=== PATIENT | male | born 1955 | race Caucasian/White ===

== ENCOUNTER 2017-10-27 15:41 | Emergency (ER) | payer OTHER ==
[~2017-10-27] VITALS: Ht 172.7 cm; Wt 97.3 kg
[~2017-10-27 15:41] MED LIST: ACET-1256 PO; ACT15 PO; EFF50 PO; GLC500 PO; HYDC25 PO; LISI-461 PO; MRLP17 PO; RANI300T2 PO; SILD100T PO; SIMV20TA2 PO
[2017-10-27 15:43] VITALS: BP 167/82; PULSE 88; TEMP 36.5; O2SAT 97; Ht 172.7 cm; Wt 97.3 kg
[2017-10-27] MEDS ORDERED: PSEUDOEPHEDRINE HCL 30 MG TAB PO STA (16:01)
[2017-10-27] MEDS ORDERED: SODIUM CHLORIDE 0.65% NA SOLN 45 ML (OCEAN) STA (16:01)
[2017-10-27] MEDS ORDERED: SITA1TAB27 PO (16:17)
[2017-10-27] MEDS ORDERED: GLIP5TAB4 PO (16:17)
[2017-10-27] MEDS ORDERED: OMEP20CA9 PO (16:17)
[2017-10-27] MEDS ORDERED: HYDR25TA5 PO (16:17)
[2017-10-27] MEDS ORDERED: PIOG1TAB23 PO (16:17)
--- NOTE | 2017-10-27 17:06 | EMERGENCY ROOM VISIT NOTE ---
History First contact with patient: 15:48 Chief Complaint: CONGESTION Stated Complaint: NOSE CLOG, DRAINING Nursing Triage Summary: Pt presents with c/o "nose clogged up and drainage into my throat. Maybe it's just a sinus infection. I have an appt tomorrow, but I didn't want to wait. My bones ache and I get a cold chill once in a while." Sx for a couple days. History of Present Illness The patient is a 62 year old male who presents to the Emergency Room with complaints of "nose clogged, draining". The patient states that he has been experiencing nasal congestion for the past few days. He states that it feels as though his nose is clogged. He also notes drainage into his throat. He denies any cough, or congestion in the chest. He denies any fevers, chills, chest pain or shortness of breath. He denies any sore throat. He notes that he is diabetic but has not checked his sugars lately. Review of Systems A complete 6-point Review of Systems was discussed with the patient, with pertinent positives and negatives listed in the History of Present Illness. All remaining Review of Systems questions can be considered negative unless otherwise specified. Past Medical/Surgical History Medical Problems: (1) Diabetes (2) Hypertension Nos Family History No significant family history Social History Smoking Status: Former Smoker Marital Status: Housing Status: lives with significant other Occupation Status: disabled Current/Historical Medications Scheduled Glipizide-Metformin Hcl (Glipizide/Metformin Hcl), 1 TAB PO BID Hydrochlorothiazide (Hydrochlorothiazide), 25 MG PO DAILY Omeprazole (Prilosec), 20 MG PO DAILY Pioglitazone Hcl (Pioglitazone Hcl), 30 MG PO DAILY Polyethylene Glycol (Miralax *), 17 GM PO PRN Ranitidine (Zantac), 300 MG PO HS Sildenafil Citrate (Viagra), 100 MG PO PRN Simvastatin (Zocor), 20 MG PO QPM Sitagliptin (Januvia), 100 MG PO DAILY Miscellaneous Medications Lisinopril (Zestril), 10 MG PO Physical Exam Vital Signs Date Time Temp Pulse Resp B/P (MAP) Pulse Ox O2 Delivery O2 Flow Rate FiO2 10/27/17 15:46 97 Room Air 10/27/17 15:43 36.5 88 18 167/82 97 Room Air Physical Exam VITAL SIGNS - Vital signs and nursing notes were reviewed. Stable. GENERAL -62-year-old male appearing his stated age who is in no acute distress. Communicates well with provider and answers questions appropriately. SKIN - Without rashes. No petechial rashes. HEAD - NC/AT. EYES - PERRL with EOMI bilaterally. Sclera anicteric. EARS - No deformities of external structures noted on gross examination bilaterally. Slight fluid level behind the TMs bilaterally consistent with that of serous otitis/eustachian tube dysfunction. NOSE - Midline and without cyanosis. No epistaxis or purulent drainage noted. It does appear to be congested. MOUTH/OROPHARYNX - Without perioral cyanosis. Buccal mucosa pink and moist and without leukoplakia. Tongue midline with equal elevation of palate bilaterally. No tonsillar hypertrophy, erythema, or exudates noted. Fair dentition noted. NECK - Neck with FROM. Supple to palpation. No lymphadenopathy noted. No nuchal rigidity. LUNGS - Chest wall symmetric without accessory muscle use, intercostals retractions, or central cyanosis. Normal vesicular breath sounds CTA B/L. No wheezes, rales, or rhonchi appreciated. CARDIAC - RRR with S1/S2. No murmur, rubs, or gallops appreciated. Medical Decision & Procedures Medications Administered Medications (Trade) Dose Ordered Sig/Linda Route Start Time Stop Time Status Last Admin Dose Admin Pseudoephedrine HCl (Sudafed Tab) 60 mg NOW STAT PO 10/27/17 16:01 10/27/17 16:03 DC 10/27/17 16:13 60 MG Sodium Chloride ([place] Nasal [place]) 1 sprays NOW STAT NA 10/27/17 16:01 10/27/17 16:03 DC 10/27/17 16:13 1 SPRAYS Medical Decision Patient was seen and evaluated as above. He presents to us today with sinus congestion. He is nontoxic on exam. He was given Sudafed and nasal spray. He is to follow-up with his family doctor. The glucose was checked and was found under 200. He is to follow-up with the family doctor. He is to return with worsening. He was educated upon management, educated upon worrisome symptoms which to return, had questions answered prior to discharge, and was discharged home in good condition. Medications list reviewed. Blood pressure elevated I believe secondary to situation. In the evaluation and treatment of this patient the following differential diagnoses were entertained: Sinusitis, rhinosinusitis, pneumonia, among others. Impression Primary Impression: Nasal sinus congestion Departure Information Dispostion Home / Self-Care Condition GOOD Referrals No Doctor, Assigned (PCP) Patient Instructions My [facility] Additional Instructions You were seen in the emergency department for your sinus congestion. I recommended decongestant like Sudafed. You had your first dose here (around 4pm), and you may use more Sudafed according to the package instructions when you pick it up at the pharmacy of your choice as it is [id number]. Please take your regular medications. Please use a nasal spray twice a day. Please return with any new/concerning symptoms. Please keep your follow-up with your family doctor. The glucose was elevated here today.
--- NOTE | 2017-10-27 17:17 | EMERGENCY ROOM VISIT NOTE ---
ED Visit Note First contact with patient: 15:48 I have personally evaluated and examined this patient. I agree with assessment and plan of King Elizondo PA-C.
== END 2017-10-27 17:15 | disposition home or self-care (01) ==
LOC: C.EDB 15:42 → C.EDD 17:15
DX: R09.81 Nasal congestion (principal); E11.9 Type 2 diabetes mellitus without complications; I10 Essential (primary) hypertension; Z87.891 Personal history of nicotine dependence

== ENCOUNTER 2022-02-25 13:14 | Inpatient (IN) ==
--- NOTE | 2022-02-25 13:24 | Emergency Department Note ---
Impression & Plan Chest pain, Right bundle branch block, Acute hyperglycemia ED Provider Note TimeNAME: ANGELA AYALA AGE: 66 SEX: M : 1955 ARRIVES VIA: Ambulance INFORMANT: Patient, EMS ED PROVIDER(S): Glen Garcia DO CHIEF COMPLAINT: Chest discomfort HPI: The patient is a 66-year-old male who presented to the emergency department for an evaluation of chest discomfort. The patient describes anterior chest burning that he thought was more consistent with reflux. He does have a history of reflux. He was started on an increase of his proton pump inhibitor. He states he has been compliant with his usual outpatient medications. He denies having any fever. He denies having any cough. He has noticed some shortness of breath and sometimes his symptoms worsen with exertion and relieved with rest. He was seen by his primary care physician. He is scheduled for a stress test upcoming. He has had no recent trauma. The patient states that he has been noted that his blood sugars been a low but elevated. He called 911 today be cause the pain returned after eating while he was at rest. He received aspirin and nitroglycerin prior to arrival. He states that this time his discomfort is resolved after the aspirin and nitroglycerin. ROS: See above HPI for pertinent positives & negatives. A total of 10 systems reviewed and were otherwise negative. PAST MEDICAL HISTORY: See Below PAST SURGICAL HISTORY: See Below FAMILY HISTORY: See Below SOCIAL HISTORY: See Below HOME MEDICATIONS: See Below ALLERGIES: See Below VITALS: See Below PHYSICAL EXAMINATION: GENERAL: Patient is awake alert in no acute distress patient is resting comfortably and showing no signs of anxiety EYES: The conjunctivae are clear. The pupils are round and reactive. EARS, NOSE, MOUTH AND THROAT: The nose is without any evidence of any deformity. Mucous membranes are moist. Tongue is midline. NECK: The neck is nontender and supple. RESPIRATORY: Normal respiratory effort is noted there is no evidence of wheezing rhonchi or rales CARDIOVASCULAR: Regular rate and rhythm noted there no murmurs rubs or gallops normal S1 normal S2. GASTROINTESTINAL: The abdomen is soft. Abdomen is nontender. MUSCULOSKELETAL/EXTREMITIES: There is no evidence of gross deformity full range of motion is noted in the hips and shoulders. SKIN: There is no obvious evidence of any rash. There are no petechiae, pallor or cyanosis noted. NEUROLOGIC: Patient is awake alert and oriented x3 MEDICAL DECISION MAKING: The patient is a 66-year-old male who presented to the emergency department for an evaluation of chest discomfort. The patient has been having ongoing chest discomfort. He was noted to have exertional symptoms. He was treated with aspirin and nitroglycerin prior to arrival. On arrival to the emergency department he was feeling much better and remained pain-free while in the emergency department. I discussed the patient's laboratory and radiographic studies with him. I also discussed the limitations of the emergency department work-up for chest pain with him. Ultimately given the patient's risk factors and heart score I feel he may be a better candidate for inpatient management especially given his new changes on his EKG. Initial cardiac biomarker was negative. I discussed the patient's condition with the on-call [facility]. They have agreed to evaluate the patient in the emergency department for further management and disposition. Triage Nursing notes reviewed. Prior medical records reviewed Vital Signs: reviewed and remarkable for no significant abnormalities Differential diagnosis: Cardiac ischemia, aortic dissection, pulmonary embolism, pneumothorax, pneumonia, pericarditis, myocarditis, esophageal rupture, GERD, cholecystitis, pancreatitis, musculoskeletal, as well as other pathologies. ER treatment provided: See below Diagnostics interpreted by me: ECG: EKG was obtained in the emergency department. My interpretation is normal sinus rhythm at 100 bpm. No PVCs were noted. Right bundle branch block pattern was noted with nonspecific ST segment depressions in the inferior and lateral leads. This was compared to a tracing from March 08, 2002. The bundle branch is new compared to the previous tracing. Cardiac Monitoring: An order was placed for continuous cardiac monitoring. The monitor shows a rate of 98 bpm with sinus rhythm. Laboratory studies: As stated above and show below. Imaging studies: See below Consultation(s): I discussed this case with Dr. Whitten who is on-call for the [facility]. Past Med/Surg History Medical History Diabetes High blood pressure Social History Smoking Status: Former smoker Tobacco Type: Cigarettes Preferred Language: German Feels Safe at Home: Yes Allergies Allergies Allergy/AdvReac Type Severity Reaction Status Date / Time No Known Allergies Allergy Intermediate Verified 04/26/19 05:38 Home Meds Home Medications Medication Instructions Recorded Confirmed acetaminophen 300 mg-codeine 30 mg 1 tab PO BID PRN 04/26/19 04/26/19 tablet albuterol sulfate 90 mcg/actuation 2 puff INHALATION Q6H PRN 04/26/19 04/26/19 aerosol inhaler (ProAir HFA) aspirin 81 mg tablet,delayed 81 mg PO DAILY 04/26/19 04/26/19 release (Ecotrin Low Strength) clotrimazole-betamethasone 1 1 applic TOPICAL DAILY 04/26/19 04/26/19 %-0.05 % topical cream (Lotrisone) fluticasone propionate 50 2 spray INTRANASAL DAILY 04/26/19 04/26/19 mcg/actuation nasal spray,suspension (Flonase Allergy Relief) glipizide 5 mg-metformin 500 mg 1 tab PO BID 04/26/19 04/26/19 tablet hydrochlorothiazide 25 mg tablet 25 mg PO DAILY 04/26/19 04/26/19 lisinopril 10 mg tablet 10 mg PO DAILY 04/26/19 04/26/19 omeprazole 20 mg capsule,delayed 20 mg PO DAILY 04/26/19 04/26/19 release pioglitazone 30 mg tablet (Actos) 30 mg PO DAILY 04/26/19 04/26/19 polyethylene glycol 3350 17 17 g PO DAILY 04/26/19 04/26/19 gram/dose oral powder (Miralax) ranitidine HCl 300 mg tablet 150 - 300 mg PO DAILY 04/26/19 04/26/19 (Zantac) rosuvastatin 10 mg tablet 10 mg PO DAILY 04/26/19 04/26/19 sitagliptin 100 mg tablet (Januvia) 100 mg PO DAILY 04/26/19 04/26/19 Results & Data (ED) Vital Signs Vital Signs - 24 hr 02/25/22 13:15 02/25/22 13:20 02/25/22 15:05 Temperature 36.8 C Temperature Source Oral Pulse Rate 102 H Pulse Rate [Apical] 102 H 98 H Respiratory Rate 20 18 Respiratory Effort / Characteristics Non-Labored Spontaneous Non-Labored Spontaneous Respiratory Depth Normal Normal Respiratory Pattern Regular Regular Blood Pressure 121/79 Blood Pressure [Right Arm] 121/79 128/78 Blood Pressure Mean 93 Blood Pressure Mean [Right Arm] 93 94 Blood Pressure Position Sitting Blood Pressure Position [Right Arm] Sitting Sitting Pulse Oximetry 95 95 96 Oxygen Delivery Method Room Air Room Air Room Air Oxygen Flow Rate 98 Sepsis Recent Fever Within 48 Hours No Sepsis New/Unexplained Change in Mental Status N/A Sepsis Action Taken by Nursing No Action Required Home Medications Current Medication List: was personally reviewed by me Laboratory Data Attestation: I reviewed the patient's lab results. Result diagrams: 02/25/22 13:25 02/25/22 13:25 Lab Results 02/25/22 02/25/22 02/25/22 Range/Units 13:25 13:25 13:25 WBC 6.82 (4.8-10.8) K/uL RBC 4.94 (4.7-6.1) M/uL Hgb 15.2 (14.0-18.0) g/dL Hct 43.5 (42-52) % MCV 88.1 (80-100) fL MCH 30.8 (25-34) pg MCHC 34.9 (32-36) g/dL RDW Std Deviation 45.9 (36.4-46.3) fL RDW Coeff of Tati 14.1 (11.5-14.5) % Plt Count 137 (130-400) K/uL MPV 11.4 H (7.4-10.4) fL Immature Gran % (Auto) 0.3 % Neut % (Auto) 86.0 % Lymph % (Auto) 8.7 % [place] % (Auto) 4.3 % Eos % (Auto) 0.4 % Baso % (Auto) 0.3 % Neut # (Auto) 5.87 (1.4-6.5) K/uL Lymph # (Auto) 0.59 L (1.2-3.4) K/uL [place] # (Auto) 0.29 (0.11-0.59) K/uL Eos # (Auto) 0.03 (0-0.5) K/uL Baso # (Auto) 0.02 (0-0.2) K/uL Immature Gran # (Auto) 0.02 (0.00-0.02) K/uL PT 10.8 (9.0-12.0) Seconds INR 1.0 (0.9-1.1) APTT 26.0 (21.0-31.0) Seconds PTT Ratio 0.9 Sodium 134 L (136-145) mmol/L Potassium 3.9 (3.5-5.1) mmol/L Chloride 99 (98-107) mmol/L Carbon Dioxide 25 (21-32) mmol/L Anion Gap 10 (3-11) BUN 23 (6-23) mg/dl Creatinine 0.99 (0.6-1.4) mg/dl Est Cr Clr Drug Dosing 76.9 ml/min Est GFR ( Amer) 91.6 ml/min Est GFR (Non-Af Amer) 79.0 ml/min BUN/Creatinine Ratio 23.2 H (10-20) Glucose 327 H* (70-99(Fasting)) mg/dl Calcium 9.4 (8.5-10.1) mg/dl Total Bilirubin 1.1 H (0.2-1.0) mg/dl AST 17 (13-39) U/L ALT 17 (7-52) U/L Alkaline Phosphatase 87 (34-104) U/L Troponin I High Sens 14.7 (0-20) pg/ml Total Protein 7.4 (6.0-8.3) gm/dl Albumin 4.3 (3.4-5.0) gm/dl Globulin 3.1 (2.5-4.0) gm/dl Albumin/Globulin Ratio 1.4 (0.9-2) Lipase 42 (11-82) U/L SARS-CoV-2, RNA, NAAT (NEGATIVE) 02/25/22 Range/Units 13:25 WBC (4.8-10.8) K/uL RBC (4.7-6.1) M/uL Hgb (14.0-18.0) g/dL Hct (42-52) % MCV (80-100) fL MCH (25-34) pg MCHC (32-36) g/dL RDW Std Deviation (36.4-46.3) fL RDW Coeff of Tati (11.5-14.5) % Plt Count (130-400) K/uL MPV (7.4-10.4) fL Immature Gran % (Auto) % Neut % (Auto) % Lymph % (Auto) % [place] % (Auto) % Eos % (Auto) % Baso % (Auto) % Neut # (Auto) (1.4-6.5) K/uL Lymph # (Auto) (1.2-3.4) K/uL [place] # (Auto) (0.11-0.59) K/uL Eos # (Auto) (0-0.5) K/uL Baso # (Auto) (0-0.2) K/uL Immature Gran # (Auto) (0.00-0.02) K/uL PT (9.0-12.0) Seconds INR (0.9-1.1) APTT (21.0-31.0) Seconds PTT Ratio Sodium (136-145) mmol/L Potassium (3.5-5.1) mmol/L Chloride (98-107) mmol/L Carbon Dioxide (21-32) mmol/L Anion Gap (3-11) BUN (6-23) mg/dl Creatinine (0.6-1.4) mg/dl Est Cr Clr Drug Dosing ml/min Est GFR ( Amer) ml/min Est GFR (Non-Af Amer) ml/min BUN/Creatinine Ratio (10-20) Glucose (70-99(Fasting)) mg/dl Calcium (8.5-10.1) mg/dl Total Bilirubin (0.2-1.0) mg/dl AST (13-39) U/L ALT (7-52) U/L Alkaline Phosphatase (34-104) U/L Troponin I High Sens (0-20) pg/ml Total Protein (6.0-8.3) gm/dl Albumin (3.4-5.0) gm/dl Globulin (2.5-4.0) gm/dl Albumin/Globulin Ratio (0.9-2) Lipase (11-82) U/L SARS-CoV-2, RNA, NAAT NEGATIVE (NEGATIVE) Administered Medications Discontinued Medications Sodium Chloride (Nss) 500 mls @ 999 mls/hr IV .Q31M ONE Stop: 02/25/22 15:08 Last Infusion: 02/25/22 15:26 Dose: 0 mls/hr Documented by: [id number] Admin: 02/25/22 14:52 Dose: 999 mls/hr Documented by: [id number] Insulin Human Regular (Novolin-R Insulin Per Unit Charge) 5 units IV NOW STA Stop: 02/25/22 14:38 Last Admin: 02/25/22 14:52 Dose: 5 units Documented by: [id number] Cosigned by: [id number] Imaging Data Radiologist's Impression: Chest X-Ray 02/25/22 13:20 XR chest 1V portable CLINICAL HISTORY: Chest Pain. COMPARISON STUDY: No previous studies for comparison. TECHNIQUE: 1 view of the chest FINDINGS: Single frontal view of the chest demonstrates the cardiomediastinal silhouette to be within normal limits. There is a decreased inspiratory effort with elevation of the hemidiaphragms and crowding of the bronchovascular markings at the lung bases and centrally. The lungs are clear of alveolar opacities. There is no evidence for pleural effusion. There is no evidence for vascular congestion. There is no acute osseous pathology. IMPRESSION: 1. There is a decreased inspiratory effort with otherwise no acute chest disease. ACT 112: Negative or not required by law. Electronically signed by: Christopher Mcgee M.D. 02/25/2022 2:18 PM Discharge Plan Visit Data Chief Complaint: Chest Pain ED Provider: Glen Garcia Prescriptions Prescriptions: No Action glipizide-metformin 5-500 mg Tablet 1 tab PO BID RF: 0 acetaminophen-codeine 300-30 mg Tablet 1 tab PO BID PRN (Reason: Pain) RF: 0 lisinopril 10 mg Tablet 10 mg PO DAILY RF: 0 clotrimazole-betamethasone [Lotrisone] 1-0.05 % Cream 1 applic TOPICAL DAILY RF: 0 polyethylene glycol 3350 [Miralax] 17 gram/dose Powder 17 g PO DAILY RF: 0 hydrochlorothiazide 25 mg Tablet 25 mg PO DAILY RF: 0 pioglitazone [Actos] 30 mg Tablet 30 mg PO DAILY RF: 0 ranitidine HCl [Zantac] 300 mg Tablet 150 - 300 mg PO DAILY RF: 0 omeprazole 20 mg Capsule,Delayed Release(Dr/Ec) 20 mg PO DAILY RF: 0 Januvia 100 mg Tablet 100 mg PO DAILY RF: 0 rosuvastatin 10 mg Tablet 10 mg PO DAILY RF: 0 fluticasone propionate [Flonase Allergy Relief] 50 mcg/actuation [place],Suspension 2 spray INTRANASAL DAILY RF: 0 aspirin [Ecotrin Low Strength] 81 mg Tablet,Delayed Release (Dr/Ec) 81 mg PO DAILY RF: 0 albuterol sulfate [ProAir HFA] 90 mcg/actuation Hfa Aerosol Inhaler 2 puff INHALATION Q6H PRN (Reason: Wheezing) RF: 0
[2022-02-25 13:41] LABS: Hematocrit (blood only) 43.5 % (42-52); Hemoglobin 15.2 g/dL (14.0-18.0); Mean Corpuscular Hemoglobin 30.8 pg (25-34); Mean Corpuscular Hgb Conc 34.9 g/dL (32-36); Mean Corpuscular Volume 88.1 fL (80-100); Mean Platelet Volume 11.4 fL (7.4-10.4); Platelet Count 137 K/uL (130-400); RDW Coefficient of Variation 14.1 % (11.5-14.5); RDW Standard Deviation 45.9 fL (36.4-46.3); Red Blood Count 4.94 M/uL (4.7-6.1); White Blood Count 6.82 K/uL (4.8-10.8)
[2022-02-25 13:51] LABS: Partial Thromboplastin Ratio 0.9; Prothrombin Time 10.8 Seconds (9.0-12.0)
--- NOTE | 2022-02-25 14:20 | XRay Report ---
XR chest 1V portable CLINICAL HISTORY: Chest Pain. COMPARISON STUDY: No previous studies for comparison. TECHNIQUE: 1 view of the chest FINDINGS: Single frontal view of the chest demonstrates the cardiomediastinal silhouette to be within normal li mits. There is a decreased inspiratory effort with elevation of the hemidiaphragms and crowding of th e bronchovascular markings at the lung bases and centrally. The lungs are clear of alveolar opacities . There is no evidence for pleural effusion. There is no evidence for vascular congestion. There is n o acute osseous pathology. IMPRESSION: 1. There is a decreased inspiratory effort with otherwise no acute chest disease. ACT 112: Negative or not required by law. Electronically signed by: Christopher Mcgee M.D. 02/25/2022 2:18 PM
[2022-02-25 14:21] LABS: Basophils # (auto) 0.02 K/uL (0-0.2); Basophils % (auto) 0.3 %; Eosinophils # (auto) 0.03 K/uL (0-0.5); Eosinophils % (auto) 0.4 %; Immature Granulocytes # (auto) 0.02 K/uL (0.00-0.02); Immature Granulocytes % (auto) 0.3 %; Lymphocytes # (auto) 0.59 K/uL (1.2-3.4); Lymphocytes % (auto) 8.7 %; Monocytes # (auto) 0.29 K/uL (0.11-0.59); Monocytes % (auto) 4.3 %; Neutrophils # (auto) 5.87 K/uL (1.4-6.5)
[2022-02-25 14:33] LABS: Albumin Globulin Ratio 1.4 (0.9-2); Albumin Level 4.3 gm/dl (3.4-5.0); BUN Creatinine Ratio 23.2 (10-20); Bilirubin,Total 1.1 mg/dl (0.2-1.0); Calcium 9.4 mg/dl (8.5-10.1); Creatinine Clr Calc Pharmacy 76.9 ml/min; Est GFR (African American) 91.6 ml/min; Globulin 3.1 gm/dl (2.5-4.0); Potassium 3.9 mmol/L (3.5-5.1); Total Protein 7.4 gm/dl (6.0-8.3); Troponin I High Sensitivity 14.7 pg/ml (0-20)
[2022-02-25] MEDS ORDERED: NovoLIN-R INSULIN PER UNIT CHARGE IV STA (14:37)
[2022-02-25] MEDS ORDERED: SODIUM CHLORIDE 0.9% 500 ML IV ONE (14:38)
--- NOTE | 2022-02-25 15:55 | History & Physical Report ---
Date of Service February 25, 2022 Assessment & Plan (1) Chest pain: Plan: With atypical chest pain described as a burning sensation associated with eating. There may be some exertional component that has been having prehospital and was slated to have a outpatient stress test later this week. Patient presents with resolution of symptoms after being given aspirin and nitroglycerin prehospital. Initial high-sensitivity troponin is not elevated. EKG does have some conducting system changes which are different from an EKG from 20 years ago. Patient will have an additional high-sensitivity troponin here in the emergency department and once again in the morning. He will likely have a stress echocardiogram. The patient states he feels he can walk adequately. This may be reflux related the patient will be placed on Protonix twice a day and Pepcid twice a day with a GI cocktail as needed if symptoms recur She continues on aspirin daily plus rosuvastatin (2) Diabetes: Plan: She typically takes multiple oral medications to control his diabetes including glipizide metformin Actos and Januvia. Patient will be on sliding scale insulin plus Januvia. He will have a dose of Lantus this evening. He will be on diabetic diet. (3) Hypertension: Plan: Continues on lisinopril which is also secondary renal protective effect for his diabetes (4) GERD (gastroesophageal reflux disease): Plan: PPI plus H2 osmani Plan: Heparin for DVT prevention History of Present Illness Primary Care Provider: Fan Holman 66-year-old male who presented with chest discomfort. The patient describes anterior chest burning that he thought was more consistent with reflux. He does have a history of reflux. He recently had an increase in his proton pump inhibitor. He states he has been compliant with his medications. He called 911 because the pain returned after eating while he was at rest. He received aspirin and nitroglycerin prior to arrival. He states that this time his discomfort is resolved after the aspirin and nitroglycerin. IN the ER his high sesnsitivity troponin is not elevated but ECG shows chages or RBBB and non specific t wave changes, with only comparison of 2001. He is a diabetic hypertensive patient and glucoses are elevated. Pt was scheduled to have out pt stress test due to exertional symptoms, but cannot adequately define the duration of exertion to re create sx Pt has had 3 covid vaccinations Er covid negative Allergies Allergy/AdvReac Type Severity Reaction Status Date / Time No Known Allergies Allergy Intermediate Verified 04/26/19 05:38 Home Medications Medication Instructions Recorded Confirmed Type acetaminophen 300 mg-codeine 30 mg 1 tab PO BID PRN 04/26/19 04/26/19 History tablet albuterol sulfate 90 mcg/actuation 2 puff INHALATION Q6H PRN 04/26/19 04/26/19 History aerosol inhaler (ProAir HFA) aspirin 81 mg tablet,delayed 81 mg PO DAILY 04/26/19 04/26/19 History release (Ecotrin Low Strength) clotrimazole-betamethasone 1 1 applic TOPICAL DAILY 04/26/19 04/26/19 History %-0.05 % topical cream (Lotrisone) fluticasone propionate 50 2 spray INTRANASAL DAILY 04/26/19 04/26/19 History mcg/actuation nasal spray,suspension (Flonase Allergy Relief) glipizide 5 mg-metformin 500 mg 1 tab PO BID 04/26/19 04/26/19 History tablet hydrochlorothiazide 25 mg tablet 25 mg PO DAILY 04/26/19 04/26/19 History lisinopril 10 mg tablet 10 mg PO DAILY 04/26/19 04/26/19 History omeprazole 20 mg capsule,delayed 20 mg PO DAILY 04/26/19 04/26/19 History release pioglitazone 30 mg tablet (Actos) 30 mg PO DAILY 04/26/19 04/26/19 History polyethylene glycol 3350 17 17 g PO DAILY 04/26/19 04/26/19 History gram/dose oral powder (Miralax) ranitidine HCl 300 mg tablet 150 - 300 mg PO DAILY 04/26/19 04/26/19 History (Zantac) rosuvastatin 10 mg tablet 10 mg PO DAILY 04/26/19 04/26/19 History sitagliptin 100 mg tablet (Januvia) 100 mg PO DAILY 04/26/19 04/26/19 History Past Med/Surg History Medical History (Updated 02/25/22 @ 15:53 by Issa Whitten MD) Diabetes High blood pressure Social History Smoking Status: Former smoker Tobacco Type: Cigarettes Preferred Language: Belarusian Feels Safe at Home: Yes Review of Systems Review of Systems: no current distress and fatigue no headache, no visual changes no speech or swallowing issues difficult to define chest pain, no pressure but having sensation of palpitations no shortness of breath at rest but may have garcia, cough or wheezes no abdominal pain, nausea or vomiting, diarrhea or constipation no dysuria, hematuria or frequency no focal joint pain or swelling no back pain, CVA tenderness or radicular pain no bruising, bleeding or rashes no focal signs of weakness or numbness or altered sensation no complaints of anxiety or depression.. Physical Exam Physical Exam: The patient appeared well nourished and normally developed. Vital signs as documented. Head exam is normocephalic atraumatic Neck is without JVD, thyromegaly, or carotid bruits. Lungs are clear to auscultation, no focal loss of breath sounds Cardiac exam, Rhythm is regular.. No murmurs, rubs or gallops. Abdominal exam reveals normal bowel sounds, soft non tender, no masses Extremities are nonedematous and both pedal pulses are present Neurologic exam is alert and oriented, no focal loss of strength or sensation Skin is without bruises or rashes Psychologically is without concerns for anxiety or depression.. Results & Data Results & Data ([facility]) Vital Signs (Past 12 Hours) Vital Signs Temp Pulse Pulse Resp BP BP Pulse Ox 02/25/22 15:05 98 H 18 128/78 96 02/25/22 13:20 95 02/25/22 13:15 98.2 F 102 H 102 H 20 121/79 121/79 95 Diagnostic Findings Chest X-Ray 02/25/22 13:20 XR chest 1V portable CLINICAL HISTORY: Chest Pain. COMPARISON STUDY: No previous studies for comparison. TECHNIQUE: 1 view of the chest FINDINGS: Single frontal view of the chest demonstrates the cardiomediastinal silhouette to be within normal limits. There is a decreased inspiratory effort with elevation of the hemidiaphragms and crowding of the bronchovascular markings at the lung bases and centrally. The lungs are clear of alveolar opacities. There is no evidence for pleural effusion. There is no evidence for vascular congestion. There is no acute osseous pathology. IMPRESSION: 1. There is a decreased inspiratory effort with otherwise no acute chest disease. Electronically signed by: Christopher Mcgee M.D. 02/25/2022 2:18 PM ECG Additional Comments: nsr RBBB with non specific st changes Code Status & VTE Plan VTE Prophylaxis Plan VTE Prophylaxis will be ordered: Yes PG Care Time/CCT Total # of Minutes Spent Total Time Spent with Patient: Total time spent is greater than 50% in coordination of care (as documented) at patient's floor/unit and/or counseling patient: Coding Level of Care Code INT OBSERVATION CARE 50M LVL 2 Diagnoses Chest pain R07.9 Diabetes E11.9 Hypertension I10 GERD (gastroesophageal reflux disease) K21.9
[2022-02-25] MEDS ORDERED: GLUCAGON FOR INJ 1 MG VIAL SQ PRN (16:52)
[2022-02-25] MEDS ORDERED: CARBOHYDRATES FOR HYPOGLYCEMIA PO PRN (16:52)
[2022-02-25] MEDS ORDERED: ONDANSETRON INJ 2 MG/ML 2 ML VIAL IV PRN (16:52)
[2022-02-25] MEDS ORDERED: DEXTROSE 50% 50 ML SYRINGE IV PRN (16:52)
[2022-02-25] MEDS ORDERED: MoRPHine SULFATE 2 MG/ML CARP IV PRN (16:52)
[2022-02-25] MEDS ORDERED: GLUCOSE 10 TABS/TUBE PO PRN (16:52)
[2022-02-25] MEDS ORDERED: NITROGLYCERIN SL 0.4 MG/TAB TAB SL PRN (16:52)
[2022-02-25] MEDS ORDERED: GLUCOSE 40% GEL 15 GM TUBE PO PRN (16:52)
[2022-02-25] MEDS ORDERED: ALUMINUM/MAGNESIUM SUSP 72 ML, LIDOCAINE VISCOUS 2% SOLN 24 ML, BARCODE IDENTIFIER 1 EA PO PRN (16:52)
[2022-02-25] MEDS ORDERED: ALUMINUM/MAGNESIUM SUSP 30 ML UDC PO PRN (16:52)
[2022-02-25] MEDS ORDERED: ACETAMINOPHEN 325 MG TAB PO PRN (16:52)
[2022-02-25] MEDS ORDERED: HEPARIN SOD (PORCINE) 1000 UNIT/ML IV ONE (18:48)
[2022-02-25] MEDS ORDERED: Heparin IV Adult Wt-Based Standard WITH Bolus Protocol IV SCH (19:05)
[2022-02-25] MEDS: INSULIN ASPART PER UNIT SC SCH ×2 (19:49→20:36)
[2022-02-25] MEDS: HEPARIN SODIUM/DEXTROSE 25,000 UNITS/500 ML BAG IV SCH (20:56)
[2022-02-25] MEDS: FAMOTIDINE 20 MG in SYRINGE 3 ML IV SCH (20:57)
[2022-02-25] MEDS: INSULIN GLARGINE SOLOSTAR 100 UNITS/ML 3 ML PEN SC SCH ×2 (20:57→21:17)
[2022-02-25] MEDS: PANTOprazole 40 MG TAB PO SCH (20:57)
[2022-02-25] MEDS ORDERED: HEPARIN IV BOLUS 6,000 UNITS in SYRINGE 0 ML IV ONE (21:00)
[2022-02-25] MEDS ORDERED: HEPARIN SOD 5,000 UNIT/0.5 ML VIAL SQ SCH (21:00)
[2022-02-26 03:28] LABS: Hematocrit (blood only) 40.7 % (42-52); Mean Corpuscular Hemoglobin 29.9 pg (25-34); Mean Corpuscular Hgb Conc 34.4 g/dL (32-36); Mean Platelet Volume 10.9 fL (7.4-10.4); Platelet Count 120 K/uL (130-400); RDW Coefficient of Variation 14.4 % (11.5-14.5); RDW Standard Deviation 45.3 fL (36.4-46.3); Red Blood Count 4.68 M/uL (4.7-6.1); White Blood Count 5.96 K/uL (4.8-10.8)
[2022-02-26 03:53] LABS: Partial Thromboplastin Ratio 4.7; Troponin I High Sensitivity 11264.7 pg/ml (0-20)
[2022-02-26 03:55] LABS: Partial Thromboplastin Time 129.6 Seconds (21.0-31.0)
[2022-02-26 04:08] LABS: Calcium 8.9 mg/dl (8.5-10.1); Creatinine Clr Calc Pharmacy 77.3 ml/min; Est GFR (African American) 101.4 ml/min; Est GFR (Non-African American) 87.5 ml/min; Magnesium 1.8 mg/dl (1.7-2.4); Potassium 3.3 mmol/L (3.5-5.1)
[2022-02-26] MEDS: HEPARIN SODIUM/DEXTROSE 25,000 UNITS/500 ML BAG IV SCH (06:58)
[2022-02-26] MEDS ORDERED: POTASSIUM CHLORIDE CRTAB 20 MEQ TABCR PO STA (07:24)
[2022-02-26 08:04] LABS: Estimated Average Glucose 169 mg/dl; Hemoglobin A1C 7.5 % (4.5-5.6)
[2022-02-26] MEDS: FAMOTIDINE 20 MG in SYRINGE 3 ML IV SCH (08:19)
[2022-02-26] MEDS: INSULIN ASPART PER UNIT SC SCH ×2 (08:20→11:48)
[2022-02-26] MEDS: PANTOprazole 40 MG TAB PO SCH (08:21)
--- NOTE | 2022-02-26 08:27 | Medical Student Progress Note ---
Date of Service February 26, 2022 Assessment & Plan (1) ACS (acute coronary syndrome): Plan: Patient is a 66-year-old man with a history of GERD, HTN, T2DM, and dyspnea on exertion who presented to the ED with several hours of a midsternal, non- radiating, burning sensation that was not relieved with antacids. New EKG changes and an elevated troponin supported a diagnosis of acute coronary syndrome. During his cath procedure, he was found to have extensive multi-vessel disease; unfortunately he decompensated at the end of this procedure and required an aortic balloon pump. He was subsequently stabilized and transferred to another institution for recommended CABG. Acute Coronary syndrome: - Patient presented to the ED with chest pain and elevated troponin (1231.7), that subsequently jessi to 11,264.7 the following morning - Admission EKG: NSR, RBBB, nonspecific T wave changes, Inferior infarct, Comparison to 2001 EKG - Cath findings: - acute 100% early-mid circumflex occlusion-- s/p angioplasty - 95% early-mid LAD, 90% late-mid LAD; Bifurcating D1 with 80% ostial stenosis - 90% proximal RCA, 60% distal, 70% proximal RPDA - At the end of the procedure, patient decompensated and was found to have an acute inferior infarct on EKG. An aortic balloon pump was inserted and patient was transferred to another institution for CABG. - continue aspirin, rosuvastatin - continue Heparin drip - continue Nitroglycerin, Morphine PRN GERD: - Pt has longstanding history of GERD - continue protonix BID and Pepcid BID once stable HTN: - BP was stable on admission (110/69) - continue Lisinopril and HCTZ Type 2 Diabetes Mellitus: - continue diabetic diet - A1C 7.5% on 02/26 - Continue Januvia and sliding scale insulin Hypokalemia: - found to be 3.3 on 02/26-- repleted Code: Full DVT ppx: Heparin Diet: NPO Dispo: transfer (2) GERD (gastroesophageal reflux disease): (3) Hypertension: (4) Diabetes: (5) Hypokalemia: Admission and Anticipated Discharge Date Admission Date: February 25, 2022 Supervising Attestation pt was seen in concert with the student, he was intubated and sedated. family is at bedside, pt is on balloon pump and will be transferred to [facility] for Cabg evaluation. Subjective Patient is a 66-year-old man with a history of GERD, HTN, T2DM, and dyspnea on exertion who presented to the ED with several hours of a midsternal, non- radiating, burning sensation that was not relieved with antacids. Overnight, no acute events, though patient did not sleep well. This morning, patient is resting comfortably in bed, though states he is tired from lack of sleep, hungry, and thirsty. He has no burning sensation, chest pain or discomfort this morning. He denies headache, abdominal pain, and nausea/vomiting. He shared that he has a history of dyspnea on exertion that is typically relieved with rest. He was initially scheduled for a stress echo this week. Patient stated his bowels were "green" on the day he presented to the ED and this was the only recent change in bowels he has had. In the late morning, patient went for a cath procedure and was found to have extensive three-vessel disease, requiring CABG. He decompensated at the end of the procedure and had an aortic balloon pump inserted. He was transferred to another institution for CABG. Review of Systems Constitutional: as per Subjective / HPI; no fever and no chills tired, hungry, thirsty Ear, Nose, Mouth, Throat: no dizziness and no dysphagia Respiratory: as per Subjective / HPI; no cough and no dyspnea Cardiovascular: as per Subjective / HPI; no chest pain and no radiating jaw, neck or arm pain Gastrointestinal: as per Subjective / HPI; no abdominal pain, no heartburn, no nausea and no vomiting Musculoskeletal: + back pain history of chronic back pain Neurologic: as per Subjective / HPI Physical Exam Constitutional: well developed and well nourished; no acute distress Eyes: PERRL, conjunctivae normal, anicteric sclerae ENMT: external ear and nose normal, oropharynx normal Mouth: + poor dentition Neck: trachea midline, no thyromegaly Respiratory: normal respiratory effort, lungs clear to auscultation symmetric chest movement Cardiovascular: RRR, no murmur, no edema Heart Sounds: normal S1 and normal S2 Vessels: no JVD and no carotid bruit Extremities: normal capillary refill; no calf tenderness and no pedal edema pulses 3+ upper and lower extremities b/l Gastrointestinal (Abdomen): normal bowel sounds, soft, nontender, no hepatosplenomegaly Musculoskeletal: no cyanosis or clubbing, extremities motor strength 5/5 Skin: no rashes, warm and dry back pain elicited when patient sat up for respiratory exam; chronic back pain known Neurologic: PERRL, EOMI, accommodation nl, no face palsy, no dysarthria Psychiatric: A+Ox3, euthymic affect patiently mildly irritated Lymphatic: no cervical or axillary lymphadenopathy Results & Data ([facility]) Vital Signs (Past 12 Hours) Vital Signs Temp Pulse Pulse Resp BP Pulse Ox 02/26/22 08:04 36.4 C L 75 19 130/77 97 02/26/22 04:33 36.5 C 72 19 112/71 97 02/26/22 00:00 101 H 02/25/22 23:34 36.4 C L 76 19 110/69 97 Laboratory Results Laboratory Results WBC 5.96 K/uL (4.8-10.8) 02/26/22 03:05 RBC 4.68 M/uL (4.7-6.1) L 02/26/22 03:05 Hgb 14.0 g/dL (14.0-18.0) 02/26/22 03:05 Hct 40.7 % (42-52) L 02/26/22 03:05 MCV 87.0 fL (80-100) 02/26/22 03:05 MCH 29.9 pg (25-34) 02/26/22 03:05 MCHC 34.4 g/dL (32-36) 02/26/22 03:05 RDW Std Deviation 45.3 fL (36.4-46.3) 02/26/22 03:05 RDW Coeff of Tati 14.4 % (11.5-14.5) 02/26/22 03:05 Plt Count 120 K/uL (130-400) L 02/26/22 03:05 MPV 10.9 fL (7.4-10.4) H 02/26/22 03:05 Immature Gran % (Auto) 0.3 % 02/25/22 13:25 Neut % (Auto) 86.0 % 02/25/22 13:25 Lymph % (Auto) 8.7 % 02/25/22 13:25 [place] % (Auto) 4.3 % 02/25/22 13:25 Eos % (Auto) 0.4 % 02/25/22 13:25 Baso % (Auto) 0.3 % 02/25/22 13:25 Neut # (Auto) 5.87 K/uL (1.4-6.5) 02/25/22 13:25 Lymph # (Auto) 0.59 K/uL (1.2-3.4) L 02/25/22 13:25 [place] # (Auto) 0.29 K/uL (0.11-0.59) 02/25/22 13:25 Eos # (Auto) 0.03 K/uL (0-0.5) 02/25/22 13:25 Baso # (Auto) 0.02 K/uL (0-0.2) 02/25/22 13:25 Immature Gran # (Auto) 0.02 K/uL (0.00-0.02) 02/25/22 13:25 PT 10.8 Seconds (9.0-12.0) 02/25/22 13:25 INR 1.0 (0.9-1.1) 02/25/22 13:25 APTT 129.6 Seconds (21.0-31.0) H* 02/26/22 03:05 PTT Ratio 4.7 02/26/22 03:05 Sodium 135 mmol/L (136-145) L 02/26/22 03:05 Potassium 3.3 mmol/L (3.5-5.1) L 02/26/22 03:05 Chloride 103 mmol/L (98-107) 02/26/22 03:05 Carbon Dioxide 25 mmol/L (21-32) 02/26/22 03:05 Anion Gap 7 (3-11) 02/26/22 03:05 BUN 20 mg/dl (6-23) 02/26/22 03:05 Creatinine 0.91 mg/dl (0.6-1.4) 02/26/22 03:05 Est Cr Clr Drug Dosing 77.3 ml/min 02/26/22 03:05 Est GFR ( Amer) 101.4 ml/min 02/26/22 03:05 Est GFR (Non-Af Amer) 87.5 ml/min 02/26/22 03:05 BUN/Creatinine Ratio 22.0 (10-20) H 02/26/22 03:05 Glucose 112 mg/dl (70-99(Fasting)) H 02/26/22 03:05 POC Glucose 138 mg/dl (70-99) H 02/26/22 07:18 Estimat Average Glucose 169 mg/dl 02/26/22 03:05 Hemoglobin A1c 7.5 % (4.5-5.6) H 02/26/22 03:05 Calcium 8.9 mg/dl (8.5-10.1) 02/26/22 03:05 Magnesium 1.8 mg/dl (1.7-2.4) 02/26/22 03:05 Total Bilirubin 1.1 mg/dl (0.2-1.0) H 02/25/22 13:25 AST 17 U/L (13-39) 02/25/22 13:25 ALT 17 U/L (7-52) 02/25/22 13:25 Alkaline Phosphatase 87 U/L (34-104) 02/25/22 13:25 Troponin I High Sens 63835.7 pg/ml (0-20) H* D 02/26/22 03:05 Total Protein 7.4 gm/dl (6.0-8.3) 02/25/22 13:25 Albumin 4.3 gm/dl (3.4-5.0) 02/25/22 13:25 Globulin 3.1 gm/dl (2.5-4.0) 02/25/22 13:25 Albumin/Globulin Ratio 1.4 (0.9-2) 02/25/22 13:25 Lipase 42 U/L (11-82) 02/25/22 13:25 SARS-CoV-2, RNA, NAAT NEGATIVE (NEGATIVE) 02/25/22 13:25 Impressions Chest X-Ray 02/25/22 13:20 XR chest 1V portable CLINICAL HISTORY: Chest Pain. COMPARISON STUDY: No previous studies for comparison. TECHNIQUE: 1 view of the chest FINDINGS: Single frontal view of the chest demonstrates the cardiomediastinal silhouette to be within normal limits. There is a decreased inspiratory effort with elevation of the hemidiaphragms and crowding of the bronchovascular markings at the lung bases and centrally. The lungs are clear of alveolar opacities. There is no evidence for pleural effusion. There is no evidence for vascular congestion. There is no acute osseous pathology. IMPRESSION: 1. There is a decreased inspiratory effort with otherwise no acute chest disease. ACT 112: Negative or not required by law. Electronically signed by: Christopher Mcgee M.D. 02/25/2022 2:18 PM Laboratory Results - last 24 hr 02/25/22 02/25/22 02/25/22 13:25 13:25 13:25 WBC RBC Hgb Hct MCV MCH MCHC RDW Std Deviation RDW Coeff of Tati Plt Count MPV Immature Gran % (Auto) 0.3 Neut % (Auto) 86.0 Lymph % (Auto) 8.7 [place] % (Auto) 4.3 Eos % (Auto) 0.4 Baso % (Auto) 0.3 Neut # (Auto) 5.87 Lymph # (Auto) 0.59 L [place] # (Auto) 0.29 Eos # (Auto) 0.03 Baso # (Auto) 0.02 Immature Gran # (Auto) 0.02 PT 10.8 INR 1.0 APTT 26.0 PTT Ratio 0.9 Sodium 134 L Potassium 3.9 Chloride 99 Carbon Dioxide 25 Anion Gap 10 BUN 23 Creatinine 0.99 Est Cr Clr Drug Dosing 76.9 Est GFR ( Amer) 91.6 Est GFR (Non-Af Amer) 79.0 BUN/Creatinine Ratio 23.2 H Glucose 327 H* POC Glucose Estimat Average Glucose Hemoglobin A1c Calcium 9.4 Magnesium Total Bilirubin 1.1 H AST 17 ALT 17 Alkaline Phosphatase 87 Troponin I High Sens 14.7 Total Protein 7.4 Albumin 4.3 Globulin 3.1 Albumin/Globulin Ratio 1.4 Lipase 42 SARS-CoV-2, RNA, NAAT 02/25/22 02/25/22 02/25/22 13:25 17:24 18:27 WBC RBC Hgb Hct MCV MCH MCHC RDW Std Deviation RDW Coeff of Tati Plt Count MPV Immature Gran % (Auto) Neut % (Auto) Lymph % (Auto) [place] % (Auto) Eos % (Auto) Baso % (Auto) Neut # (Auto) Lymph # (Auto) [place] # (Auto) Eos # (Auto) Baso # (Auto) Immature Gran # (Auto) PT INR APTT PTT Ratio Sodium Potassium Chloride Carbon Dioxide Anion Gap BUN Creatinine Est Cr Clr Drug Dosing Est GFR ( Amer) Est GFR (Non-Af Amer) BUN/Creatinine Ratio Glucose POC Glucose 98 Estimat Average Glucose Hemoglobin A1c Calcium Magnesium Total Bilirubin AST ALT Alkaline Phosphatase Troponin I High Sens 1231.7 H* D Total Protein Albumin Globulin Albumin/Globulin Ratio Lipase SARS-CoV-2, RNA, NAAT NEGATIVE 02/25/22 02/26/22 02/26/22 20:22 03:05 03:05 WBC 5.96 RBC 4.68 L Hgb 14.0 Hct 40.7 L MCV 87.0 MCH 29.9 MCHC 34.4 RDW Std Deviation 45.3 RDW Coeff of Tati 14.4 Plt Count 120 L MPV 10.9 H Immature Gran % (Auto) Neut % (Auto) Lymph % (Auto) [place] % (Auto) Eos % (Auto) Baso % (Auto) Neut # (Auto) Lymph # (Auto) [place] # (Auto) Eos # (Auto) Baso # (Auto) Immature Gran # (Auto) PT INR APTT PTT Ratio Sodium 135 L Potassium 3.3 L Chloride 103 Carbon Dioxide 25 Anion Gap 7 BUN 20 Creatinine 0.91 Est Cr Clr Drug Dosing 77.3 Est GFR ( Amer) 101.4 Est GFR (Non-Af Amer) 87.5 BUN/Creatinine Ratio 22.0 H Glucose 112 H POC Glucose 121 H Estimat Average Glucose Hemoglobin A1c Calcium 8.9 Magnesium 1.8 Total Bilirubin AST ALT Alkaline Phosphatase Troponin I High Sens 53287.7 H* D Total Protein Albumin Globulin Albumin/Globulin Ratio Lipase SARS-CoV-2, RNA, NAAT 02/26/22 02/26/22 02/26/22 03:05 03:05 07:18 WBC RBC Hgb Hct MCV MCH MCHC RDW Std Deviation RDW Coeff of Tati Plt Count MPV Immature Gran % (Auto) Neut % (Auto) Lymph % (Auto) [place] % (Auto) Eos % (Auto) Baso % (Auto) Neut # (Auto) Lymph # (Auto) [place] # (Auto) Eos # (Auto) Baso # (Auto) Immature Gran # (Auto) PT INR APTT 129.6 H* PTT Ratio 4.7 Sodium Potassium Chloride Carbon Dioxide Anion Gap BUN Creatinine Est Cr Clr Drug Dosing Est GFR ( Amer) Est GFR (Non-Af Amer) BUN/Creatinine Ratio Glucose POC Glucose 138 H Estimat Average Glucose 169 Hemoglobin A1c 7.5 H Calcium Magnesium Total Bilirubin AST ALT Alkaline Phosphatase Troponin I High Sens Total Protein Albumin Globulin Albumin/Globulin Ratio Lipase SARS-CoV-2, RNA, NAAT
[2022-02-26] MEDS ORDERED: hydroCHLOROthiazide 25 MG TAB PO SCH (09:00)
[2022-02-26] MEDS ORDERED: lisinopril 10 MG TAB PO SCH (09:00)
[2022-02-26] MEDS ORDERED: POLYETHYLENE (MIRALAX) 17 GM PACK PO SCH (09:00)
[2022-02-26] MEDS ORDERED: SITagliptin PHOSPHATE 100 MG TAB PO SCH (09:00)
[2022-02-26] MEDS ORDERED: FLUTICASONE PROPIONATE NA SPR 16 GM BTL SCH (09:00)
[2022-02-26] MEDS ORDERED: ROSUVASTATIN CALCIUM 10 MG TAB PO SCH (09:00)
[2022-02-26] MEDS ORDERED: ASPIRIN 81 MG ECTAB PO SCH (09:00)
[2022-02-26] MEDS ORDERED: MIDAZOLAM HCL 1 MG/ML 2ML VIAL ONE ×4 (09:34→13:32)
[2022-02-26] MEDS ORDERED: fentaNYL citrate 100 MCG/2 ML VIAL ONE ×3 (09:35→13:28)
[2022-02-26] MEDS ORDERED: NITROGLYCERIN/D5W 100MCG/ML 20ML SYR ONE (09:35)
[2022-02-26] MEDS ORDERED: niCARdipine HCL INJ 2.5 MG/ML 10 ML AMP ONE (09:35)
[2022-02-26] MEDS ORDERED: HEPARIN (PORCINE) 1000 UNIT/ML 10 ML (CATH LAB USE ONLY) ONE (09:35)
--- NOTE | 2022-02-26 09:56 | Pre Anesthesia Assessment ---
Date of Service February 26, 2022 Pre Sedation Assessment Vital Signs Temp Pulse Pulse Resp BP BP Pulse Ox 02/26/22 09:21 86 16 154/84 H 97 02/26/22 08:04 97.5 F L 75 19 130/77 97 02/26/22 08:00 71 02/26/22 04:33 97.7 F 72 19 112/71 97 02/26/22 00:00 101 H 02/25/22 23:34 97.5 F L 76 19 110/69 97 02/25/22 20:13 97.5 F L 112 H 20 120/76 96 02/25/22 15:05 98 H 18 128/78 96 02/25/22 13:20 95 02/25/22 13:15 98.2 F 102 H 102 H 20 121/79 121/79 95 Cardiovascular RRR, no murmur, no edema Respiratory normal respiratory effort, lungs clear to auscultation Pre-Sedation Airway Assessment Smoking Status: Never smoker Short, Thick Neck: No Thyromental Distance: > or= 3.5 Finger Breadths Oral Cavity: + Loose Teeth Mallampati Class: III ASA: ASA3 Procedure Planning Contraindications for Sedation: none Current Medications Reviewed: Yes Notes The planned sedation has been discussed with the patient. Informed Consent was obtained. I have identified the patient, determined the appropriateness of sedation and have assessed the patient immediately prior to the procedure. All medicine(s) and interventions are by my order.
[2022-02-26] MEDS ORDERED: NITROGLYCERIN/D5W 100 MCG/ML BTL ONE (10:55)
[2022-02-26] MEDS ORDERED: RAPID SEQUENCE INDUCTION BAG ONE (11:02)
[2022-02-26] MEDS ORDERED: NOREPINEPHRINE BITARTRATE 1 MG/ML 4 ML VIAL (CATH LAB USE ONLY) ONE ×2 (11:05→11:06)
[2022-02-26] MEDS ORDERED: ATROPINE SULFATE 0.1 MG/ML 10ML SYR IV ONE (11:14)
[2022-02-26] MEDS ORDERED: PROPOFOL IV EMULSION 10 MG/ML 100 ML VIAL (CATH LAB USE ONLY) ONE ×2 (11:44→14:45)
[2022-02-26] MEDS ORDERED: HEPARIN 25000 UNIT/500 ML D5W IV ONE (11:56)
[2022-02-26] MEDS ORDERED: SODIUM BICARB 8.4% INJ 50 MEQ/50 ML SYR IV ONE (12:01)
--- NOTE | 2022-02-26 12:07 | Emergency Department Note ---
ED Visit Note I was called from the Configuration Specialist by Dr. De Guzman to emergently intubate a patient. There was concern as the patient had multivessel cardiac disease which was discovered during his cardiac catheterization that may require a balloon pump and Impella. Dr. De Guzman stated that in order to proceed he needed the patient to be intubated. I did briefly assess the patient. The patient would open eyes to voice and follow basic commands. The patient states that he has no known drug allergies which I did briefly review his allergies in the chart which showed NKDA. The patient denied any dentures or difficulty/adverse reactions with anesthesia. Endotracheal Intubation performed by Dr. Chiu Indication respiratory distress. The patient was on 100% oxygen via NRB prior to the procedure. Suction, airway equipment, RSI drugs, respiratory equipment, and appropriate personnel were prepared prior to the initiation of the procedure. A time out was taken. Induction was performed with 25 mg of etomidate and the patient subsequently received 100 mg of rocuronium After observing the clinical benefit of the medications, the airway was easily visualized utilizing a MAC 4. A 7.5 size ETT tube was placed atraumatically to 26 cm using standard technique. The cuff inflated without signs of malfunction. There were bilateral breath sounds, positive colormetric change, no gastric sounds, a good capnography waveform, and post procedure pulse oximetry was 100%. A fluoroscopy chest image was obtained but difficult to ascertain absolute depth as I was unable to put markers on the image as it was not a standard chest film. Patient did appear to have good aeration with no obvious pneumothorax or pleural effusion in the right chest and that the patient's ET tube was below the clavicles and above the isrrael but not within the right mainstem. Unable to fully visualize the left chest at the time of the chest fluoroscopy image but the patient had good breath sounds in the bilateral lung mcqueen. Did discuss this with Dr. De Guzman and stated the patient would still benefit from a formal chest x-ray prior to transfer via [facility] to a tertiary care center. Dr. De Guzman understood.
[2022-02-26] MEDS ORDERED: METOPROLOL TARTRATE 1 MG/ML VIAL IV ONE (12:26)
--- NOTE | 2022-02-26 12:36 | Post Anesthesia Assessment ---
Date of Service February 26, 2022 Post Sedation Assessment Vital Signs Temp Pulse Pulse Resp BP BP Pulse Ox 02/26/22 11:28 87 18 99 02/26/22 09:21 86 16 154/84 H 97 02/26/22 08:04 97.5 F L 75 19 130/77 97 02/26/22 08:00 71 02/26/22 04:33 97.7 F 72 19 112/71 97 02/26/22 00:00 101 H 02/25/22 23:34 97.5 F L 76 19 110/69 97 02/25/22 20:13 97.5 F L 112 H 20 120/76 96 02/25/22 15:05 98 H 18 128/78 96 02/25/22 13:20 95 02/25/22 13:15 98.2 F 102 H 102 H 20 121/79 121/79 95 Recovery Score Activity: Moves 4 extremities Respiration: Deep Breath/Cough Circulation: +/-20% PreAnes Value Consciousness: Fully Awake Oxygen Saturation: O2 needed for >90% Discharge Sedation Level of Care: Fast Track Phase II Post Sedation Plan On clinical assessment, the patient appears to have tolerated the sedation without complications. Patient is recovering as anticipated. Patient will continue to be monitored by nursing and may be discharged when sedation discharge criteria are met per below protocol. Upon Completions of procedure up to 15 minutes continue every 5 minute vital signs and the P.A.R. score; then discharge to a Phase I or Fast Track to Phase II per the following guidelines: * Discharge Patient to appropriate Phase II area if PAR is 8 or greater or return to pre- procedure baseline. The post - procedure orders will be as directed. * If PAR score is less than 8 or not return to pre-procedure baseline then patient will follow Phase I monitoring till PAR is reached for Phase II. The Phase I may be done in procedure room or may call to secure a Phase I area. * If naloxone or flumazenil are used for reversal, hold in Phase I for continued monitoring from when last reversal dose was given for a minimum of 60 minutes or longer pending the nurse and/or physician discretion of patient condition before discharge to Phase II. Please call the Sedation Physician to re-evaluate and complete post-note for discharge to Phase II area. Do NOT discharge from procedure sedation or Phase 1 until post- sedation evaluation note is complete by procedure /sedation MD Sedation Discharge Instructions to be given to the patient at discharge to home.
--- NOTE | 2022-02-26 12:42 | Cardiology Consultation ---
Date of Consultation February 26, 2022 Assessment & Plan (1) ACS (acute coronary syndrome): Presentation consistent with high risk non-STEMI and recommend proceeding with cardiac catheterization and possible PCI. No apparent contraindications to procedure. Discussed risks, benefits, alternatives of procedure with patient and they are willing to proceed. Further recommendations pending findings of coronary angiography. History of Present Illness Attending Physician: Issa Whitten MD History of Present Illness Mr. Colbert is a 66-year-old man with hypertension, type 2 diabetes admitted with NSTEMI. No prior cardiac history. Remote ECG with prior right bundle branch block. Reports intermittent chest discomfort which he attributed to GERD for months, more notable over the last few weeks. Had seen his PCP who had ordered a stress test which was to be completed today. Yesterday chest symptoms more severe, persisted with radiation to his left shoulder and was convinced to come to ED. Received sublingual nitroglycerin in route with resolution of pain. Has been chest pain-free since admission. Presenting ECG showed right bundle branch block with ST elevation in V1, improved on subsequent ECG. Echocardiogram today showed EF of 35 to 40% with apical akinesis. Family history: No known premature CAD Social history: Remote tobacco in his 20s. Has 2 daughters, including 1 who is an RN. 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 Allergies Allergy/AdvReac Type Severity Reaction Status Date / Time No Known Allergies Allergy Intermediate Verified 02/25/22 16:58 Home Medications Medication Instructions Recorded Confirmed Type acetaminophen 300 mg-codeine 30 mg 1 tab PO BID PRN 04/26/19 02/25/22 History tablet albuterol sulfate 90 mcg/actuation 2 puff INHALATION Q6H PRN 04/26/19 02/25/22 History aerosol inhaler (ProAir HFA) aspirin 81 mg tablet,delayed 81 mg PO DAILY 04/26/19 02/25/22 History release (Ecotrin Low Strength) fluticasone propionate 50 2 spray INTRANASAL DAILY PRN 04/26/19 02/25/22 History mcg/actuation nasal spray,suspension (Flonase Allergy Relief) glipizide 5 mg-metformin 500 mg 2 tab PO BID 04/26/19 02/25/22 History tablet hydrochlorothiazide 25 mg tablet 25 mg PO DAILY 04/26/19 02/25/22 History lisinopril 10 mg tablet 10 mg PO DAILY 04/26/19 02/25/22 History omeprazole 20 mg capsule,delayed 20 mg PO DAILY 04/26/19 02/25/22 History release polyethylene glycol 3350 17 17 g PO DAILY PRN 04/26/19 02/25/22 History gram/dose oral powder (Miralax) rosuvastatin 10 mg tablet 10 mg PO DAILY 04/26/19 02/25/22 History sitagliptin 100 mg tablet (Januvia) 100 mg PO DAILY 04/26/19 02/25/22 History empagliflozin 25 mg tablet 25 mg PO DAILY 02/25/22 02/25/22 History (Jardiance) famotidine 40 mg tablet 40 mg PO QPM 02/25/22 02/25/22 History Patient History Medical History (Updated 02/26/22 @ 12:39 by Alfredo De Guzman MD) Diabetes High blood pressure Social History Smoking Status: Never smoker Tobacco Type: Cigarettes Hx Alcohol Use: No Hx Substance Use: No Preferred Language: Somali Communication Ability: Effective Radiator Repairer Required: No Beliefs That Will Affect Care: None Current Living Situation: Significant Other Other Information That Helps Us Care for You: No Feels Safe at Home: Yes Safety Concerns: Feels Safe At This Time Assistive Devices: Glasses Review of Systems Review of Systems: All systems reviewed & are unremarkable except as noted in HPI & below Physical Exam Physical Exam: General: Comfortable HEENT: Sclerae anicteric Lungs: Clear to auscultation bilaterally, no crackles or wheezes Cardiac: Regular rate and rhythm, no murmurs. Vascular: 2+ radial, DP pulses. No bruits Abdomen: Soft, nontender Extremities: Well perfused, no peripheral edema Neuro: Nonfocal Psych: Alert orient x3, normal affect and mood Results & Data ([facility]) Vital Signs (Past 12 Hours) Vital Signs Temp Pulse Pulse Resp BP BP Pulse Ox 02/26/22 11:28 87 18 99 02/26/22 09:21 86 16 154/84 H 97 02/26/22 08:04 97.5 F L 75 19 130/77 97 02/26/22 08:00 71 02/26/22 04:33 97.7 F 72 19 112/71 97 PG Care Time/CCT Total # of Minutes Spent Total Time Spent with Patient: Total time spent is greater than 50% in coordination of care (as documented) at patient's floor/unit and/or counseling patient: Coding Level of Care Code 95233 Initial Inpt Care Lvl 3 Diagnoses ACS (acute coronary syndrome) I24.9
--- NOTE | 2022-02-26 12:49 | Cardiac Catheterization ---
[facility] Data: Joint Runner Cardiac Status Clinical evaluation leading to the procedure CAD Presenation: Non STEMI Anginal Classification: CCS IV Diagnostic Physicians Name: Wilber De Guzman MD Closure Device Recommendations: CABG Cardiac Cath Procedure Full Procedure Date February 26, 2022 Pre-Procedure Diagnosis Pre-Procedure Diagnosis: Non STEMI AUC Score AUC Score: 8 Post-Procedure Diagnosis Post-Procedure Diagnosis: Severe CAD, Successful PCI and Normal Intracardiac Pressures Procedure(s) Performed Procedure(s) Performed: Coronary Angiography, Left Heart Cath, PTCA, IABP, Ultrasound Guided Vascular Access and Femoral Artery Angiography Addiction Psychiatrist Wilber De Guzman MD Money Counter(s) Hyun Estimated Blood Loss Estimated Blood Loss: 15 Medication(s) Medication(s): Fentanyl, Heparin, Lidocaine 1%, Nicardipine, Nitroglycerin and Versed Summary of Findings Indication: High risk NSTEMI, new LV dysfunction with EF 35 to 40% and apical akinesis. Type 2 diabetes. Access: 6 Fr right radial artery 6 Fr right SIZE PAINTER with ultrasound guidance 8 Fr left SIZE PAINTER with ultrasound guidance 7 Fr left CFV with ultrasound guidance Catheters: [place], JR4, JL 3.5 EBU 3.5 guide Findings: LM -calcified, normal caliber, no significant disease LAD -heavily calcified, mild diffuse disease, 95% mid stenosis just after bifurcating D1, 90% latemid stenosis, 40% distal stenosis and distal vessel wraps around apex. Bifurcating D1 with 80% ostial stenosis. Circumflex -100% acute earlymid occlusion RCA -dominant, calcified, 90% proximal stenosis, 50% latemid stenosis, 60% distal, 70% proximal RPDA. RCA acute marginal subtotally occluded. Faint [id number] collaterals to RCA marginal. LVEDP -13 During diagnostic procedure patient developed progressive chest pain, nausea, diaphoresis with noted ST elevations on telemetry, confirmed on twelve-lead EKG. Initially started on nitroglycerin infusion but no change in symptoms and increasingly hypotensive. Started on norepinephrine, heparin administered Patient intubated electively with help from Dr. Chiu from the ED IABP placed via 8 Portuguese sheath from left SIZE PAINTER with appropriate augmentation. Left main cannulated with EBU 3.5 guide from right SIZE PAINTER Pre-procedure flow KATHRYN 0 Commercial Horticulture Instructor 50 wire passed across circumflex occlusion into distal vessel Earlymid circumflex lesion predilated with 2.0 balloon compliant balloon KATHRYN-[address] segment elevation improved. Residual 70% earlymid circumflex stenosis. 60% distal stenosis just after takeoff of OM 2. Medium bifurcating OM 2 with flow-limiting thrombus in superior branch. Vasopressors weaned off Completion of case on heparin infusion, sedation with balloon pump at one-to-one. Arterial Closure: TR band, Mynx to right SIZE PAINTER Summary: 1. Severe multi-vessel coronary artery disease -Acute 100% earlymid circumflex occlusion 95% earlymid LAD, 90% latemid LAD. Bifurcating D1 with 80% ostial stenosis 90% proximal RCA, 60% distal, 70% proximal RPDA 2. Cardiogenic shock 3. Normal left-sided filling pressure 4. Successful IABP placement 5. Successful angioplasty of earlymid circumflex occlusion with 2.0 balloon. Reestablished KATHRYN-3 flow. Residual 70% earlymid stenosis Recommendations: Transfer to [facility] for CABG Hemodynamics Rest Ao:: 139/76/106 Final Ao: 154/83/139 LV: 140/13 Recommendations Recommendations: CABG Specimens Specimens: None Radiation Exposure (mGy) 2164 Contrast (mls) 90 Anesthesia Moderate, propofol, 2285-7986 Procedural Complication(s) None Disposition Joint Runner Holding/Recovery I attest to the content of the Intraoperative Record and any orders documented therein. Any exceptions are noted below. [facility] [place] Codes Cardiac Catheterization Procedure 1: Cardiovascular Cath Procedures: 63459 Coronaries and LHC (+/-LV) Therapeutic Services & Ancillary Proc Procedure 1: Cardiovascular Tx and Anc Procedures: 13831 IABP Insertion Procedure 2: Cardiovascular Tx and Anc Procedures: 50979 Ultrasonic Guidance Vascular Access Procedure 3: Cardiovascular Tx and Anc Procedures: 39797 Ultrasonic Guidance Vascular Access Procedure 4: Cardiovascular Tx and Anc Procedures: 32722 Insertion Central Venous Catheter Moderate Sedation Procedure 1: Sedation/Anesthesia: 37285 Mod Sedation by the same physician;Init15 Min Child Age 5 & Up Procedure 2: Sedation/Anesthesia: 58856 Mod Sedation by the same physician; Ea Addit ional15 Minutes Stenting Procedure 1: Cardiovascular Stent Procedures: 90585 Perc transluminal revascularization of acute sub/total occl, aMI PG Care Time/CCT Total # of Minutes Spent Total Time Spent with Patient: Total time spent is greater than 50% in coordination of care (as documented) at patient's floor/unit and/or counseling patient:
--- NOTE | 2022-02-26 13:06 | XCELERA ---
[id number] \\[id number]
--- NOTE | 2022-02-26 13:20 | Discharge Summary ---
Date of Service February 26, 2022 Admission HPI Per Admitting Provider 66-year-old male who presented with chest discomfort. The patient describes anterior chest burning that he thought was more consistent with reflux. He does have a history of reflux. He recently had an increase in his proton pump inhibitor. He states he has been compliant with his medications. He called 911 because the pain returned after eating while he was at rest. He received aspirin and nitroglycerin prior to arrival. He states that this time his discomfort is resolved after the aspirin and nitroglycerin. IN the ER his high sesnsitivity troponin is not elevated but ECG shows chages or RBBB and non specific t wave changes, with only comparison of 2001. He is a diabetic hypertensive patient and glucoses are elevated. Pt was scheduled to have out pt stress test due to exertional symptoms, but cannot adequately define the duration of exertion to re create sx Pt has had 3 covid vaccinations Er covid negative Admission Exam Per Admitting Provider The patient appeared well nourished and normally developed. Vital signs as documented. Head exam is normocephalic atraumatic Neck is without JVD, thyromegaly, or carotid bruits. Lungs are clear to auscultation, no focal loss of breath sounds Cardiac exam, Rhythm is regular.. No murmurs, rubs or gallops. Abdominal exam reveals normal bowel sounds, soft non tender, no masses Extremities are nonedematous and both pedal pulses are present Neurologic exam is alert and oriented, no focal loss of strength or sensation Skin is without bruises or rashes Psychologically is without concerns for anxiety or depression.. Principal Diagnosis NSTEMI Discharge Exam General: well appearing 66-year old male who is alert, oriented, and appears in no acute distress at the time of his AM exam. HEENT: NCAT. - Eyes - Sclera are white, anicteric, and without injection. - Mouth - MMM - Neck - supple, no appreciable JVD Cardiac: Normal rate and regular rhythm; S1 and S2 present with no murmurs, rubs, or gallops. Pulmonary: Good respiratory effort with symmetric expansion of the chest. No use of accessory muscles. Lungs were clear to auscultation bilaterally with no crackles or wheezes. Abdominal: Normoactive bowel sounds. Abdomen was soft, nondistended, and non- tender to palpation. Discharge Data Allergies Allergy/AdvReac Type Severity Reaction Status Date / Time No Known Allergies Allergy Intermediate Verified 02/25/22 16:58 Consultations 02/25/22 15:34 ED Decision to Admit Stat 02/25/22 18:32 Consult Cardiology Routine Procedures Performed Operation Date: 02/26/22 09:00 Actual Procedures s Cineradiography w/Routine Exam - Alfredo De Guzman MD s Ultrasound Vascular Access - Alfredo De Guzman MD s Intra-Aortic Balloon Insertion - Alfredo De Guzman MD p Aspiration/PCI w/[place] for Stemi - Alfredo De Guzman MD s Cath, Left with Cors and Vent - Alfredo De Guzman MD Ordered Studies 02/26/22 09:19 CL Cath Imgs for PACS use only Routine "Indication: High risk NSTEMI, new LV dysfunction with EF 35 to 40% and apical akinesis. Type 2 diabetes. Access: 6 Fr right radial artery 6 Fr right BOX PRINTING MACHINE OPERATOR with ultrasound guidance 8 Fr left BOX PRINTING MACHINE OPERATOR with ultrasound guidance 7 Fr left CFV with ultrasound guidance Catheters: [place], JR4, JL 3.5 EBU 3.5 guide Findings: LM -calcified, normal caliber, no significant disease LAD -heavily calcified, mild diffuse disease, 95% mid stenosis just after bifurcating D1, 90% latemid stenosis, 40% distal stenosis and distal vessel wraps around apex. Bifurcating D1 with 80% ostial stenosis. Circumflex -100% acute earlymid occlusion RCA -dominant, calcified, 90% proximal stenosis, 50% latemid stenosis, 60% distal, 70% proximal RPDA. RCA acute marginal subtotally occluded. Faint [id number] collaterals to RCA marginal. LVEDP -13 During diagnostic procedure patient developed progressive chest pain, nausea, diaphoresis with noted ST elevations on telemetry, confirmed on twelve-lead EKG. Initially started on nitroglycerin infusion but no change in symptoms and increasingly hypotensive. Started on norepinephrine, heparin administered Patient intubated electively with help from Dr. Chiu from the ED IABP placed via 8 [place] sheath from left BOX PRINTING MACHINE OPERATOR with appropriate augmentation. Left main cannulated with EBU 3.5 guide from right BOX PRINTING MACHINE OPERATOR Pre-procedure flow KATHRYN 0 Trench Pipe Layer 50 wire passed across circumflex occlusion into distal vessel Earlymid circumflex lesion predilated with 2.0 balloon compliant balloon KATHRYN-[address] segment elevation improved. Residual 70% earlymid circumflex stenosis. 60% distal stenosis just after takeoff of OM 2. Medium bifurcating OM 2 with flow-limiting thrombus in superior branch. Vasopressors weaned off Completion of case on heparin infusion, sedation with balloon pump at one-to-one. Arterial Closure: TR band, Mynx to right BOX PRINTING MACHINE OPERATOR Summary: 1. Severe multi-vessel coronary artery disease -Acute 100% earlymid circumflex occlusion 95% earlymid LAD, 90% latemid LAD. Bifurcating D1 with 80% ostial stenosis 90% proximal RCA, 60% distal, 70% proximal RPDA 2. Cardiogenic shock 3. Normal left-sided filling pressure 4. Successful IABP placement 5. Successful angioplasty of earlymid circumflex occlusion with 2.0 balloon. Reestablished KATHRYN-3 flow. Residual 70% earlymid stenosis Recommendations: Transfer to [facility] for CABG" Total Time Total Time Spent Total Time Spent (In Minutes): 20 Discharge Plan Discharge Items Patient Disposition: Transfer Acute Care Hospital Reason For Visit: CHEST PAIN Discharge Diagnosis: NSTEMI Activity: Per Instructions section Non-emergency contact: Primary Care Provider and Perfect Binder Setter Call non-emergency contact if: you have any medication questions, your symptoms worsen, your pain is worsening and your temperature is above 101 Follow-up/Referrals: Fan Holman PA-C [Primary Care Provider] - Diet: Heart Healthy Addtl Attending Provider Instructions: 66-year-old male with history of hypertension and type 2 diabetes who presented to [facility] for burning-like chest pain. Upon his arrival here, he was found to have right bundle branch block on EKG, as well as evidence of a previous inferior wall HI. His troponin persistently jessi throughout his stay, necessitating catheterization by interventional cardiology. Catheterization revealed 100% occlusion of the early mid circumflex artery, as well as significant stenosis in the LAD and RCA. While undergoing catheterization, patient reported significant chest pain that was not relieved by nitroglycerin infusion. His hemodynamics were thereafter consistent with cardiogenic shock, requiring initiation of heparin and vasopressors as well as immediate intubation. IABP was placed. He underwent successful angioplasty of early-mid circumflex occlusion. He was thereafter accepted and transferred to [facility] for CABG. Pending Studies at Discharge: No Stand-Alone Forms: [facility] Skilled Items Patient informed of condition?: Yes DNR: No Discharge Level of Care: Other Communicable Disease: No Discharge Prognosis: Other Lines: Peripheral IV Urinary Catheter: No Medications and DC Order Prescriptions: Continued glipizide-metformin 5-500 mg Tablet 2 tab PO BID RF: 0 acetaminophen-codeine 300-30 mg Tablet 1 tab PO BID PRN (Reason: Pain) RF: 0 lisinopril 10 mg Tablet 10 mg PO DAILY RF: 0 polyethylene glycol 3350 [Miralax] 17 gram/dose Powder 17 g PO DAILY PRN (Reason: Constipation) RF: 0 hydrochlorothiazide 25 mg Tablet 25 mg PO DAILY RF: 0 omeprazole 20 mg Capsule,Delayed Release(Dr/Ec) 20 mg PO DAILY RF: 0 Januvia 100 mg Tablet 100 mg PO DAILY RF: 0 rosuvastatin 10 mg Tablet 10 mg PO DAILY RF: 0 fluticasone propionate [Flonase Allergy Relief] 50 mcg/actuation [place],Suspension 2 spray INTRANASAL DAILY PRN (Reason: Nasal Congestion) RF: 0 aspirin [Ecotrin Low Strength] 81 mg Tablet,Delayed Release (Dr/Ec) 81 mg PO DAILY RF: 0 albuterol sulfate [ProAir HFA] 90 mcg/actuation Hfa Aerosol Inhaler 2 puff INHALATION Q6H PRN (Reason: Wheezing) RF: 0 famotidine 40 mg tablet 40 mg PO QPM RF: 0 Jardiance 25 mg tablet 25 mg PO DAILY RF: 0 Discharge Orders: Discharge Order (Routine); Ordered 02/26/22 Ordered By: Urbano Calderon Admission Data Admit Date/Time: 02/25/22 18:34 Attending Provider: Issa Whitten Admit Provider: Issa Whitten Primary Care Provider: Fan Holman Other Providers: Issa Whitten ; Alfredo De Guzman
--- NOTE | 2022-02-26 13:30 | Electrocardiogram Report ---
Test Reason : Blood Pressure : / mmHG Vent. Rate : 100 BPM Atrial Rate : 100 BPM P-R Int : 146 ms QRS Dur : 172 ms QT Int : 414 ms P-R-T Axes : 035 128 003 degrees QTc Int : 534 ms Normal sinus rhythm Right bundle branch block Left posterior fascicular block Bifascicular block Abnormal ECG When compared with ECG of 08-MAR-2002 12:46, Significant changes have occurred Confirmed by Glen Lord ([id number]) on 02/26/2022 1:29:59 PM Referred By: ED Confirmed By:Glen Lord
[2022-02-26] MEDS ORDERED: LIDOCAINE 1% LOCAL 20 ML VIAL ONE (13:38)
--- NOTE | 2022-02-26 14:13 | Electrocardiogram Report ---
Test Reason : Blood Pressure : / mmHG Vent. Rate : 073 BPM Atrial Rate : 073 BPM P-R Int : 160 ms QRS Dur : 166 ms QT Int : 442 ms P-R-T Axes : 043 021 006 degrees QTc Int : 486 ms Normal sinus rhythm Right bundle branch block Inferior infarct (cited on or before 25-FEB-2022) Abnormal ECG When compared with ECG of 25-FEB-2022 13:20, (unconfirmed) Left posterior fascicular block is no longer Present Questionable change in initial forces of Inferior leads Confirmed by Glen Lord ([id number]) on 02/26/2022 2:12:58 PM Referred By: REFERRED SELF Confirmed By:Glen Lord
[2022-02-26] MEDS ORDERED: MIDAZOLAM BOLUS FROM BAG IV PRN (14:17)
[2022-02-26] MEDS ORDERED: STAT IV Infusion **Titration per Protocol STA (14:17)
[2022-02-26] MEDS ORDERED: MIDAZOLAM HCL 125 MG/250 ML BAG IV PRN (14:17)
--- NOTE | 2022-02-26 14:23 | Electrocardiogram Report ---
Test Reason : Blood Pressure : / mmHG Vent. Rate : 070 BPM Atrial Rate : 070 BPM P-R Int : 118 ms QRS Dur : 074 ms QT Int : 430 ms P-R-T Axes : 004 066 059 degrees QTc Int : 464 ms Normal sinus rhythm ST elevation consider inferolateral injury or acute infarct ACUTE GA / STEMI Consider right ventricular involvement in acute inferior infarct Abnormal ECG When compared with ECG of 26-FEB-2022 05:28, (unconfirmed) Significant changes have occurred Confirmed by Glen Lord ([id number]) on 02/26/2022 2:22:45 PM Referred By: REFERRED SELF Confirmed By:Glen Lord
--- NOTE | 2022-02-26 14:32 | Electrocardiogram Report ---
Test Reason : Blood Pressure : / mmHG Vent. Rate : 097 BPM Atrial Rate : 097 BPM P-R Int : 162 ms QRS Dur : 126 ms QT Int : 424 ms P-R-T Axes : 065 073 028 degrees QTc Int : 538 ms Normal sinus rhythm Right bundle branch block Inferolateral injury pattern ACUTE WI / STEMI Consider right ventricular involvement in acute inferior infarct Abnormal ECG When compared with ECG of 26-FEB-2022 10:46, (unconfirmed) No significant change Confirmed by Glen Lord ([id number]) on 02/26/2022 2:32:02 PM Referred By: REFERRED SELF Confirmed By:Glen Lord
[2022-02-27 12:01] LABS: iSTAT Arterial Blood Gas HCO3 21 meg/L (19-24); iSTAT Arterial Blood Gas pCO2 47 mmHg (35-46); iSTAT Arterial Blood Gas pH 7.25 (7.35-7.45); iSTAT Arterial Blood Gas pO2 > 420 mmHg (80-95); iSTAT Carbon Dioxide 22 mmol/L (24-31)
== END 2022-02-26 14:01 | disposition short-term general hospital (02) | DRG 270 ==
LOC: EDINP 13:14 → ED 13:14 → 2S 20:31

== ENCOUNTER 2023-05-14 01:14 | Inpatient (IN) ==
[2023-05-14 03:54] LABS: Basophils # (auto) 0.01 K/uL (0.00-0.20); Basophils % (auto) 0.2 %; Hematocrit (blood only) 40.4 % (42.0-52.0); Hemoglobin 13.7 g/dl (14.0-18.0); Immature Granulocytes # (auto) 0.02 K/uL (0.01-0.20); Immature Granulocytes % (auto) 0.4 %; Lymphocytes # (auto) 0.38 K/uL (1.20-3.40); Mean Corpuscular Hemoglobin 30.7 pg (25.0-34.0); Mean Corpuscular Hgb Conc 33.9 g/dL (32.0-36.0); Mean Corpuscular Volume 90.6 fL (80.0-100.0); Mean Platelet Volume 11.4 fL (9.4-12.4); Monocytes # (auto) 0.25 K/uL (0.11-0.59); Monocytes % (auto) 4.6 %; Neutrophils # (auto) 4.74 K/uL (1.40-6.50); Neutrophils % (auto) 87.8 %; Platelet Count 108 K/uL (130-400); RDW Coefficient of Variation 14.3 % (11.5-14.5); RDW Standard Deviation 47.6 fL (36.4-46.3); Red Blood Count 4.46 M/uL (4.70-6.10)
[2023-05-14 04:05] LABS: Albumin Globulin Ratio 1.4 (0.9-2); Albumin Level 4.4 gm/dl (3.4-5.0); BUN Creatinine Ratio 18.4 (10-20); Bilirubin,Total 1.1 mg/dl (0.2-1.0); Est GFR (African American) 92.1 ml/min; Est GFR (Non-African American) 79.5 ml/min; Globulin 3.2 gm/dl (2.5-4.0); Potassium 3.7 mmol/L (3.5-5.1); Total Protein 7.6 gm/dl (6.0-8.3)
[2023-05-14] MEDS ORDERED: ONDANSETRON INJ 2 MG/ML 2 ML VIAL IV STA (05:31)
[2023-05-14] MEDS ORDERED: MoRPHine SULFATE 4 MG/ML 1 ML CARP\\VIAL IV STA (05:31)
[2023-05-14] MEDS ORDERED: cefOXitin 2,000 MG/60 ML BAG IV STA (05:36)
--- NOTE | 2023-05-14 06:11 | Surgery Consultation ---
I have seen and examined this patient this AM. I agree with plan Date of Consultation May 14, 2023 Assessment & Plan (1) Cholelithiasis: I discussed with the treating emergency room physician and the patient is being admitted on the hospitalist service. We recommend proceeding as follows: It does appear as though the patient has nonmobile gallstones likely causing biliary colic resulting in the pain patient has described Would recommend keeping the patient n.p.o. for the present time Hydrate the patient with IV fluids Initiate antibiotics Follow serial labs Provide analgesics Provide antiemetics The patient has suffered a heart attack within the past year. As noted he follows with [facility] physician [facility] cardiology. Prior to entertaining any surgical intervention would be preferable to have patient medically optimized from a cardiology standpoint Additional recommendations to be forthcoming based on his clinical course as it unfolds History of Present Illness Reason for Consultation: Cholelithiasis History of Present Illness This is a 67-year-old male who presented to the emergency department at [facility] secondary to right upper quadrant/right flank pain for approximately past 2 days. The patient denies any palliative factors to the pain he also denies any radiation of the pain. He feels as though the pain is worse after eating and therefore over the past 2 days he has had a poor appetite. I did asked patient if he has noted any postprandial pain over the past several weeks or months which he denies. He notes he has never had any prior abdominal surgeries. It is nowhere the mention that the patient did suffer a heart attack in February of 2022. At this time patient underwent a cardiac catheterization by Dr. Nick De Guzman of [facility] cardiology. At this time patient was noted to have 90% mid stenosis of his left anterior descending artery with an 80% stenosis of the first diagonal artery. He was also noted to have a 100% occlusion of the circumflex artery and 90% stenosis of the right coronary artery. During this procedure the patient developed cardiogenic shock requiring insertion of an intra-aortic balloon pump. Patient also underwent angioplasty of the circumflex artery. The patient was ultimately transferred to [facility] where he underwent coronary artery bypass grafting. I did question the patient on cardiac symptoms since this procedure and he notes that with his day-to-day activities he does not get chest pain or shortness of cali th. He most recently saw his jewel bearing facer, Dr. Piyush Tracy of [facility] cardiology on April 10 of this year. Since that time patient has been maintained on appropriate cardiac meds including aspirin, lisinopril, and Crestor. The patient was reportedly intolerant to beta-blockers. During this visit the patient has a documented ejection fraction of 45 to 50%. Since arrival to the hospital this patient has had labs and imaging which independent reviewed. A gallbladder ultrasound showed the patient had some immobile gallstones in the gallbladder neck with borderline gallbladder wall thickening. There is no pericholecystic fluid. Labs include a CBC her white blood cell count was normal. His hemoglobin and hematocrit were 13.7 and 40.4. Platelet count was 108,000. Chemistry profile showed sodium and potassium along with his BUN and creatinine were normal. His total bilirubin had a slight elevation at 1.1 but his transaminases and alkaline phosphatase were no nelevated. An EKG showed a right bundle branch block. There not appear to be any changes indicative of acute ischemia. At the time of my interview the patient was resting comfortably in bed and he was in no distress. Allergies Allergy/AdvReac Type Severity Reaction Status Date / Time No Known Allergies Allergy Intermediate Verified 04/10/23 09:12 Home Medications Medication Instructions Recorded Confirmed Type acetaminophen 300 mg-codeine 30 mg 1 tab PO BID PRN Pain 04/26/19 04/10/23 History tablet albuterol sulfate 90 mcg/actuation 2 puff inhalation Q6H PRN Wheezing 04/26/19 04/10/23 History aerosol inhaler (ProAir HFA) aspirin 81 mg tablet,delayed 81 mg PO DAILY 04/26/19 04/10/23 History release (Ecotrin Low Strength) fluticasone propionate 50 2 spray intranasal DAILY PRN Nasal 04/26/19 04/10/23 History mcg/actuation nasal Congestion spray,suspension (Flonase Allergy Relief) glipizide 5 mg-metformin 500 mg 2 tab PO BID 04/26/19 04/10/23 History tablet hydrochlorothiazide 25 mg tablet 25 mg PO DAILY 04/26/19 04/10/23 History lisinopril 10 mg tablet 10 mg PO DAILY 04/26/19 04/10/23 History omeprazole 20 mg capsule,delayed 20 mg PO DAILY 04/26/19 04/10/23 History release polyethylene glycol 3350 17 17 g PO DAILY PRN Constipation 04/26/19 04/10/23 History gram/dose oral powder (Miralax) rosuvastatin 10 mg tablet 10 mg PO DAILY 04/26/19 04/10/23 History sitagliptin phosphate 100 mg 100 mg PO DAILY 04/26/19 04/10/23 History tablet (Januvia) empagliflozin 25 mg tablet 25 mg PO DAILY 02/25/22 04/10/23 History (Jardiance) famotidine 40 mg tablet 40 mg PO QPM 02/25/22 04/10/23 History Patient History Medical History (Updated 05/14/23 @ 06:06 by Ever Caldwell PASusanC) Acute hyperglycemia Diabetes High blood pressure Social History Smoking Status: Never smoker Tobacco Type: Cigarettes Hx Alcohol Use: No Hx Substance Use: No Preferred Language: Vietnamese Communication Ability: Effective Apple Thinner Required: No Beliefs That Will Affect Care: None Current Living Situation: Significant Other Feels Safe at Home: Yes Assistive Devices: Glasses Review of Systems Constitutional: no fever and no chills Ear, Nose, Mouth, Throat: no hearing loss Respiratory: no cough Cardiovascular: no chest pain Gastrointestinal: + abdominal pain; no nausea and no vomiting Genitourinary: no dysuria Musculoskeletal: + back pain (Right upper flank pain) Integumentary: no rash Neurologic: no localized weakness Physical Exam Constitutional: WD/WN, vitals as above Eyes: + anicteric sclerae ENMT: Ears: no hearing impairment and no external ear abnormality Dentition appears to be in poor repair Neck: trachea midline Respiratory: normal respiratory effort, lungs clear to auscultation Cardiovascular: Rate/Rhythm: regular rate and regular rhythm Gastrointestinal (Abdomen): Abdomen is soft, nondistended, and nonrigid. Patient did have tenderness with palpation of the right upper quadrant. There is no rebound tenderness or guarding Musculoskeletal: No calf tenderness Skin: no rashes Neurologic: moves all extremities Psychiatric: A+Ox3, euthymic affect Results & Data Vital Signs (Past 12 Hours) Vital Signs Temp Pulse Resp BP Pulse Ox O2 Del Method 05/14/23 01:35 36.5 C 71 20 147/70 H 96 Room Air PG Care Time/CCT Total # of Minutes Spent Total Time Spent with Patient: Total time spent is greater than 50% in coordination of care (as documented) at patient's floor/unit and/or counseling patient: Coding Level of Care Code 74769 INT INP/OBS CARE Diagnoses Cholelithiasis K80.20
--- NOTE | 2023-05-14 06:33 | History & Physical Report ---
Date of Service May 14, 2023 Assessment & Plan (1) Abdominal pain: Plan: 67yo male with history of CAD, HTN, HLP, DM and GERD presenting with right sided abdominal pain ongoing for 4-5 days. Patient with nausea. No leukocytosis. Mild elevation of Tbili to 1.1, LFTs otherwise unremarkable. RUQUS with read pending - appears to have some gallstones. Concern for possible acute cholecystitis -Admit to medical with telemetry -Await formal ultrasound read -Check Lipase -Zofran as needed for nausea -Zosyn 4.5gm IV q 8 -Morphine as needed for pain -Appreciate General Surgery consultation (2) Hypertension: Plan: -Continue HCTZ -Continue Lisinopril (3) Coronary artery disease without angina pectoris: Plan: Patient denies chest pain. History of multi-vessel coronary artery disease s/p stenting and CABG x 3V in 05/2022. He follows with Cardiology - last seen on 04/10/23. EKG with RBBB, no acute ischemic changes -Check Troponin -Continue Crestor -Continue Lisinopril -If patient proceeds to surgery will consider Cardiology consultation for medical clearance (4) Diabetes: Plan: -Lantus 15u BID -ISS History of Present Illness Chief Complaint: abdominal pain Primary Care Provider: Fan Holman Charly Colbert is a 67yo male with history of HTN, HLP, DM and CAD s/p PCI and subsequent CABG x 3V in 05/2022 presenting with 4-5 days of persistent right sided abdominal pain. Patient reports ongoing discomfort in the RUQ with associated nausea. Also with some diarrhea. No report of chest pain or SOB. No additional complaints at this time. In the ER he is afebrile, HD stable ER Course: Cefoxitin Morphine Zofran NSS Allergies Allergy/AdvReac Type Severity Reaction Status Date / Time No Known Allergies Allergy Intermediate Verified 04/10/23 09:12 Home Medications Medication Instructions Recorded Confirmed Type acetaminophen 300 mg-codeine 30 mg 1 tab PO BID PRN Pain 04/26/19 04/10/23 History tablet albuterol sulfate 90 mcg/actuation 2 puff inhalation Q6H PRN Wheezing 04/26/19 04/10/23 History aerosol inhaler (ProAir HFA) aspirin 81 mg tablet,delayed 81 mg PO DAILY 04/26/19 04/10/23 History release (Ecotrin Low Strength) fluticasone propionate 50 2 spray intranasal DAILY PRN Nasal 04/26/19 04/10/23 History mcg/actuation nasal Congestion spray,suspension (Flonase Allergy Relief) glipizide 5 mg-metformin 500 mg 2 tab PO BID 04/26/19 04/10/23 History tablet hydrochlorothiazide 25 mg tablet 25 mg PO DAILY 04/26/19 04/10/23 History lisinopril 10 mg tablet 10 mg PO DAILY 04/26/19 04/10/23 History omeprazole 20 mg capsule,delayed 20 mg PO DAILY 04/26/19 04/10/23 History release polyethylene glycol 3350 17 17 g PO DAILY PRN Constipation 04/26/19 04/10/23 History gram/dose oral powder (Miralax) rosuvastatin 10 mg tablet 10 mg PO DAILY 04/26/19 04/10/23 History sitagliptin phosphate 100 mg 100 mg PO DAILY 04/26/19 04/10/23 History tablet (Januvia) empagliflozin 25 mg tablet 25 mg PO DAILY 02/25/22 04/10/23 History (Jardiance) famotidine 40 mg tablet 40 mg PO QPM 02/25/22 04/10/23 History Past Med/Surg History Medical History (Updated 05/14/23 @ 06:24 by Shawna Chang DO) Acute hyperglycemia Diabetes GERD (gastroesophageal reflux disease) High blood pressure Ischemic cardiomyopathy PAF (paroxysmal atrial fibrillation) Surgical History (Updated 05/14/23 @ 06:21 by Shawna Chang DO) History of coronary artery bypass graft Social History Smoking Status: Never smoker Tobacco Type: Cigarettes Hx Alcohol Use: No Hx Substance Use: No Preferred Language: Romansh Communication Ability: Effective Forest Pathology Teacher Required: No Beliefs That Will Affect Care: None Current Living Situation: Significant Other Feels Safe at Home: Yes Assistive Devices: Glasses Review of Systems Review of Systems: All systems reviewed & are unremarkable except as noted in HPI & below Physical Exam Physical Exam: General: patient resting comfortably, NAD, non-toxic in appearance, AA&O x 4 Skin: warm, dry, intact, no rashes or lesions HEENT: NC/AT, PERRL, EOMI, anicteric sclera, conjunctiva without injection, external ear normal to inspection and nontender, nares patent, moist mucus membranes, dentition intact, no oropharyngeal lesions, neck supple, trachea midline, no LAD, no thyromegaly, no JVD Heart: +S1/S2, regular, no m/r/g Lungs: equal air entry bilaterally, no rales/rhonchi/wheezes Abd: +BS, soft,tenderness in the RUQ with some voluntary guarding, no CVA tenderness Ext: warm, 2+ pulses in UE/LE bilaterally, no clubbing/cyanosis or edema Neuro: nonfocal, patient AA&O x 4, speech intact, no facial droop, moving all extremities on command with equal strength 5/5 Results & Data Results & Data Vital Signs (Past 12 Hours) Vital Signs Temp Pulse Resp BP Pulse Ox O2 Del Method 05/14/23 01:35 36.5 C 71 20 147/70 H 96 Room Air Laboratory Results Laboratory Results WBC 5.40 K/ul (4.8-10.8) 05/14/23 03:05 RBC 4.46 M/uL (4.70-6.10) L 05/14/23 03:05 Hgb 13.7 g/dl (14.0-18.0) L 05/14/23 03:05 Hct 40.4 % (42.0-52.0) L 05/14/23 03:05 MCV 90.6 fL (80.0-100.0) 05/14/23 03:05 MCH 30.7 pg (25.0-34.0) 05/14/23 03:05 MCHC 33.9 g/dL (32.0-36.0) 05/14/23 03:05 RDW Std Deviation 47.6 fL (36.4-46.3) H 05/14/23 03:05 RDW Coeff of Tati 14.3 % (11.5-14.5) 05/14/23 03:05 Plt Count 108 K/uL (130-400) L 05/14/23 03:05 MPV 11.4 fL (9.4-12.4) 05/14/23 03:05 Immature Gran % (Auto) 0.4 % 05/14/23 03:05 Neut % (Auto) 87.8 % 05/14/23 03:05 Lymph % (Auto) 7.0 % 05/14/23 03:05 [place] % (Auto) 4.6 % 05/14/23 03:05 Eos % (Auto) 0.0 % 05/14/23 03:05 Baso % (Auto) 0.2 % 05/14/23 03:05 Neut # (Auto) 4.74 K/uL (1.40-6.50) 05/14/23 03:05 Lymph # (Auto) 0.38 K/uL (1.20-3.40) L 05/14/23 03:05 [place] # (Auto) 0.25 K/uL (0.11-0.59) 05/14/23 03:05 Eos # (Auto) 0.00 K/uL (0.00-0.50) 05/14/23 03:05 Baso # (Auto) 0.01 K/uL (0.00-0.20) 05/14/23 03:05 Immature Gran # (Auto) 0.02 K/uL (0.01-0.20) 05/14/23 03:05 Sodium 138 mmol/L (136-145) 05/14/23 03:05 Potassium 3.7 mmol/L (3.5-5.1) 05/14/23 03:05 Chloride 101 mmol/L (98-107) 05/14/23 03:05 Carbon Dioxide 28 mmol/L (21-32) 05/14/23 03:05 Anion Gap 9 (3-11) 05/14/23 03:05 BUN 18 mg/dl (6-23) 05/14/23 03:05 Creatinine 0.98 mg/dl (0.6-1.4) 05/14/23 03:05 Est Cr Clr Drug Dosing 77.0 ml/min 05/14/23 03:05 Est GFR ( Amer) 92.1 ml/min 05/14/23 03:05 Est GFR (Non-Af Amer) 79.5 ml/min 05/14/23 03:05 BUN/Creatinine Ratio 18.4 (10-20) 05/14/23 03:05 Glucose 220 mg/dl (70-99(Fasting)) H 05/14/23 03:05 Calcium 9.0 mg/dl (8.6-10.3) 05/14/23 03:05 Total Bilirubin 1.1 mg/dl (0.2-1.0) H 05/14/23 03:05 AST 18 U/L (13-39) 05/14/23 03:05 ALT 19 U/L (7-52) 05/14/23 03:05 Alkaline Phosphatase 94 U/L (34-104) 05/14/23 03:05 Total Protein 7.6 gm/dl (6.0-8.3) 05/14/23 03:05 Albumin 4.4 gm/dl (3.4-5.0) 05/14/23 03:05 Globulin 3.2 gm/dl (2.5-4.0) 05/14/23 03:05 Albumin/Globulin Ratio 1.4 (0.9-2) 05/14/23 03:05 Code Status & VTE Plan VTE Prophylaxis Plan VTE Prophylaxis will be ordered: Yes PG Care Time/CCT Total # of Minutes Spent Total Time Spent with Patient: Total time spent is greater than 50% in coordination of care (as documented) at patient's floor/unit and/or counseling patient: Coding Level of Care Code 60939 INT INP/OBS CARE 2/55MIN Diagnoses Abdominal pain R10.9 Hypertension I10 Coronary artery disease without angina pectoris I25.10 Diabetes E11.9
[2023-05-14] MEDS: SODIUM CHLORIDE 0.9% 1,000 ML IV SCH ×2 (06:45→15:31)
--- NOTE | 2023-05-14 06:57 | Ultrasound Report ---
US gallbladder CLINICAL HISTORY: RUQ pain TECHNIQUE: Multiple real-time sonographic images of the right upper quadrant were obtained. Comparison: None available at the time of this dictation. FINDINGS: Limited exam due to patient body habitus and prominent bowel. The liver is diffusely homogenous with normal contour and echogenicity. No focal mass lesions are seen. No intrahepatic ductal dilatation is seen. Nonmobile stones are seen in the gallbladder neck. The anterior wall appears thickened starr suring up to 4 mm. No pericholecystic fluid is seen. A sonographic Go's sign was elicited by the pipe coverer. The common duct measures 0.4 cm in diameter at the level of the hepatic artery. The v isualized portions of the pancreas appear normal. A likely cyst is seen in the right kidney superior pole. No ascites or free fluid is seen in Cuello's pouch. IMPRESSION: Positive Go's sign, immobile on bladder neck stone and wall thickening compatible with acute chol ecystitis. ACT 112: Negative or not required by law. Electronically signed by: Nawaf Kelly M.D. 05/14/2023 6:56 AM
[2023-05-14] MEDS ORDERED: GLUCOSE 40% GEL 15 GM TUBE PO PRN (07:20)
[2023-05-14] MEDS ORDERED: DEXTROSE 50% 50 ML SYRINGE IV PRN (07:20)
[2023-05-14] MEDS ORDERED: CARBOHYDRATES FOR HYPOGLYCEMIA PO PRN (07:20)
[2023-05-14] MEDS ORDERED: GLUCOSE 10 TAB/TUBE PO PRN (07:20)
[2023-05-14] MEDS ORDERED: ALBUTEROL HFA 8 GM INHALER INH PRN (07:20)
[2023-05-14] MEDS ORDERED: GLUCAGON FOR INJ 1 MG VIAL SQ PRN (07:20)
[2023-05-14] MEDS ORDERED: FLUTICASONE PROPIONATE NA SPR 16 GM BTL PRN (07:20)
[2023-05-14] MEDS ORDERED: ONDANSETRON INJ 2 MG/ML 2 ML VIAL IV PRN (07:20)
[2023-05-14] MEDS ORDERED: ACETAMINOPHEN 325 MG TAB PO PRN (07:20)
[2023-05-14] MEDS ORDERED: INSULIN ASPART PER UNIT CHARGE SC SCH (07:30)
--- NOTE | 2023-05-14 07:37 | Hospitalist Progress Note ---
Date of Service May 14, 2023 Assessment & Plan (1) Cholelithiasis: Plan: Patient is a 67 yo M with a PMHx of HTN, diabetes, AP, GERD, parox Afib, CAD w/out angpec, ACS who is presenting today with 4-5 day Hx of right sided abdominal pain. - Patient positive for nausea but no vomiting, no fevers. - Upon exam patient has a positive Go's sign. RUQ U/S revealed immobile gallstones. - Continue piperacillin and tazobactam - Surgery was consulted and recommended an urgent cholecystectomy on -Cardiology was consulted due to [place] 1 yr ago and they signed off - Patient was placed on a clear liquids diet - Planned to d/c patient's Lovenox 24 hours prior to surgery and place on NPO diet at midnight day before surgery Plan Hypertension -continue lisinopril and hydrochlorothiazide Diabetes - continue insulin glargine (15 U SQ, BID) and insulin aspart for control of diabetes - continue the rosuvastatin Admission and Anticipated Discharge Date Admission Date: May 14, 2023 Supervising Physician Co-Signing Physician Notes I personally examined the patient and verified chou points of history and exam, discussed case, and agree with decision making and plan documented by Dr. Hanna. Patient with acute cholecystitis, recommendation for cholecystectomy, had preoperative cardiovascular exam for history of CAD with history of PCI and CABG x3, ischemic cardiomyopathy, paroxysmal atrial fibrillation were patient deemed medically optimized to proceed. Currently holding amiodarone and Plavix has been discontinued. Subjective Patient is a 67 yo M with a PMHx of HTN, diabetes, AP, GERD, parox Afib, CAD w/out angpec, ACS who is presenting today with 4-5 day Hx of right sided abdominal pain w/ N. Patient admitted to telemetry. No leukocytosis. Mild elevation of Tbili to 1.1, LFTs otherwise unremarkable. Concern for possible acute cholecystitis, patient had a positive sonographic Go's sign and evidence of immobile gallstones upon RUQ U/S. A cardiology consult (pt s/p 1 yr [place]) was placed and they already signed off on him. A surgery consult was placed and the cholecystectomy was deemed urgent rather than emergent. Pending openings, pt may get on surg schedule for . -Zofran as needed for nausea -Zosyn 4.5gm IV q 8 -Morphine as needed for pain Review of Systems Respiratory: no cough and no dyspnea Cardiovascular: no chest pain and no dyspnea Gastrointestinal: + abdominal pain and + early satiety; no nausea and no vomiting Genitourinary: no dysuria or no urinary frequency Neurologic: no tingling and no numbness Physical Exam Respiratory: normal respiratory effort, lungs clear to auscultation Cardiovascular: RRR, no murmur, no edema Gastrointestinal (Abdomen): Inspection/Auscultation: abdomen normal to inspection and normal bowel sounds Percussion/Palpation: no hepatomegaly and no splenomegaly Patient exhibiting significant RUQ pain with severity of 5/10 now that patient is on morphine. Patient did not endorse any flank pain. Results & Data Results & Data Vital Signs (Past 12 Hours) Vital Signs Temp Pulse Pulse Resp BP BP Pulse Ox 05/14/23 07:03 82 05/14/23 06:49 86 20 144/84 H 95 05/14/23 01:35 36.5 C 71 20 147/70 H 96 O2 Del Method 05/14/23 07:03 05/14/23 06:49 Room Air 05/14/23 01:35 Room Air Resident Activity Tracking Resident Involvement: Resident Care Provided Care Provided: Adult Hospital Medicine
[2023-05-14] MEDS ORDERED: ENOXAPARIN INJ 40 MG/0.4 ML SYR SQ SCH (08:00)
[2023-05-14] MEDS ORDERED: PIPERACILLIN/TAZOBACTAM 4.5 GM (over 30 mins) IV ONE (08:00)
[2023-05-14] MEDS: MoRPHine SULFATE 2 MG/ML CARP IV PRN (08:39)
[2023-05-14] MEDS: LACTATED RINGER'S 1,000 ML IV SCH ×2 (08:41→22:07)
[2023-05-14] MEDS: ROSUVASTATIN CALCIUM 10 MG TAB PO SCH (08:42)
[2023-05-14] MEDS: lisinopril 10 MG TAB PO SCH (08:43)
[2023-05-14 08:59] LABS: Troponin I High Sensitivity 10.7 pg/ml (0-20)
[2023-05-14] MEDS: hydroCHLOROthiazide 25 MG TAB PO SCH (09:06)
[2023-05-14] MEDS ORDERED: Nursing to Pharmacy Communication SCH (10:00)
[2023-05-14] MEDS: LANTUS PER UNIT CHARGE SQ SCH ×2 (10:13→20:57)
--- NOTE | 2023-05-14 10:29 | Surgery Progress Note ---
I have seen and examined this patient with the surgical PA. I agree with the plan Date of Service May 14, 2023 Assessment & Plan (1) Acute cholecystitis: Plan: Patient here with concern for acute cholecystitis US showed + espana's sign with an immobile stone in the neck of the gallbladder WBC 5, LFTs show Tb 1.1, AST 18, ALT 19. Vitals are stable He is tender to palpation in the RUQ on exam Would continue on IV abx and keep NPO with IVF Has history of CABG 1 year ago. On plavix (last took this yesterday). needs to continue to hold this. Will request cardiology consult for clearance Tentatively plan for possible [place] this upcoming pending how he fairs and cardiology input Admission and Anticipated Discharge Date Admission Date: May 14, 2023 Subjective Patient very tired, wants to sleep. Still having some RUQ discomfort. no nausea/vomiting Physical Exam Physical Exam: awake/alert, no distress, resting Respiratory: normal respiratory effort Cardiovascular: Rate/Rhythm: regular rate Gastrointestinal (Abdomen): Percussion/Palpation: + abdomen tender (ttp in the RUQ) and abdomen soft Results & Data Vital Signs (Past 12 Hours) Vital Signs Temp Pulse Pulse Resp BP BP Pulse Ox 05/14/23 08:51 05/14/23 08:51 37.0 C 87 18 133/91 98 05/14/23 07:03 82 05/14/23 06:49 86 20 144/84 H 95 05/14/23 01:35 36.5 C 71 20 147/70 H 96 Pulse Ox O2 Del Method O2 Del Method 05/14/23 08:51 98 Room Air 05/14/23 08:51 Room Air 05/14/23 07:03 05/14/23 06:49 Room Air 05/14/23 01:35 Room Air PG Care Time/CCT Total # of Minutes Spent Total Time Spent with Patient: Total time spent is greater than 50% in coordination of care (as documented) at patient's floor/unit and/or counseling patient: Coding Level of Care Code None Diagnoses Acute cholecystitis K81.0
--- NOTE | 2023-05-14 11:45 | Cardiology Consultation ---
Date of Consultation May 14, 2023 Assessment & Plan (1) Pre-operative cardiovascular exam, new EKG abnormalities c/w ischemia: Patient had complete surgical revascularization less than 1 year ago. Additionally, he is asymptomatic. Cholecystectomy is considered an intermediate risk procedure. He is considered low risk for myocardial ischemic complication of noncardiac surgery at this time. He should proceed with planned surgery. Agree with discontinuation of Plavix. He does not take beta-osmani secondary to bradycardia. (2) Ischemic cardiomyopathy: No evidence of volume overload at this time. He will no doubt will he receive IV fluid resuscitation. We will monitor for evidence of volume overload and can utilize IV Lasix as needed to maintain euvolemia. Agree with lisinopril. (3) PAF (paroxysmal atrial fibrillation): Currently in sinus rhythm. Has been on amiodarone for an unknown duration of time. Reasonable to continue to hold at this time. He also has not been on anticoagulation presumably secondary to low burden of atrial fibrillation and the fact that he has had left atrial appendage exclusion and maze procedure. (4) Atherogenic dyslipidemia: Patient is high risk. High intensity statin therapy with rosuvastatin 10 mg daily. (5) Coronary artery disease without angina pectoris: No angina. Guideline directed medical therapy for secondary prevention shall include low-dose aspirin, high intensity statin therapy, and ROB inhibitor. Beta-osmani intolerant secondary to bradycardia. (6) Hypertension: Blood pressure is adequately controlled at this time. No evidence of sepsis. Continue HCTZ and lisinopril. Plan I will follow to assist in his cardiovascular management in the perioperative period. History of Present Illness Reason for Consultation: Preoperative cardiovascular risk assessment Attending Physician: Lianna Sena DO History of Present Illness 67-year-old gentleman with cardiac history including coronary disease with prior PCI, three-vessel CABG, paroxysmal atrial fibrillation, ischemic cardiomyopathy, hypertension, and atherogenic dyslipidemia. He is admitted at this time for possible acute cholecystitis and may need cholecystectomy. I am asked to see him regarding cardiovascular risk assessment. Patient underwent three-vessel CABG in May 2022. An echocardiogram prior to that showed moderate reduction in his EF, however, postoperatively he reportedly did well with his last echo showing EF of 45 to 50%. He also had paroxysmal atrial fibrillation which was evidently fairly rare prior to his surgery. His surgery included a maze and left atrial appendage exclusion. He previously followed with Dr. Medel of [facility] cardiology. I saw him for the first time in early April. At that time he had no anginal chest pain, dyspnea on exertion, dyspnea at rest, syncope, near syncope, orthopnea, PND, racing heartbeat, palpitations, or edema. We do not have any recent stress tests. Unfortunately, his records are predominantly with the [facility] cardiology group. Patient presents at this time with several day history of right upper quadrant pain. Associated nausea. Ultrasound evaluation suggested acute cholecystitis. Surgery plans cholecystectomy on . Patient denies any anginal chest pain, shortness of breath, syncope, near syncope, orthopnea, PND, racing heartbeat, palpitations, or edema. Allergies Allergy/AdvReac Type Severity Reaction Status Date / Time No Known Allergies Allergy Intermediate Verified 04/10/23 09:12 Home Medications Medication Instructions Recorded Confirmed Type albuterol sulfate 90 mcg/actuation 2 puff inhalation Q6H PRN Wheezing 04/26/19 05/14/23 History aerosol inhaler (ProAir HFA) aspirin 81 mg tablet,delayed 81 mg PO DAILY 04/26/19 05/14/23 History release (Ecotrin Low Strength) fluticasone propionate 50 2 spray intranasal DAILY PRN Nasal 04/26/19 05/14/23 History mcg/actuation nasal Congestion spray,suspension (Flonase Allergy Relief) hydrochlorothiazide 25 mg tablet 40 mg PO DAILY 04/26/19 05/14/23 History lisinopril 10 mg tablet 10 mg PO DAILY 04/26/19 05/14/23 History omeprazole 20 mg capsule,delayed 20 mg PO DAILY 04/26/19 05/14/23 History release polyethylene glycol 3350 17 17 g PO DAILY PRN Constipation 04/26/19 05/14/23 History gram/dose oral powder (Miralax) rosuvastatin 10 mg tablet 10 mg PO DAILY 04/26/19 05/14/23 History sitagliptin phosphate 100 mg See Rx Instructions .Route .COMPLEX 04/26/19 04/10/23 History tablet (Januvia) empagliflozin 25 mg tablet See Rx Instructions .Route .COMPLEX 02/25/22 04/10/23 History (Jardiance) famotidine 40 mg tablet 40 mg PO QPM 02/25/22 05/14/23 History amiodarone 200 mg tablet 200 mg PO PM 05/14/23 05/14/23 History dulaglutide 0.75 mg/0.5 mL 0.75 mg subcut WK 05/14/23 05/14/23 History subcutaneous pen injector (Trulicity) hydrocodone 5 mg-acetaminophen 325 1 tab PO DAILY PRN Pain 05/14/23 05/14/23 History mg tablet insulin aspart U-100 100 unit/mL See Rx Instructions .Route .COMPLEX 05/14/23 05/14/23 History (3 mL) subcutaneous pen (Novolog FlexPen U-100 Insulin aspart) insulin glargine 100 unit/mL (3 30 unit subcut QAM 05/14/23 05/14/23 History mL) subcutaneous pen (Lantus Solostar U-100 Insulin) potassium chloride 20 mEq 20 meq PO QPM 05/14/23 05/14/23 History tablet,extended release tadalafil 20 mg tablet 20 mg PO DIRECTED 05/14/23 05/14/23 History Patient History Medical History Acute hyperglycemia Diabetes GERD (gastroesophageal reflux disease) High blood pressure Ischemic cardiomyopathy PAF (paroxysmal atrial fibrillation) Surgical History History of coronary artery bypass graft Social History Smoking Status: Never smoker Tobacco Type: Cigarettes Second Hand Exposure: No; Do You Dip or Chew Tobacco: No; Tobacco Cessation Education Requested by Patient: No Hx Alcohol Use: No Hx Substance Use: No Preferred Language: Mohawk Communication Ability: Effective Tele Marketing Executive Required: No Beliefs That Will Affect Care: None Current Living Situation: Significant Other Other Information That Helps Us Care for You: No Feels Safe at Home: Yes Safety Concerns: Feels Safe At This Time Assistive Devices: None Review of Systems Review of Systems: Negative except as per HPI Physical Exam Constitutional: WD/WN, vitals as above Eyes: Extraocular muscles intact. Sclera are anicteric. ENMT: Oral mucosa is pink moist and intact Neck: No JVD or bruits Respiratory: Clear to auscultation bilaterally. No wheezing, rhonchi, or rales. Fair air movement. Cardiovascular: Regular rate and rhythm. S4 gallop. Do not appreciate any rubs or murmurs. No edema. Musculoskeletal: no cyanosis or clubbing, extremities motor strength 5/5 Neurologic: Cognition is intact. Speech is fluent. No focal deficits. Ambulates normally. Psychiatric: A+Ox3, euthymic affect Results & Data Vital Signs (Past 12 Hours) Vital Signs Temp Pulse Pulse Resp BP BP Pulse Ox 05/14/23 08:51 05/14/23 08:51 37.0 C 87 18 133/91 98 05/14/23 07:03 82 05/14/23 06:49 86 20 144/84 H 95 05/14/23 01:35 36.5 C 71 20 147/70 H 96 Pulse Ox O2 Del Method O2 Del Method 05/14/23 08:51 98 Room Air 05/14/23 08:51 Room Air 05/14/23 07:03 05/14/23 06:49 Room Air 05/14/23 01:35 Room Air PG Care Time/CCT Total # of Minutes Spent Total Time Spent with Patient: Total time spent is greater than 50% in coordination of care (as documented) at patient's floor/unit and/or counseling patient: Coding Level of Care Code 12510 ER DEPT VISIT HIGH LVL 5 Diagnoses Pre-operative cardiovascular exam, new EKG abnormalities c/w ischemia Z01.810; R94.31 Ischemic cardiomyopathy I25.5 PAF (paroxysmal atrial fibrillation) I48.0 Atherogenic dyslipidemia E78.5 Coronary artery disease without angina pectoris I25.10 Hypertension I10
[2023-05-14] MEDS: INSULIN ASPART PER UNIT CHARGE SC SCH ×2 (15:25→18:35)
[2023-05-14] MEDS: PIPERACILLIN/TAZOBACTAM 4.5 GM in DEXTROSE 5% 100 ML IV SCH ×2 (15:36→22:06)
[2023-05-14] MEDS: MoRPHine SULFATE 4 MG/ML 1 ML CARP\\VIAL IV PRN ×3 (15:36→23:09)
[2023-05-14] MEDS ORDERED: INSULIN ASPART PER UNIT CHARGE SC STA (20:40)
[2023-05-15] MEDS: INSULIN ASPART PER UNIT CHARGE SC SCH ×5 (00:20→21:16)
[2023-05-15] MEDS: MoRPHine SULFATE 4 MG/ML 1 ML CARP\\VIAL IV PRN ×6 (02:17→21:15)
[2023-05-15] MEDS: PIPERACILLIN/TAZOBACTAM 4.5 GM in DEXTROSE 5% 100 ML IV SCH ×3 (05:53→21:16)
--- NOTE | 2023-05-15 07:41 | Hospitalist Progress Note ---
Date of Service May 15, 2023 Assessment & Plan (1) Acute cholecystitis: (2) Cholelithiasis: (3) PAF (paroxysmal atrial fibrillation): (4) Coronary artery disease without angina pectoris: (5) Diabetes: Plan Patient is a 67 yo M with a PMHx of HTN, diabetes, AP, GERD, parox Afib, CAD w/out angpec, ACS who is presented 05/14/23 with 4-5 day Hx of right sided abdominal pain. Acute cholecystitis/Cholelithiasis - Patient positive for nausea but no vomiting, no fevers. - Upon exam patient has a positive Go's sign. RUQ U/S revealed immobile gallstones and sonographic Go's sign. - Lipase was 20, rule out pancreatitis - Continue piperacillin and tazobactam - Surgery was consulted and recommended an urgent cholecystectomy on - Cardiology was consulted due to IA 1 yr ago and they cleared him for surgery - Patient was placed on a clear liquids diet - Planned to d/c patient's Lovenox 24 hours prior to surgery and place on NPO diet at midnight day before surgery Hypertension -continue lisinopril (10 mg PO, daily) and hydrochlorothiazide (40 mg, PO, daily) Diabetes - continue insulin glargine (15 U SQ, BID) and insulin aspart for control of diabetes - patient reportedly on Januvia (sitagliptin), Trulicity (dulaglutide) and Jardiance (empaglifozin) at home, d/c in the hospital CAD (coronary artery disease) - continue the rosuvastatin, lisinopril as listed above Paroxysmal Atrial Fibrillation - patient on amiodarone, held for now per recommendations from cardiology Admission and Anticipated Discharge Date Admission Date: May 14, 2023 Supervising Physician Co-Signing Physician Notes I personally examined the patient and verified chou points of history and exam, discussed case, and agree with decision making and plan documented by Dr. Hanna. Patient will be NPO at midnight for procedure tomorrow, he reports symptoms are stable at present. Patient appears comfortable, lungs clear b/l to auscultation, regular rate and rhythm, mild RUQ tenderness on exam without guarding, no acute distress. Subjective Patient is a 67 yo M with a PMHx of HTN, diabetes, AP, GERD, parox Afib, CAD w/out angpec, ACS who is presenting today with 4-5 day Hx of right sided abdominal pain w/ N. Patient admitted to telemetry. No leukocytosis. Mild elevation of Tbili to 1.1, LFTs otherwise unremarkable. Concern for possible acute cholecystitis, patient had a positive sonographic Go's sign and evidence of immobile gallstones upon RUQ U/S. A cardiology consult (pt s/p 1 yr IA) was placed and they already signed off on him. A surgery consult was placed and the cholecystectomy was deemed urgent rather than emergent. Pending openings, pt may get on surg schedule for Th. -Zofran as needed for nausea -Zosyn 4.5gm IV q 8 -Morphine as needed for pain Review of Systems Respiratory: no cough and no dyspnea Cardiovascular: no chest pain and no dyspnea Gastrointestinal: + abdominal pain and + early satiety; no nausea and no vomiting Genitourinary: no dysuria or no urinary frequency Neurologic: no tingling and no numbness Physical Exam Respiratory: normal respiratory effort, lungs clear to auscultation Cardiovascular: RRR, no murmur, no edema Gastrointestinal (Abdomen): Inspection/Auscultation: abdomen normal to inspection and normal bowel sounds Percussion/Palpation: no hepatomegaly and no splenomegaly Results & Data Results & Data Vital Signs (Past 12 Hours) Vital Signs Temp Pulse Pulse Resp BP Pulse Ox O2 Del Method 05/15/23 07:29 94 H 05/15/23 02:49 37.4 C 87 18 120/71 90 Room Air 05/14/23 23:06 36.8 C 16 128/72 92 Room Air 05/14/23 23:15 82 05/14/23 19:40 36.4 C L 86 16 112/69 94 Room Air
--- NOTE | 2023-05-15 08:11 | Surgery Progress Note ---
Date of Service May 15, 2023 Assessment & Plan (1) Acute cholecystitis: Plan: The patient presented with acute cholecystitis. Has been hemodynamically stable and afebrile overnight. Did not have leukocytosis on presentation. Cardiology has evaluated the patient and he is deemed low risk for cholecystectomy. We will plan tentatively for laparoscopic cholecystectomy tomorrow. Please continue to hold Plavix at this time Follow-up a.m. lab Patient may have clear liquids today. N.p.o. after midnight Admission and Anticipated Discharge Date Admission Date: May 14, 2023 Subjective Patient was seen and examined this AM. States he is feeling better with decreased right upper quadrant pain. No nausea, vomiting, fevers or chills overnight. Physical Exam Constitutional: + disheveled and cooperative; no acute distress, not combative and not diaphoretic Respiratory: normal respiratory effort; no respiratory distress, no labored breathing and does not use accessory muscles Gastrointestinal (Abdomen): Abdomen soft, patient denies tenderness to palpation this a.m. although has an initial voluntary guarding reflex to palpation at anywhere on the abdomen while denying discomfort or pain. Neurologic: moves all extremities and awake; no focal motor deficits and not confused Results & Data Vital Signs (Past 12 Hours) Vital Signs Temp Pulse Pulse Resp BP Pulse Ox O2 Del Method 05/15/23 07:29 94 H 05/15/23 02:49 37.4 C 87 18 120/71 90 Room Air 05/14/23 23:06 36.8 C 16 128/72 92 Room Air 05/14/23 23:15 82 PG Care Time/CCT Total # of Minutes Spent Total Time Spent with Patient: Total time spent is greater than 50% in coordination of care (as documented) at patient's floor/unit and/or counseling patient: Coding Level of Care Code 79713 SUB INP/OBS CARE 10/03MIN Diagnoses Acute cholecystitis K81.0
[2023-05-15] MEDS: lisinopril 10 MG TAB PO SCH (09:10)
[2023-05-15] MEDS: hydroCHLOROthiazide 25 MG TAB PO SCH (09:10)
[2023-05-15] MEDS: ROSUVASTATIN CALCIUM 10 MG TAB PO SCH (09:11)
[2023-05-15] MEDS: LANTUS PER UNIT CHARGE SQ SCH ×2 (09:14→21:16)
[2023-05-15] MEDS: LACTATED RINGER'S 1,000 ML IV SCH ×2 (09:14→22:21)
[2023-05-15 09:55] LABS: Hematocrit (blood only) 38.9 % (42.0-52.0); Hemoglobin 13.1 g/dl (14.0-18.0); Mean Corpuscular Hemoglobin 30.3 pg (25.0-34.0); Mean Corpuscular Hgb Conc 33.7 g/dL (32.0-36.0); Mean Corpuscular Volume 89.8 fL (80.0-100.0); Platelet Count 127 K/uL (130-400); RDW Coefficient of Variation 14.8 % (11.5-14.5); RDW Standard Deviation 48.8 fL (36.4-46.3); Red Blood Count 4.33 M/uL (4.70-6.10); White Blood Count 9.71 K/ul (4.8-10.8)
[2023-05-15 10:22] LABS: Calcium 8.7 mg/dl (8.6-10.3); Potassium 3.6 mmol/L (3.5-5.1)
[2023-05-15 10:27] LABS: Est GFR (African American) 92.1 ml/min
[2023-05-15 10:28] LABS: BUN Creatinine Ratio 15.3 (10-20); Creatinine Clr Calc Pharmacy 77.5 ml/min; Est GFR (Non-African American) 79.5 ml/min
[2023-05-15] MEDS ORDERED: Nursing to Pharmacy Communication SCH (10:45)
--- NOTE | 2023-05-15 13:30 | Electrocardiogram Report ---
Test Reason : Blood Pressure : / mmHG Vent. Rate : 065 BPM Atrial Rate : 065 BPM P-R Int : 162 ms QRS Dur : 180 ms QT Int : 518 ms P-R-T Axes : 043 049 011 degrees QTc Int : 538 ms Normal sinus rhythm with sinus arrhythmia Right bundle branch block possible Inferior infarct (cited on or before 26-FEB-2022) Abnormal ECG When compared with ECG of 26-FEB-2022 12:55, Vent. rate has decreased BY 32 BPM QRS duration has increased Confirmed by Wilber Archer ([id number]) on 05/15/2023 1:29:34 PM Referred By: REFERRED SELF Confirmed By:Alex Archer
--- NOTE | 2023-05-15 18:43 | Emergency Department Note ---
Impression & Plan Acute cholecystitis ED Provider Note CHIEF COMPLAINT: abd pain HISTORY OF PRESENT ILLNESS: This 67 yo male patient with past medical history of GERD, ischemic cardiomyopathy, paroxysmal atrial fibrillation, cholelithiasis, dyslipidemia, CAD, hypertension, diabetes presents to the emergency department with complaints of right upper quadrant pain. The patient states this has been intermittent over the last several days but now is more consistent. It does aggravate him when he eats. Patient has been nauseated but has not vomited. He denies any fevers. REVIEW OF SYSTEMS: A review of systems was performed with positives and pertinent negatives listed in the history of present illness. 10 systems were reviewed and are otherwise negative. ALLERGIES: see below MEDICATIONS: see below PMH: see below SOCIAL HISTORY: see below DDx: Appendicitis, diverticulitis, renal colic, mesenteric ischemia,PUD, pancreatitis, biliary pathology as well as other pathologies. PHYSICAL EXAM: Vital signs reviewed. General: 67-year-old male, chronically ill-appearing in no significant distress. HEENT: No scleral icterus, PERRLA, neck supple. MMM Cardiovascular: Regular rate and rhythm, no extra sounds. Pulmonary: Clear to auscultation bilaterally, normal work of breathing. Abdomen: Soft, pain to palpation of the right upper quadrant, no rebound or guarding, nondistended, positive bowel sounds. No CVA tenderness Musculoskeletal: Atraumatic, no peripheral edema. Neurologic: Patient awake alert and oriented x 3 Skin: Warm, dry, no rash EMERGENCY DEPARTMENT COURSE/MDM: This patient was evaluated and appeared to be in no distress. External medical records were reviewed. IV access was obtained and laboratory work was drawn. Patient was placed on the dural mechanic and noted to be in a normal sinus rhythm. Patient was medicated with IV morphine and Zofran for his discomfort, hydrated gently with normal saline solution. EKG reveals a sinus rhythm with a right bundle branch block. There is no evidence of acute ischemic change. Ultrasound the right upper quadrant was performed due to the patient's tenderness. Study confirms acute cholecystitis. Patient's WBC and LFTs are within normal limits. He was informed of the findings and plan. General surgery was contacted and requested medical admission due to the patient's multiple medical problems. Hospitalist service was contacted for further management. Patient was treated with 2 g of IV Mefoxin. MONITORING: An order for cardiac monitoring was placed and the patient is noted to be in a beats per minute. RADIOLOGY: Ultrasound of the right upper quadrant per radiology reveals a gallstone in the gallbladder neck and evidence of acute cholecystitis. Please see final read below. EKG: To my interpretation reveals a normal sinus rhythm with sinus arrhythmia at 65 bpm. Right bundle branch block with possible previous inferior infarct. Prolonged QTc at 538. No PVC, no PAC. Normal ST segments. DISPOSITION: Admission Past Med/Surg History Medical History Acute hyperglycemia Diabetes GERD (gastroesophageal reflux disease) High blood pressure Ischemic cardiomyopathy PAF (paroxysmal atrial fibrillation) Surgical History (Updated 05/17/23 @ 11:47 by MARCUS Cruz) History of coronary artery bypass graft Hx laparoscopic cholecystectomy (05/16/23) Laparoscopic Cholecystectomy - Carli Moe DO Social History Smoking Status: Never smoker Tobacco Type: Cigarettes Second Hand Exposure: No; Do You Dip or Chew Tobacco: No; Hx Alcohol Use: No Hx Substance Use: No Preferred Language: Nepali Communication Ability: Effective Highway Inspector Required: No Beliefs That Will Affect Care: None Current Living Situation: Significant Other Feels Safe at Home: Yes Assistive Devices: None Allergies Allergies Allergy/AdvReac Type Severity Reaction Status Date / Time No Known Allergies Allergy Intermediate Verified 04/10/23 09:12 Home Meds Home Medications Medication Instructions Recorded Confirmed albuterol sulfate 90 mcg/actuation 2 puff inhalation Q6H PRN Wheezing 04/26/19 05/14/23 aerosol inhaler (ProAir HFA) aspirin 81 mg tablet,delayed 81 mg PO DAILY 04/26/19 05/14/23 release (Ecotrin Low Strength) fluticasone propionate 50 2 spray intranasal DAILY PRN Nasal 04/26/19 05/14/23 mcg/actuation nasal Congestion spray,suspension (Flonase Allergy Relief) lisinopril 10 mg tablet 10 mg PO DAILY 04/26/19 05/14/23 omeprazole 20 mg capsule,delayed 20 mg PO DAILY 04/26/19 05/14/23 release polyethylene glycol 3350 17 17 g PO DAILY PRN Constipation 04/26/19 05/14/23 gram/dose oral powder (Miralax) rosuvastatin 10 mg tablet 10 mg PO DAILY 04/26/19 05/14/23 famotidine 40 mg tablet 40 mg PO QPM 02/25/22 05/14/23 amiodarone 200 mg tablet 200 mg PO PM 05/14/23 05/14/23 dulaglutide 0.75 mg/0.5 mL 0.75 mg subcut WK 05/14/23 05/14/23 subcutaneous pen injector (Trulicity) insulin aspart U-100 100 unit/mL See Rx Instructions .Route .COMPLEX 05/14/23 05/14/23 (3 mL) subcutaneous pen (Novolog FlexPen U-100 Insulin aspart) insulin glargine 100 unit/mL (3 30 unit subcut QAM 05/14/23 05/14/23 mL) subcutaneous pen (Lantus Solostar U-100 Insulin) potassium chloride 20 mEq 20 meq PO QPM 05/14/23 05/14/23 tablet,extended release tadalafil 20 mg tablet 20 mg PO DIRECTED 05/14/23 05/14/23 Previous Rx's Medication Instructions Recorded amoxicillin 875 mg-potassium 1 tab PO Q12H postcholecystectomy 05/18/23 clavulanate 125 mg tablet 5 days #10 tabs Results & Data (ED) Home Medications Current Medication List: was personally reviewed by me Laboratory Data Attestation: I reviewed the patient's lab results. 05/15/23 09:35 05/15/23 09:35 Lab Results 05/14/23 05/14/23 Range/Units 03:05 03:05 WBC 5.40 (4.8-10.8) K/ul RBC 4.46 L (4.70-6.10) M/uL Hgb 13.7 L (14.0-18.0) g/dl Hct 40.4 L (42.0-52.0) % MCV 90.6 (80.0-100.0) fL MCH 30.7 (25.0-34.0) pg MCHC 33.9 (32.0-36.0) g/dL RDW Std Deviation 47.6 H (36.4-46.3) fL RDW Coeff of Tati 14.3 (11.5-14.5) % Plt Count 108 L (130-400) K/uL MPV 11.4 (9.4-12.4) fL Immature Gran % (Auto) 0.4 % Neut % (Auto) 87.8 % Lymph % (Auto) 7.0 % Ritchie % (Auto) 4.6 % Eos % (Auto) 0.0 % Baso % (Auto) 0.2 % Neut # (Auto) 4.74 (1.40-6.50) K/uL Lymph # (Auto) 0.38 L (1.20-3.40) K/uL Ritchie # (Auto) 0.25 (0.11-0.59) K/uL Eos # (Auto) 0.00 (0.00-0.50) K/uL Baso # (Auto) 0.01 (0.00-0.20) K/uL Immature Gran # (Auto) 0.02 (0.01-0.20) K/uL Sodium 138 (136-145) mmol/L Potassium 3.7 (3.5-5.1) mmol/L Chloride 101 (98-107) mmol/L Carbon Dioxide 28 (21-32) mmol/L Anion Gap 9 (3-11) BUN 18 (6-23) mg/dl Creatinine 0.98 (0.6-1.4) mg/dl Est Cr Clr Drug Dosing 77.0 ml/min Est GFR ( Amer) 92.1 ml/min Est GFR (Non-Af Amer) 79.5 ml/min BUN/Creatinine Ratio 18.4 (10-20) Glucose 220 H (70-99(Fasting)) mg/dl Calcium 9.0 (8.6-10.3) mg/dl Total Bilirubin 1.1 H (0.2-1.0) mg/dl AST 18 (13-39) U/L ALT 19 (7-52) U/L Alkaline Phosphatase 94 (34-104) U/L Troponin I High Sens 10.7 (0-20) pg/ml Total Protein 7.6 (6.0-8.3) gm/dl Albumin 4.4 (3.4-5.0) gm/dl Globulin 3.2 (2.5-4.0) gm/dl Albumin/Globulin Ratio 1.4 (0.9-2) Lipase 20 (11-82) U/L Administered Medications Discontinued Medications Bupivacaine HCl/Epinephrine Bitart (Bupivacaine/Epinephrine 0.5% Mpf 1:200,000 30 Ml Vial) Confirm Administered Dose 30 ml .ROUTE .STK-MED ONE Stop: 05/16/23 10:39 Last Admin: 05/16/23 14:22 Dose: 24 ml Documented By: [id number] Enoxaparin Sodium (Enoxaparin Inj 40 Mg/0.4 Ml Syr) 40 mg SQ Q24H GUCCI Stop: 06/13/23 07:59 Last Admin: 05/14/23 08:48 Dose: Not Given Documented By: NA Famotidine (Famotidine 20 Mg Tab) 20 mg PO NOW ONE Stop: 05/15/23 20:01 Last Admin: 05/15/23 20:19 Dose: 20 mg Documented By: BERTA Fluticasone Propionate (Fluticasone Propionate Na Spr 16 Gm Btl) 2 sprays NA DAILY PRN PRN Reason: Nasal Congestion Stop: 06/13/23 07:19 Last Admin: 05/17/23 22:47 Dose: 2 sprays Documented By: JAMARCUS Hydrochlorothiazide (Hydrochlorothiazide 25 Mg Tab) 25 mg PO DAILY GUCCI Stop: 06/13/23 08:59 Last Admin: 05/16/23 10:27 Dose: Not Given Documented By: Admin: 05/15/23 09:10 Dose: 25 mg Documented By: Admin: 05/14/23 09:06 Dose: Not Given Documented By: AP Hydrochlorothiazide (Hydrochlorothiazide 25 Mg Tab) 25 mg PO NOW STA Stop: 05/17/23 07:07 Last Admin: 05/17/23 09:30 Dose: 25 mg Documented By: CHARLINE Sodium Chloride (Nss 1000ml) 1,000 mls @ 125 mls/hr IV .Q8H GUCCI Stop: 06/13/23 05:44 Last Admin: 05/14/23 15:31 Dose: Not Given Documented By: Infusion: 05/14/23 08:42 Dose: 0 mls/hr Documented By: Admin: 05/14/23 06:45 Dose: 125 mls/hr Documented By: GA Cefoxitin Sodium (Mefoxin) 2,000 mg in 60 mls @ 100 mls/hr IV NOW STA Stop: 05/14/23 06:11 Last Infusion: 05/14/23 06:44 Dose: 0 mls/hr Documented By: Admin: 05/14/23 05:53 Dose: 100 mls/hr Documented By: GA Lactated Ringer's (Lr) 1,000 mls @ 80 mls/hr IV .[id number] GUCCI Stop: 06/13/23 07:19 Last Admin: 05/18/23 11:54 Dose: 80 mls/hr Documented By: Infusion: 05/18/23 11:54 Dose: 0 mls/hr Documented By: Infusion: 05/18/23 11:50 Dose: 0 mls/hr Documented By: Admin: 05/17/23 23:21 Dose: 80 mls/hr Documented By: Infusion: 05/17/23 23:21 Dose: 80 mls/hr Documented By: Admin: 05/17/23 11:00 Dose: 80 mls/hr Documented By: Infusion: 05/17/23 11:00 Dose: 80 mls/hr Documented By: Infusion: 05/17/23 10:17 Dose: 80 mls/hr Documented By: Admin: 05/17/23 00:41 Dose: 80 mls/hr Documented By: Infusion: 05/17/23 00:40 Dose: 0 mls/hr Documented By: Admin: 05/16/23 10:39 Dose: 80 mls/hr Documented By: Infusion: 05/16/23 10:28 Dose: 80 mls/hr Documented By: Admin: 05/15/23 22:21 Dose: 80 mls/hr Documented By: Infusion: 05/15/23 21:44 Dose: 80 mls/hr Documented By: Admin: 05/15/23 09:14 Dose: 80 mls/hr Documented By: Infusion: 05/15/23 09:14 Dose: 80 mls/hr Documented By: Admin: 05/14/23 22:07 Dose: 80 mls/hr Documented By: Infusion: 05/14/23 22:06 Dose: 80 mls/hr Documented By: Infusion: 05/14/23 09:39 Dose: 80 mls/hr Documented By: Infusion: 05/14/23 08:45 Dose: 0 mls/hr Documented By: Admin: 05/14/23 08:41 Dose: 80 mls/hr Documented By: AP Piperacillin Sod/Tazobactam (Sod 4.5 gm/ Dextrose) 120 mls @ 30 mls/hr IV Q8H [facility]; Protocol Stop: 05/24/23 13:59 Last Admin: 05/18/23 14:48 Dose: Not Given Documented By: Infusion: 05/18/23 09:16 Dose: 0 mls/hr Documented By: Admin: 05/18/23 05:02 Dose: 30 mls/hr Documented By: Infusion: 05/18/23 00:53 Dose: 0 mls/hr Documented By: Admin: 05/17/23 21:03 Dose: 30 mls/hr Documented By: Infusion: 05/17/23 18:15 Dose: 0 mls/hr Documented By: Admin: 05/17/23 13:34 Dose: 30 mls/hr Documented By: Infusion: 05/17/23 10:17 Dose: 0 mls/hr Documented By: Admin: 05/17/23 06:02 Dose: 30 mls/hr Documented By: Infusion: 05/17/23 01:52 Dose: 0 mls/hr Documented By: Admin: 05/16/23 21:37 Dose: 30 mls/hr Documented By: Infusion: 05/16/23 18:44 Dose: 0 mls/hr Documented By: Admin: 05/16/23 14:33 Dose: 30 mls/hr Documented By: Infusion: 05/16/23 10:29 Dose: 0 mls/hr Documented By: Admin: 05/16/23 05:40 Dose: 30 mls/hr Documented By: Infusion: 05/16/23 01:59 Dose: 0 mls/hr Documented By: Admin: 05/15/23 21:16 Dose: 30 mls/hr Documented By: Infusion: 05/15/23 17:30 Dose: 0 mls/hr Documented By: Admin: 05/15/23 13:29 Dose: 30 mls/hr Documented By: Infusion: 05/15/23 10:35 Dose: 0 mls/hr Documented By: Admin: 05/15/23 05:53 Dose: 30 mls/hr Documented By: Infusion: 05/15/23 02:14 Dose: 0 mls/hr Documented By: Admin: 05/14/23 22:06 Dose: 30 mls/hr Documented By: Infusion: 05/14/23 19:57 Dose: 0 mls/hr Documented By: Admin: 05/14/23 15:36 Dose: 30 mls/hr Documented By: LIDYA Piperacillin Sod/Tazobactam (Sod 4.5 gm/ Dextrose) 120 mls @ 240 mls/hr IV NOW ONE; Protocol Stop: 05/14/23 08:29 Last Infusion: 05/14/23 09:39 Dose: 0 mls/hr Documented By: Admin: 05/14/23 08:55 Dose: 240 mls/hr Documented By: NA Famotidine 20 mg/ Syringe 5 mls @ 2.5 mls/min IV NOW ONE Stop: 05/16/23 19:16 Last Admin: 05/16/23 21:31 Dose: 2.5 mls/min Documented By: CLR Potassium Chloride (K Aldo / Wtr) 10 meq in 100 mls @ 100 mls/hr IV Q1H GUCCI Stop: 05/18/23 15:14 Last Admin: 05/18/23 15:46 Dose: 90 mls/hr Documented By: Infusion: 05/18/23 15:46 Dose: 90 mls/hr Documented By: Admin: 05/18/23 14:41 Dose: 90 mls/hr Documented By: Infusion: 05/18/23 14:30 Dose: 100 mls/hr Documented By: Admin: 05/18/23 13:30 Dose: 100 mls/hr Documented By: Infusion: 05/18/23 13:29 Dose: 0 mls/hr Documented By: Infusion: 05/18/23 12:22 Dose: 100 mls/hr Documented By: Infusion: 05/18/23 12:16 Dose: 0 mls/hr Documented By: Admin: 05/18/23 11:43 Dose: 100 mls/hr Documented By: BRETT Insulin Aspart (Insulin Aspart Per Unit Charge) 0 units SC ACHS GUCCI Stop: 06/13/23 07:29 Last Admin: 05/14/23 10:20 Dose: Not Given Documented By: NA Insulin Aspart (Insulin Aspart Per Unit Charge) 0 units SC Q6 GUCCI Stop: 06/13/23 07:29 Last Admin: 05/15/23 05:52 Dose: 1 units Documented By: TRAVIS Co-signed By: CORINNE Admin: 05/15/23 00:20 Dose: 1 units Documented By: TRAVIS Co-signed By: FiordalizaG Admin: 05/14/23 18:35 Dose: 9 units Documented By: KINGSLEY Co-signed By: SM Admin: 05/14/23 15:25 Dose: Not Given Documented By: LIDYA Co-signed By: DEANNA Insulin Aspart (Insulin Aspart Per Unit Charge) 8 units SC NOW STA Stop: 05/14/23 20:41 Last Admin: 05/14/23 20:58 Dose: 8 units Documented By: TRAVIS Co-signed By: BERTA Insulin Aspart (Insulin Aspart Per Unit Charge) 0 units SC ACHS GUCCI Stop: 06/13/23 11:59 Last Admin: 05/18/23 13:10 Dose: 11 units Documented By: BRETT Co-signed By: DM Admin: 05/18/23 09:15 Dose: 7 units Documented By: BRETT Co-signed By: DM Admin: 05/17/23 20:49 Dose: 6 units Documented By: JAMARCUS Co-signed By: CAROLYNE Admin: 05/17/23 18:18 Dose: 8 units Documented By: CHARLINE Co-signed By: GRACIA Admin: 05/17/23 13:33 Dose: 7 units Documented By: CHARLINE Co-signed By: GRACIA Admin: 05/17/23 09:28 Dose: 5 units Documented By: CHARLINE Co-signed By: LINDSAY Admin: 05/16/23 21:32 Dose: 4 units Documented By: BERTA Co-signed By: EDGARDO Admin: 05/16/23 18:14 Dose: 6 units Documented By: CHARLINE Co-signed By: KAI Admin: 05/16/23 17:01 Dose: Not Given Documented By: Admin: 05/16/23 09:31 Dose: 3 units Documented By: CHARLINE Co-signed By: MARY Admin: 05/15/23 21:16 Dose: 2 units Documented By: BERTA Co-signed By: IZA Admin: 05/15/23 17:41 Dose: 6 units Documented By: AMBROCIO Co-signed By: LINDSAY(2) Admin: 05/15/23 13:29 Dose: 3 units Documented By: AMBROCIO Co-signed By: ADRIANA Insulin Glargine (Lantus Per Unit Charge) 15 units SQ BID GUCCI Stop: 06/13/23 08:59 Last Admin: 05/18/23 09:16 Dose: 15 units Documented By: BRETT Co-signed By: DM Admin: 05/17/23 20:50 Dose: 15 units Documented By: JAMARCUS Co-signed By: CAROLYNE Admin: 05/17/23 09:33 Dose: 15 units Documented By: CHARLINE Co-signed By: LINDSAY Admin: 05/16/23 21:32 Dose: 15 units Documented By: BERTA Co-signed By: EDGARDO Admin: 05/16/23 10:39 Dose: 15 units Documented By: CHARLINE Co-signed By: MARY Admin: 05/15/23 21:16 Dose: 7 units Documented By: BERTA Co-signed By: IZA Admin: 05/15/23 09:14 Dose: 15 units Documented By: AMBROCIO Co-signed By: ADRIANA Admin: 05/14/23 20:57 Dose: 15 units Documented By: TRAVIS Co-signed By: BERTA Admin: 05/14/23 10:13 Dose: 15 units Documented By: AP Co-signed By: DOREEN Lisinopril (Lisinopril 10 Mg Tab) 10 mg PO DAILY GUCCI Stop: 06/13/23 08:59 Last Admin: 05/16/23 10:39 Dose: Not Given Documented By: Admin: 05/15/23 09:10 Dose: 10 mg Documented By: Admin: 05/14/23 08:43 Dose: 10 mg Documented By: AP Lisinopril (Lisinopril 10 Mg Tab) 10 mg PO QAM GUCCI Stop: 06/16/23 08:59 Last Admin: 05/18/23 08:40 Dose: 10 mg Documented By: Admin: 05/17/23 09:30 Dose: 10 mg Documented By: CHARLINE Morphine Sulfate (Morphine Sulfate 4 Mg/Ml 1 Ml Carp\Vial) 4 mg IV NOW STA Stop: 05/14/23 05:32 Last Admin: 05/14/23 05:55 Dose: 4 mg Documented By: GA Morphine Sulfate (Morphine Sulfate 4 Mg/Ml 1 Ml Carp\Vial) 4 mg IV Q3H PRN PRN Reason: Pain (6,7,8,9,10) Stop: 05/28/23 07:19 Last Admin: 05/17/23 03:13 Dose: 4 mg Documented By: Admin: 05/16/23 18:40 Dose: 4 mg Documented By: Admin: 05/16/23 10:39 Dose: 4 mg Documented By: Admin: 05/16/23 05:43 Dose: 4 mg Documented By: Admin: 05/15/23 21:15 Dose: 4 mg Documented By: Admin: 05/15/23 18:05 Dose: 4 mg Documented By: Admin: 05/15/23 13:33 Dose: 4 mg Documented By: Admin: 05/15/23 09:14 Dose: 4 mg Documented By: Admin: 05/15/23 05:46 Dose: 4 mg Documented By: Admin: 05/15/23 02:17 Dose: 4 mg Documented By: Admin: 05/14/23 23:09 Dose: 4 mg Documented By: Admin: 05/14/23 18:36 Dose: 4 mg Documented By: Admin: 05/14/23 15:36 Dose: 4 mg Documented By: TBS Morphine Sulfate (Morphine Sulfate 2 Mg/Ml Carp) 2 mg IV Q3H PRN PRN Reason: Pain (1,2,3,4,5) & Pre PT Stop: 05/28/23 07:19 Last Admin: 05/17/23 06:09 Dose: 2 mg Documented By: Admin: 05/14/23 08:39 Dose: 2 mg Documented By: AP Ondansetron HCl (Ondansetron Inj 2 Mg/Ml 2 Ml Vial) 4 mg IV NOW STA Stop: 05/14/23 05:32 Last Admin: 05/14/23 05:55 Dose: 4 mg Documented By: DAPHNEW Oxycodone HCl (Oxycodone Hcl Ir 5 Mg Tab (Immediate Release)) 5 mg PO Q4H PRN PRN Reason: Mod-Sev Pain (Scale 4-10) Stop: 05/30/23 14:59 Last Admin: 05/18/23 00:39 Dose: 5 mg Documented By: JAMARCUS Pantoprazole Sodium (Pantoprazole 40 Mg Tab) [facility] [place] Stop: 06/15/23 08:59 Last Admin: 05/18/23 08:40 Dose: 40 mg Documented By: Admin: 05/17/23 09:30 Dose: 40 mg Documented By: Admin: 05/16/23 10:28 Dose: Not Given Documented By: CHARLINE Potassium Chloride (Potassium Chloride 10 Meq Tabcr) 10 meq PO NOW STA Stop: 05/18/23 08:40 Last Admin: 05/18/23 09:18 Dose: 10 meq Documented By: BRETT Potassium Chloride (Potassium Chloride 10 Meq Tabcr) 10 meq PO BID GUCCI Stop: 06/17/23 08:59 Last Admin: 05/18/23 09:19 Dose: 10 meq Documented By: BRETT Rosuvastatin Calcium (Rosuvastatin Calcium 10 Mg Tab) 10 mg PO DAILY GUCCI Stop: 06/13/23 08:59 Last Admin: 05/18/23 08:40 Dose: 10 mg Documented By: Admin: 05/17/23 09:30 Dose: 10 mg Documented By: Admin: 05/16/23 10:28 Dose: Not Given Documented By: Admin: 05/15/23 09:11 Dose: 10 mg Documented By: Admin: 05/14/23 08:42 Dose: 10 mg Documented By: NA Imaging Data Radiologist's Impression: Gallbladder Ultrasound 05/14/23 03:59 US gallbladder CLINICAL HISTORY: RUQ pain TECHNIQUE: Multiple real-time sonographic images of the right upper quadrant were obtained. Comparison: None available at the time of this dictation. FINDINGS: Limited exam due to patient body habitus and prominent bowel. The liver is diffusely homogenous with normal contour and echogenicity. No focal mass lesions are seen. No intrahepatic ductal dilatation is seen. Nonmobile stones are seen in the gallbladder neck. The anterior wall appears thickened measuring up to 4 mm. No pericholecystic fluid is seen. A sonographic Go's sign was elicited by the brusher. The common duct measures 0.4 cm in diameter at the level of the hepatic artery. The visualized portions of the pancreas appear normal. A likely cyst is seen in the right kidney superior pole. No ascites or free fluid is seen in Cuello's pouch. IMPRESSION: Positive Go's sign, immobile on bladder neck stone and wall thickening compatible with acute cholecystitis. ACT 112: Negative or not required by law. Electronically signed by: Nawaf Kelly M.D. 05/14/2023 6:56 AM Discharge Plan Visit Data Chief Complaint: Back Injury/Pain Stated Complaint: BACK PAIN, UPSET STOMACH ED Provider: Kristin Boudreaux Discharge Problem: Acute cholecystitis Patient Disposition: Admitted As Inpatient Discharge Instructions Interventions: ED Discharge Assessment Last Done: 05/14/23 07:22
[2023-05-15] MEDS ORDERED: FAMOTIDINE 20 MG TAB PO ONE (20:00)
[2023-05-16] MEDS: PIPERACILLIN/TAZOBACTAM 4.5 GM in DEXTROSE 5% 100 ML IV SCH ×3 (05:40→21:37)
[2023-05-16] MEDS: MoRPHine SULFATE 4 MG/ML 1 ML CARP\\VIAL IV PRN ×3 (05:43→18:40)
[2023-05-16 07:20] LABS: BUN Creatinine Ratio 14.5 (10-20); Calcium 8.1 mg/dl (8.6-10.3); Creatinine Clr Calc Pharmacy 91.9 ml/min; Est GFR (African American) 105.5 ml/min; Potassium 3.3 mmol/L (3.5-5.1)
--- NOTE | 2023-05-16 07:34 | Hospitalist Progress Note ---
Date of Service May 16, 2023 Assessment & Plan (1) Acute cholecystitis: (2) Cholelithiasis: (3) PAF (paroxysmal atrial fibrillation): (4) Coronary artery disease without angina pectoris: (5) Diabetes: Plan Patient is a 67 yo M with a PMHx of HTN, diabetes, AP, GERD, parox Afib, CAD w/out angpec, ACS who presented 05/14/23 with 4-5 day Hx of right sided abdominal pain. Acute cholecystitis/Cholelithiasis - Patient initially positive for nausea but no vomiting, no fevers. - Upon exam patient has a positive Go's sign. RUQ U/S revealed immobile gallstones and sonographic Go's sign. - Lipase was 20, rule out pancreatitis - Continue piperacillin and tazobactam post cholecystectomy surgery - Surgery consulted, urgent cholecystectomy likely today (05/16/23) - Cardiology was consulted due to GA 1 yr ago and they cleared him for surgery - Patient was placed on a clear liquids diet, NPO diet since midnight - Patient's Plavix, aspirin, and enoxaparin have been held until post surgery Hypertension - hypertensive meds held this morning, will continue after surgery: lisinopril (10 mg PO, daily) and hydrochlorothiazide (40 mg, PO, daily) Diabetes - fasting glucose, 157 (05/16/23) - continue insulin glargine (15 U SQ, BID) and insulin aspart for control of diabetes - patient reportedly on Januvia (sitagliptin), Trulicity (dulaglutide) and Jardiance (empaglifozin) at home, d/c in the hospital CAD (coronary artery disease) - continue the rosuvastatin, lisinopril as listed above Paroxysmal Atrial Fibrillation - patient on amiodarone, held for now per recommendations from cardiology Admission and Anticipated Discharge Date Admission Date: May 14, 2023 Supervising Physician Co-Signing Physician Notes I personally examined the patient and verified chou points of history and exam, discussed case, and agree with decision making and plan documented by Dr. Hanna. Examined patient prior to cholecystectomy this morning, he continued to have diffuse abdominal tenderness, lap angeles performed today, anticipate discharge tomorrow. Patient appeared comfortable, lungs clear b/l to auscultation, regular rate and rhythm, mild diffuse abdominal tenderness with pa in in RUQ w/o guarding, no acute distress. Recommend review with cardiology, it appears that patient's Plavix has been discontinued and that the recommendation is for him to continue aspirin. Subjective Patient was seen and examined this morning. States he is continuing to feel significant right upper quadrant pain, but well managed with a severity level of 2/10 on the morphine. No nausea, vomiting, fevers or chills overnight. Decreased caloric intake secondary to RUQ pain; patient currently on clear liquids diet in prep for cholecystectomy today. Patient denies calf pain, chest pain, palpitations, shortness of breath. Review of Systems Review of Systems: All systems reviewed & are unremarkable except as noted in HPI & below Constitutional: + anorexia (secondary to RUQ pain); no fever, no chills, no body aches and no weakness Respiratory: + cough (a minor cough w/ phlegm); no dyspnea Cardiovascular: no chest pain and no dyspnea Gastrointestinal: + abdominal pain; no nausea and no vomiting Genitourinary: no dysuria, no urinary frequency or no urinary urgency Musculoskeletal: no back pain (baseline back pain), no myalgia and no body aches Neurologic: no tingling, no numbness and no headache(s) Physical Exam Constitutional: WD/WN, vitals as above Respiratory: normal respiratory effort, lungs clear to auscultation Cardiovascular: RRR, no murmur, no edema Gastrointestinal (Abdomen): Inspection/Auscultation: abdomen normal to inspection and normal bowel sounds Percussion/Palpation: no hepatomegaly and no splenomegaly Psychiatric: A+Ox3, euthymic affect Results & Data Results & Data Vital Signs (Past 12 Hours) Vital Signs Temp Pulse Pulse Resp BP BP Pulse Ox 05/16/23 03:00 36.9 C 96 H 18 112/66 90 05/15/23 22:00 96 H 05/15/23 22:39 37.5 C 92 H 16 115/57 L 90 05/15/23 19:29 37.2 C 94 H 18 127/59 L 91 O2 Del Method 05/16/23 03:00 Room Air 05/15/23 22:00 05/15/23 22:39 Room Air 05/15/23 19:29 Room Air
[2023-05-16 07:52] LABS: Hematocrit (blood only) 31.4 % (42.0-52.0); Hemoglobin 10.9 g/dl (14.0-18.0); Mean Corpuscular Hemoglobin 30.8 pg (25.0-34.0); Mean Corpuscular Hgb Conc 34.7 g/dL (32.0-36.0); Mean Corpuscular Volume 88.7 fL (80.0-100.0); Platelet Count 97 K/uL (130-400); Platelet Estimate Decreased (Normal); RDW Coefficient of Variation 14.6 % (11.5-14.5); RDW Standard Deviation 47.8 fL (36.4-46.3); Red Blood Count 3.54 M/uL (4.70-6.10); White Blood Count 6.62 K/ul (4.8-10.8)
--- NOTE | 2023-05-16 08:43 | Anesthesiology Consultation ---
Date of Service May 16, 2023 Assessment & Plan Chart Review Chart Review: data entry initiated History Surgery Operation Date: 05/16/23 09:30 Proposed Procedures p Laparoscopic Cholecystectomy - Carli Moe DO Height/Weight Height: 5 ft 7 in Weight: 89 kg Allergies Allergy/AdvReac Type Severity Reaction Status Date / Time No Known Allergies Allergy Intermediate Verified 04/10/23 09:12 Medications Home Medications Medication Instructions Recorded Confirmed Last Taken albuterol sulfate 90 mcg/actuation 2 puff inhalation Q6H PRN Wheezing 04/26/19 05/14/23 Unknown aerosol inhaler (ProAir HFA) aspirin 81 mg tablet,delayed 81 mg PO DAILY 04/26/19 05/14/23 Unknown release (Ecotrin Low Strength) fluticasone propionate 50 2 spray intranasal DAILY PRN Nasal 04/26/19 05/14/23 Unknown mcg/actuation nasal Congestion spray,suspension (Flonase Allergy Relief) hydrochlorothiazide 25 mg tablet 40 mg PO DAILY 04/26/19 05/14/23 Unknown lisinopril 10 mg tablet 10 mg PO DAILY 04/26/19 05/14/23 Unknown omeprazole 20 mg capsule,delayed 20 mg PO DAILY 04/26/19 05/14/23 Unknown release polyethylene glycol 3350 17 17 g PO DAILY PRN Constipation 04/26/19 05/14/23 Unknown gram/dose oral powder (Miralax) rosuvastatin 10 mg tablet 10 mg PO DAILY 04/26/19 05/14/23 Unknown sitagliptin phosphate 100 mg See Rx Instructions .Route .COMPLEX 04/26/19 04/10/23 Unknown tablet (Januvia) empagliflozin 25 mg tablet See Rx Instructions .Route .COMPLEX 02/25/22 04/10/23 Unknown (Jardiance) famotidine 40 mg tablet 40 mg PO QPM 02/25/22 05/14/23 Unknown amiodarone 200 mg tablet 200 mg PO PM 05/14/23 05/14/23 Unknown dulaglutide 0.75 mg/0.5 mL 0.75 mg subcut WK 05/14/23 05/14/23 Unknown subcutaneous pen injector (Trulicity) hydrocodone 5 mg-acetaminophen 325 1 tab PO DAILY PRN Pain 05/14/23 05/14/23 Unknown mg tablet insulin aspart U-100 100 unit/mL See Rx Instructions .Route .COMPLEX 05/14/23 05/14/23 Unknown (3 mL) subcutaneous pen (Novolog FlexPen U-100 Insulin aspart) insulin glargine 100 unit/mL (3 30 unit subcut QAM 05/14/23 05/14/23 Unknown mL) subcutaneous pen (Lantus Solostar U-100 Insulin) potassium chloride 20 mEq 20 meq PO QPM 05/14/23 05/14/23 Unknown tablet,extended release tadalafil 20 mg tablet 20 mg PO DIRECTED 05/14/23 05/14/23 Unknown Active Medications Generic Name Dose Route Start Last Admin Trade Name Freq PRN Reason Stop Dose Admin Hydrochlorothiazide 25 mg 05/14/23 09:00 05/15/23 09:10 Hydrochlorothiazide 25 Mg Tab PO 06/13/23 08:59 25 mg DAILY GUCCI Administration Lactated Ringer's 1,000 mls @ 80 mls/hr 05/14/23 07:20 05/15/23 22:21 Lr IV 06/13/23 07:19 80 mls/hr .[id number] GUCCI Administration Piperacillin Sod/Tazobactam 120 mls @ 30 mls/hr 05/14/23 14:00 05/16/23 05:40 Sod 4.5 gm/ Dextrose IV 05/24/23 13:59 30 mls/hr Q8H GUCCI Administration Protocol Insulin Aspart 0 units 05/15/23 11:30 05/15/23 21:16 Insulin Aspart Per Unit Charge SC 06/13/23 11:59 2 units ACHS GUCCI Administration Insulin Glargine 15 units 05/14/23 09:00 05/15/23 21:16 Lantus Per Unit Charge SQ 06/13/23 08:59 7 units BID GUCCI Administration Lisinopril 10 mg 05/14/23 09:00 05/15/23 09:10 Lisinopril 10 Mg Tab PO 06/13/23 08:59 10 mg DAILY GUCCI Administration Morphine Sulfate 4 mg 05/14/23 07:20 05/16/23 05:43 Morphine Sulfate 4 Mg/Ml 1 Ml Carp\Vial IV 05/28/23 07:19 4 mg Q3H PRN Administration Pain (6,7,8,9,10) Morphine Sulfate 2 mg 05/14/23 07:20 09/05/23 08:39 Morphine Sulfate 2 Mg/Ml Carp IV 05/28/23 07:19 2 mg Q3H PRN Administration Pain (1,2,3,4,5) & Pre PT Rosuvastatin Calcium 10 mg 05/14/23 09:00 05/15/23 09:11 Rosuvastatin Calcium 10 Mg Tab PO 06/13/23 08:59 10 mg DAILY GUCCI Administration Past Medical History Medical History Acute hyperglycemia Diabetes GERD (gastroesophageal reflux disease) High blood pressure Ischemic cardiomyopathy PAF (paroxysmal atrial fibrillation) Past Surgical History Surgical History History of coronary artery bypass graft Social History Smoking Status: Never smoker Do You Dip or Chew Tobacco: No Hx Alcohol Use: No Hx Substance Use: No substance use type: does not use Physical Exam Vital Signs Last Vital Signs Temp 98.1 F 05/16/23 08:36 Pulse 96 H 05/16/23 08:36 Resp 18 05/16/23 08:36 BP 105/72 05/16/23 08:36 Pulse Ox 91 05/16/23 08:36 O2 Del Method Room Air 05/16/23 08:36 Testing Laboratory Results 05/16/23 06:32 05/16/23 06:32 05/16/23 08:23 POC Glucose 192 H Electrocardiogram Date: 05/14/23 Normal sinus rhythm with sinus arrhythmia Right bundle branch block possible Inferior infarct (cited on or before 26-FEB-2022) Abnormal ECG When compared with ECG of 26-FEB-2022 12:55, Vent. rate has decreased BY 32 BPM QRS duration has increased Confirmed by Wilber Archer ([id number]) on 05/15/2023 1:29:34 PM Echocardiogram Date: 09/24/22 EF 45-49% The wall thickness is moderately increased in segment with normal wall motion There is a moderate sized apical, septal, and anteroseptal wall motion abnormality with hypokinesis of the segments There is AV sclerosis without stenosis
--- NOTE | 2023-05-16 09:23 | Surgery Progress Note ---
Date of Service May 16, 2023 Assessment & Plan (1) Acute cholecystitis: Plan: Patient will be taken to the operating room today for laparoscopic cholecystectomy. The details of the procedure have been explained to the patient including the risks and benefits. He expressed understanding of this explanation and all his questions were answered. Consent was obtained. The patient has been n.p.o. since midnight Admission and Anticipated Discharge Date Admission Date: May 14, 2023 Subjective Patient seen and examined the am. Continues with right upper quadrant pain and requiring IV pain medication for control. Physical Exam Constitutional: cooperative; no acute distress and not diaphoretic Respiratory: normal respiratory effort; no respiratory distress, no labored breathing and does not use accessory muscles Gastrointestinal (Abdomen): RUQ tenderness to palpation. Results & Data Vital Signs (Past 12 Hours) Vital Signs Temp Pulse Pulse Pulse Resp BP BP 05/16/23 08:36 36.7 C 96 H 18 105/72 05/16/23 03:00 36.9 C 96 H 18 112/66 05/15/23 22:00 96 H 05/15/23 22:39 37.5 C 92 H 16 115/57 L Pulse Ox O2 Del Method 05/16/23 08:36 91 Room Air 05/16/23 03:00 90 Room Air 05/15/23 22:00 05/15/23 22:39 90 Room Air PG Care Time/CCT Total # of Minutes Spent Total Time Spent with Patient: Total time spent is greater than 50% in coordination of care (as documented) at patient's floor/unit and/or counseling patient: Coding Level of Care Code 63673 SUB INP/OBS CARE 1/25MIN Diagnoses Acute cholecystitis K81.0
[2023-05-16] MEDS: INSULIN ASPART PER UNIT CHARGE SC SCH ×4 (09:31→21:32)
[2023-05-16] MEDS: hydroCHLOROthiazide 25 MG TAB PO SCH (10:27)
[2023-05-16] MEDS: PANTOprazole 40 MG TAB PO SCH (10:28)
[2023-05-16] MEDS: ROSUVASTATIN CALCIUM 10 MG TAB PO SCH (10:28)
[2023-05-16] MEDS ORDERED: BUPIVACAINE/EPINEPHRINE 0.5% MPF 1:200,000 30 ML VIAL ONE (10:38)
[2023-05-16] MEDS: LACTATED RINGER'S 1,000 ML IV SCH (10:39)
[2023-05-16] MEDS: lisinopril 10 MG TAB PO SCH (10:39)
[2023-05-16] MEDS: LANTUS PER UNIT CHARGE SQ SCH ×2 (10:39→21:32)
[2023-05-16] MEDS ORDERED: fentaNYL citrate PF 100 MCG/2 ML VIAL ONE ×2 (10:45→12:13)
[2023-05-16] MEDS ORDERED: ATROPINE SULFATE 0.1 MG/ML 10ML SYR IV PRN (11:12)
[2023-05-16] MEDS ORDERED: ONDANSETRON INJ 2 MG/ML 2 ML VIAL IV PRN (11:12)
[2023-05-16] MEDS ORDERED: ePHEDrine sulfate 50 MG/ML AMP IV PRN (11:12)
[2023-05-16] MEDS ORDERED: fentaNYL citrate PF 100 MCG/2 ML VIAL IV PRN (11:12)
[2023-05-16] MEDS ORDERED: KETAMINE 50 MG/5 ML SYRINGE ONE (12:21)
[2023-05-16] MEDS ORDERED: PROPOFOL IV EMULSION 10 MG/ML 20 ML VIAL IV ONE (12:31)
[2023-05-16] MEDS ORDERED: LARYING-O-JET KIT (LTA) ONE (12:31)
[2023-05-16] MEDS ORDERED: PHENYLEPHRINE 100MCG/ML 5ML SYR ONE (12:31)
[2023-05-16] MEDS ORDERED: LIDOCAINE 2% 2 ML VIAL/AMP(20MG/ML) INFIL ONE (12:31)
[2023-05-16] MEDS ORDERED: SUGAMMADEX SODIUM 200 MG/2 ML VIAL IV ONE (12:31)
[2023-05-16] MEDS ORDERED: ROCURONIUM BROMIDE 10 MG/ML 5 ML VIAL IV ONE (12:31)
--- NOTE | 2023-05-16 14:38 | Post Operative Brief Note ---
PG Immediate Post Op with CF Date of Surgery May 16, 2023 Pre & Post Diagnosis Operation Date: 05/16/23 09:30 Pre-Op Diagnosis: Acute cholecystitis. Post-Op Diagnosis: Acute cholecystitis. I identified the patient and participated in the time-out.: Yes Procedure Operation Date: 05/16/23 09:30 Actual Procedures p Laparoscopic Cholecystectomy - Carli Moe DO Surgeon Carli Moe DO Diesel Engine Inspector HAYDEN Cruz Estimated Blood Loss 50 Findings See Below Severely infected gallbladder containing purulent fluid Specimens Specimen Description: A. Gallbladder and contents. Culture set #1 Gallbladder fluid. Aero/Candice Culture & Gram Stain Routine Gallbladder. Left room with [facility] OR saniya at 1313. Drains Von-Bird Drain (10 flat.)
[2023-05-16] MEDS ORDERED: oxyCODONE HCL IR 5 MG TAB (IMMEDIATE RELEASE) PO PRN (15:00)
--- NOTE | 2023-05-16 15:28 | Anesthesiology Progress Note ---
Date of Service May 16, 2023 Anesthesia Post Procedure Vital Signs Vital Signs: Temp Pulse Pulse Pulse Resp BP BP 05/16/23 15:25 98.8 F 88 15 147/80 H 05/16/23 15:15 89 17 149/75 H 05/16/23 15:05 89 16 158/72 H 05/16/23 14:55 88 17 156/73 H 05/16/23 14:47 98.2 F 92 H 16 166/80 H 05/16/23 12:16 95 H 05/16/23 11:16 99.5 F 98 H 20 140/78 05/16/23 08:36 98.1 F 96 H 18 105/72 05/16/23 03:00 98.4 F 96 H 18 112/66 05/15/23 22:00 96 H 05/15/23 22:39 99.5 F 92 H 16 115/57 L 05/15/23 19:29 99.0 F 94 H 18 127/59 L 05/15/23 16:27 98.1 F 88 17 119/68 Pulse Ox O2 Del Method O2 Flow Rate 05/16/23 15:25 96 Nasal Cannula 2 05/16/23 15:15 95 Nasal Cannula 2 05/16/23 15:05 90 Room Air 05/16/23 14:55 98 Oxymask 4 05/16/23 14:47 98 Oxymask 10 05/16/23 12:16 05/16/23 11:16 91 Room Air 05/16/23 08:36 91 Room Air 05/16/23 03:00 90 Room Air 05/15/23 22:00 05/15/23 22:39 90 Room Air 05/15/23 19:29 91 Room Air 05/15/23 16:27 91 Room Air Pain Intensity Right Back: Pain Intensity: 6 Transfer of Care Handoff Completed per policy Notes Mental Status: alert / awake / arousable and participated in evaluation Patient Amnestic to Procedure: Yes Nausea / Vomiting: adequately controlled Pain: adequately controlled Airway Patency, RR, SpO2: stable & adequate BP & HR: stable & adequate Hydration State: stable & adequate Anesthetic Complications: no major complications apparent and Pt Satisfied with anesthetic care
--- NOTE | 2023-05-16 17:05 | Operative Report ---
PG Post Operative Report Pre & Post Diagnosis Operation Date: 05/16/23 09:30 Pre-Op Diagnosis: Acute cholecystitis. Post-Op Diagnosis: Acute cholecystitis. I identified the patient and participated in the time-out.: Yes Procedure Operation Date: 05/16/23 09:30 Actual Procedures p Laparoscopic Cholecystectomy - Carli Moe DO Surgeon Carli Moe DO Hydroelectric Station Operator Chief HAYDEN Cruz Estimated Blood Loss 50 Findings See Below Specimens Gallbladder Drains 10 Kyr[place]z HEBERT Indications Acute cholecystitis Description of Procedure The patient was brought back to the operating room and placed on the operating room table in supine position. SCDs were applied to bilateral lower extremities and he was connected to cardiac and oxygen monitoring. He was administered general anesthesia and a secure airway was obtained. The abdomen was prepped and draped in typical sterile fashion and a timeout was conducted. Local anesthetic was injected just superior to the umbilicus and a stab incision was made. The fascia was elevated and a Veress needle was used to gain access to the intra-abdominal space. Pneumoperitoneum was initiated to a goal pressure of 15 mmHg. Once this pressure was achieved, a 5 mm laparoscope was used to insert a 5 mm trocar using direct visualization with a Visiport. The right upper quadrant was inspected identifying multiple layers of the omentum over the liver and the gallbladder was identifiable at that time. Local anesthetic was injected into the skin at the epigastric area, incision was made and an 11 mm trocar was inserted under direct visualization. 2 additional 5 mm trocars were inserted along the right subcostal margin in a similar fashion. There were no injuries caused to surrounding structures upon the insertion of the trocar sites. The omentum was very thickened and encased around the gallbladder. Took several moments to carefully dissect the omentum from the very firm gallbladder to finally begin to expose the gallbladder. Gentle blunt dissection with sucti on was used to further expose the gallbladder. The gallbladder was very distended and a needle with suction was used to aspirate the gallbladder. Initially nothing was aspirated except air but this did allow the gallbladder to decompress to be able to handle. The tissues were very friable and there was small amounts of bleeding throughout the procedure the fundus was grasped with a grasper and elevated over the liver. Careful dissection took place in order to further expose the infundibulum. Thickened fibrous tissue coursing directly into the infundibulum of the gallbladder was clipped with 2 10 mm clips placed proximally and 1 distally and this tissue was transected. Eventually the cystic duct was identified and had thick adhesions this too is leaving a short segment available to transect. In an attempt to stay high on the gallbladder because of structures academic contained in these adhesions of the cystic duct could not be safely dissected and identified due to the dense thickening, my dissection was carried out very high up on the gallbladder at the infundibulum. Due to this fact that the infundibulum of the gallbladder was entered confirming that the structure that was being dissected was the cystic duct leading directly into the gallbladder. At this point copious amounts of purulent fluid was evacuated from the gallbladder. This fluid was suctioned out and sent to microbiology for Gram stain and culture. At this point there was only a short segment of cystic duct still intact that could be ligated. And this portion of the duct was very wide and thickened. For this reason, in order to help ensure there would be no leak from a failed clip, a 45 Endo WAQAR was used with a hua load. The cystic duct was ligated and transection was completed. The remainder of the gallbladder was gently dissected away from the liver bed using alternating blunt and cautery dissection. The gallbladder was placed in an Endo Catch bag and removed. The epigastric incision needed to be widened for removal. The right upper quadrant was thoroughly inspected for hemostasis. Copious amounts of irrigation with saline was used to irrigate the right upper quadrant and suctioned away to be sure hemostasis was adequate. Once there appeared to be complete hemostasis, a 10 Kyr[place]z HEBERT drain was inserted into the right upper quadrant. CO2 insufflation was discontinued, all trocars and instruments were removed. The epigastric incision was closed with 0 Vicryl sutures at the level of the fascia. The skin was closed with 4-0 Vicryl suture and incisions were sealed with Dermabond. The patient tolerated the procedure well and was awakened from anesthesia, secure airway was removed and transferred to recovery in stable condition I attest to the content of the Intraoperative Record and any orders documented therein. Any exceptions are noted below.
[2023-05-16] MEDS ORDERED: FAMOTIDINE 20 MG in SYRINGE 3 ML IV ONE (19:15)
[2023-05-17] MEDS: LACTATED RINGER'S 1,000 ML IV SCH ×3 (00:41→23:21)
[2023-05-17] MEDS: MoRPHine SULFATE 4 MG/ML 1 ML CARP\\VIAL IV PRN (03:13)
[2023-05-17] MEDS: PIPERACILLIN/TAZOBACTAM 4.5 GM in DEXTROSE 5% 100 ML IV SCH ×3 (06:02→21:03)
[2023-05-17 06:07] LABS: Hematocrit (blood only) 26.5 % (42.0-52.0); Hemoglobin 9.2 g/dl (14.0-18.0); Immature Granulocytes # (auto) 0.04 K/uL (0.01-0.20); Immature Granulocytes % (auto) 0.8 %; Lymphocytes # (auto) 0.42 K/uL (1.20-3.40); Lymphocytes % (auto) 8.6 %; Mean Corpuscular Hemoglobin 30.3 pg (25.0-34.0); Mean Corpuscular Hgb Conc 34.7 g/dL (32.0-36.0); Mean Corpuscular Volume 87.2 fL (80.0-100.0); Mean Platelet Volume 10.9 fL (9.4-12.4); Monocytes # (auto) 0.33 K/uL (0.11-0.59); Monocytes % (auto) 6.7 %; Neutrophils # (auto) 4.12 K/uL (1.40-6.50); Neutrophils % (auto) 83.9 %; Platelet Count 106 K/uL (130-400); RDW Coefficient of Variation 14.4 % (11.5-14.5); RDW Standard Deviation 46.1 fL (36.4-46.3); Red Blood Count 3.04 M/uL (4.70-6.10); White Blood Count 4.91 K/ul (4.8-10.8)
[2023-05-17] MEDS: MoRPHine SULFATE 2 MG/ML CARP IV PRN (06:09)
[2023-05-17 06:16] LABS: Albumin Globulin Ratio 0.9 (0.9-2); Albumin Level 2.8 gm/dl (3.4-5.0); BUN Creatinine Ratio 15.7 (10-20); Bilirubin,Total 0.8 mg/dl (0.2-1.0); Creatinine Clr Calc Pharmacy 87.3 ml/min; Est GFR (African American) 102.5 ml/min; Est GFR (Non-African American) 88.5 ml/min; Globulin 3.2 gm/dl (2.5-4.0); Potassium 3.4 mmol/L (3.5-5.1)
--- NOTE | 2023-05-17 06:45 | Discharge Summary ---
Date of Service May 18, 2023 Admission HPI Per Admitting Provider Charly Colbert is a 67yo male with history of HTN, HLP, DM and CAD s/p PCI and subsequent CABG x 3V in 05/2022 presenting with 4-5 days of persistent right sided abdominal pain. Patient reports ongoing discomfort in the RUQ with associated nausea. Also with some diarrhea. No report of chest pain or SOB. No additional complaints at this time. In the ER he is afebrile, HD stable ER Course: Cefoxitin Morphine Zofran NSS Admission Exam Per Admitting Provider General: patient resting comfortably, NAD, non-toxic in appearance, AA&O x 4 Skin: warm, dry, intact, no rashes or lesions HEENT: NC/AT, PERRL, EOMI, anicteric sclera, conjunctiva without injection, external ear normal to inspection and nontender, nares patent, moist mucus m embranes, dentition intact, no oropharyngeal lesions, neck supple, trachea midline, no LAD, no thyromegaly, no JVD Heart: +S1/S2, regular, no m/r/g Lungs: equal air entry bilaterally, no rales/rhonchi/wheezes Abd: +BS, soft,tenderness in the RUQ with some voluntary guarding, no CVA tenderness Ext: warm, 2+ pulses in UE/LE bilaterally, no clubbing/cyanosis or edema Neuro: nonfocal, patient AA&O x 4, speech intact, no facial droop, moving all extremities on command with equal strength 5/5 Principal Diagnosis Cholecystitis Discharge Exam Constitutional WD/WN, vitals as above Respiratory normal respiratory effort, lungs clear to auscultation Cardiovascular RRR, no murmur, no edema Gastrointestinal (Abdomen) Inspection/Auscultation: abdomen normal to inspection and normal bowel sounds Percussion/Palpation: no hepatomegaly and no splenomegaly Psychiatric A+Ox3, euthymic affect Discharge Data Allergies Allergy/AdvReac Type Severity Reaction Status Date / Time No Known Allergies Allergy Intermediate Verified 04/10/23 09:12 Consultations 05/14/23 07:20 Consult General Surgery Routine 05/14/23 09:59 Consult Cardiology Routine Procedures Performed Operation Date: 05/16/23 09:30 Actual Procedures p Laparoscopic Cholecystectomy - Carli Moe DO Ordered Studies 05/14/23 03:59 US gallbladder Stat Diabetes Follow up figure out his home t2dm meds from pcp figure out what abx to transition him to Hospital Course (1) Acute cholecystitis: (2) Cholelithiasis: (3) PAF (paroxysmal atrial fibrillation): (4) Coronary artery disease without angina pectoris: (5) Diabetes: Plan Patient is a 67 yo M with a PMHx of HTN, diabetes, abd pain, GERD, parox Afib, CAD w/out angina pectoris, ACS who presented 05/14/23 with 4-5 day Hx of right sided abdominal pain. Acute cholecystitis/Cholelithiasis - Patient initially positive for nausea but no vomiting, no fevers. - Upon exam patient has a positive Go's sign. RUQ U/S revealed immobile gallstones and sonographic Go's sign. - Lipase was 20, rule out pancreatitis - Continue piperacillin and tazobactam post cholecystectomy surgery - Surgery consulted, urgent cholecystectomy likely today (05/16/23) - Cardiology was consulted due to NM 1 yr ago and they cleared him for surgery - Patient was placed on a clear liquids diet, NPO diet since midnight Hypertension - hypertensive meds held this morning, will continue after surgery: lisinopril (10 mg PO, daily) and hydrochlorothiazide (25 mg, PO, daily) Diabetes - fasting glucose, 157 (05/16/23) - continue insulin glargine (15 U SQ, BID) and insulin aspart for control of diabetes - patient reportedly on Januvia (sitagliptin), Trulicity (dulaglutide) and Jardiance (empaglifozin) at home, d/c in the hospital CAD (coronary artery disease) - continue the 10 mg rosuvastatin, PO, daily; lisinopril as listed above - 81 mg aspirin, PO, daily Paroxysmal Atrial Fibrillation - patient on amiodarone, held for now per recommendations from cardiology Discharge Plan Discharge Items Reason For Visit: RUQ PAIN Discharge Diagnosis: laparoscopic cholecystectomy Activity: Per Instructions section Lifting: No more than 10 pounds Bathing Comment: may shower starting 05/17/23; no soaking in tubs/pools x 2 weeks Exercise/Sports: Wait until after follow-up appointment Driving/Machine Use: no driving while taking narcotics for pain Non-emergency contact: Primary Care Provider and Surgeon Call non-emergency contact if: you have any medication questions, your pain is unusual for you, you have a fever, your temperature is above 101.5, your wound has increased redness, your wound has increased drainage and your wound pain has increased Follow-up/Referrals: Pa-Carli Granados, [Physician] - (Please call to schedule follow up in clinic within 2 weeks) Fan Holman PA-C [Primary Care Provider] - Addtl Attending Provider Instructions: You have skin glue over your incisions called dermabond. you may shower with this on. It will tend to dissolve and fall off within a couple weeks. Do not pick at the skin glue You may purchase Tylenol and/or Ibuprofen over the counter if needed for additional pain control over the next few days. Take per manufacturers instructions Pending Studies at Discharge: Yes Studies:: surgical pathology Medications and DC Order Prescriptions: No Action lisinopril 10 mg Tablet 10 mg PO DAILY polyethylene glycol 3350 [Miralax] 17 gram/dose Powder 17 g PO DAILY PRN (Reason: Constipation) hydrochlorothiazide 25 mg Tablet 40 mg PO DAILY omeprazole 20 mg Capsule,Delayed Release(Dr/Ec) 20 mg PO DAILY Januvia 100 mg Tablet See Rx Instructions .ROUTE .COMPLEX Rx Instructions: isn't sure of this one rosuvastatin 10 mg Tablet 10 mg PO DAILY fluticasone propionate [Flonase Allergy Relief] 50 mcg/actuation Stanton,Suspension 2 spray INTRANASAL DAILY PRN (Reason: Nasal Congestion) aspirin [Ecotrin Low Strength] 81 mg Tablet,Delayed Release (Dr/Ec) 81 mg PO DAILY albuterol sulfate [ProAir HFA] 90 mcg/actuation Hfa Aerosol Inhaler 2 puff INHALATION Q6H PRN (Reason: Wheezing) famotidine 40 mg tablet 40 mg PO QPM Jardiance 25 mg tablet See Rx Instructions .ROUTE .COMPLEX Rx Instructions: Per she isnt sure if he's still on this and no recent fill history amiodarone 200 mg tablet 200 mg PO PM hydrocodone-acetaminophen 5-325 mg tablet 1 tab PO DAILY PRN (Reason: Pain) insulin aspart U-100 [Novolog FlexPen U-100 Insulin] 100 unit/mL (3 mL) insulin pen See Rx Instructions .ROUTE .COMPLEX Rx Instructions: per he's been using this but not as much tadalafil 20 mg tablet 20 mg PO DIRECTED insulin glargine [Lantus Solostar U-100 Insulin] 100 unit/mL (3 mL) insulin pen 30 unit SUBCUT QAM potassium chloride 20 mEq tablet extended release 20 meq PO QPM Trulicity 0.75 mg/0.5 mL pen injector 0.75 mg SUBCUT WK Admission Data Admit Date/Time: 05/14/23 06:09 Attending Provider: Wilber Long Admit Provider: Baltazar Figueroa Primary Care Provider: Fan Holman Other Providers: Shawna Chang ; Carli Moe ; Irvin Thomas ; Carlos Singh ; Glen Lord ; Piyush Tracy ; Ozzie Matthew ; Lior Curiel Jr ; Reinaldo Sheriff ; Leslie Irvin ; Payal Zavala ; Alfredo De Guzman ; Wilber Archer ; Caden Ventura ; Dena Churchill ; María Dennison ; Bernardo Sales ; Luis Escobar ; Piyush Garner V. ; Luciano Cordero
[2023-05-17] MEDS ORDERED: hydroCHLOROthiazide 25 MG TAB PO STA (07:06)
[2023-05-17] MEDS: INSULIN ASPART PER UNIT CHARGE SC SCH ×4 (09:28→20:49)
[2023-05-17] MEDS: lisinopril 10 MG TAB PO SCH (09:30)
[2023-05-17] MEDS: PANTOprazole 40 MG TAB PO SCH (09:30)
[2023-05-17] MEDS: ROSUVASTATIN CALCIUM 10 MG TAB PO SCH (09:30)
[2023-05-17] MEDS: LANTUS PER UNIT CHARGE SQ SCH ×2 (09:33→20:50)
--- NOTE | 2023-05-17 11:27 | Hospitalist Progress Note ---
Date of Service May 17, 2023 Assessment & Plan (1) Acute cholecystitis: (2) Cholelithiasis: (3) PAF (paroxysmal atrial fibrillation): (4) Coronary artery disease without angina pectoris: (5) Diabetes: Plan Patient is a 67 yo M with a PMHx of HTN, diabetes, abd pain, GERD, parox Afib, CAD w/out angina pectoris, ACS who presented 05/14/23 with 4-5 day Hx of right sided abdominal pain. Acute cholecystitis/Cholelithiasis - Patient initially positive for nausea but no vomiting, no fevers; positive Go's sign, immobile gallstones on RUQ U/S - Lipase was 20, rule out pancreatitis - Continue piperacillin and tazobactam post cholecystectomy surgery - Cholecystectomy on 05/17/23 - Cardiology was consulted due to [place] 1 yr ago and they cleared him for surgery - Patient resumed regular diet; - Patient's Plavix, aspirin, and enoxaparin have been held until post surgery Hypertension - hypertensive meds restarted after surgery: lisinopril (10 mg PO, daily), per recommendation of cardiology Diabetes - fasting glucose, 157 (05/16/23) - continue insulin glargine (15 U SQ, BID) and insulin aspart for control of diabetes in hospital - outpatient diabetes drugs (according to PCP office): Trulicity, 0.75 mg/weekly Novolog, up to 3x/day, SSI, 150-200, 2U 201-250 4U 251-300 6U -450, 12 U --> call doctor if higher Lantus solostar 30 U, AM 20 U, PM NO Jardiance or Januvia CAD (coronary artery disease) - continue the rosuvastatin, lisinopril as listed above Paroxysmal Atrial Fibrillation - patient on amiodarone, held for now per recommendations from cardiology, get their recommendations on when to restart on discharge Admission and Anticipated Discharge Date Admission Date: May 14, 2023 Supervising Physician Co-Signing Physician Notes Attending attestation Pt seen and examined in concert with Dr. Hanna. In agreement with the documented findings as noted in the resident documentation with any exceptions or additions as noted here. Mild aching abdominal pain generally improved overall. Did have a mild elevation of temp overnight without reported subjective fever, chills. Reports no n/v, passing gas presently. On examination, S1/S2 nl RRR no MCG. CTAB. Abd mildly distended and TTP around operative site with wounds healing well. Acute cholecystitis s/p cholecystectomy - surgical consult - for drain placement today. Continue Zosyn and transition to either Augmentin or cipro/flagyl based on response to drain and surgical input. d/w surgery re: restart ASA post drain placement. HTN - continue lisinopril at present dose. Monitor BP. DMII - glycemic consult request for assistance with management. Continue basal/bolus regimen at present. Likely to d/c on same for discussion w/ PCP re: appropriate regimen Paroxysmal AF - holding amiodarone, will d/w cardiology re: recommended restart, likely tm Else see resident documentation as noted. Subjective Patient was seen and examined this morning. States he feel some residual pain around laparoscopic incision sites, but no more right upper quadrant pain of character as before. No nausea, vomiting overnight. Did have one elevated temp at 37.8 C. Patient has resumed a normal diet. Patient denies calf pain, chest pain, palpitations, shortness of breath. Review of Systems Constitutional: no fever, no chills, no body aches and no weakness Respiratory: + cough (a minor cough w/ phlegm); no dyspnea Cardiovascular: no chest pain and no dyspnea Gastrointestinal: + abdominal pain (abdominal tenderness, no more RUQ pain); no nausea and no vomiting Genitourinary: no dysuria, no urinary frequency or no urinary urgency Musculoskeletal: no back pain (baseline back pain), no myalgia and no body aches Neurologic: no tingling, no numbness and no headache(s) Endocrine: + fatigue Physical Exam Constitutional: WD/WN, vitals as above Respiratory: normal respiratory effort, lungs clear to auscultation Cardiovascular: RRR, no murmur, no edema Gastrointestinal (Abdomen): Inspection/Auscultation: abdomen normal to inspection and normal bowel sounds Percussion/Palpation: no hepatomegaly and no splenomegaly Psychiatric: A+Ox3, euthymic affect Results & Data Results & Data Vital Signs (Past 12 Hours) Vital Signs Temp Pulse Pulse Resp BP BP Pulse Ox 05/17/23 08:00 36.3 C L 70 16 144/76 H 97 05/17/23 03:04 37.4 C 94 H 18 146/77 H 90 O2 Del Method 05/17/23 08:00 Room Air 05/17/23 03:04 Room Air
--- NOTE | 2023-05-17 11:52 | Surgery Progress Note ---
I saw and examined this patient. I agree with the plan. Date of Service May 17, 2023 Assessment & Plan (1) Hx laparoscopic cholecystectomy: Plan: POD laparoscopic cholecystectomy Had documented fevers last night and early this AM, Would like to keep for 24 hours fever free before d/c WBC 4.9 HEBERT draining serosang. Patient will keep drain until follow up with Dr. Teodoro Granados in 2 weeks. No showering until drain removal Tolerating reg diet Port sites covered with dermabond, CDI. Patient seen and examined with Dr. Payal Jane covering weekend Admission and Anticipated Discharge Date Admission Date: May 14, 2023 Subjective Patient reports he is feeling ok, has not received pain medication since 6am Denies passing flatus but says he feels like he could Had a fever 05/16/23 of 100.0 F , and this am of 99.3 F 05/17/23 at 0304. Otherwise VSS. Review of Systems Constitutional: no chills and no sweats Respiratory: no dyspnea Cardiovascular: no chest pain Gastrointestinal: + abdominal pain (post surgical sites ); no nausea and no vomiting Physical Exam Constitutional: well developed, cooperative and comfortable; no acute distress Respiratory: normal respiratory effort; no respiratory distress Cardiovascular: Rate/Rhythm: regular rate Gastrointestinal (Abdomen): Inspection/Auscultation: + abdominal surgical in cision (port sites covered with dermabond, CDI) and + abdominal surgical drain present (draining serosanguinous fluid ) Results & Data Vital Signs (Past 12 Hours) Vital Signs Temp Pulse Pulse Resp BP BP Pulse Ox 05/17/23 08:00 97.3 F L 70 16 144/76 H 97 05/17/23 03:04 99.3 F 94 H 18 146/77 H 90 O2 Del Method 05/17/23 08:00 Room Air 05/17/23 03:04 Room Air PG Care Time/CCT Total # of Minutes Spent Total Time Spent with Patient: Total time spent is greater than 50% in coordination of care (as documented) at patient's floor/unit and/or counseling patient: Coding Level of Care Code 71695 Post Operative Follow-Up Diagnoses Hx laparoscopic cholecystectomy Z90.49
[2023-05-18] MEDS: PIPERACILLIN/TAZOBACTAM 4.5 GM in DEXTROSE 5% 100 ML IV SCH ×2 (05:02→14:48)
[2023-05-18 07:07] LABS: Basophils # (auto) 0.01 K/uL (0.00-0.20); Basophils % (auto) 0.3 %; Eosinophils # (auto) 0.06 K/uL (0.00-0.50); Eosinophils % (auto) 1.9 %; Hematocrit (blood only) 26.6 % (42.0-52.0); Hemoglobin 8.9 g/dl (14.0-18.0); Immature Granulocytes # (auto) 0.01 K/uL (0.01-0.20); Immature Granulocytes % (auto) 0.3 %; Lymphocytes # (auto) 0.47 K/uL (1.20-3.40); Mean Corpuscular Hemoglobin 29.9 pg (25.0-34.0); Mean Corpuscular Hgb Conc 33.5 g/dL (32.0-36.0); Mean Corpuscular Volume 89.3 fL (80.0-100.0); Mean Platelet Volume 10.4 fL (9.4-12.4); Monocytes # (auto) 0.18 K/uL (0.11-0.59); Monocytes % (auto) 5.8 %; Neutrophils % (auto) 76.7 %; Platelet Count 110 K/uL (130-400); RDW Coefficient of Variation 14.3 % (11.5-14.5); RDW Standard Deviation 46.5 fL (36.4-46.3); Red Blood Count 2.98 M/uL (4.70-6.10); White Blood Count 3.13 K/ul (4.8-10.8)
[2023-05-18 07:16] LABS: Albumin Globulin Ratio 0.9 (0.9-2); Albumin Level 2.8 gm/dl (3.4-5.0); BUN Creatinine Ratio 13.5 (10-20); Bilirubin,Total 0.7 mg/dl (0.2-1.0); Calcium 8.2 mg/dl (8.6-10.3); Creatinine Clr Calc Pharmacy 79.6 ml/min; Est GFR (African American) 94.4 ml/min; Est GFR (Non-African American) 81.5 ml/min; Globulin 3.2 gm/dl (2.5-4.0); Potassium 3.1 mmol/L (3.5-5.1)
[2023-05-18] MEDS ORDERED: POTASSIUM CHLORIDE 10 MEQ TABCR PO STA (08:39)
[2023-05-18] MEDS: lisinopril 10 MG TAB PO SCH (08:40)
[2023-05-18] MEDS: ROSUVASTATIN CALCIUM 10 MG TAB PO SCH (08:40)
[2023-05-18] MEDS: PANTOprazole 40 MG TAB PO SCH (08:40)
--- NOTE | 2023-05-18 08:52 | Discharge Summary ---
Date of Service May 18, 2023 Admission HPI Per Admitting Provider Charly Colbert is a 67yo male with history of HTN, HLP, DM and CAD s/p PCI and subsequent CABG x 3V in 05/2022 presenting with 4-5 days of persistent right sided abdominal pain. Patient reports ongoing discomfort in the RUQ with associated nausea. Also with some diarrhea. No report of chest pain or SOB. No additional complaints at this time. In the ER he is afebrile, HD stable ER Course: Admission Exam Per Admitting Provider General: patient resting comfortably, NAD, non-toxic in appearance, AA&O x 4 Skin: warm, dry, intact, no rashes or lesions HEENT: NC/AT, PERRL, EOMI, anicteric sclera, conjunctiva without injection, external ear normal to inspection and nontender, nares patent, moist mucus membranes, dentition intact, no oropharyngeal lesions, neck supple, trachea midline, no LAD, no thyromegaly, no JVD Heart: +S1/S2, regular, no m/r/g Lungs: equal air entry bilaterally, no rales/rhonchi/wheezes Abd: +BS, soft,tenderness in the RUQ with some voluntary guarding, no CVA tenderness Ext: warm, 2+ pulses in UE/LE bilaterally, no clubbing/cyanosis or edema Neuro: nonfocal, patient AA&O x 4, speech intact, no facial droop, moving all extremities on command with equal strength 5/5 Principal Diagnosis Cholecystitis, Cholelithiasis Discharge Exam Constitutional WD/WN, vitals as above Respiratory normal respiratory effort, lungs clear to auscultation Cardiovascular RRR, no murmur, no edema Gastrointestinal (Abdomen) Inspection/Auscultation: abdomen normal to inspection and normal bowel sounds Percussion/Palpation: no hepatomegaly and no splenomegaly Psychiatric A+Ox3, euthymic affect Discharge Data Allergies Allergy/AdvReac Type Severity Reaction Status Date / Time No Known Allergies Allergy Intermediate Verified 04/10/23 09:12 Consultations 05/14/23 07:20 Consult General Surgery Routine 05/14/23 09:59 Consult Cardiology Routine Procedures Performed Operation Date: 05/16/23 09:30 Actual Procedures p Laparoscopic Cholecystectomy - Carli Moe DO Ordered Studies 05/14/23 03:59 US gallbladder Stat Hospital Course (1) Acute cholecystitis: (2) Cholelithiasis: (3) PAF (paroxysmal atrial fibrillation): (4) Coronary artery disease without angina pectoris: (5) Diabetes: Plan Patient is a 67 yo M with a PMHx of HTN, diabetes, abd pain, GERD, parox Afib, CAD w/out angina pectoris, ACS who presented 05/14/23 with 4-5 day Hx of right sided abdominal pain. Acute cholecystitis/Cholelithiasis - Patient initially positive for nausea but no vomiting, no fevers. - Upon exam patient has a positive Go's sign. RUQ U/S revealed immobile gallstones and sonographic Go's sign. - Lipase was 20, rule out pancreatitis - Continue piperacillin and tazobactam post cholecystectomy surgery - Surgery consulted, urgent cholecystectomy completed on (05/16/23) - Cardiology was consulted due to [place] 1 yr ago and they cleared him for surgery - Patient has been on a regular diet since cholecystectomy. Hypertension - hypertensive meds held this morning, will continue after surgery: lisinopril (10 mg PO, daily) Diabetes - fasting glucose, 155 - continue insulin glargine (15 U SQ, BID) and insulin aspart for control of diabetes - patient on Trulicity (dulaglutide) at home, continue upon discharge CAD (coronary artery disease) - continue the 10 mg rosuvastatin, PO, daily; lisinopril as listed above - 81 mg aspirin, PO, daily Paroxysmal Atrial Fibrillation - patient on amiodarone, 200 mg, PO, daily, resumed upon discharge Total Time Total Time Spent Total Time Spent (In Minutes): see attending attestation Discharge Plan Discharge Items Patient Disposition: Home - Self-Care Reason For Visit: RUQ PAIN Discharge Diagnosis: laparoscopic cholecystectomy Activity: Per Instructions section Activity Comment: Resume normal activities gradually over 1-2 week period. Lifting: No more than 10 pounds Bathing Comment: may shower starting 05/17/23; no soaking in tubs/pools x 2 weeks Exercise/Sports: Wait until after follow-up appointment Driving/Machine Use: no driving while taking narcotics for pain Non-emergency contact: Primary Care Provider and Surgeon Call non-emergency contact if: you have any medication questions, your pain is unusual for you, you have a fever, your temperature is above 101.5, your wound has increased redness, your wound has increased drainage and your wound pain has increased Follow-up/Referrals: Carli Moe DO [Physician] - (Please call to schedule follow up in clinic within 2 weeks) Fan Holman PA-C [Primary Care Provider] - (PLEASE CALL YOUR PRIMARY CARE PROVIDER TO SCHEDULE A HOSPITAL DISCHARGE FOLLOW-UP APPOINTMENT WITHIN 7-10 DAYS) Diet: Low Fat Addtl Attending Provider Instructions: You have skin glue over your incisions called dermabond. you may shower with this on. It will tend to dissolve and fall off within a couple weeks. Do not pick at the skin glue You may purchase Tylenol and/or Ibuprofen over the counter if needed for additional pain control over the next few days. Take per manufacturers instructions Pending Studies at Discharge: Yes Studies:: surgical pathology Stand-Alone Forms: My [facility] [employer], Smoking Cessation Medications and DC Order Prescriptions: New amoxicillin-pot clavulanate 875-125 mg tablet 1 tab PO Q12H 5 Days Qty: 10 0RF Continued lisinopril 10 mg Tablet 10 mg PO DAILY polyethylene glycol 3350 [Miralax] 17 gram/dose Powder 17 g PO DAILY PRN (Reason: Constipation) omeprazole 20 mg Capsule,Delayed Release(Dr/Ec) 20 mg PO DAILY rosuvastatin 10 mg Tablet 10 mg PO DAILY fluticasone propionate [Flonase Allergy Relief] 50 mcg/actuation Trilla,Suspension 2 spray INTRANASAL DAILY PRN (Reason: Nasal Congestion) aspirin [Ecotrin Low Strength] 81 mg Tablet,Delayed Release (Dr/Ec) 81 mg PO DAILY albuterol sulfate [ProAir HFA] 90 mcg/actuation Hfa Aerosol Inhaler 2 puff INHALATION Q6H PRN (Reason: Wheezing) famotidine 40 mg tablet 40 mg PO QPM amiodarone 200 mg tablet 200 mg PO PM tadalafil 20 mg tablet 20 mg PO DIRECTED insulin glargine [Lantus Solostar U-100 Insulin] 100 unit/mL (3 mL) insulin pen 30 unit SUBCUT QAM potassium chloride 20 mEq tablet extended release 20 meq PO QPM Trulicity 0.75 mg/0.5 mL pen injector 0.75 mg SUBCUT WK Discontinued hydrochlorothiazide 25 mg Tablet 40 mg PO DAILY Januvia 100 mg Tablet See Rx Instructions .ROUTE .COMPLEX Rx Instructions: isn't sure of this one Jardiance 25 mg tablet See Rx Instructions .ROUTE .COMPLEX Rx Instructions: Per she isnt sure if he's still on this and no recent fill history No Action hydrocodone-acetaminophen 5-325 mg tablet 1 tab PO DAILY PRN (Reason: Pain) insulin aspart U-100 [Novolog FlexPen U-100 Insulin] 100 unit/mL (3 mL) insulin pen See Rx Instructions .ROUTE .COMPLEX Rx Instructions: per he's been using this but not as much Discharge Orders: Discharge Order (Routine); Ordered 05/18/23 Ordered By: Wilber Hanna Admission Data Admit Date/Time: 05/14/23 06:09 Attending Provider: Wilber Long Admit Provider: Baltazar Figueroa Primary Care Provider: Fan Holman Other Providers: Shawna Chang ; Carli Moe ; Irvin Thomas ; Carlos Singh ; Glen Lord ; Piyush Tracy ; Ozzie Matthew ; Lior Curiel Jr ; Reinaldo Sheriff ; Leslie Irvin ; Payal Zavala ; Alfredo De Guzman ; Wilber Archer ; Caden Ventura ; Dena Churchill ; María Dennison ; Bernardo Sales ; Luis Escobar ; Piyush Garner V. ; Luciano Cordero Supervising Physician Co-Signing Physician Notes Attending attestation Pt seen and examined in concert with Dr. Hanna. In agreement with the documented findings as noted in the resident documentation with any exceptions or additions as noted here. Very well controlled abdominal surgical site pain without new complaint and with minimal medication (no opioids x 12 hrs). Passing gas well and feels like he wants to have a BM. Reports no fever/chills, tolerating POI. On examination, S1/S2 nl RRR no MCG. CTAB. Abd mildly distended and TTP around operative site with wounds healing well. Acute cholecystitis s/p cholecystectomy and HEBERT drain - surgical consult - complete course of augmentin x 5 days post discharge per surgical recommendation. HTN - continue lisinopril at present dose. Was previously Rx'd HCTZ 25mg but doing well without so can d/w primary care re: resume on discharge CAD - continue rosuvastatin 10mg, aspirin 81mg. Per history, had previously been on clopidogrel, will stop per cardiology recommendation. Not on Bblockers 2/2 h/o intolerance. Atrial fibrillation, paroxysmal - resume amiodarone, not chronically anticoagulated DMII - patient has considerable confusion surrounding his regimen and has difficulty recalling his dose. Will discharge on inpatient effective regimen of glargine insulin 15 units and Trulicity 0.5mg qweek. Would recommend ongoing glycemic home checks and follow up with discussion and ideally written documentation of medication list. Hypokalemia - repleted on discharge, would recommend repeat BMP on follow up Anemia - stable at ~9, would recommend repeat CBC on follow up to ensure resol ution in the setting of HEBERT drain Else see resident documentation as noted. Total attending physician time spent with this patient's care on the day of discharge: 50 minutes.
[2023-05-18] MEDS ORDERED: POTASSIUM CHLORIDE 10 MEQ TABCR PO SCH (09:00)
[2023-05-18] MEDS: INSULIN ASPART PER UNIT CHARGE SC SCH ×2 (09:15→13:10)
[2023-05-18] MEDS: LANTUS PER UNIT CHARGE SQ SCH (09:16)
[2023-05-18] MEDS: POTASSIUM CHLORIDE / WTR 10 MEQ/100 ML PLCT IV SCH ×4 (11:43→15:46)
[2023-05-18] MEDS: LACTATED RINGER'S 1,000 ML IV SCH (11:54)
--- NOTE | 2023-05-18 16:33 | Surgery Progress Note ---
Date of Service May 18, 2023 Assessment & Plan (1) Hx laparoscopic cholecystectomy: Plan: pt is doing fine, no fever, plan, pt can be discharged today with HEBERT drainage, empty HEBERT every day, record output. F/U Dr. Teodoro Granados 1 week. Admission and Anticipated Discharge Date Admission Date: May 14, 2023 Supervising Physician Co-Signing Physician Notes Attending attestation Pt seen and examined in concert with Dr. Hanna. In agreement with the documented findings as noted in the resident documentation with any exceptions or additions as noted here. Very well controlled abdominal surgical site pain without new complaint and with minimal medication (no opioids x 12 hrs). Passing gas well and feels like he wants to have a BM. Reports no fever/chills, tolerating POI. On examination, S1/S2 nl RRR no MCG. CTAB. Abd mildly distended and TTP around operative site with wounds healing well. Acute cholecystitis s/p cholecystectomy and HEBERT drain - surgical consult - complete course of augmentin x 5 days post discharge per surgical recommendation. HTN - continue lisinopril at present dose. Was previously Rx'd HCTZ 25mg but doing well without so can d/w primary care re: resume on discharge CAD - continue rosuvastatin 10mg, aspirin 81mg. Per history, had previously been on clopidogrel, will stop per cardiology recommendation. Not on Bblockers 2/2 h/o intolerance. Atrial fibrillation, paroxysmal - resume amiodarone, not chronically anticoagulated DMII - patient has considerable confusion surrounding his regimen and has difficulty recalling his dose. Will discharge on inpatient effective regimen of glargine insulin 15 units and Trulicity 0.5mg qweek. Would recommend ongoing glycemic home checks and follow up with discussion and ideally written documentation of medication list. Hypokalemia - repleted on discharge, would recommend repeat BMP on follow up Anemia - stable at ~9, would recommend repeat CBC on follow up to ensure resolution in the setting of HEBERT drain Else see resident documentation as noted. Total attending physician time spent with this patient's care on the day of discharge: 50 minutes. Subjective Patient was seen and examined this morning. States he feel some residual pain around laparoscopic incision sites, but no more right upper quadrant pain of character as before. No nausea, vomiting overnight. Did have one elevated temp at 37.8 C. Patient has resumed a normal diet. Patient denies calf pain, chest pain, palpitations, shortness of breath. 05/18/2023 4:[address] Jane F/U S/P tani reynoso, POD 2 pt is doing fine, no significant abdominal pain, tolerated diet, no fever, HEBERT 20 ml Physical Exam Constitutional: WD/WN, vitals as above Eyes: PERRL, conjunctivae normal, anicteric sclerae Neck: trachea midline, no thyromegaly Respiratory: normal respiratory effort, lungs clear to auscultation Cardiovascular: RRR, no murmur, no edema Gastrointestinal (Abdomen): soft, mild tenderness at incision sites. no rebound pain, no distend, BS +. all incision intact, no redness. HEBERT intact. Musculoskeletal: no cyanosis or clubbing, extremities motor strength 5/5 Neurologic: patellar DTR's 2+ bilat, sensation intact Psychiatric: A+Ox3, euthymic affect Results & Data Vital Signs (Past 12 Hours) Vital Signs Temp Pulse Pulse Resp BP BP Pulse Ox 05/18/23 16:13 85 05/18/23 15:35 36.5 C 87 20 146/77 H 132/82 94 05/18/23 07:15 79 05/18/23 04:35 36.5 C 87 20 132/82 94 O2 Del Method 05/18/23 16:13 05/18/23 15:35 05/18/23 07:15 05/18/23 04:35 Room Air Laboratory Results Lab Results 05/14/23 05/14/23 05/14/23 Range/Units 03:05 03:05 07:42 WBC 5.40 (4.8-10.8) K/ul RBC 4.46 L (4.70-6.10) M/uL Hgb 13.7 L (14.0-18.0) g/dl Hct 40.4 L (42.0-52.0) % MCV 90.6 (80.0-100.0) fL MCH 30.7 (25.0-34.0) pg MCHC 33.9 (32.0-36.0) g/dL RDW Std Deviation 47.6 H (36.4-46.3) fL RDW Coeff of Tati 14.3 (11.5-14.5) % Plt Count 108 L (130-400) K/uL MPV 11.4 (9.4-12.4) fL Immature Gran % (Auto) 0.4 % Neut % (Auto) 87.8 % Lymph % (Auto) 7.0 % [place] % (Auto) 4.6 % Eos % (Auto) 0.0 % Baso % (Auto) 0.2 % Neut # (Auto) 4.74 (1.40-6.50) K/uL Lymph # (Auto) 0.38 L (1.20-3.40) K/uL [place] # (Auto) 0.25 (0.11-0.59) K/uL Eos # (Auto) 0.00 (0.00-0.50) K/uL Baso # (Auto) 0.01 (0.00-0.20) K/uL Immature Gran # (Auto) 0.02 (0.01-0.20) K/uL Platelet Estimate (Normal) Sodium 138 (136-145) mmol/L Potassium 3.7 (3.5-5.1) mmol/L Chloride 101 (98-107) mmol/L Carbon Dioxide 28 (21-32) mmol/L Anion Gap 9 (3-11) BUN 18 (6-23) mg/dl Creatinine 0.98 (0.6-1.4) mg/dl Est Cr Clr Drug Dosing 77.0 ml/min Est GFR ( Amer) 92.1 ml/min Est GFR (Non-Af Amer) 79.5 ml/min BUN/Creatinine Ratio 18.4 (10-20) Glucose 220 H (70-99(Fasting)) mg/dl POC Glucose 223 H (70-99) mg/dl Calcium 9.0 (8.6-10.3) mg/dl Total Bilirubin 1.1 H (0.2-1.0) mg/dl AST 18 (13-39) U/L ALT 19 (7-52) U/L Alkaline Phosphatase 94 (34-104) U/L Troponin I High Sens 10.7 (0-20) pg/ml Total Protein 7.6 (6.0-8.3) gm/dl Albumin 4.4 (3.4-5.0) gm/dl Globulin 3.2 (2.5-4.0) gm/dl Albumin/Globulin Ratio 1.4 (0.9-2) Lipase 20 (11-82) U/L 05/14/23 05/14/23 05/14/23 Range/Units 17:08 20:30 20:32 WBC (4.8-10.8) K/ul RBC (4.70-6.10) M/uL Hgb (14.0-18.0) g/dl Hct (42.0-52.0) % MCV (80.0-100.0) fL MCH (25.0-34.0) pg MCHC (32.0-36.0) g/dL RDW Std Deviation (36.4-46.3) fL RDW Coeff of Tati (11.5-14.5) % Plt Count (130-400) K/uL MPV (9.4-12.4) fL Immature Gran % (Auto) % Neut % (Auto) % Lymph % (Auto) % [place] % (Auto) % Eos % (Auto) % Baso % (Auto) % Neut # (Auto) (1.40-6.50) K/uL Lymph # (Auto) (1.20-3.40) K/uL [place] # (Auto) (0.11-0.59) K/uL Eos # (Auto) (0.00-0.50) K/uL Baso # (Auto) (0.00-0.20) K/uL Immature Gran # (Auto) (0.01-0.20) K/uL Platelet Estimate (Normal) Sodium (136-145) mmol/L Potassium (3.5-5.1) mmol/L Chloride (98-107) mmol/L Carbon Dioxide (21-32) mmol/L Anion Gap (3-11) BUN (6-23) mg/dl Creatinine (0.6-1.4) mg/dl Est Cr Clr Drug Dosing ml/min Est GFR ( Amer) ml/min Est GFR (Non-Af Amer) ml/min BUN/Creatinine Ratio (10-20) Glucose (70-99(Fasting)) mg/dl POC Glucose 291 H 325 H* 294 H (70-99) mg/dl Calcium (8.6-10.3) mg/dl Total Bilirubin (0.2-1.0) mg/dl AST (13-39) U/L ALT (7-52) U/L Alkaline Phosphatase (34-104) U/L Troponin I High Sens (0-20) pg/ml Total Protein (6.0-8.3) gm/dl Albumin (3.4-5.0) gm/dl Globulin (2.5-4.0) gm/dl Albumin/Globulin Ratio (0.9-2) Lipase (11-82) U/L 05/15/23 05/15/23 05/15/23 Range/Units 00:16 05:49 07:57 WBC (4.8-10.8) K/ul RBC (4.70-6.10) M/uL Hgb (14.0-18.0) g/dl Hct (42.0-52.0) % MCV (80.0-100.0) fL MCH (25.0-34.0) pg MCHC (32.0-36.0) g/dL RDW Std Deviation (36.4-46.3) fL RDW Coeff of Tati (11.5-14.5) % Plt Count (130-400) K/uL MPV (9.4-12.4) fL Immature Gran % (Auto) % Neut % (Auto) % Lymph % (Auto) % [place] % (Auto) % Eos % (Auto) % Baso % (Auto) % Neut # (Auto) (1.40-6.50) K/uL Lymph # (Auto) (1.20-3.40) K/uL [place] # (Auto) (0.11-0.59) K/uL Eos # (Auto) (0.00-0.50) K/uL Baso # (Auto) (0.00-0.20) K/uL Immature Gran # (Auto) (0.01-0.20) K/uL Platelet Estimate (Normal) Sodium (136-145) mmol/L Potassium (3.5-5.1) mmol/L Chloride (98-107) mmol/L Carbon Dioxide (21-32) mmol/L Anion Gap (3-11) BUN (6-23) mg/dl Creatinine (0.6-1.4) mg/dl Est Cr Clr Drug Dosing ml/min Est GFR ( Amer) ml/min Est GFR (Non-Af Amer) ml/min BUN/Creatinine Ratio (10-20) Glucose (70-99(Fasting)) mg/dl POC Glucose 164 H 158 H 161 H (70-99) mg/dl Calcium (8.6-10.3) mg/dl Total Bilirubin (0.2-1.0) mg/dl AST (13-39) U/L ALT (7-52) U/L Alkaline Phosphatase (34-104) U/L Troponin I High Sens (0-20) pg/ml Total Protein (6.0-8.3) gm/dl Albumin (3.4-5.0) gm/dl Globulin (2.5-4.0) gm/dl Albumin/Globulin Ratio (0.9-2) Lipase (11-82) U/L 05/15/23 05/15/23 05/15/23 Range/Units 09:35 09:35 11:50 WBC 9.71 (4.8-10.8) K/ul RBC 4.33 L (4.70-6.10) M/uL Hgb 13.1 L (14.0-18.0) g/dl Hct 38.9 L (42.0-52.0) % MCV 89.8 (80.0-100.0) fL MCH 30.3 (25.0-34.0) pg MCHC 33.7 (32.0-36.0) g/dL RDW Std Deviation 48.8 H (36.4-46.3) fL RDW Coeff of Tati 14.8 H (11.5-14.5) % Plt Count 127 L (130-400) K/uL MPV 11.0 (9.4-12.4) fL Immature Gran % (Auto) % Neut % (Auto) % Lymph % (Auto) % [place] % (Auto) % Eos % (Auto) % Baso % (Auto) % Neut # (Auto) (1.40-6.50) K/uL Lymph # (Auto) (1.20-3.40) K/uL [place] # (Auto) (0.11-0.59) K/uL Eos # (Auto) (0.00-0.50) K/uL Baso # (Auto) (0.00-0.20) K/uL Immature Gran # (Auto) (0.01-0.20) K/uL Platelet Estimate (Normal) Sodium 135 L (136-145) mmol/L Potassium 3.6 (3.5-5.1) mmol/L Chloride 98 (98-107) mmol/L Carbon Dioxide 28 (21-32) mmol/L Anion Gap 9 (3-11) BUN 15 (6-23) mg/dl Creatinine 0.98 (0.6-1.4) mg/dl Est Cr Clr Drug Dosing 77.5 ml/min Est GFR ( Amer) 92.1 ml/min Est GFR (Non-Af Amer) 79.5 ml/min BUN/Creatinine Ratio 15.3 (10-20) Glucose 171 H (70-99(Fasting)) mg/dl POC Glucose 201 H (70-99) mg/dl Calcium 8.7 (8.6-10.3) mg/dl Total Bilirubin (0.2-1.0) mg/dl AST (13-39) U/L ALT (7-52) U/L Alkaline Phosphatase (34-104) U/L Troponin I High Sens (0-20) pg/ml Total Protein (6.0-8.3) gm/dl Albumin (3.4-5.0) gm/dl Globulin (2.5-4.0) gm/dl Albumin/Globulin Ratio (0.9-2) Lipase (11-82) U/L 05/15/23 05/15/23 05/16/23 Range/Units 17:28 20:27 06:32 WBC 6.62 (4.8-10.8) K/ul RBC 3.54 L (4.70-6.10) M/uL Hgb 10.9 L (14.0-18.0) g/dl Hct 31.4 L (42.0-52.0) % MCV 88.7 (80.0-100.0) fL MCH 30.8 (25.0-34.0) pg MCHC 34.7 (32.0-36.0) g/dL RDW Std Deviation 47.8 H (36.4-46.3) fL RDW Coeff of Tati 14.6 H (11.5-14.5) % Plt Count 97 L (130-400) K/uL MPV 11.0 (9.4-12.4) fL Immature Gran % (Auto) % Neut % (Auto) % Lymph % (Auto) % [place] % (Auto) % Eos % (Auto) % Baso % (Auto) % Neut # (Auto) (1.40-6.50) K/uL Lymph # (Auto) (1.20-3.40) K/uL [place] # (Auto) (0.11-0.59) K/uL Eos # (Auto) (0.00-0.50) K/uL Baso # (Auto) (0.00-0.20) K/uL Immature Gran # (Auto) (0.01-0.20) K/uL Platelet Estimate Decreased L (Normal) Sodium (136-145) mmol/L Potassium (3.5-5.1) mmol/L Chloride (98-107) mmol/L Carbon Dioxide (21-32) mmol/L Anion Gap (3-11) BUN (6-23) mg/dl Creatinine (0.6-1.4) mg/dl Est Cr Clr Drug Dosing ml/min Est GFR ( Amer) ml/min Est GFR (Non-Af Amer) ml/min BUN/Creatinine Ratio (10-20) Glucose (70-99(Fasting)) mg/dl POC Glucose 220 H 181 H (70-99) mg/dl Calcium (8.6-10.3) mg/dl Total Bilirubin (0.2-1.0) mg/dl AST (13-39) U/L ALT (7-52) U/L Alkaline Phosphatase (34-104) U/L Troponin I High Sens (0-20) pg/ml Total Protein (6.0-8.3) gm/dl Albumin (3.4-5.0) gm/dl Globulin (2.5-4.0) gm/dl Albumin/Globulin Ratio (0.9-2) Lipase (11-82) U/L 05/16/23 05/16/23 05/16/23 Range/Units 06:32 08:23 14:51 WBC (4.8-10.8) K/ul RBC (4.70-6.10) M/uL Hgb (14.0-18.0) g/dl Hct (42.0-52.0) % MCV (80.0-100.0) fL MCH (25.0-34.0) pg MCHC (32.0-36.0) g/dL RDW Std Deviation (36.4-46.3) fL RDW Coeff of Tati (11.5-14.5) % Plt Count (130-400) K/uL MPV (9.4-12.4) fL Immature Gran % (Auto) % Neut % (Auto) % Lymph % (Auto) % [place] % (Auto) % Eos % (Auto) % Baso % (Auto) % Neut # (Auto) (1.40-6.50) K/uL Lymph # (Auto) (1.20-3.40) K/uL [place] # (Auto) (0.11-0.59) K/uL Eos # (Auto) (0.00-0.50) K/uL Baso # (Auto) (0.00-0.20) K/uL Immature Gran # (Auto) (0.01-0.20) K/uL Platelet Estimate (Normal) Sodium 133 L (136-145) mmol/L Potassium 3.3 L (3.5-5.1) mmol/L Chloride 96 L (98-107) mmol/L Carbon Dioxide 29 (21-32) mmol/L Anion Gap 8 (3-11) BUN 12 (6-23) mg/dl Creatinine 0.83 (0.6-1.4) mg/dl Est Cr Clr Drug Dosing 91.9 ml/min Est GFR ( Amer) 105.5 ml/min Est GFR (Non-Af Amer) 91.0 ml/min BUN/Creatinine Ratio 14.5 (10-20) Glucose 157 H (70-99(Fasting)) mg/dl POC Glucose 192 H 234 H (70-99) mg/dl Calcium 8.1 L (8.6-10.3) mg/dl Total Bilirubin (0.2-1.0) mg/dl AST (13-39) U/L ALT (7-52) U/L Alkaline Phosphatase (34-104) U/L Troponin I High Sens (0-20) pg/ml Total Protein (6.0-8.3) gm/dl Albumin (3.4-5.0) gm/dl Globulin (2.5-4.0) gm/dl Albumin/Globulin Ratio (0.9-2) Lipase (11-82) U/L 05/16/23 05/16/23 05/17/23 Range/Units 16:42 20:25 05:32 WBC 4.91 (4.8-10.8) K/ul RBC 3.04 L (4.70-6.10) M/uL Hgb 9.2 L (14.0-18.0) g/dl Hct 26.5 L (42.0-52.0) % MCV 87.2 (80.0-100.0) fL MCH 30.3 (25.0-34.0) pg MCHC 34.7 (32.0-36.0) g/dL RDW Std Deviation 46.1 (36.4-46.3) fL RDW Coeff of Tati 14.4 (11.5-14.5) % Plt Count 106 L (130-400) K/uL MPV 10.9 (9.4-12.4) fL Immature Gran % (Auto) 0.8 % Neut % (Auto) 83.9 % Lymph % (Auto) 8.6 % [place] % (Auto) 6.7 % Eos % (Auto) 0.0 % Baso % (Auto) 0.0 % Neut # (Auto) 4.12 (1.40-6.50) K/uL Lymph # (Auto) 0.42 L (1.20-3.40) K/uL [place] # (Auto) 0.33 (0.11-0.59) K/uL Eos # (Auto) 0.00 (0.00-0.50) K/uL Baso # (Auto) 0.00 (0.00-0.20) K/uL Immature Gran # (Auto) 0.04 (0.01-0.20) K/uL Platelet Estimate (Normal) Sodium (136-145) mmol/L Potassium (3.5-5.1) mmol/L Chloride (98-107) mmol/L Carbon Dioxide (21-32) mmol/L Anion Gap (3-11) BUN (6-23) mg/dl Creatinine (0.6-1.4) mg/dl Est Cr Clr Drug Dosing ml/min Est GFR ( Amer) ml/min Est GFR (Non-Af Amer) ml/min BUN/Creatinine Ratio (10-20) Glucose (70-99(Fasting)) mg/dl POC Glucose 266 H 232 H (70-99) mg/dl Calcium (8.6-10.3) mg/dl Total Bilirubin (0.2-1.0) mg/dl AST (13-39) U/L ALT (7-52) U/L Alkaline Phosphatase (34-104) U/L Troponin I High Sens (0-20) pg/ml Total Protein (6.0-8.3) gm/dl Albumin (3.4-5.0) gm/dl Globulin (2.5-4.0) gm/dl Albumin/Globulin Ratio (0.9-2) Lipase (11-82) U/L 05/17/23 05/17/23 05/17/23 Range/Units 05:32 08:13 12:06 WBC (4.8-10.8) K/ul RBC (4.70-6.10) M/uL Hgb (14.0-18.0) g/dl Hct (42.0-52.0) % MCV (80.0-100.0) fL MCH (25.0-34.0) pg MCHC (32.0-36.0) g/dL RDW Std Deviation (36.4-46.3) fL RDW Coeff of Tati (11.5-14.5) % Plt Count (130-400) K/uL MPV (9.4-12.4) fL Immature Gran % (Auto) % Neut % (Auto) % Lymph % (Auto) % [place] % (Auto) % Eos % (Auto) % Baso % (Auto) % Neut # (Auto) (1.40-6.50) K/uL Lymph # (Auto) (1.20-3.40) K/uL [place] # (Auto) (0.11-0.59) K/uL Eos # (Auto) (0.00-0.50) K/uL Baso # (Auto) (0.00-0.20) K/uL Immature Gran # (Auto) (0.01-0.20) K/uL Platelet Estimate (Normal) Sodium 131 L (136-145) mmol/L Potassium 3.4 L (3.5-5.1) mmol/L Chloride 97 L (98-107) mmol/L Carbon Dioxide 28 (21-32) mmol/L Anion Gap 6 (3-11) BUN 14 (6-23) mg/dl Creatinine 0.89 (0.6-1.4) mg/dl Est Cr Clr Drug Dosing 87.3 ml/min Est GFR ( Amer) 102.5 ml/min Est GFR (Non-Af Amer) 88.5 ml/min BUN/Creatinine Ratio 15.7 (10-20) Glucose 148 H (70-99(Fasting)) mg/dl POC Glucose 168 H 229 H (70-99) mg/dl Calcium 8.0 L (8.6-10.3) mg/dl Total Bilirubin 0.8 (0.2-1.0) mg/dl AST 30 (13-39) U/L ALT 27 (7-52) U/L Alkaline Phosphatase 53 (34-104) U/L Troponin I High Sens (0-20) pg/ml Total Protein 6.0 (6.0-8.3) gm/dl Albumin 2.8 L (3.4-5.0) gm/dl Globulin 3.2 (2.5-4.0) gm/dl Albumin/Globulin Ratio 0.9 (0.9-2) Lipase (11-82) U/L 05/17/23 05/17/23 05/18/23 Range/Units 17:13 20:19 06:12 WBC 3.13 L (4.8-10.8) K/ul RBC 2.98 L (4.70-6.10) M/uL Hgb 8.9 L (14.0-18.0) g/dl Hct 26.6 L (42.0-52.0) % MCV 89.3 (80.0-100.0) fL MCH 29.9 (25.0-34.0) pg MCHC 33.5 (32.0-36.0) g/dL RDW Std Deviation 46.5 H (36.4-46.3) fL RDW Coeff of Tati 14.3 (11.5-14.5) % Plt Count 110 L (130-400) K/uL MPV 10.4 (9.4-12.4) fL Immature Gran % (Auto) 0.3 % Neut % (Auto) 76.7 % Lymph % (Auto) 15.0 % [place] % (Auto) 5.8 % Eos % (Auto) 1.9 % Baso % (Auto) 0.3 % Neut # (Auto) 2.40 (1.40-6.50) K/uL Lymph # (Auto) 0.47 L (1.20-3.40) K/uL [place] # (Auto) 0.18 (0.11-0.59) K/uL Eos # (Auto) 0.06 (0.00-0.50) K/uL Baso # (Auto) 0.01 (0.00-0.20) K/uL Immature Gran # (Auto) 0.01 (0.01-0.20) K/uL Platelet Estimate (Normal) Sodium (136-145) mmol/L Potassium (3.5-5.1) mmol/L Chloride (98-107) mmol/L Carbon Dioxide (21-32) mmol/L Anion Gap (3-11) BUN (6-23) mg/dl Creatinine (0.6-1.4) mg/dl Est Cr Clr Drug Dosing ml/min Est GFR ( Amer) ml/min Est GFR (Non-Af Amer) ml/min BUN/Creatinine Ratio (10-20) Glucose (70-99(Fasting)) mg/dl POC Glucose 228 H 281 H (70-99) mg/dl Calcium (8.6-10.3) mg/dl Total Bilirubin (0.2-1.0) mg/dl AST (13-39) U/L ALT (7-52) U/L Alkaline Phosphatase (34-104) U/L Troponin I High Sens (0-20) pg/ml Total Protein (6.0-8.3) gm/dl Albumin (3.4-5.0) gm/dl Globulin (2.5-4.0) gm/dl Albumin/Globulin Ratio (0.9-2) Lipase (11-82) U/L 05/18/23 05/18/23 05/18/23 Range/Units 06:12 08:13 12:26 WBC (4.8-10.8) K/ul RBC (4.70-6.10) M/uL Hgb (14.0-18.0) g/dl Hct (42.0-52.0) % MCV (80.0-100.0) fL MCH (25.0-34.0) pg MCHC (32.0-36.0) g/dL RDW Std Deviation (36.4-46.3) fL RDW Coeff of Tati (11.5-14.5) % Plt Count (130-400) K/uL MPV (9.4-12.4) fL Immature Gran % (Auto) % Neut % (Auto) % Lymph % (Auto) % [place] % (Auto) % Eos % (Auto) % Baso % (Auto) % Neut # (Auto) (1.40-6.50) K/uL Lymph # (Auto) (1.20-3.40) K/uL [place] # (Auto) (0.11-0.59) K/uL Eos # (Auto) (0.00-0.50) K/uL Baso # (Auto) (0.00-0.20) K/uL Immature Gran # (Auto) (0.01-0.20) K/uL Platelet Estimate (Normal) Sodium 136 (136-145) mmol/L Potassium 3.1 L (3.5-5.1) mmol/L Chloride 96 L (98-107) mmol/L Carbon Dioxide 35 H (21-32) mmol/L Anion Gap 5 (3-11) BUN 13 (6-23) mg/dl Creatinine 0.96 (0.6-1.4) mg/dl Est Cr Clr Drug Dosing 79.6 ml/min Est GFR ( Amer) 94.4 ml/min Est GFR (Non-Af Amer) 81.5 ml/min BUN/Creatinine Ratio 13.5 (10-20) Glucose 155 H (70-99(Fasting)) mg/dl POC Glucose 182 H 295 H (70-99) mg/dl Calcium 8.2 L (8.6-10.3) mg/dl Total Bilirubin 0.7 (0.2-1.0) mg/dl AST 26 (13-39) U/L ALT 26 (7-52) U/L Alkaline Phosphatase 52 (34-104) U/L Troponin I High Sens (0-20) pg/ml Total Protein 6.0 (6.0-8.3) gm/dl Albumin 2.8 L (3.4-5.0) gm/dl Globulin 3.2 (2.5-4.0) gm/dl Albumin/Globulin Ratio 0.9 (0.9-2) Lipase (11-82) U/L
== END 2023-05-18 17:26 | disposition home or self-care (01) | DRG 419 ==
LOC: ED 01:14 → EDINP 06:09 → SUATTDRO 06:09 → EDINP 07:22 → 2N 17:05

== ENCOUNTER 2024-06-16 09:31 | Inpatient (IN) ==
--- NOTE | 2024-06-16 12:51 | History & Physical Report ---
Date of Service June 16, 2024 Assessment & Plan (1) NSTEMI (non-ST elevated myocardial infarction): Plan: Currently chest pain free on transfer from [facility] Discussed with cardiology (Dr De Guzman) and plan on cardiac catheterization today NPO, continue IV heparin low dose (anti-Xa level now for dosing) Once he has had his cardiac cath will give aspirin and rosuvastatin Prior intolerance noted to beta-blockers therefore will defer this to his ca rdiologist Further treatment depending on cardiac catheterization (2) Diabetes: Plan: Hemoglobin A1C 7.5 in February 2022, repeat with a.m. labs Mounjaro due today but he does not have this with him Last Lantus dose yesterday morning, currently NPO therefore will hold off currently Novolog: --Goal BSG Range: Low 110 mg/dL, High 140 mg/dL --Correction Factor: 45 mg/dL/unit --Carbohydrate ratio = 15 g/unit --BSGs ACHS if eating, q6h if npo (3) Hypertension: Plan: Previously on lisinopril. Unclear why this was discontinued but last picked up in May although he was noted to be off all blood pressure medications at his April cardiology appointment Metoprolol given this morning by [facility] - prior intolerance noted in cardiology notes to beta blockers On Furosemide daily which we will continue pending cardiac cath results (4) PAF (paroxysmal atrial fibrillation): Plan: Notably previously on amiodarone discontinued earlier this year - presumably due to lack of recurrence following MAZE procedure. Not on anticoagulation due to lack of recurrence. Monitor on telemetry (5) GERD (gastroesophageal reflux disease): Plan: Pantoprazole + famotidine IV now as missed AM meds Continue his usual PO daily regimen (6) Hypomagnesemia: Plan: Magnesium 1.6. Mg sulfate 2g IV now Repeat with AM labs Plan VTE prophylaxis - IV heparin Diet - n.p.o. pending cardiac cath Disposition - admit to PCU Admission and Anticipated Discharge Date Admission Date: June 16, 2024 History of Present Illness Chief Complaint: Chest pain Primary Care Provider: Fan Holman Charly Colbert is a 68 year old male with coronary artery disease who presents as a direct transfer from [facility] due to chest burning sensation. Chest burning for last three weeks intermittently but much worse following his cardiology appointment yesterday and went to [facility]. Associated shortness of breath which has also been getting worse over the same time period. Non exertional. He felt is was more reflux than his heart. Initial troponin I HS 105.1 [reference range 2.5-35.6] @ [22:00 10] increased to 6966.1 @ [7:02 06/16]. He was given aspirin 324mg PO in the emergency room, started on IV heparin and was given his normal metoprolol this morning but missed all of his usual medications last night and this morning other than metoprolol this morning. He specifically did not receive any insulin this morning. Due to rising troponin his case was discussed with the on-call hospitalist and the mutual fund accountant and recommended transfer for consideration of cardiac catheterization. He is currently chest pain free while lying in bed. He has known coronary artery disease with PCI of the circumflex for STEMI and subsequent three-vessel coronary artery bypass in May 2022. At his cardiology appointment yesterday he was complaining of shortness of breath on exertion and the plan was to further work him up with a Lainean. Allergies Allergy/AdvReac Type Severity Reaction Status Date / Time No Known Allergies Allergy Intermediate Verified 06/15/24 08:39 Home Medications Medication Instructions Recorded Confirmed Type albuterol sulfate 90 mcg/actuation 2 puff inhalation Q6H PRN Wheezing 04/26/19 06/16/24 History aerosol inhaler (ProAir HFA) aspirin 81 mg tablet,delayed 81 mg PO DAILY 04/26/19 06/16/24 History release (Ecotrin Low Strength) insulin glargine 100 unit/mL (3 20 unit subcut QAM 05/14/23 06/16/24 History mL) subcutaneous pen (Lantus Solostar U-100 Insulin) furosemide 40 mg tablet 40 mg PO QAM 03/22/24 06/16/24 History pantoprazole 40 mg tablet,delayed 40 mg PO DAILY 03/22/24 06/16/24 History release rosuvastatin 40 mg tablet 40 mg PO DAILY 03/22/24 06/16/24 History tirzepatide 7.5 mg/0.5 mL 7.5 mg subcut WK 03/22/24 06/16/24 History subcutaneous pen injector (Emily) Past Med/Surg History Problem List (Updated 06/16/24 @ 15:21 by Fausto Carbajal MD) Hypomagnesemia NSTEMI (non-ST elevated myocardial infarction) Tachycardia TANG (dyspnea on exertion) GERD (gastroesophageal reflux disease) PAF (paroxysmal atrial fibrillation) (Acute) Atherogenic dyslipidemia Coronary artery disease without angina pectoris Hypokalemia (Acute) ACS (acute coronary syndrome) Hypertension Chest pain (Acute) Right bundle branch block (Acute) Diabetes (Chronic) Rash (Acute) Medical History (Updated 06/16/24 @ 15:21 by Fausto Carbajal MD) Cholecystitis with gangrene of gallbladder Pre-operative cardiovascular exam, new EKG abnormalities c/w ischemia Acute cholecystitis Abdominal pain Cholelithiasis Ischemic cardiomyopathy Acute hyperglycemia High blood pressure Diabetes Surgical History (Updated 06/16/24 @ 15:21 by Fausto Carbajal MD) Hx laparoscopic cholecystectomy (05/16/23) Laparoscopic Cholecystectomy - Carli Moe DO History of coronary artery bypass graft Social History Smoking Status: Never smoker Tobacco Type: Cigarettes Second Hand Exposure: No; Do You Dip or Chew Tobacco: No; Hx Alcohol Use: No Hx Substance Use: No Preferred Language: Thai Communication Ability: Effective Visual Impairment: No Limitations Global 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 [employer] Required: No Beliefs That Will Affect Care: None Current Living Situation: Spouse Feels Safe at Home: Yes Assistive Devices: Glasses Review of Systems Review of Systems: All systems reviewed & are unremarkable except as noted in HPI & below Physical Exam Constitutional: WD/WN, vitals as above ENMT: external ear and nose normal, oropharynx normal Respiratory: normal respiratory effort, lungs clear to auscultation Cardiovascular: Rate/Rhythm: regular rate and regular rhythm Heart Sounds: no murmur Extremities: normal capillary refill and + pedal edema (trace b/l equal); no calf tenderness Gastrointestinal (Abdomen): normal bowel sounds, soft, nontender, no hepatosplenomegaly Musculoskeletal: no cyanosis or clubbing, extremities motor strength 5/5 Skin: no rashes, warm and dry Neurologic: moves all extremities and awake; not confused Psychiatric: A+Ox3, euthymic affect Results & Data Results & Data Laboratory Results Abnormal lab results 10/08/24 Range/Units 13:08 WBC 3.42 L (4.8-10.8) K/ul RBC 3.80 L (4.70-6.10) M/uL Hgb 11.0 L (14.0-18.0) g/dl Hct 33.2 L (42.0-52.0) % Plt Count 93 L (130-400) K/uL Lymph # (Auto) 0.63 L (1.20-3.40) K/uL Immature Gran # (Auto) 0.00 L (0.01-0.20) K/uL Heparin Anti-Xa, Unfract 0.17 L (0.3-0.7) IU/ml Creatinine 0.46 L (0.6-1.4) mg/dl BUN/Creatinine Ratio 32.6 H (10-20) Glucose 142 H (70-99(Fasting)) mg/dl Magnesium 1.6 L (1.7-2.4) mg/dl AST 65 H (13-39) U/L ALT 60 H (7-52) U/L Troponin I High Sens 9244.3 H* (0-20) pg/ml Total Protein 5.9 L (6.0-8.3) gm/dl Albumin 3.3 L (3.4-5.0) gm/dl ECG Rate (beats per minute): 105 Rhythm: sinus tachycardia Findings: + RBBB Comparison ECG Date: from (June 15, 2024) Change: no significant change Additional Comments: EKG taken at [facility] 06/16/2024 Code Status & VTE Plan Code Status Full VTE Prophylaxis Plan VTE Prophylaxis will be ordered: Yes PG Care Time/CCT Total # of Minutes Spent Total Time Spent with Patient: Total time spent is greater than 50% in coordination of care (as documented) at patient's floor/unit and/or counseling patient: Coding Level of Care Code 84245 INT INP/OBS CARE 3/75MIN Diagnoses NSTEMI (non-ST elevated myocardial infarction) I21.4 Diabetes E11.9 Hypertension I10 PAF (paroxysmal atrial fibrillation) I48.0 GERD (gastroesophageal reflux disease) K21.9 Hypomagnesemia E83.42
[2024-06-16] MEDS ORDERED: Heparin IV Adult Wt-Based Low-Dose *NO* INITIAL Bolus Protocol IV STA (13:03)
[2024-06-16] MEDS ORDERED: DEXTROSE 50% 50 ML SYRINGE IV PRN (13:21)
[2024-06-16] MEDS ORDERED: GLUCOSE 10 TAB/TUBE PO PRN (13:21)
[2024-06-16] MEDS ORDERED: GLUCAGON FOR INJ 1 MG VIAL SQ PRN (13:21)
[2024-06-16] MEDS ORDERED: CARBOHYDRATES FOR HYPOGLYCEMIA PO PRN (13:21)
[2024-06-16] MEDS ORDERED: GLUCOSE 40% GEL 15 GM TUBE PO PRN (13:21)
[2024-06-16] MEDS: HEPARIN SODIUM/DEXTROSE 25,000 UNITS/500 ML BAG IV SCH ×2 (13:36→19:24)
[2024-06-16 13:40] LABS: Basophils # (auto) 0.01 K/uL (0.00-0.20); Basophils % (auto) 0.3 %; Eosinophils # (auto) 0.02 K/uL (0.00-0.50); Eosinophils % (auto) 0.6 %; Hematocrit (blood only) 33.2 % (42.0-52.0); Lymphocytes # (auto) 0.63 K/uL (1.20-3.40); Lymphocytes % (auto) 18.4 %; Mean Corpuscular Hemoglobin 28.9 pg (25.0-34.0); Mean Corpuscular Hgb Conc 33.1 g/dL (32.0-36.0); Mean Corpuscular Volume 87.4 fL (80.0-100.0); Mean Platelet Volume 11.3 fL (9.4-12.4); Monocytes # (auto) 0.33 K/uL (0.11-0.59); Monocytes % (auto) 9.6 %; Neutrophils # (auto) 2.43 K/uL (1.40-6.50); Neutrophils % (auto) 71.1 %; Platelet Count 93 K/uL (130-400); RDW Coefficient of Variation 13.2 % (11.5-14.5); RDW Standard Deviation 41.9 fL (36.4-46.3); White Blood Count 3.42 K/ul (4.8-10.8)
[2024-06-16 13:49] LABS: Albumin Globulin Ratio 1.3 (0.9-2); Albumin Level 3.3 gm/dl (3.4-5.0); BUN Creatinine Ratio 32.6 (10-20); Bilirubin,Total 0.7 mg/dl (0.2-1.0); Calcium 8.9 mg/dl (8.6-10.3); Creatinine Clr Calc Pharmacy 148.7 ml/min; Globulin 2.6 gm/dl (2.5-4.0); Magnesium 1.6 mg/dl (1.7-2.4); Potassium 3.5 mmol/L (3.5-5.1); Total Protein 5.9 gm/dl (6.0-8.3)
[2024-06-16 13:58] LABS: Troponin I High Sensitivity 9244.3 pg/ml (0-20)
[2024-06-16 13:59] LABS: ANTI-Xa, UFH(UnfractionatedHep 0.17 IU/ml (0.3-0.7); INR 1.1 (0.9-1.1); Partial Thromboplastin Ratio 1.1; Partial Thromboplastin Time 30 Seconds (21-31); Prothrombin Time 11.4 Seconds (9.0-12.0)
--- NOTE | 2024-06-16 14:45 | Pre Anesthesia Assessment ---
Date of Service June 16, 2024 Pre Sedation Assessment Vital Signs Temp Pulse Resp BP Pulse Ox O2 Del Method 06/16/24 14:09 99 H 15 105/64 100 Room Air 06/16/24 12:30 Room Air 06/16/24 12:20 97.9 F 18 182/64 H 99 Room Air Cardiovascular + regular rate Respiratory + respiratory effort normal Pre-Sedation Airway Assessment Smoking Status: Never smoker Hx Sleep Apnea: No Hx Difficult Intubation: No Short, Thick Neck: No Thyromental Distance: > or= 3.5 Finger Breadths Oral Cavity: + WNL Mallampati Class: III ASA: ASA2 NPO Status Date of Last Intake of Fluids: 06/16/24 Time of Last Intake of Fluids: 08:00 Date of Last Intake of Solid Food: 06/16/24 Time of Last Intake of Solid Foods: 08:00 Last Intake of Solids Comment: few bites Procedure Planning Contraindications for Sedation: none Current Medications Reviewed: Yes Notes The planned sedation has been discussed with the patient. Informed Consent was obtained. I have identified the patient, determined the appropriateness of sedation and have assessed the patient immediately prior to the procedure. All medicine(s) and interventions are by my order.
--- NOTE | 2024-06-16 14:45 | Cardiology Consultation ---
Date of Consultation June 16, 2024 Assessment & Plan (1) NSTEMI (non-ST elevated myocardial infarction): -- history ofthree-vessel CABG and prior stent to LCx 2021 2. Ischemic cardiomyopathyEF 35-40% 3. Type 2 diabetes 4. Anemia/thrombocytopenia 5. Prior AF post surgical MAZE/DEMETRICE occlusion. Patient with progressive exertional dyspnea and episode of chest discomfort overnight with resulting rising troponin consistent with NSTEMI. Recommend further evaluation with repeat cardiac catheterization via left radial artery. Discussed procedure with patient and his and they are agreeable to proceed. Further recommendations pending coronary angiography findings. History of Present Illness Attending Physician: Fausto Carbajal MD History of Present Illness Mr. Colbert is a pleasant 68-year-old man seen today after transfer from [facility] due to NSTEMI. Primary loan closer is Dr. Tracy. He has a history of multivessel CAD post PCI with [place] to proximal circumflex (2.75 x 12 resolute) and three-vessel CABG (JOINER to LAD, SVG to diagonal, SVG to PDA 05/2022). Most recent echo 09/2022 EF 45 to 50% with apical anterior/septal wall motion abnormality. Patient was seen yesterday as an outpatient due to worsening exertional shortness of breath. Gives example of dyspnea walking to mailbox. Yesterday evening was awoken from sleep with burning chest discomfort. Pain lasted no more than 30 minutes. Has not had recurrence of pain since that time. Drove himself to outside ED. ECG showed old right bundle branch block without new ST changes. HS TropI initially 100 has trended up to 6000, 10,000 this morning. Mild congestion on chest x-ray. Echo images from [facility] partially reviewed -- EF reduced appear 35-40% with apical wall motion and new mid to apical lateral hypokinesis. No significant valvular pathology. Currently patient chest pain-free. Repeat ECG unchanged. Troponin arrival 9200. Social history: Remote tobacco use. Retired. Previously served in . , here with [employer]. Allergies Allergy/AdvReac Type Severity Reaction Status Date / Time No Known Allergies Allergy Intermediate Verified 06/15/24 08:39 Home Medications Medication Instructions Recorded Confirmed Type albuterol sulfate 90 mcg/actuation 2 puff inhalation Q6H PRN Wheezing 04/26/19 06/16/24 History aerosol inhaler (ProAir HFA) aspirin 81 mg tablet,delayed 81 mg PO DAILY 04/26/19 06/16/24 History release (Ecotrin Low Strength) insulin glargine 100 unit/mL (3 20 unit subcut QAM 05/14/23 06/16/24 History mL) subcutaneous pen (Lantus Solostar U-100 Insulin) furosemide 40 mg tablet 40 mg PO QAM 03/22/24 06/16/24 History pantoprazole 40 mg tablet,delayed 40 mg PO DAILY 03/22/24 06/16/24 History release rosuvastatin 40 mg tablet 40 mg PO DAILY 03/22/24 06/16/24 History tirzepatide 7.5 mg/0.5 mL 7.5 mg subcut WK 03/22/24 06/16/24 History subcutaneous pen injector (Mounjaro) Patient History Medical History (Updated 06/16/24 @ 15:21 by Fausto Carbajal MD) Cholecystitis with gangrene of gallbladder Pre-operative cardiovascular exam, new EKG abnormalities c/w ischemia Acute cholecystitis Abdominal pain Cholelithiasis Ischemic cardiomyopathy Acute hyperglycemia High blood pressure Diabetes Surgical History (Updated 06/16/24 @ 15:21 by Fausto Carbajal MD) Hx laparoscopic cholecystectomy (05/16/23) Laparoscopic Cholecystectomy - Carli Moe DO History of coronary artery bypass graft Social History Smoking Status: Never smoker Tobacco Type: Cigarettes Smoking End Date: quit approx 40 years ago; Second Hand Exposure: No; Do You Dip or Chew Tobacco: No; Tobacco Cessation Education Requested by Patient: No Hx Alcohol Use: No Hx Substance Use: No Preferred Language: Spanish Communication Ability: Effective Visual Impairment: No Limitations Mine Analyst Required: No Beliefs That Will Affect Care: None Current Living Situation: Spouse Other Information That Helps Us Care for You: No Feels Safe at Home: Yes Safety Concerns: Feels Safe At This Time Assistive Devices: Glasses Review of Systems Review of Systems: All systems reviewed & are unremarkable except as noted in HPI & below Physical Exam Physical Exam: General: Comfortable HEENT: Sclerae anicteric Lungs: Clear with minimally decreased breath sounds at left base. JVP approximately 78 Cardiac: Regular rate and rhythm, no murmurs. Vascular: 2+ radial on left Abdomen: Soft, nontender Extremities: Well perfused, no peripheral edema Neuro: Nonfocal Psych: Alert orient x3, normal affect and mood Results & Data Vital Signs (Past 12 Hours) Vital Signs Temp Pulse Resp BP Pulse Ox O2 Del Method 06/16/24 14:09 99 H 15 105/64 100 Room Air 06/16/24 12:30 Room Air 06/16/24 12:20 97.9 F 18 182/64 H 99 Room Air PG Care Time/CCT Total # of Minutes Spent Total Time Spent with Patient: Total time spent is greater than 50% in coordination of care (as documented) at patient's floor/unit and/or counseling patient: Coding Level of Care Code 66425 INT INP/OBS CARE 3/75MIN Diagnoses NSTEMI (non-ST elevated myocardial infarction) I21.4
[2024-06-16] MEDS: niCARdipine HCL INJ 2.5 MG/ML 10 ML AMP ONE (14:47)
[2024-06-16] MEDS: NITROGLYCERIN/D5W 100MCG/ML 20ML SYR ONE (14:48)
[2024-06-16] MEDS: MIDAZOLAM HCL 1 MG/ML 2ML VIAL ONE ×2 (15:40→20:07)
[2024-06-16] MEDS: fentaNYL citrate PF 100 MCG/2 ML VIAL ONE (15:40)
[2024-06-16] MEDS: OPTIRAY 350 ONE (15:41)
[2024-06-16] MEDS: MAGNESIUM SULFATE / D5W 1 GM/100 ML BAG IV SCH (16:48)
--- NOTE | 2024-06-16 17:04 | Post Anesthesia Assessment ---
Date of Service June 16, 2024 Post Sedation Assessment Vital Signs Temp Pulse Pulse Resp BP BP Pulse Ox 06/16/24 16:35 97.3 F L 95 H 18 100/64 94 06/16/24 16:07 92 H 18 122/75 95 06/16/24 15:53 95 H 18 115/62 97 06/16/24 14:09 99 H 15 105/64 100 06/16/24 12:35 104 H 06/16/24 12:30 06/16/24 12:20 97.9 F 18 182/64 H 99 O2 Del Method 06/16/24 16:35 Room Air 06/16/24 16:07 Room Air 06/16/24 15:53 Room Air 06/16/24 14:09 Room Air 06/16/24 12:35 06/16/24 12:30 Room Air 06/16/24 12:20 Room Air Recovery Score Activity: Moves 4 extremities Respiration: Deep Breath/Cough Circulation: +/-20% PreAnes Value Consciousness: Fully Awake Oxygen Saturation: > 92% On Room Air Post Anesthesia Score: 10 Discharge Sedation Level of Care: Fast Track Phase II Post Sedation Plan On clinical assessment, the patient appears to have tolerated the sedation without complications. Patient is recovering as anticipated. Patient will continue to be monitored by nursing and may be discharged when sedation discharge criteria are met per below protocol. Upon Completions of procedure up to 15 minutes continue every 5 minute vital signs and the P.A.R. score; then discharge to a Phase I or Fast Track to Phase II per the following guidelines: * Discharge Patient to appropriate Phase II area if PAR is 8 or greater or return to pre- procedure baseline. The post - procedure orders will be as directed. * If PAR score is less than 8 or not return to pre-procedure baseline then patient will follow Phase I monitoring till PAR is reached for Phase II. The Phase I may be done in procedure room or may call to secure a Phase I area. * If naloxone or flumazenil are used for reversal, hold in Phase I for continued monitoring from when last reversal dose was given for a minimum of 60 minutes or longer pending the nurse and/or physician discretion of patient condition before discharge to Phase II. Please call the Sedation Physician to re-evaluate and complete post-note for discharge to Phase II area. Do NOT discharge from procedure sedation or Phase 1 until post- sedation evaluation note is complete by procedure /sedation MD Sedation Discharge Instructions to be given to the patient at discharge to home.
--- NOTE | 2024-06-16 17:19 | Cardiac Catheterization ---
[facility] Data: Senior Online Marketing Manager Cardiac Status Clinical evaluation leading to the procedure CAD Presenation: Non STEMI Anginal Classification: CCS IV Diagnostic Physicians Name: Wilber De Guzman MD Closure Device Recommendations: Medical Therapy and/or Counseling Cardiac Cath Procedure Full Procedure Date June 16, 2024 Pre-Procedure Diagnosis Pre-Procedure Diagnosis: Non STEMI AUC Score AUC Score: 8 Post-Procedure Diagnosis Post-Procedure Diagnosis: Severe CAD Procedure(s) Performed Procedure(s) Performed: Coronary Angiography and Bypass Graft Angiography End Maker Wilber De Guzman MD Temperature Control Inspector(s) Loulou Estimated Blood Loss Estimated Blood Loss: 15 Medication(s) Medication(s): Fentanyl, Heparin, Lidocaine 1%, Nicardipine, Nitroglycerin and Versed Summary of Findings Indication: NSTEMI. History of complex CAD with prior stent to circumflex and three-vessel CABG (JOINER to LAD, SVG to diagonal, SVG to PDA). Access: 6 Fr slender left radial artery Catheters: JL 3.5, JR4, MPA, AL-1 Findings: LM -calcified, normal caliber, no significant disease LAD -heavily calcified, mild-moderate diffuse proximal disease up to 50%, 100% occlusion after D1. Medium bifurcating D1 with 95% ostial stenosis and 90% mid stenosis. No competitive flow in D1. Circumflex - 40% ostial, mid stent widely patent with no significant ISR. Medium OM2 30% proximal. Distal AV groove circumflex with 60% stenosis just after OM2. RCA -dominant, calcified, 100% proximal occlusion. Right to right collaterals to RV, marginal branches. LIMALADwidely patent, 50-60% mid LAD stenosis after anastomosis. Small distal vessel extends to apex. SVGdiagonal occluded SVGRPDA occluded Arterial Closure: TR band Summary: 1. Severe multivessel coronary artery disease -100% chronic mid LAD 100% chronic proximal RCA. Faint right to right and [id number] collaterals. Widely patent mid circumflex stent. 60% small distal circumflex after takeoff of OM2 95% ostial D1, 90% mid small medial branch of D1 2. Widely patent JOINER to LAD. 50-60% mid LAD stenosis after anastomosis. 3. Occluded SVG to diagonal, SVG to PDA Recommendations: Suspect patient's presenting symptoms/troponin elevation related to small branch vessel disease likely involving diagonal (based on echo findings). Also could represent acute on chronic occlusion of vein graft. No acute high risk CAD and diagonal vessel too small for intervention. Recommend medical management of ACS. Continue heparin infusion overnight. Will restart clopidogrel. Continue current aspirin. Restart Toprol-XL and losartan as BP allows. Ideally would restart SGLT2 with ICM Resume home furosemide tomorrow. Continue current statin. Hemodynamics Rest Ao:: 105/55/81 Final Ao: 92/56*76 LV: -- Recommendations Recommendations: Medical Therapy and/or Counseling Specimens Specimens: None Radiation Exposure (mGy) 192 Contrast (mls) 110 Anesthesia Moderate [id number] Procedural Complication(s) None Disposition Senior Online Marketing Manager Holding/Recovery I attest to the content of the Intraoperative Record and any orders documented therein. Any exceptions are noted below. [facility] Card Cath Procedure Codes Cardiac Catheterization Procedure 1: Cardiovascular Cath Procedures: 50955 Coronaries and Grafts/IM (venous & atrial) Moderate Sedation Procedure 1: Sedation/Anesthesia: 47596 Mod Sedation by the same physician;Init15 Min Child Age 5 & Up Procedure 2: Sedation/Anesthesia: 97442 Mod Sedation by the same physician; Ea [id number] Minutes PG Care Time/CCT Total # of Minutes Spent Total Time Spent with Patient: Total time spent is greater than 50% in coordination of care (as documented) at patient's floor/unit and/or counseling patient:
[2024-06-16] MEDS: INSULIN ASPART PER UNIT CHARGE SC SCH (17:38)
[2024-06-16] MEDS: FAMOTIDINE 20MG IV PUSH 20 MG/5 ML SYR IV ONE (17:52)
[2024-06-16] MEDS: PANTOprazole 40 MG in SYRINGE 0 ML IV ONE (17:52)
[2024-06-16] MEDS ORDERED: Heparin IV Adult Wt-Based Standard *NO* INITIAL Bolus Protocol IV SCH (18:09)
[2024-06-16] MEDS: ROSUVASTATIN CALCIUM 20 MG TAB PO SCH (18:40)
[2024-06-16] MEDS: ASPIRIN 81 MG ECTAB PO SCH (18:40)
[2024-06-16] MEDS: HEPARIN (PORCINE) 1000 UNIT/ML 10 ML (CATH LAB USE ONLY) ONE (20:07)
[2024-06-16] MEDS: FLUTICASONE PROPIONATE NA SPR 16 GM BTL STA (22:47)
[2024-06-16] MEDS: MELATONIN 3 MG TAB PO PRN (22:48)
[2024-06-17 01:37] LABS: Basophils # (auto) 0.02 K/uL (0.00-0.20); Basophils % (auto) 0.6 %; Eosinophils # (auto) 0.04 K/uL (0.00-0.50); Eosinophils % (auto) 1.1 %; Hematocrit (blood only) 30.7 % (42.0-52.0); Hemoglobin 10.4 g/dl (14.0-18.0); Immature Granulocytes # (auto) 0.01 K/uL (0.01-0.20); Immature Granulocytes % (auto) 0.3 %; Lymphocytes # (auto) 0.86 K/uL (1.20-3.40); Lymphocytes % (auto) 24.6 %; Mean Corpuscular Hemoglobin 28.9 pg (25.0-34.0); Mean Corpuscular Hgb Conc 33.9 g/dL (32.0-36.0); Mean Corpuscular Volume 85.3 fL (80.0-100.0); Mean Platelet Volume 11.1 fL (9.4-12.4); Monocytes # (auto) 0.35 K/uL (0.11-0.59); Neutrophils # (auto) 2.22 K/uL (1.40-6.50); Neutrophils % (auto) 63.4 %; Platelet Count 96 K/uL (130-400); RDW Coefficient of Variation 13.2 % (11.5-14.5); RDW Standard Deviation 41.6 fL (36.4-46.3)
[2024-06-17 01:51] LABS: BUN Creatinine Ratio 22.2 (10-20); Calcium 8.5 mg/dl (8.6-10.3); Creatinine Clr Calc Pharmacy 108.6 ml/min; Magnesium 2.1 mg/dl (1.7-2.4); Potassium 3.7 mmol/L (3.5-5.1)
[2024-06-17 02:14] LABS: ANTI-Xa, UFH(UnfractionatedHep 0.34 IU/ml (0.3-0.7)
[2024-06-17 07:13] LABS: Estimated Average Glucose 111 mg/dl; Hemoglobin A1C 5.5 % (4.5-5.6)
[2024-06-17] MEDS: FUROSEMIDE 40 MG TAB PO SCH (07:16)
[2024-06-17] MEDS: LOSARTAN POTASSIUM 25 MG TAB PO SCH (07:17)
[2024-06-17] MEDS: METOPROLOL SUCC 25MG EXT REL TAB PO SCH (07:17)
[2024-06-17] MEDS: PANTOprazole 40 MG TAB PO SCH (07:17)
[2024-06-17 07:46] VITALS: RESP 18
[2024-06-17 09:33] LABS: Troponin I High Sensitivity 1991.7 pg/ml (0-20)
[2024-06-17] MEDS: POTASSIUM CHLORIDE CRTAB 20 MEQ TABCR PO STA (10:29)
[2024-06-17] MEDS: CLOPIDOGREL BISULFATE 75 MG TAB PO SCH (10:31)
[2024-06-17 10:42] VITALS: BP 122/72; PULSE 100; TEMP 98.1; O2SAT 98
[2024-06-17 10:42] LABS: Albumin Level 3.5 gm/dl (3.4-5.0); Bilirubin Direct 0.1 mg/dl (0-0.2); Bilirubin,Total 0.8 mg/dl (0.2-1.0); Total Protein 6.4 gm/dl (6.0-8.3)
--- NOTE | 2024-06-17 10:56 | Cardiology Progress Note ---
Date of Service June 17, 2024 Assessment & Plan (1) NSTEMI (non-ST elevated myocardial infarction): Plan: -- 3vessel CABG and prior stent to LCx 2021 Patent JOINER to LAD, mid LCx stent. SVG to diagonal and SVG to PDA occluded 2. Ischemic cardiomyopathyEF 35-40% apical hypokinesis, lateral hypokinesis 3. Type 2 diabetes 4. Anemia/thrombocytopenia 5. Prior AF post surgical MAZE/DEMETRICE occlusion. Chest pain-free this morning. Troponin downtrending Hemodynamically, electrically stable No signs of heart failure on exam. From a cardiac standpoint patient okay for discharge today. Plan on optimizing GDMT for worsened cardiomyopathy, additional antianginal therapy as necessary as an outpatient. Can discontinue heparin today Home on DAPT with aspirin, clopidogrel. Follow-up hemoglobin/platelets as an outpatient Increase Toprol-XL to 50 mg daily, continue losartan. Will consider adding back SGLT2, MRA as an outpatient Continue Lasix 40 mg daily Continue current statin, GLP-1 We discussed cardiac rehab and he is interested in participating. Will arrange as an outpatient. Follow-up with Dr. Tracy in 2 to 3 weeks. Admission and Anticipated Discharge Date Admission Date: June 16, 2024 Subjective Feeling well this morning. States he slept well. No recurrence of chest pain that he had the evening prior to admission. Breathing comfortably. Telemetry reviewedno events, sinus tachycardia Review of Systems Review of Systems: All systems reviewed & are unremarkable except as noted in HPI & below Physical Exam Physical Exam: General: Comfortable HEENT: Sclerae anicteric Lungs: Clear bilaterally, no JVD Cardiac: Regular rate and rhythm, no murmurs. Vascular: Left radial artery access site with no ecchymosis, hematoma. Distal pulse and sensation intact. Abdomen: Soft, nontender Extremities: Well perfused, no peripheral edema Neuro: Nonfocal Psych: Alert orient x3, normal affect and mood Results & Data Vital Signs (Past 12 Hours) Vital Signs Temp Pulse Resp BP Pulse Ox O2 Del Method 06/17/24 10:41 98.1 F 100 H 18 122/72 98 Room Air 06/17/24 07:44 97.2 F L 106 H 18 115/64 97 Room Air 06/17/24 07:15 Room Air 06/17/24 06:12 97.5 F L 103 H 16 117/70 96 Room Air 06/17/24 01:23 98.1 F 103 H 18 115/69 94 Room Air PG Care Time/CCT Total # of Minutes Spent Total Time Spent with Patient: Total time spent is greater than 50% in coordination of care (as documented) at patient's floor/unit and/or counseling patient: Coding Level of Care Code 63894 SUB INP/OBS CARE 3/50MIN Diagnoses NSTEMI (non-ST elevated myocardial infarction) I21.4
[2024-06-17] MEDS: METOPROLOL SUCC 25MG EXT REL TAB PO ONE (13:48)
--- NOTE | 2024-06-17 14:32 | Discharge Summary ---
Discharge Summary Date of Service June 17, 2024 Principal Dx & Hospital Course #1 = Principal Diagnosis (1) NSTEMI (non-ST elevated myocardial infarction): P/w 1 week of intermittent chest burning sensation and TANG. Was admitted at [facility] overnight ad trop went from 100 to 7000 to 9000 here He was started on heparin gtt and had ECHO which showed EF 35-40%, new mid to apical lateral hypokinesis in addition to previous apical hypokinesis Cardiac catheterization showed: 1.Severe multivessel coronary artery disease -100% chronic mid LAD 100% chronic proximal RCA. Faint right to right and [id number] collaterals. Widely patent mid circumflex stent. 60% small distal circumflex after takeoff of OM2 95% ostial D1, 90% mid small medial branch of D1 2. Widely patent JOINER to LAD. 50-60% mid LAD stenosis after anastomosis. 3. Occluded SVG to diagonal, SVG to PDA Cardiology suspects patient's presenting symptoms/troponin elevation related to small branch vessel disease likely involving diagonal (based on echo findings). Also could represent acute on chronic occlusion of vein graft. No acute high risk CAD and diagonal vessel too small for intervention. Recommend medical management of ACS. Started clopidogrel, continue aspirin Started Toprol-XL 50mg daily and losartan 25 mg daily Ideally would restart SGLT2 with ICM-can add this and MRA as outpt COnsider adding antianginals as outpt as well as per Cardiology Will refer to CHF clinic and needs cardiac rehab referral as well Resumed home furosemide and continue current high intensity statin with Crestor 40mg daily F/u with Cardiology as outpt (2) HFrEF (heart failure with reduced ejection fraction): As above, EF 35-40%, cause of his TANG with acute on chronic HFrEF from NSTEMI Meds as above Daily weights, low sodium diet, fluid restriction discussed with pt Of note, he has recently lost a lot of weight with taking Mounjaro Referred to CHF clinic (3) Diabetes: Hemoglobin A1C 7.5 in February 2022, and now down to 5.5% (normal) since weight loss with Mounjaro May be able to stop or reduce Lantus dose as an outpatient-defer to PCP (4) Hypertension: Previously on lisinopril. Unclear why this was discontinued but last picked up in May although he was noted to be off all blood pressure medications at his April cardiology appointment Meds as above started--> losartan, Toprol XL, lasix plan to start aldactone and Jardiance as outpt (5) PAF (paroxysmal atrial fibrillation): Notably previously on amiodarone discontinued earlier this year - presumably due to lack of recurrence following MAZE procedure. Not on anticoagulation due to lack of recurrence. Monitored on telemetry and only had only with ST and NSR here (6) GERD (gastroesophageal reflux disease): continue home PPI (7) Pancytopenia: Noted to have pancytopenia for a few months. CT abd/pel in fairly recent past without signs of cirrhosis or splenomegaly. Anemia is normocytic Peripheral smear checked but pending at time of discharge and needs follow up by PCP Advise further f/u with PCP as outpt to check Fe studies, B12, folate and possible refer to Heme as outpt (8) CAD (coronary artery disease), circle coronary artery: severe, as above Plan VTE prophylaxis - IV heparin Disposition - dc to home Notes For Next Care Provider Needs referral to cardiac rehab Needs f/u with Cardiology May need to reduce or stop lantus Referred to CHF clinic May need Heme referral for pancytopenia Medication Changes From Visit see list below Admission HPI Per Admitting Provider Charly Colbert is a 68 year old male with coronary artery disease who presents as a direct transfer from [facility] due to chest burning sensation. Chest burning for last three weeks intermittently but much worse following his cardiology appointment yesterday and went to [facility]. Associated shortness of breath which has also been getting worse over the same time period. Non exertional. He felt is was more reflux than his heart. Initial troponin I HS 105.1 [reference range 2.5-35.6] @ [22:00 06/15] increased to 6966.1 @ [7:02 06/16]. He was given aspirin 324mg PO in the emergency room, started on IV heparin and was given his normal metoprolol this morning but missed all of his usual medications last night and this morning other than metoprolol this morning. He specifically did not receive any insulin this morning. Due to rising troponin his case was discussed with the on-call hospitalist and the personal financial advisor and recommended transfer for consideration of cardiac catheterization. He is currently chest pain free while lying in bed. He has known coronary artery disease with PCI of the circumflex for STEMI and subsequent three-vessel coronary artery bypass in May 2022. At his cardiology appointment yesterday he was complaining of shortness of breath on exertion and the plan was to further work him up with a [employer]. Discharge Exam Constitutional WD/WN, vitals as above Neck trachea midline, no thyromegaly Respiratory normal respiratory effort, lungs clear to auscultation Cardiovascular RRR, no murmur, no edema Chest (Breasts) Chest: normal inspection of chest Gastrointestinal (Abdomen) normal bowel sounds, soft, nontender, no hepatosplenomegaly Musculoskeletal Extremities: extremities normal to inspection; no cyanosis and no clubbing Skin no rashes, warm and dry Neurologic moves all extremities and awake; no focal motor deficits Psychiatric A+Ox3, euthymic affect Lymphatic no lymphedema Discharge Plan Discharge Items Patient Disposition: Home - Self-Care Reason For Visit: NSTEMI Discharge Diagnosis: Myocardial infarction (heart attack) Congestive heart failure with reduced ejection fraction Pancytopenia (low blood cell counts) Condition on Discharge: Good Activity: As commented below Bathing: No limitations Exercise/Sports: Wait until after follow-up appointment Driving/Machine Use: Resume 3 days after discharge Non-emergency contact: Primary Care Provider and Fire Protection Engineering Technician Call non-emergency contact if: you have any medication questions Follow-up/Referrals: Wilber De Guzman MD [Physician] - (Please follow up with Dr. DeG uzman or Dr. Tracy within 2 weeks) Shelley Tony MD [Physician] - 06/23/24 10:00 am (This is your new primary care doctor with Karina Mary) Diet: Low Sodium (2gm) Fluids: 1500ml (6 cups) Addtl Attending Provider Instructions: You were admitted with chest pains from a heart attack. You had some blockages in the heart but they were too small to be able to place a stent. You also have congestive heart failure and this is likely the cause of your shortness of breath. You were started on some new medication to help improve this. There are some other medications the Fire Protection Engineering Technician would like to add as well in the future. You also will be referred to participate in Cardiac rehabilitation. You should weight yourself each morning and let your doctor know if you have gained more than 2-3 pounds from one day to the next. You have low blood counts-this will need to be further evaluated by your primary care doctor and you may need a referral to a Cheerleading Coach (a blood specialist). Call your Primary Care doctor if any of the following symptoms or problems start or get worse: * Shortness of breath or difficulty breathing * Wake up at night short of breath * Chest pain * Cough * Swelling of your hands, feet, or legs * More fatigued or tired with your normal activity * Palpitations - sudden fast heart beats WEIGHT * Weigh yourself every morning after using the bathroom. * Use the same scale. * Wear the same amount of clothing. * Write your weight down on a chart. * Call your Primary Care doctor if you gain more than 2-3 pounds in 1-2 days. MEDICATIONS * Use this discharge instruction sheet for medication instructions. * Take your medications at the time your doctor ordered. * Do not skip a dose of your medicines. * If you miss a dose of medicine, take it as soon as possible, but DO NOT DOUBLE A DOSE. * Read your medicine information when you get home. * Know all of the side effects of your medicine. If in doubt, ask your pharmacist * Call your Primary Care doctor's office if you have any side effects. * Be sure all of your doctors know what medicine and herbs you take (including cold, flu, and herbal medicine). Take the following with you to your follow-up doctor appointments: * Weight Chart * Medication List * List of questions Do not drink excessive alcohol, beer or wine. ACTIVITY RECOMMENDATIONS: Excess manipulation of the wrist should be avoided for the next 24-48 hours. * No lifting over 2 pounds (approximately a 1/2 gallon of milk) with the utilized arm for 24 hours. * No strenuous activity such as bowling or tennis for 3 days. * Keep the site of the procedure covered with a bandage for 24 hours. *You may shower the day after the procedure. Do not take a tub bath or submerge the puncture site in water for the next 3 days. *Do not operate any motorized equipment for 3 days. SPECIAL CARE INSTRUCTIONS: The site may be slightly bruised and sore following your procedure. Should any of the following occur, contact the Dr. who performed your procedure. 1. Redness/inflammation, swelling, chills, or fever, or colored drainage at procedure site within 3-7 days after your procedure. 2. Coldness, discoloration, ongoing numbness, severe pain, or swelling. Expect mild tingling of hand and tenderness at the puncture site for up to three days. If this persists beyond three days, or other symptoms develop, notify the Dr. who performed your procedure. BLEEDING: If the procedure site on your wrist begins to bleed, do not panic 1. Place 1 or 2 fingers firmly just slightly above the insertion site to stop the bleeding. You may be able to feel your pulse as you hold pressure. 2. Lift your finger after 5 minutes to see if the bleeding has stopped. 3. Once the bleeding has stopped, gently wipe the wrist area clean with a bandage. * If the bleeding from your wrist does not stop after 10 minutes, or if there is a large amount of bleeding or spurting, call 911 (do not drive yourself to the hospital). SKIN IRRITATION: * You may experience some redness and/or swelling in the area where radiation was administered. If any skin irritation occurs, please contact your family physician. FOLLOW UP VISIT: Keep any scheduled doctor appointments. Pending Studies at Discharge: Yes (peripheral smear) Stand-Alone Forms: My [facility] Medications and DC Order Prescriptions: New metoprolol succinate 50 mg Tablet Extended Release 24 Hr 50 mg PO QAM Qty: 30 0RF clopidogrel 75 mg Tablet 75 mg PO QAM Qty: 30 0RF losartan 25 mg Tablet 25 mg PO QAM Qty: 30 0RF Continued aspirin [Ecotrin Low Strength] 81 mg Tablet,Delayed Release (Dr/Ec) 81 mg PO DAILY albuterol sulfate [ProAir HFA] 90 mcg/actuation Hfa Aerosol Inhaler 2 puff INHALATION Q6H PRN (Reason: Wheezing) insulin glargine [Lantus Solostar U-100 Insulin] 100 unit/mL (3 mL) insulin pen 20 unit SUBCUT QAM furosemide 40 mg tablet 40 mg PO QAM pantoprazole 40 mg tablet,delayed release (DR/EC) 40 mg PO DAILY rosuvastatin 40 mg tablet 40 mg PO DAILY Mounjaro 7.5 mg/0.5 mL pen injector 7.5 mg SUBCUT WK Rx Instructions: Saturday Discharge Orders: Discharge Order- CHF (Routine); Ordered 06/17/24 Ordered By: Gladis Valderrama/Other Patient Handouts: 5 Steps for Eating Healthier Admission Data Admit Date/Time: 06/16/24 12:25 Attending Provider: Gladis Lange Admit Provider: Fausto Carbajal Primary Care Provider: Fan Holman Other Providers: Wilber De Guzman; Dena Churchill Hospital Stay Data Consultations 06/16/24 14:02 Consult Cardiology Routine 06/17/24 14:24 [facility]F Program Referral Routine Procedures Performed Operation Date: 06/16/24 14:00 Actual Procedures p Cineradiography w/Routine Exam - Wilber De Guzman MD s Cath, Left w/Cors Vent Grafts - Wilber De Guzman MD Diagnostic Imagining Performed 06/16/24 14:00 CL Cath Imgs for PACS use only Routine Pending Results Patient Have Any Pending Studies at Discharge: Yes (peripheral smear) Discharge Instructions Given to Patient (Per Discharging Provider) You were admitted with chest pains from a heart attack. You had some blockages in the heart but they were too small to be able to place a stent. You also have congestive heart failure and this is likely the cause of your shortness of breath. You were started on some new medication to help improve this. There are some other medications the Fire Protection Engineering Technician would like to add as well in the future. You also will be referred to participate in Cardiac rehabilitation. You should weight yourself each morning and let your doctor know if you have gained more than 2-3 pounds from one day to the next. You have low blood counts-this will need to be further evaluated by your primary care doctor and you may need a referral to a Cheerleading Coach (a blood specialist). Call your Primary Care doctor if any of the following symptoms or problems start or get worse: * Shortness of breath or difficulty breathing * Wake up at night short of breath * Chest pain * Cough * Swelling of your hands, feet, or legs * More fatigued or tired with your normal activity * Palpitations - sudden fast heart beats WEIGHT * Weigh yourself every morning after using the bathroom. * Use the same scale. * Wear the same amount of clothing. * Write your weight down on a chart. * Call your Primary Care doctor if you gain more than 2-3 pounds in 1-2 days. MEDICATIONS * Use this discharge instruction sheet for medication instructions. * Take your medications at the time your doctor ordered. * Do not skip a dose of your medicines. * If you miss a dose of medicine, take it as soon as possible, but DO NOT DOUBLE A DOSE. * Read your medicine information when you get home. * Know all of the side effects of your medicine. If in doubt, ask your pharmacist * Call your Primary Care doctor's office if you have any side effects. * Be sure all of your doctors know what medicine and herbs you take (including cold, flu, and herbal medicine). Take the following with you to your follow-up doctor appointments: * Weight Chart * Medication List * List of questions Do not drink excessive alcohol, beer or wine. ACTIVITY RECOMMENDATIONS: Excess manipulation of the wrist should be avoided for the next 24-48 hours. * No lifting over 2 pounds (approximately a 1/2 gallon of milk) with the utilized arm for 24 hours. * No strenuous activity such as bowling or tennis for 3 days. * Keep the site of the procedure covered with a bandage for 24 hours. *You may shower the day after the procedure. Do not take a tub bath or submerge the puncture site in water for the next 3 days. *Do not operate any motorized equipment for 3 days. SPECIAL CARE INSTRUCTIONS: The site may be slightly bruised and sore following your procedure. Should any of the following occur, contact the Dr. who performed your procedure. 1. Redness/inflammation, swelling, chills, or fever, or colored drainage at procedure site within 3-7 days after your procedure. 2. Coldness, discoloration, ongoing numbness, severe pain, or swelling. Expect mild tingling of hand and tenderness at the puncture site for up to three days. If this persists beyond three days, or other symptoms develop, notify the Dr. who performed your procedure. BLEEDING: If the procedure site on your wrist begins to bleed, do not panic 1. Place 1 or 2 fingers firmly just slightly above the insertion site to stop the bleeding. You may be able to feel your pulse as you hold pressure. 2. Lift your finger after 5 minutes to see if the bleeding has stopped. 3. Once the bleeding has stopped, gently wipe the wrist area clean with a bandage. * If the bleeding from your wrist does not stop after 10 minutes, or if there is a large amount of bleeding or spurting, call 911 (do not drive yourself to the hospital). SKIN IRRITATION: * You may experience some redness and/or swelling in the area where radiation was administered. If any skin irritation occurs, please contact your family physician. FOLLOW UP VISIT: Keep any scheduled doctor appointments. Total Time Total Time Spent Total Time Spent (In Minutes): 40 min Total Time Includes: Examination of the Patient, Discharge Planning and Medication Reconciliation Coding Level of Care Code 84467 INP/OBS DISCH >30 MIN Diagnoses NSTEMI (non-ST elevated myocardial infarction) I21.4 HFrEF (heart failure with reduced ejection fraction) I50.20 Diabetes E11.9 Hypertension I10 PAF (paroxysmal atrial fibrillation) I48.0 GERD (gastroesophageal reflux disease) K21.9 Pancytopenia D61.818 CAD (coronary artery disease), circle coronary artery I25.10
[2024-06-18] MEDS ORDERED: METOPROLOL SUCC 50MG EXT REL TAB PO SCH (09:00)
== END 2024-06-17 17:08 | disposition home or self-care (01) | DRG 281 ==
LOC: SUATTDRO 12:25 → 4W 12:25

== ENCOUNTER 2024-06-27 14:50 | Observation (INO) ==
--- NOTE | 2024-06-27 15:03 | Emergency Department Note ---
Impression & Plan Breathlessness, Tachycardia, Elevated troponin ED Provider Note Provider: Juan Abraham MD DATE OF SERVICE: 06/27/2024 CHIEF COMPLAINT: Shortness of breath, nausea, chest pain HISTORY OF PRESENT ILLNESS: Patient is a 68-year-old gentleman history of CAD with stent and bypass in the past recently hospitalized for cardiac evaluation in addition to cardiomyopathy EF 35%-40%, hypertension, hyperlipidemia, and diabetes presenting here via ambulance today. Patient the onset of chest discomfort but primarily shortness of breath and some nausea. Patient was hospitalized this past week for cardiac evaluation with catheterization with no stents placed. Has been following with the heart failure clinic. Breathing has persisted did not be well since discharge. May be worse last day or so. No syncope or trauma reported. No fever or significant upper respiratory symptoms reported. Nausea but no vomiting. Sweaty at times. Maybe a little bit of diarrhea but no black or bloody stools. Denies true abdominal pain but feels nauseous at times. No significant leg swelling reported. Some mildly productive cough. Did receive 324 mg of aspirin and some Zofran and route with EMS and nausea is improved upon arrival. PAST MEDICAL HISTORY: As noted above MEDICATIONS: Reviewed home medication list on aspirin and Plavix SOCIAL HISTORY: Non-smoker PHYSICAL EXAM: GENERAL: alert and oriented in no acute distress on stretcher Head: normocephalic and atraumatic EYES: No injection, discharge or icterus. NECK: Trachea midline. Supple. ENT: Mucous membranes pink and moist. LUNGS: Airway patent. No retractions but mildly tachypneic. Breath sounds clear with good air entry bilaterally. HEART: Regular rate and rhythm. No chest wall tenderness ABDOMEN: Soft and non-tender, without guarding or rebound. SKIN: Acyanotic, warm, dry, without rashes EXTREMITIES: Without swelling, tenderness or deformity NEUROLOGICAL: No focal deficits. No aphasia. No facial droop or slurred speech. Ambulatory. EK bpm sinus tachycardia. No PVC or PAC noted. Right bundle branch block appreciable. No acute ST segment elevation with inferior lateral T wave inversions a QTc of 555. CONTINUOUS CARDIAC MONITORING: was ordered and showed a heart rate of 100s-130s bpm in sinus tachycardia Patient's laboratory studies and imaging reviewed. Differential includes Reactive airway disease, pneumonia, pneumothorax, COPD, CHF, infections, cardiac ischemia, pulmonary embolism, musculoskeletal, gastrointestinal, as well as other pathologies. IMPRESSION/MEDICAL DECISION MAKING: Reviewed heart failure visit from June 23 as well as discharge summary from June 17 during which time he is hospitalized for an NSTEMI with cardiac catheterization with no high risk occlusive findings noted and medical management recommended. No reported history of valvular disease. Appears to be in a sinus tach but does have a history of paroxysmal atrial fibrillation. Not on anticoagulation as no recurrence after a maze procedure. Scheduled for a CT of the chest this coming week but given his shortness of breath and recent cardiac workup we will obtain a CTA to exclude underlying PE. Basic blood work obtained including troponin. Denies active chest pain upon arrival. Did receive aspirin around and has been on dual antiplatelet therapy. Patient reported bit of nausea but no abdominal pain and benign abdomen on exam. Doubt acute obstruction, perforation, or biliary pathology. Patient does have a mild vagal episode here with some increased nausea and episode of vomiting when oral temperature attempted. Quite sensitive to this and actually temperature was thus utilized. Given additional Zofran. Legs do not appear significantly swollen lower suspicion for DVT. Will expand CT into the abdomen pelvis given his episode of vomiting in addition to his nausea. Blood work here without significant anemia hemoglobin 13.5. Chronic leukopenia white blood cell count 4.1 notable with normal platelet count of 196. No significant electrolyte abnormality noted or signs of acute kidney injury. Sent for CT of the abdomen pelvis and CT angiogram of the chest. CT reports per radiology without signs of pneumonia, pericardial effusion, or PE with a few calcified lymph nodes. CT abdomen pelvis radiology without findings of bowel obstruction or other inflammatory process noted. The vomiting more related to his breathing and a vagal episode with his taking his temperature here. Troponin returns today at 391. Elevated but decreased from recent 10 days ago that was just shy of 1999. Will need to be trended. Negative respiratory viral panel. BNP persistently elevated at 478. Very slight bilirubin AST ALT alkaline phosphatase elevations but not severely so. Not significant tender in the right upper quadrant. Again primary complaint related to his shortness of breath but denying active chest pain at this time. Discussed with the patient options and he is more inclined given these been having ongoing symptoms to stay. Will repeat a troponin. Discussed with the hospitalist team and unsure how much they would be able to add or improve his situation given his chronic cardiac issues. Patient aware of this but still wished to stay tonight. Repeat troponin does trend upward. Likely based on prior cath this is small vessel disease with medical management needs. Hospitalist will evaluate. DIAGNOSIS: tachycardia, SOB, elevated troponin DISPOSITION: Hospitalist will evaluate Patient was agreeable with this plan. Past Med/Surg History Problem List (Updated 06/27/24 @ 19:17 by Juan Abraham M.D.) Elevated troponin (Acute) Tachycardia (Acute) Breathlessness (Acute) Cardiomyopathy HFrEF (heart failure with reduced ejection fraction) CAD (coronary artery disease), [place] coronary artery Pancytopenia Hypomagnesemia NSTEMI (non-ST elevated myocardial infarction) Tachycardia TANG (dyspnea on exertion) GERD (gastroesophageal reflux disease) PAF (paroxysmal atrial fibrillation) (Acute) Atherogenic dyslipidemia Hypokalemia (Acute) Hypertension Chest pain (Acute) Right bundle branch block (Acute) Diabetes (Chronic) Medical History (Updated 06/27/24 @ 19:17 by Juan Abraham M.D.) Cholecystitis with gangrene of gallbladder Pre-operative cardiovascular exam, new EKG abnormalities c/w ischemia Acute cholecystitis Abdominal pain Cholelithiasis Ischemic cardiomyopathy Acute hyperglycemia High blood pressure Diabetes Surgical History (Updated 06/16/24 @ 15:21 by Fausto Carbajal MD) Hx laparoscopic cholecystectomy (05/16/23) Laparoscopic Cholecystectomy - Carli Moe DO History of coronary artery bypass graft Social History Smoking Status: Never smoker Tobacco Type: Cigarettes Second Hand Exposure: No; Do You Dip or Chew Tobacco: No; Hx Alcohol Use: No Hx Substance Use: No Preferred Language: Azeri Communication Ability: Effective Visual Impairment: No Limitations Baker Pie Required: No Beliefs That Will Affect Care: None Current Living Situation: Spouse Feels Safe at Home: Yes Assistive Devices: None Allergies Allergies Allergy/AdvReac Type Severity Reaction Status Date / Time No Known Allergies Allergy Intermediate Verified 06/23/24 10:09 Home Meds Home Medications Medication Instructions Recorded Confirmed albuterol sulfate 90 mcg/actuation 2 puff inhalation Q6H PRN Wheezing 04/26/19 06/27/24 aerosol inhaler (ProAir HFA) aspirin 81 mg tablet,delayed 81 mg PO QAM 04/26/19 06/27/24 release (Ecotrin Low Strength) insulin glargine 100 unit/mL (3 20 unit subcut QAM 05/14/23 06/27/24 mL) subcutaneous pen (Lantus Solostar U-100 Insulin) furosemide 40 mg tablet 40 mg PO QAM 03/22/24 06/27/24 pantoprazole 40 mg tablet,delayed 40 mg PO QPM 03/22/24 06/27/24 release rosuvastatin 40 mg tablet 40 mg PO QAM 03/22/24 06/27/24 tirzepatide 7.5 mg/0.5 mL 7.5 mg subcut WK 03/22/24 06/27/24 subcutaneous pen injector (Emily) empagliflozin 10 mg tablet 10 mg PO QAM 06/27/24 06/27/24 (Jardiance) hydrocodone 5 mg-acetaminophen 325 1 tab PO TID PRN Pain 06/27/24 06/27/24 mg tablet Previous Rx's Medication Instructions Recorded clopidogrel 75 mg tablet 75 mg PO QAM #30 tabs 06/17/24 losartan 25 mg tablet 25 mg PO QAM #30 tabs 06/17/24 metoprolol succinate 100 mg 100 mg PO QAM #30 tabs 06/23/24 tablet,extended release 24 hr Results & Data (ED) Vital Signs Vital Signs - 24 hr 06/27/24 14:50 06/27/24 14:50 06/27/24 15:00 Temperature 37.1 C Temperature Source Axillary Pulse Rate 135 H 133 H Pulse Rate [Left Apical] Respiratory Rate 20 22 Respiratory Effort / Characteristics Non-Labored Respiratory Depth Normal Respiratory Pattern Regular Blood Pressure 144/90 H Blood Pressure [Left Arm] Blood Pressure Mean 108 Blood Pressure Mean [Left Arm] Pulse Oximetry 97 97 98 Oxygen Delivery Method Room Air Room Air Room Air Sepsis Recent Fever Within 48 Hours No Sepsis New/Unexplained Change in Mental Status N/A Sepsis Action Taken by Nursing No Action Required 06/27/24 15:06 06/27/24 15:52 06/27/24 16:00 Temperature Temperature Source Pulse Rate 133 H 131 H Pulse Rate [Left Apical] 128 H Respiratory Rate 17 24 Respiratory Effort / Characteristics Non-Labored Respiratory Depth Normal Respiratory Pattern Regular Blood Pressure 102/72 Blood Pressure [Left Arm] 99/68 L Blood Pressure Mean 82 Blood Pressure Mean [Left Arm] 78 Pulse Oximetry 99 98 Oxygen Delivery Method Room Air Room Air Sepsis Recent Fever Within 48 Hours Sepsis New/Unexplained Change in Mental Status Sepsis Action Taken by Nursing 06/27/24 16:30 06/27/24 16:57 06/27/24 17:06 Temperature Temperature Source Pulse Rate 123 H 124 H 122 H Pulse Rate [Left Apical] Respiratory Rate 19 16 Respiratory Effort / Characteristics Respiratory Depth Respiratory Pattern Blood Pressure Blood Pressure [Left Arm] Blood Pressure Mean Blood Pressure Mean [Left Arm] Pulse Oximetry 97 93 95 Oxygen Delivery Method Room Air Room Air Room Air Sepsis Recent Fever Within 48 Hours Sepsis New/Unexplained Change in Mental Status Sepsis Action Taken by Nursing 06/27/24 17:18 06/27/24 17:21 06/27/24 17:42 Temperature Temperature Source Pulse Rate 119 H 118 H 118 H Pulse Rate [Left Apical] Respiratory Rate 22 23 Respiratory Effort / Characteristics Respiratory Depth Respiratory Pattern Blood Pressure Blood Pressure [Left Arm] Blood Pressure Mean Blood Pressure Mean [Left Arm] Pulse Oximetry 98 98 98 Oxygen Delivery Method Room Air Room Air Room Air Sepsis Recent Fever Within 48 Hours Sepsis New/Unexplained Change in Mental Status Sepsis Action Taken by Nursing 06/27/24 18:00 06/27/24 18:12 06/27/24 18:54 Temperature Temperature Source Pulse Rate 118 H 118 H 116 H Pulse Rate [Left Apical] Respiratory Rate 15 20 Respiratory Effort / Characteristics Respiratory Depth Respiratory Pattern Blood Pressure Blood Pressure [Left Arm] Blood Pressure Mean Blood Pressure Mean [Left Arm] Pulse Oximetry 99 99 Oxygen Delivery Method Room Air Room Air Sepsis Recent Fever Within 48 Hours Sepsis New/Unexplained Change in Mental Status Sepsis Action Taken by Nursing Laboratory Data 06/27/24 15:10 06/27/24 15:10 Lab Results 06/27/24 06/27/24 06/27/24 Range/Units 15:07 15:10 15:16 WBC 4.16 L (4.8-10.8) K/ul RBC 4.77 (4.70-6.10) M/uL Hgb 13.5 L (14.0-18.0) g/dl POC Hgb 13.9 L (14.0-18.0) g/dl Hct 41.6 L (42.0-52.0) % POC Hct 41 L (42-52) % MCV 87.2 (80.0-100.0) fL MCH 28.3 (25.0-34.0) pg MCHC 32.5 (32.0-36.0) g/dL RDW Std Deviation 43.0 (36.4-46.3) fL RDW Coeff of Tati 13.5 (11.5-14.5) % Plt Count 196 (130-400) K/uL MPV 11.3 (9.4-12.4) fL Immature Gran % (Auto) 0.2 % Neut % (Auto) 73.5 % Lymph % (Auto) 19.5 % Ellis % (Auto) 6.3 % Eos % (Auto) 0.0 % Baso % (Auto) 0.5 % Neut # (Auto) 3.06 (1.40-6.50) K/uL Lymph # (Auto) 0.81 L (1.20-3.40) K/uL Ellis # (Auto) 0.26 (0.11-0.59) K/uL Eos # (Auto) 0.00 (0.00-0.50) K/uL Baso # (Auto) 0.02 (0.00-0.20) K/uL Immature Gran # (Auto) 0.01 (0.01-0.20) K/uL PT 11.1 (9.0-12.0) Seconds INR 1.0 (0.9-1.1) APTT 22 (21-31) Seconds PTT Ratio 0.8 POC Sodium 137 (135-144) mmol/L Sodium 137 (136-145) mmol/L POC Potassium 4.1 (3.3-5.0) mmol/L Potassium 4.3 (3.5-5.1) mmol/L POC Chloride 104 (101-112) mmol/L Chloride 99 (98-107) mmol/L Carbon Dioxide 16 L (21-32) mmol/L POC Total CO2 16 L (24-31) mmol/L Anion Gap 22 H (3-11) POC Anion Gap 23.0 (16-25) mmol/L POC BUN 25 H (7-18) mg/dl BUN 26 H (6-23) mg/dl Creatinine 0.69 (0.6-1.4) mg/dl POC Creatinine 0.6 (0.6-1.3) mg/dl Est Cr Clr Drug Dosing 95.8 ml/min eGFR 100.80 BUN/Creatinine Ratio 37.7 H (10-20) Glucose 112 H (70-99(Fasting)) mg/dl POC Glucose (other) 113 H (70-99) mg/dl Calcium 10.1 (8.6-10.3) mg/dl POC Ioniz Calcium Cl 1.17 (1.12-1.32) mmol/l Magnesium 2.0 (1.7-2.4) mg/dl Total Bilirubin 1.5 H (0.2-1.0) mg/dl AST 41 H (13-39) U/L ALT 55 H (7-52) U/L Alkaline Phosphatase 132 H (34-104) U/L Troponin I High Sens 391.1 H* (0-20) pg/ml B-Natriuretic Peptide 478 H (0-100) pg/ml Total Protein 7.9 (6.0-8.3) gm/dl Albumin 4.0 (3.4-5.0) gm/dl Globulin 3.9 (2.5-4.0) gm/dl Albumin/Globulin Ratio 1.0 (0.9-2) Lipase 26 (11-82) U/L Adenovirus (PCR) Not Detected (NotDetected) B. pertussis DNA (PCR) Not Detected (NotDetected) B.parapertussis DNA PCR Not Detected (NotDetected) C. pneumoniae DNA (PCR) Not Detected (NotDetected) Coronavirus OC43 (PCR) Not Detected (NotDetected) Coronavirus HKU1 (PCR) Not Detected (NotDetected) Coronavirus 229E (PCR) Not Detected (NotDetected) SARS-CoV-2 (PCR) Not Detected (NotDetected) Coronavirus NL63 (PCR) Not Detected (NotDetected) Human Metapneumovir PCR Not Detected (NotDetected) Influenza Type A (PCR) Not Detected (NotDetected) Influenza Type B (PCR) Not Detected (NotDetected) M. pneumoniae (PCR) Not Detected (NotDetected) Parainfluenza 1 (PCR) Not Detected (NotDetected) Parainfluenza 2 (PCR) Not Detected (NotDetected) Parainfluenza 3 (PCR) Not Detected (NotDetected) Parainfluenza 4 (PCR) Not Detected (NotDetected) RSV (PCR) Not Detected (NotDetected) Entero/Rhino (PCR) Not Detected (NotDetected) 06/27/24 Range/Units 17:14 WBC (4.8-10.8) K/ul RBC (4.70-6.10) M/uL Hgb (14.0-18.0) g/dl POC Hgb (14.0-18.0) g/dl Hct (42.0-52.0) % POC Hct (42-52) % MCV (80.0-100.0) fL MCH (25.0-34.0) pg MCHC (32.0-36.0) g/dL RDW Std Deviation (36.4-46.3) fL RDW Coeff of Tati (11.5-14.5) % Plt Count (130-400) K/uL MPV (9.4-12.4) fL Immature Gran % (Auto) % Neut % (Auto) % Lymph % (Auto) % Ellis % (Auto) % Eos % (Auto) % Baso % (Auto) % Neut # (Auto) (1.40-6.50) K/uL Lymph # (Auto) (1.20-3.40) K/uL Ellis # (Auto) (0.11-0.59) K/uL Eos # (Auto) (0.00-0.50) K/uL Baso # (Auto) (0.00-0.20) K/uL Immature Gran # (Auto) (0.01-0.20) K/uL PT (9.0-12.0) Seconds INR (0.9-1.1) APTT (21-31) Seconds PTT Ratio POC Sodium (135-144) mmol/L Sodium (136-145) mmol/L POC Potassium (3.3-5.0) mmol/L Potassium (3.5-5.1) mmol/L POC Chloride (101-112) mmol/L Chloride (98-107) mmol/L Carbon Dioxide (21-32) mmol/L POC Total CO2 (24-31) mmol/L Anion Gap (3-11) POC Anion Gap (16-25) mmol/L POC BUN (7-18) mg/dl BUN (6-23) mg/dl Creatinine (0.6-1.4) mg/dl POC Creatinine (0.6-1.3) mg/dl Est Cr Clr Drug Dosing ml/min eGFR BUN/Creatinine Ratio (10-20) Glucose (70-99(Fasting)) mg/dl POC Glucose (other) (70-99) mg/dl Calcium (8.6-10.3) mg/dl POC Ioniz Calcium Cl (1.12-1.32) mmol/l Magnesium (1.7-2.4) mg/dl Total Bilirubin (0.2-1.0) mg/dl AST (13-39) U/L ALT (7-52) U/L Alkaline Phosphatase (34-104) U/L Troponin I High Sens 690.4 H* D (0-20) pg/ml B-Natriuretic Peptide (0-100) pg/ml Total Protein (6.0-8.3) gm/dl Albumin (3.4-5.0) gm/dl Globulin (2.5-4.0) gm/dl Albumin/Globulin Ratio (0.9-2) Lipase (11-82) U/L Adenovirus (PCR) (NotDetected) B. pertussis DNA (PCR) (NotDetected) B.parapertussis DNA PCR (NotDetected) C. pneumoniae DNA (PCR) (NotDetected) Coronavirus OC43 (PCR) (NotDetected) Coronavirus HKU1 (PCR) (NotDetected) Coronavirus 229E (PCR) (NotDetected) SARS-CoV-2 (PCR) (NotDetected) Coronavirus NL63 (PCR) (NotDetected) Human Metapneumovir PCR (NotDetected) Influenza Type A (PCR) (NotDetected) Influenza Type B (PCR) (NotDetected) M. pneumoniae (PCR) (NotDetected) Parainfluenza 1 (PCR) (NotDetected) Parainfluenza 2 (PCR) (NotDetected) Parainfluenza 3 (PCR) (NotDetected) Parainfluenza 4 (PCR) (NotDetected) RSV (PCR) (NotDetected) Entero/Rhino (PCR) (NotDetected) Administered Medications Discontinued Medications Aspirin (Aspirin 81 Mg Ectab) 324 mg PO NOW STA Stop: 06/27/24 18:44 Last Admin: 06/27/24 19:00 Dose: 324 mg Documented By: DINORAH Ioversol (Optiray 320 125ml) 119 ml IV ONCE ONE Stop: 06/27/24 15:35 Last Admin: 06/27/24 15:35 Dose: 119 ml Documented By: TALA Ondansetron HCl (Ondansetron Inj 2 Mg/Ml 2 Ml Vial) Confirm Administered Dose 4 mg .ROUTE .STK-MED ONE Stop: 06/27/24 14:59 Last Admin: 06/27/24 15:05 Dose: Not Given Documented By: DINORAH Ondansetron HCl (Ondansetron Inj 2 Mg/Ml 2 Ml Vial) 4 mg IV NOW STA Stop: 06/27/24 15:04 Last Admin: 06/27/24 15:04 Dose: 4 mg Documented By: DINORAH Imaging Data Radiologist's Impression: Abdomen/Pelvis CT 06/27/24 15:01 CT abd pelvis IV con only CLINICAL HISTORY: nausea/vomiting, SOB TECHNIQUE: Helical axial images of the abdomen and pelvis were obtained and displayed. Automated dose lowering techniques and/or adjustment according to patient size were utilized for this exam. This exam was performed with intravenous contrast. COMPARISON: Comparison is made to CT abdomen pelvis 03/22/2024 FINDINGS: Lower chest: For findings above the diaphragm, please see CT chest performed same day. A few hepatic calcifications are seen. Liver: Unremarkable. No focal lesions are seen. Gallbladder and biliary tree: Patient is status post cholecystectomy. No intra- or extrahepatic biliary ductal dilation. Pancreas: Unremarkable, no focal lesions. Spleen: Calcifications are noted in the spleen compatible with prior granulomatous disease. Adrenals: Unremarkable. Kidneys and ureters: Right renal cyst is seen. Bladder: Unremarkable. Reproductive organs: Unremarkable. Bowel: A hiatal hernia is seen. Lymph nodes Retroperitoneal: Unremarkable. Pelvic: Unremarkable. Mesenteric: Unremarkable. Peritoneum: Normal. Vessels: Atherosclerotic calcifications are seen. Abdominal wall: Unremarkable. Bones: Degenerative changes in the visualized spine. IMPRESSION: No acute abnormalities are seen in particular no evidence of bowel obstruction. ACT 112: Negative or not required by law. Electronically signed by: Nawaf Kelly M.D. 06/27/2024 4:19 PM Chest CTA 06/27/24 15:01 CT angio chest PE protocol CLINICAL HISTORY: Dyspnea, cardiac hx, tachy, nausea/vomiting TECHNIQUE: Multidetector row helical CT of the chest was performed with angiographic protocol. Coronal and sagittal reformations were obtained. Coronal and sagittal MIPS were obtained from the axial data set and were submitted for review. Automated dose lowering techniques and/or adjustment according to patient size were utilized for this exam. CT DOSE: 1576.06 mGy.cm Comparison: Comparison is made to CT chest 03/22/2024 FINDINGS: Lungs and pleura: Scattered calcified granulomata are seen. Heart and pericardium: Heart size is normal. No pericardial effusion. Vessels: No evidence of pulmonary embolism. Mediastinum and quoc: Scattered partially calcified lymph nodes are seen. Chest wall and lower neck: Unremarkable. Abdomen: For findings below the diaphragm, please refer to CT of the abdomen dated the same. Bones: Degenerative changes in the thoracic spine. IMPRESSION: No acute abnormality and in particular no evidence of pulmonary embolus. ACT 112: Negative or not required by law. Electronically signed by: Nawaf Kelly M.D. 06/27/2024 4:01 PM Discharge Plan Visit Data Chief Complaint: Shortness of Breath/Dyspnea Stated Complaint: SOB ED Provider: Juan Abraham Discharge Problem: Breathlessness, Tachycardia, Elevated troponin Patient Disposition: Being Evaluated by Hospitalist Forms Stand Alone Forms: My [facility] Prescriptions Prescriptions: No Action metoprolol succinate 100 mg tablet extended release 24 hr 100 mg PO QAM Qty: 30 2RF aspirin [Ecotrin Low Strength] 81 mg Tablet,Delayed Release (Dr/Ec) 81 mg PO QAM albuterol sulfate [ProAir HFA] 90 mcg/actuation Hfa Aerosol Inhaler 2 puff INHALATION Q6H PRN (Reason: Wheezing) insulin glargine [Lantus Solostar U-100 Insulin] 100 unit/mL (3 mL) insulin pen 20 unit SUBCUT QAM furosemide 40 mg tablet 40 mg PO QAM pantoprazole 40 mg tablet,delayed release (DR/EC) 40 mg PO QPM rosuvastatin 40 mg tablet 40 mg PO QAM Mounjaro 7.5 mg/0.5 mL pen injector 7.5 mg SUBCUT WK Rx Instructions: Saturday hydrocodone-acetaminophen 5-325 mg tablet 1 tab PO TID PRN (Reason: Pain) Jardiance 10 mg tablet 10 mg PO QAM clopidogrel 75 mg Tablet 75 mg PO QAM Qty: 30 0RF losartan 25 mg Tablet 25 mg PO QAM Qty: 30 0RF Referrals Referrals: Fan Holman PA-C [Primary Care Provider] -
[2024-06-27] MEDS: ONDANSETRON INJ 2 MG/ML 2 ML VIAL IV STA (15:04)
[2024-06-27] MEDS: ONDANSETRON INJ 2 MG/ML 2 ML VIAL ONE (15:05)
[2024-06-27 15:29] LABS: iSTAT Creatinine 0.6 mg/dl (0.6-1.3); iSTAT Hemoglobin 13.9 g/dl (14.0-18.0); iSTAT Ionized Calcium 1.17 mmol/l (1.12-1.32); iSTAT Potassium 4.1 mmol/L (3.3-5.0)
[2024-06-27 15:30] LABS: Basophils # (auto) 0.02 K/uL (0.00-0.20); Basophils % (auto) 0.5 %; Hematocrit (blood only) 41.6 % (42.0-52.0); Hemoglobin 13.5 g/dl (14.0-18.0); Immature Granulocytes # (auto) 0.01 K/uL (0.01-0.20); Immature Granulocytes % (auto) 0.2 %; Lymphocytes # (auto) 0.81 K/uL (1.20-3.40); Lymphocytes % (auto) 19.5 %; Mean Corpuscular Hemoglobin 28.3 pg (25.0-34.0); Mean Corpuscular Hgb Conc 32.5 g/dL (32.0-36.0); Mean Corpuscular Volume 87.2 fL (80.0-100.0); Mean Platelet Volume 11.3 fL (9.4-12.4); Monocytes # (auto) 0.26 K/uL (0.11-0.59); Monocytes % (auto) 6.3 %; Neutrophils # (auto) 3.06 K/uL (1.40-6.50); Neutrophils % (auto) 73.5 %; Platelet Count 196 K/uL (130-400); RDW Coefficient of Variation 13.5 % (11.5-14.5); Red Blood Count 4.77 M/uL (4.70-6.10); White Blood Count 4.16 K/ul (4.8-10.8)
[2024-06-27] MEDS: OPTIRAY 320 125ml IV ONE (15:35)
[2024-06-27 15:46] LABS: BUN Creatinine Ratio 37.7 (10-20); Bilirubin,Total 1.5 mg/dl (0.2-1.0); Calcium 10.1 mg/dl (8.6-10.3); Creatinine Clr Calc Pharmacy 95.8 ml/min; Globulin 3.9 gm/dl (2.5-4.0); Potassium 4.3 mmol/L (3.5-5.1); Total Protein 7.9 gm/dl (6.0-8.3)
[2024-06-27 15:57] LABS: Partial Thromboplastin Ratio 0.8; Partial Thromboplastin Time 22 Seconds (21-31); Prothrombin Time 11.1 Seconds (9.0-12.0)
--- NOTE | 2024-06-27 16:03 | CT Scan Report ---
CT angio chest PE protocol CLINICAL HISTORY: Dyspnea, cardiac hx, tachy, nausea/vomiting TECHNIQUE: Multidetector row helical CT of the chest was performed with angiographic protocol. Bernal l and sagittal reformations were obtained. Coronal and sagittal MIPS were obtained from the axial pavel a set and were submitted for review. Automated dose lowering techniques and/or adjustment according to patient size were utilized for this exam. CT DOSE: 1576.06 mGy.cm Comparison: Comparison is made to CT chest 03/22/2024 FINDINGS: Lungs and pleura: Scattered calcified granulomata are seen. Heart and pericardium: Heart size is normal. No pericardial effusion. Vessels: No evidence of pulmonary embolism. Mediastinum and quoc: Scattered partially calcified lymph nodes are seen. Chest wall and lower neck: Unremarkable. Abdomen: For findings below the diaphragm, please refer to CT of the abdomen dated the same. Bones: Degenerative changes in the thoracic spine. IMPRESSION: No acute abnormality and in particular no evidence of pulmonary embolus. ACT 112: Negative or not required by law. Electronically signed by: Nawaf Kelly M.D. 06/27/2024 4:01 PM
[2024-06-27 16:06] LABS: Adenovirus PCR Not Detected (NotDetected); Bordetella parapertussis PCR Not Detected (NotDetected); Bordetella pertussis PCR Not Detected (NotDetected); Chlamydia pneumoniae PCR Not Detected (NotDetected); Coronavirus 229E PCR Not Detected (NotDetected); Coronavirus CoV-2 (COVID19)PCR Not Detected (NotDetected); Coronavirus HKU1 PCR Not Detected (NotDetected); Coronavirus NL63 PCR Not Detected (NotDetected); Coronavirus OC43PCR Not Detected (NotDetected); Human Metapneumovirus PCR Not Detected (NotDetected); Influenza A PCR Not Detected (NotDetected); Influenza B PCR Not Detected (NotDetected); Mycoplasma pneumoniae PCR Not Detected (NotDetected); Parainfluenza Virus 1 PCR Not Detected (NotDetected); Parainfluenza Virus 2 PCR Not Detected (NotDetected); Parainfluenza Virus 3 PCR Not Detected (NotDetected); Parainfluenza Virus 4 PCR Not Detected (NotDetected); Respiratory Syncytial VirusPCR Not Detected (NotDetected); Rhinovirus/Enterovirus PCR Not Detected (NotDetected)
[2024-06-27 16:10] LABS: Troponin I High Sensitivity 391.1 pg/ml (0-20)
--- NOTE | 2024-06-27 16:21 | CT Scan Report ---
CT abd pelvis IV con only CLINICAL HISTORY: nausea/vomiting, SOB TECHNIQUE: Helical axial images of the abdomen and pelvis were obtained and displayed. Automated dose lowering techniques and/or adjustment according to patient size were utilized for this exam. This e xam was performed with intravenous contrast. COMPARISON: Comparison is made to CT abdomen pelvis 03/22/2024 FINDINGS: Lower chest: For findings above the diaphragm, please see CT chest performed same day. A few hepatic calcifications are seen. Liver: Unremarkable. No focal lesions are seen. Gallbladder and biliary tree: Patient is status post cholecystectomy. No intra- or extrahepatic bilia ry ductal dilation. Pancreas: Unremarkable, no focal lesions. Spleen: Calcifications are noted in the spleen compatible with prior granulomatous disease. Adrenals: Unremarkable. Kidneys and ureters: Right renal cyst is seen. Bladder: Unremarkable. Reproductive organs: Unremarkable. Bowel: A hiatal hernia is seen. Lymph nodes Retroperitoneal: Unremarkable. Pelvic: Unremarkable. Mesenteric: Unremarkable. Peritoneum: Normal. Vessels: Atherosclerotic calcifications are seen. Abdominal wall: Unremarkable. Bones: Degenerative changes in the visualized spine. IMPRESSION: No acute abnormalities are seen in particular no evidence of bowel obstruction. ACT 112: Negative or not required by law. Electronically signed by: Nawaf Kelly M.D. 06/27/2024 4:19 PM
[2024-06-27] MEDS ORDERED: GLUCOSE 40% GEL 15 GM TUBE PO PRN (18:43)
[2024-06-27] MEDS ORDERED: GLUCOSE 10 TAB/TUBE PO PRN (18:43)
[2024-06-27] MEDS ORDERED: CARBOHYDRATES FOR HYPOGLYCEMIA PO PRN (18:43)
[2024-06-27] MEDS ORDERED: DEXTROSE 50% 50 ML SYRINGE IV PRN (18:43)
[2024-06-27] MEDS ORDERED: GLUCAGON FOR INJ 1 MG VIAL SQ PRN (18:43)
[2024-06-27] MEDS ORDERED: ACETAMINOPHEN 325 MG TAB PO PRN (18:43)
[2024-06-27] MEDS ORDERED: ONDANSETRON INJ 2 MG/ML 2 ML VIAL IV PRN (18:43)
[2024-06-27] MEDS: ASPIRIN 81 MG ECTAB PO STA (19:00)
--- NOTE | 2024-06-27 19:04 | History & Physical Report ---
Date of Service June 27, 2024 Assessment & Plan (1) NSTEMI (non-ST elevated myocardial infarction): Plan: Assessment: 1. 1 episode of chest pain today with associated shortness of breath chronically over the last couple weeks. Please refer to #2 and #3. 2. Probable acute non-ST elevation myocardial infarction. Troponin doubled in 2 hours. Will reassess her troponin later this evening. Cardiology's been consulted. 324 of aspirin given. Continue aspirin and Plavix/dual antiplatelet therapy chronically. 3. Ischemic cardiomyopathy EF 35%. There is no evidence of acute decompensated systolic congestive heart failure/congestive heart failure with reduced ejection fraction. In fact he appears somewhat hemoconcentrated by lab. He does have dry mucous membranes. I will not give any IV fluids will just hydrate orally. 4. Uncontrolled GERD symptoms. Protonix twice daily. If no improvement should see GI for EGD in the near future. 5. Diabetes mellitus type 2-insulin requiring. Basal bolus insulin regimen has been ordered. A1c in the morning. 6. Hypertension continue home medications. 7. Sinus tachycardia. Monitor. Has been tachycardic on almost all his vital signs over the last several weeks. His metoprolol was just doubled recently. 8. There is a documented history of paroxysmal atrial fibrillation however he is not in A-fib currently and he is not anticoagulated for A-fib? Will defer to cardiology. 9. Chronic systolic congestive heart failure/congestive heart failure with reduced ejection fraction. Plan: Discussed above. Please for to orders for further planning. History of Present Illness Chief Complaint: Chest pain, shortness of breath. Primary Care Provider: Fan Holman This is a 68-year-old male who is a known cardiac patient was just here about 10 days ago with a non-ST elevation myocardial infarction. At which point cardiology was consulted patient underwent percutaneous heart catheterization. Patient has severe multivessel knik coronary artery disease she has 2 saphenous vein grafts are occluded. Multiple other lesions. Please refer to the cath report. Here he presented with chest pain he was had a nonacute EKG with exception of sinus tachycardia rate in the 120s. There were no acute ST-T abnormalities. showed hemoglobin of 13.5 laboratory studies showed hemoglobin 13.5 which is actually up from 10.410 days ago appears somewhat hemoconcentrated white count is mildly suppressed which is chronic platelet count is 1 9610 days ago 96 again appears hemoconcentrated. First troponin [id number]. The patient received some oral hydration. His vital signs were stable he was not tachypneic. He is 97% on room air. Patient underwent a CTA of the chest which was negative for PE or acute findings. Workup with the patient further evaluation and treatment. Second troponin is bumped to 690. We have given full-strength aspirin. We have consulted cardiology Dr. Sheriff. Will continue dual antiplatelet therapy. Will see the patient on consultation. In addition the patient complains of GERD type symptomatology remain flat at night. He is on Protonix daily will increase to twice daily. If this does not improve his symptoms would consider a GI outpatient follow-up for possible EGD. Allergies Allergy/AdvReac Type Severity Reaction Status Date / Time No Known Allergies Allergy Intermediate Verified 06/23/24 10:09 Home Medications Medication Instructions Recorded Confirmed Type albuterol sulfate 90 mcg/actuation 2 puff inhalation Q6H PRN Wheezing 04/26/19 06/27/24 History aerosol inhaler (ProAir HFA) aspirin 81 mg tablet,delayed 81 mg PO QAM 04/26/19 06/27/24 History release (Ecotrin Low Strength) insulin glargine 100 unit/mL (3 20 unit subcut QAM 05/14/23 06/27/24 History mL) subcutaneous pen (Lantus Solostar U-100 Insulin) furosemide 40 mg tablet 40 mg PO QAM 03/22/24 06/27/24 History pantoprazole 40 mg tablet,delayed 40 mg PO QPM 03/22/24 06/27/24 History release rosuvastatin 40 mg tablet 40 mg PO QAM 03/22/24 06/27/24 History tirzepatide 7.5 mg/0.5 mL 7.5 mg subcut WK 03/22/24 06/27/24 History subcutaneous pen injector (Mounjaro) clopidogrel 75 mg tablet 75 mg PO QAM #30 tabs 06/17/24 06/27/24 Rx losartan 25 mg tablet 25 mg PO QAM #30 tabs 06/17/24 06/27/24 Rx metoprolol succinate 100 mg 100 mg PO QAM #30 tabs 06/23/24 06/27/24 Rx tablet,extended release 24 hr empagliflozin 10 mg tablet 10 mg PO QAM 06/27/24 06/27/24 History (Jardiance) hydrocodone 5 mg-acetaminophen 325 1 tab PO TID PRN Pain 06/27/24 06/27/24 History mg tablet Past Med/Surg History Problem List (Updated 06/23/24 @ 10:39 by Dena Churchill PA-C) Cardiomyopathy HFrEF (heart failure with reduced ejection fraction) CAD (coronary artery disease), knik coronary artery Pancytopenia Hypomagnesemia NSTEMI (non-ST elevated myocardial infarction) Tachycardia TANG (dyspnea on exertion) GERD (gastroesophageal reflux disease) PAF (paroxysmal atrial fibrillation) (Acute) Atherogenic dyslipidemia Hypokalemia (Acute) Hypertension Chest pain (Acute) Right bundle branch block (Acute) Diabetes (Chronic) Medical History (Updated 06/23/24 @ 10:39 by Dena Churchill PA-C) Cholecystitis with gangrene of gallbladder Pre-operative cardiovascular exam, new EKG abnormalities c/w ischemia Acute cholecystitis Abdominal pain Cholelithiasis Ischemic cardiomyopathy Acute hyperglycemia High blood pressure Diabetes Surgical History (Updated 06/16/24 @ 15:21 by Fausto Carbajal MD) Hx laparoscopic cholecystectomy (05/16/23) Laparoscopic Cholecystectomy - Carli Moe DO History of coronary artery bypass graft Social History Smoking Status: Never smoker Tobacco Type: Cigarettes Second Hand Exposure: No; Do You Dip or Chew Tobacco: No; Hx Alcohol Use: No Hx Substance Use: No Preferred Language: Mosotho Communication Ability: Effective Visual Impairment: No Limitations Store Sales Manager Required: No Beliefs That Will Affect Care: None Current Living Situation: Spouse Feels Safe at Home: Yes Assistive Devices: None Review of Systems Review of Systems: A 10 point review of system was obtained and unless otherwise stated here or in history of present illness are negative and noncontributory to chief complaint. Physical Exam Physical Exam: In General: In general this is a 68-year-old male is alert and oriented x 3 at the time my exam. He is accompanied by his and his son and grandson at the time of my examination him he grants permission to be in the room at the time my exam. He states that his shortness of breath is no worse over the last couple weeks is just the same. He has exertional dyspnea. The patient denies any chest pain currently whatsoever. HEENT: Normocephalic atraumatic pupils are equal round and reactive to light bilaterally. No scleral icterus no conjunctival injection external auditory canals are patent septum is in the midline nose is without discharge oral mucosa is pink and dry without lesion. NECK: Supple no rigidity no lymphadenopathy no thyromegaly no carotid bruits no JVD no masses. HEART: Regular rate and rhythm I do not appreciate any ectopy or rub. No murmur. Sternotomy scar noted LUNGS: Clear to auscultation bilaterally and anteriorly with no evidence of adventitious sounds/wheezes rales or rhonchi. ABDOMEN: Soft nontender, no rebound, no peritoneal signs, positive bowel sounds, no appreciable organomegaly. EXTREMITIES: Intact, no peripheral cyanosis, clubbing or edema. Strength is 5 out of 5 in extremities x4. NEUROLOGICAL: Cranial nerves II through XII are grossly intact with no focal deficit elicited upon examination. No tremor. Results & Data Results & Data Vital Signs (Past 12 Hours) Vital Signs Temp Pulse Pulse Resp BP BP Pulse Ox 06/27/24 18:12 118 H 20 99 06/27/24 18:00 118 H 15 99 06/27/24 17:42 118 H 23 98 06/27/24 17:21 118 H 22 98 06/27/24 17:18 119 H 98 06/27/24 17:06 122 H 16 95 06/27/24 16:57 124 H 93 06/27/24 16:30 123 H 19 97 06/27/24 16:00 131 H 24 102/72 98 06/27/24 15:52 128 H 17 99/68 L 99 06/27/24 15:06 133 H 06/27/24 15:00 133 H 22 98 06/27/24 14:50 97 06/27/24 14:50 37.1 C 135 H 20 144/90 H 97 O2 Del Method 06/27/24 18:12 Room Air 06/27/24 18:00 Room Air 06/27/24 17:42 Room Air 06/27/24 17:21 Room Air 06/27/24 17:18 Room Air 06/27/24 17:06 Room Air 06/27/24 16:57 Room Air 06/27/24 16:30 Room Air 06/27/24 16:00 Room Air 06/27/24 15:52 Room Air 06/27/24 15:06 06/27/24 15:00 Room Air 06/27/24 14:50 Room Air 06/27/24 14:50 Room Air Code Status & VTE Plan Code Status Full code. Personally discussed with patient today at the bedside VTE Prophylaxis Plan VTE Prophylaxis will be ordered: Yes PG Care Time/CCT Total # of Minutes Spent Total Time Spent with Patient: Total time spent is greater than 50% in coordination of care (as documented) at patient's floor/unit and/or counseling patient: Coding Level of Care Code 95184 INT INP/OBS CARE 3/75MIN Diagnoses NSTEMI (non-ST elevated myocardial infarction) I21.4
[2024-06-27] MEDS ORDERED: ALBUTEROL HFA 8 GM INHALER INH PRN (20:28)
[2024-06-27] MEDS ORDERED: HYDROCODONE/ACETAMOPHEN 5/325MG TAB PO PRN (20:28)
[2024-06-27] MEDS: INSULIN ASPART PER UNIT CHARGE SC SCH (21:06)
[2024-06-27] MEDS: PANTOprazole 40 MG TAB PO SCH (21:18)
[2024-06-28] MEDS: MELATONIN 3 MG TAB PO ONE (00:30)
[2024-06-28 00:47] LABS: Appearance Urine Clear (Clear); Bilirubin Urine Negative (Negative); Blood Urine Negative (Negative); Color Urine Orange; Glucose Urine UA 3+ (Negative); Ketones Urine 3+ (Negative); Leukocyte Esterase Urine Negative (Negative); Nitrite Urine Negative (Negative); Protein Urine Negative (Negative); Specific Gravity Urine > 1.045 (1.000-1.030); Urobilinogen Urine Negative (Negative); pH Urine 5.5 (4.5-7.5)
[2024-06-28] MEDS ORDERED: Heparin IV Adult Wt-Based Standard *NO* INITIAL Bolus Protocol IV STA (00:59)
--- NOTE | 2024-06-28 01:05 | Communication Note ---
Date of Service: June 28, 2024 Notified by nursing of troponin elevation from 690 to 1928. History of NSTEMI and cardiac cath 10 days ago. New EKG obtained, compared to prior EKG in ED- new EKG automatically read as possible acute inferior RI. Patient asymptomatic, endorses some GERD symptoms which went away after receiving his evening PPI. Notified instructional technology director learning program manager, advised to continue to trend troponin and heparin drip was started. Resident Activity Tracking Resident Involvement: Resident Care Provided Care Provided: Adult Hospital Medicine
[2024-06-28] MEDS: HEPARIN SODIUM/DEXTROSE 25,000 UNITS/500 ML BAG IV SCH (02:07)
[2024-06-28 08:18] LABS: Basophils # (auto) 0.02 K/uL (0.00-0.20); Basophils % (auto) 0.5 %; Eosinophils # (auto) 0.03 K/uL (0.00-0.50); Eosinophils % (auto) 0.7 %; Hematocrit (blood only) 34.9 % (42.0-52.0); Hemoglobin 11.7 g/dl (14.0-18.0); Lymphocytes # (auto) 0.99 K/uL (1.20-3.40); Lymphocytes % (auto) 24.3 %; Mean Corpuscular Hemoglobin 28.5 pg (25.0-34.0); Mean Corpuscular Hgb Conc 33.5 g/dL (32.0-36.0); Mean Corpuscular Volume 85.1 fL (80.0-100.0); Mean Platelet Volume 11.1 fL (9.4-12.4); Monocytes # (auto) 0.43 K/uL (0.11-0.59); Monocytes % (auto) 10.6 %; Neutrophils % (auto) 63.9 %; Platelet Count 157 K/uL (130-400); RDW Coefficient of Variation 13.7 % (11.5-14.5); RDW Standard Deviation 42.6 fL (36.4-46.3); White Blood Count 4.07 K/ul (4.8-10.8)
[2024-06-28 08:21] LABS: Estimated Average Glucose 103 mg/dl; Hemoglobin A1C 5.2 % (4.5-5.6)
[2024-06-28] MEDS: ROSUVASTATIN CALCIUM 20 MG TAB PO SCH (08:22)
[2024-06-28] MEDS: EMPAGLIFLOZIN 10 MG TAB PO SCH (08:23)
[2024-06-28] MEDS: CLOPIDOGREL BISULFATE 75 MG TAB PO SCH (08:24)
[2024-06-28] MEDS: ASPIRIN 81 MG ECTAB PO SCH (08:25)
[2024-06-28] MEDS: LANTUS PER UNIT CHARGE SQ SCH (08:27)
[2024-06-28] MEDS: FUROSEMIDE 40 MG TAB PO SCH (08:29)
[2024-06-28] MEDS: LOSARTAN POTASSIUM 25 MG TAB PO SCH (08:30)
[2024-06-28 08:37] LABS: ANTI-Xa, UFH(UnfractionatedHep 0.38 IU/ml (0.3-0.7)
[2024-06-28 08:43] LABS: Alanine Aminotransferase 42 U/L (7-52); Albumin Globulin Ratio 1.2 (0.9-2); Albumin Level 3.6 gm/dl (3.4-5.0); Alkaline Phosphatase 108 U/L (34-104); Anion Gap 13 (3-11); Aspartate Aminotransferase 34 U/L (13-39); BUN Creatinine Ratio 35.8 (10-20); Bilirubin,Total 0.9 mg/dl (0.2-1.0); Blood Urea Nitrogen 24 mg/dl (6-23); Calcium 9.3 mg/dl (8.6-10.3); Carbon Dioxide 21 mmol/L (21-32); Chloride 102 mmol/L (98-107); Chol HDL Ratio 2.5 (0-5); Cholesterol 63 mg/dl (0-200); Creatinine Clr Calc Pharmacy 98.7 ml/min; Globulin 3.1 gm/dl (2.5-4.0); Glucose 118 mg/dl (70-99(Fasting)); HDL Cholesterol 25 mg/dl; LDL Cholesterol Calculated 25 mg/dl; Potassium 3.8 mmol/L (3.5-5.1); Sodium 136 mmol/L (136-145); Total Protein 6.7 gm/dl (6.0-8.3); Triglycerides 63 mg/dl (0-150); Troponin I High Sensitivity 1626.9 pg/ml (0-20); VLDL Cholesterol 13 mg/dl (0-30)
[2024-06-28 08:53] LABS: Thyroid Stimulating Hormone < 0.010 uIu/ml (0.300-4.500)
--- NOTE | 2024-06-28 09:04 | Cardiology Consultation ---
Date of Consultation June 28, 2024 Assessment & Plan (1) NSTEMI (non-ST elevated myocardial infarction): (2) CAD (coronary artery disease), [place] coronary artery: (3) Tachycardia: (4) Hyperthyroidism: (5) Ischemic cardiomyopathy: (6) Hypertension: (7) Dyslipidemia: (8) HFrEF (heart failure with reduced ejection fraction): Plan ASSESSMENT/PLAN: 1. NSTEMI: Angina has resolved. Medical management was recommended for cath that was performed on 06/16/2024. Vein grafts occluded at that time. Will adjust medical therapy. Try to improve upon the sinus tachycardia. Continue metoprolol and can titrate upward, especially given ischemic cardiomyopathy. Will increase metoprolol to 150 mg and monitor blood pressure closely. Continue dual antiplatelet therapy and heparin drip. Heparin drip can be continued for 48 hours. Will consider adding nitrate therapy for recurrent angina. Recommend cardiac rehab. 2. CAD s/p prior CX PCI and then CABG x 3: JOINER is patent to LAD but SVG grafts were occluded on 06/16/2024 cath. Continue aspirin 81 mg daily. Plavix 75 mg daily for 1 year for medical therapy of NSTEMI. Continue high intensity statin therapy. Continue beta-osmani. 3. Ischemic cardiomyopathy: He appears euvolemic. Medical therapy as above. Does not meet criteria for ICD for primary prevention. 4. Chronic heart failure with reduced EF: He appears euvolemic. Continue metoprolol succinate. Continue Jardiance. Recommend Entresto but titrating beta-osmani first given tachycardia in the setting of hyperthyroidism. Would recommend low-dose Entresto tomorrow if tolerated. Recommend mineralocorticoid receptor antagonist prior to discharge. 5. Hyperthyroidism: Likely playing a role in his tachycardia. Recommend appropriate treatment and evaluation but will defer to primary hospitalist service. 6. Hypertension: History of hypertension but here mostly normotensive and occasionally mildly hypotensive. Plan as above. 7. Dyslipidemia: Continue high intensity statin therapy. LDL is well- controlled. 8. Documented paroxysmal atrial fibrillation: Patient has no recollection of ever being diagnosed with A-fib. He is not on long-term anticoagulation therapy. Details not clear. 9. Disposition: On discharge, close follow-up with Dr. Tracy, his primary wool hanker is recommended. Cardiology will continue to follow. Patient care communicated with Dr. Arguelles of the primary hospitalist service. Thank you for allowing me to participate in the care of your patient. Please call for any other questions or concerns. Sincerely, Prince Sheriff M.D. History of Present Illness Reason for Consultation: NSTEMI Requesting Physician: Dr. Juliano Crespo Attending Physician: Lamberto Arguelles History of Present Illness Mr. Colbert is a pleasant 68-year-old gentleman with history significant for CAD s/p Cx PCI and CABG x 3 (JOINER to LAD; occluded SVG to Diag; occluded SVG to RPDA), ischemic cardiomyopathy, type 2 diabetes, hypertension, hypothyroidism, heart failure with reduced EF, and dyslipidemia. His primary wool hanker is Dr. Tracy. He was hospitalized for NSTEMI earlier in June 2024 and underwent cardiac catheterization with Dr. De Guzman. He was found to have occluded SVG to diagonal and occluded SVG to PDA with patent JOINER and medical therapy was recommended. He was hospitalized on 06/27/2024 with chest discomfort and shortness of breath. He has noted some very mild orthopnea and otherwise dyspnea on exertion. He described "heartburn" in the substernal area while laying in bed. He states that the pain was heartburn, not his heart but also stated that it was similar to previous angina/PA. His high-sensitivity troponin was elevated and continued to climb. He received oral hydration in the ER. He underwent CTA of the chest without PE. He has been diagnosed recently with hyperthyroidism. He states that he had some outpatient studies pending on 06/30/2024 at this facility as arranged by his PCP. He does not appear to be on any treatment for his hyperthyroidism. He is concerned that he is losing weight since starting Mounjaro. In his hospital record, there is mention of paroxysmal atrial fibrillation. When discussing this today, he states that he is unaware of ever being diagnosed with atrial fibrillation. He is not chronically on anticoagulation therapy. He has noted some tingling in his right arm and pruritus. He denies melena, hematochezia, hematuria, or other bleeding. He denies palpitations, syncope, near syncope, or edema. He is currently free from chest pain. Review of systems: As above. Family history: Father may have had a myocardial infarction. Social history: He quit smoking in his 20s. He denies alcohol or drug abuse. He lives at home with his girlfriend. He has 3 children. He lives in [place]. His daughter and son-in-law were present at the bedside. Allergies Allergy/AdvReac Type Severity Reaction Status Date / Time No Known Allergies Allergy Intermediate Verified 06/23/24 10:09 Home Medications Medication Instructions Recorded Confirmed Type albuterol sulfate 90 mcg/actuation 2 puff inhalation Q6H PRN Wheezing 04/26/19 06/27/24 History aerosol inhaler (ProAir HFA) aspirin 81 mg tablet,delayed 81 mg PO QAM 04/26/19 06/27/24 History release (Ecotrin Low Strength) insulin glargine 100 unit/mL (3 20 unit subcut QAM 05/14/23 06/27/24 History mL) subcutaneous pen (Lantus Solostar U-100 Insulin) furosemide 40 mg tablet 40 mg PO QAM 03/22/24 06/27/24 History pantoprazole 40 mg tablet,delayed 40 mg PO QPM 03/22/24 06/27/24 History release rosuvastatin 40 mg tablet 40 mg PO QAM 03/22/24 06/27/24 History tirzepatide 7.5 mg/0.5 mL 7.5 mg subcut WK 03/22/24 06/27/24 History subcutaneous pen injector (Carlitounmairaro) clopidogrel 75 mg tablet 75 mg PO QAM #30 tabs 06/17/24 06/27/24 Rx losartan 25 mg tablet 25 mg PO QAM #30 tabs 06/17/24 06/27/24 Rx metoprolol succinate 100 mg 100 mg PO QAM #30 tabs 06/23/24 06/27/24 Rx tablet,extended release 24 hr empagliflozin 10 mg tablet 10 mg PO QAM 06/27/24 06/27/24 History (Jardiance) hydrocodone 5 mg-acetaminophen 325 1 tab PO TID PRN Pain 06/27/24 06/27/24 History mg tablet Problem List (Updated 06/28/24 @ 09:01 by Reinaldo Sheriff MD) Dyslipidemia Hyperthyroidism Elevated troponin (Acute) Tachycardia (Acute) Breathlessness (Acute) Cardiomyopathy HFrEF (heart failure with reduced ejection fraction) CAD (coronary artery disease), [place] coronary artery Pancytopenia Hypomagnesemia NSTEMI (non-ST elevated myocardial infarction) Tachycardia TANG (dyspnea on exertion) GERD (gastroesophageal reflux disease) PAF (paroxysmal atrial fibrillation) (Acute) Atherogenic dyslipidemia Hypokalemia (Acute) Hypertension Chest pain (Acute) Right bundle branch block (Acute) Diabetes (Chronic) Patient History Medical History (Updated 06/28/24 @ 09:01 by Reinaldo Sheriff MD) Cholecystitis with gangrene of gallbladder Pre-operative cardiovascular exam, new EKG abnormalities c/w ischemia Acute cholecystitis Abdominal pain Cholelithiasis Ischemic cardiomyopathy Acute hyperglycemia High blood pressure Diabetes Surgical History (Updated 06/16/24 @ 15:21 by Fausto Carbajal MD) Hx laparoscopic cholecystectomy (05/16/23) Laparoscopic Cholecystectomy - Carli Moe DO History of coronary artery bypass graft Social History Smoking Status: Former smoker Tobacco Type: Cigarettes Cigarettes Per Day: smoked for 40 years; Second Hand Exposure: No; Do You Dip or Chew Tobacco: No; Hx Alcohol Use: No Hx Substance Use: No Preferred Language: Ukrainian Communication Ability: Effective Visual Impairment: No Limitations Photographer Lithographic Required: No Beliefs That Will Affect Care: None Current Living Situation: Spouse Feels Safe at Home: Yes Assistive Devices: None Physical Exam Physical Exam: Gen.: No acute distress. Alert and oriented. HEENT: Anicteric sclera. Neck: No JVD. No hepatojugular reflux. No bruits. Normal carotid upstrokes bilaterally. Cardiac: Regular but tachycardic in the low 100s. Normal S1-S2. No murmurs, rubs, or gallops. Pulmonary: Clear to auscultation bilaterally without wheezes, rales, or rhonchi. Abdomen: Soft, nontender, nondistended, with normoactive bowel sounds. No bruits noted. Extremities: 2+ radial pulses bilaterally. 2+ posterior tibialis pulses bilaterally. Trace bilateral lower extremity edema. No cyanosis. Results & Data Vital Signs (Past 12 Hours) Vital Signs Temp Pulse Pulse Resp BP Pulse Ox O2 Del Method 06/28/24 08:27 97/49 L 06/28/24 02:13 36.6 C 108 H 18 102/60 98 Room Air 06/27/24 23:22 36.5 C 112 H 18 108/67 99 Room Air 06/27/24 21:49 110 H 06/27/24 21:36 36.6 C 114 H 18 110/66 96 Room Air 06/27/24 21:00 Room Air Intake & Output 06/26/24 06/27/24 06/28/24 06/29/24 06:59 06:59 06:59 06:59 Intake Total 465 / 465 120.8 / 120.8 Output Total 300 / 300 Balance 165 / 165 120.8 / 120.8 Weight 153 lb 10.595 oz Laboratory Results Laboratory Results - last 24 hr 06/27/24 06/27/24 06/27/24 15:07 15:10 15:16 WBC 4.16 L RBC 4.77 Hgb 13.5 L POC Hgb 13.9 L Hct 41.6 L POC Hct 41 L MCV 87.2 MCH 28.3 MCHC 32.5 RDW Std Deviation 43.0 RDW Coeff of Tati 13.5 Plt Count 196 MPV 11.3 Immature Gran % (Auto) 0.2 Neut % (Auto) 73.5 Lymph % (Auto) 19.5 Randolph % (Auto) 6.3 Eos % (Auto) 0.0 Baso % (Auto) 0.5 Neut # (Auto) 3.06 Lymph # (Auto) 0.81 L Randolph # (Auto) 0.26 Eos # (Auto) 0.00 Baso # (Auto) 0.02 Immature Gran # (Auto) 0.01 PT 11.1 INR 1.0 APTT 22 PTT Ratio 0.8 Heparin Anti-Xa, Unfract POC Sodium 137 Sodium 137 POC Potassium 4.1 Potassium 4.3 POC Chloride 104 Chloride 99 Carbon Dioxide 16 L POC Total CO2 16 L Anion Gap 22 H POC Anion Gap 23.0 POC BUN 25 H BUN 26 H Creatinine 0.69 POC Creatinine 0.6 Est Cr Clr Drug Dosing 95.8 eGFR 100.80 BUN/Creatinine Ratio 37.7 H Glucose 112 H POC Glucose POC Glucose (other) 113 H Estimat Average Glucose Hemoglobin A1c Calcium 10.1 POC Ioniz Calcium Cl 1.17 Magnesium 2.0 Total Bilirubin 1.5 H AST 41 H ALT 55 H Alkaline Phosphatase 132 H Troponin I High Sens 391.1 H* B-Natriuretic Peptide 478 H Total Protein 7.9 Albumin 4.0 Globulin 3.9 Albumin/Globulin Ratio 1.0 Triglycerides Cholesterol LDL Cholesterol, Calc VLDL Cholesterol, Calc HDL Cholesterol Cholesterol/HDL Ratio Lipase 26 TSH Free T4 Urine Color Urine Appearance Urine pH Ur Specific [place] Urine Protein Urine Glucose (UA) Urine Ketones Urine Blood Urine Nitrite Urine Bilirubin Urine Urobilinogen Ur Leukocyte Esterase Adenovirus (PCR) Not Detected B. pertussis DNA (PCR) Not Detected B.parapertussis DNA PCR Not Detected C. pneumoniae DNA (PCR) Not Detected Coronavirus OC43 (PCR) Not Detected Coronavirus HKU1 (PCR) Not Detected Coronavirus 229E (PCR) Not Detected SARS-CoV-2 (PCR) Not Detected Coronavirus NL63 (PCR) Not Detected Human Metapneumovir PCR Not Detected Influenza Type A (PCR) Not Detected Influenza Type B (PCR) Not Detected M. pneumoniae (PCR) Not Detected Parainfluenza 1 (PCR) Not Detected Parainfluenza 2 (PCR) Not Detected Parainfluenza 3 (PCR) Not Detected Parainfluenza 4 (PCR) Not Detected RSV (PCR) Not Detected Entero/Rhino (PCR) Not Detected 06/27/24 06/27/24 06/27/24 17:14 20:58 22:43 WBC RBC Hgb POC Hgb Hct POC Hct MCV MCH MCHC RDW Std Deviation RDW Coeff of Tati Plt Count MPV Immature Gran % (Auto) Neut % (Auto) Lymph % (Auto) [place] % (Auto) Eos % (Auto) Baso % (Auto) Neut # (Auto) Lymph # (Auto) [place] # (Auto) Eos # (Auto) Baso # (Auto) Immature Gran # (Auto) PT INR APTT PTT Ratio Heparin Anti-Xa, Unfract POC Sodium Sodium POC Potassium Potassium POC Chloride Chloride Carbon Dioxide POC Total CO2 Anion Gap POC Anion Gap POC BUN BUN Creatinine POC Creatinine Est Cr Clr Drug Dosing eGFR BUN/Creatinine Ratio Glucose POC Glucose 118 H POC Glucose (other) Estimat Average Glucose Hemoglobin A1c Calcium POC Ioniz Calcium Cl Magnesium Total Bilirubin AST ALT Alkaline Phosphatase Troponin I High Sens 690.4 H* D 1928.5 H* D B-Natriuretic Peptide Total Protein Albumin Globulin Albumin/Globulin Ratio Triglycerides Cholesterol LDL Cholesterol, Calc VLDL Cholesterol, Calc HDL Cholesterol Cholesterol/HDL Ratio Lipase TSH Free T4 Urine Color Urine Appearance Urine pH Ur Specific [place] Urine Protein Urine Glucose (UA) Urine Ketones Urine Blood Urine Nitrite Urine Bilirubin Urine Urobilinogen Ur Leukocyte Esterase Adenovirus (PCR) B. pertussis DNA (PCR) B.parapertussis DNA PCR C. pneumoniae DNA (PCR) Coronavirus OC43 (PCR) Coronavirus HKU1 (PCR) Coronavirus 229E (PCR) SARS-CoV-2 (PCR) Coronavirus NL63 (PCR) Human Metapneumovir PCR Influenza Type A (PCR) Influenza Type B (PCR) M. pneumoniae (PCR) Parainfluenza 1 (PCR) Parainfluenza 2 (PCR) Parainfluenza 3 (PCR) Parainfluenza 4 (PCR) RSV (PCR) Entero/Rhino (PCR) 06/28/24 06/28/24 06/28/24 00:40 07:29 07:52 WBC 4.07 L RBC 4.10 L Hgb 11.7 L POC Hgb Hct 34.9 L POC Hct MCV 85.1 MCH 28.5 MCHC 33.5 RDW Std Deviation 42.6 RDW Coeff of Tati 13.7 Plt Count 157 MPV 11.1 Immature Gran % (Auto) 0.0 Neut % (Auto) 63.9 Lymph % (Auto) 24.3 Randolph % (Auto) 10.6 Eos % (Auto) 0.7 Baso % (Auto) 0.5 Neut # (Auto) 2.60 Lymph # (Auto) 0.99 L [place] # (Auto) 0.43 Eos # (Auto) 0.03 Baso # (Auto) 0.02 Immature Gran # (Auto) 0.00 L PT INR APTT PTT Ratio Heparin Anti-Xa, Unfract 0.38 POC Sodium Sodium 136 POC Potassium Potassium 3.8 POC Chloride Chloride 102 Carbon Dioxide 21 POC Total CO2 Anion Gap 13 H POC Anion Gap POC BUN BUN 24 H Creatinine 0.67 POC Creatinine Est Cr Clr Drug Dosing 98.7 eGFR 101.70 BUN/Creatinine Ratio 35.8 H Glucose 118 H POC Glucose 114 H POC Glucose (other) Estimat Average Glucose 103 Hemoglobin A1c 5.2 Calcium 9.3 POC Ioniz Calcium Cl Magnesium 2.0 Total Bilirubin 0.9 D AST 34 ALT 42 Alkaline Phosphatase 108 H Troponin I High Sens 1626.9 H* B-Natriuretic Peptide Total Protein 6.7 Albumin 3.6 Globulin 3.1 Albumin/Globulin Ratio 1.2 Triglycerides 63 Cholesterol 63 LDL Cholesterol, Calc 25 VLDL Cholesterol, Calc 13 HDL Cholesterol 25 Cholesterol/HDL Ratio 2.5 Lipase TSH < 0.010 L Free T4 Pending Urine Color [place] Urine Appearance Clear Urine pH 5.5 Ur Specific [place] > 1.045 H Urine Protein Negative Urine Glucose (UA) 3+ H Urine Ketones 3+ H Urine Blood Negative Urine Nitrite Negative Urine Bilirubin Negative Urine Urobilinogen Negative Ur Leukocyte Esterase Negative Adenovirus (PCR) B. pertussis DNA (PCR) B.parapertussis DNA PCR C. pneumoniae DNA (PCR) Coronavirus OC43 (PCR) Coronavirus HKU1 (PCR) Coronavirus 229E (PCR) SARS-CoV-2 (PCR) Coronavirus NL63 (PCR) Human Metapneumovir PCR Influenza Type A (PCR) Influenza Type B (PCR) M. pneumoniae (PCR) Parainfluenza 1 (PCR) Parainfluenza 2 (PCR) Parainfluenza 3 (PCR) Parainfluenza 4 (PCR) RSV (PCR) Entero/Rhino (PCR) Diagnostic Findings Labs reviewed and notable for undetectable TSH, normal renal function, normal potassium, chronic and stable anemia, mild leukopenia, excellent LDL, elevated BNP, elevated high-sensitivity troponin, peaking at 1928. CTA chest 06/27/2024 report reviewed: No acute abnormality. No PE. Calcified lymph nodes may represent prior granulomatous disease per radiology. CT abdomen/pelvis 06/27/2024: No acute abnormalities per radiology. Telemetry personally reviewed: Sinus tachycardia in the low 100s. Cath report reviewed. ECHO 06/28/2024: 1. Normal left ventricular size with moderately reduced systolic function. EF 35-40%. Akinesis of the apex and focal area of the mid anterior wall. Severe hypokinesis to akinesis of the basal to mid inferior wall. Otherwise, mild global hypokinesis. Moderate concentric left ventricular hypertrophy. 2. Normal right ventricular size with mildly reduced systolic function. 3. Mild biatrial dilation. 4. Sclerotic aortic valve without significant stenosis. 5. Normal estimated right ventricular systolic pressure, assuming normal right atrial pressure. 6. Technically difficult study, enhanced with IV Definity. 7. No significant change from prior study on 02/26/2022. Cardiac Cath 06/16/2024: Findings: LM -calcified, normal caliber, no significant disease LAD -heavily calcified, mild-moderate diffuse proximal disease up to 50%, 100% occlusion after D1. Medium bifurcating D1 with 95% ostial stenosis and 90% mid stenosis. No competitive flow in D1. Circumflex - 40% ostial, mid stent widely patent with no significant ISR. Medium OM2 30% proximal. Distal AV groove circumflex with 60% stenosis just after OM2. RCA -dominant, calcified, 100% proximal occlusion. Right to right collaterals to RV, marginal branches. LIMALADwidely patent, 50-60% mid LAD stenosis after anastomosis. Small distal vessel extends to apex. SVGdiagonal occluded SVGRPDA occluded Cath Recommendations: Suspect patient's presenting symptoms/troponin elevation related to small branch vessel disease likely involving diagonal (based on echo findings). Also could represent acute on chronic occlusion of vein graft. No acute high risk CAD and diagonal vessel too small for intervention. Medications Administered Current Inpatient Medications Acetaminophen (Acetaminophen 325 Mg Tab) 650 mg PO Q4H PRN PRN Reason: Pain or Fever Stop: 07/27/24 18:42 Hydrocodone Bitart/Acetaminophen (Hydrocodone/Acetamophen 5/325mg Tab) 1 tab PO TID PRN PRN Reason: Pain Stop: 07/11/24 20:27 Albuterol (Albuterol Hfa 8 Gm Inhaler) 2 puffs INH Q6H PRN PRN Reason: Wheezing Stop: 07/27/24 20:27 Aspirin (Aspirin 81 Mg Ectab) 81 mg PO QAM [facility] Stop: 07/28/24 08:59 Last Admin: 06/28/24 08:25 Dose: 81 mg Clopidogrel Bisulfate (Clopidogrel Bisulfate 75 Mg Tab) 75 mg PO QAM [facility] Stop: 07/28/24 08:59 Last Admin: 06/28/24 08:24 Dose: 75 mg Dextrose (Dextrose 50% 50 Ml Syringe) 25 - 50 ml IV UD PRN; Protocol PRN Reason: Hypoglycemia Protocol Stop: 07/27/24 18:42 Empagliflozin (Empagliflozin 10 Mg Tab) 10 mg PO QAM [facility] Stop: 07/28/24 08:59 Last Admin: 06/28/24 08:23 Dose: 10 mg Furosemide (Furosemide 40 Mg Tab) 40 mg PO QAM [facility] Stop: 07/28/24 08:59 Last Admin: 06/28/24 08:29 Dose: 40 mg Glucagon (Glucagon For Inj 1 Mg Vial) 1 mg SQ UD PRN; Protocol PRN Reason: Hypoglycemia Protocol Stop: 07/27/24 18:42 Glucose (Glucose 40% Gel 15 Gm Tube) 15 - 30 gm PO UD PRN; Protocol PRN Reason: Hypoglycemia Protocol Stop: 07/27/24 18:42 Glucose (Glucose 10 Tab/Tube) 4 - 8 tab PO UD PRN; Protocol PRN Reason: Hypoglycemia Protocol Stop: 07/27/24 18:42 Heparin Sodium/Dextrose (Heparin Sodium/Dextrose) 25,000 units in 500 mls @ 24 mls/hr IV .[id number] [facility]; Protocol Stop: 07/28/24 01:29 Last Titration: 06/28/24 07:09 Dose: 1,200 units/hr, 24 mls/hr Insulin Aspart (Insulin Aspart Per Unit Charge) 0 units SC ACHS [facility] Stop: 07/27/24 20:59 Last Admin: 06/28/24 08:18 Dose: Not Given Insulin Glargine (Lantus Per Unit Charge) 20 units SQ [facility] Stop: 07/28/24 08:59 Last Admin: 06/28/24 08:27 Dose: 20 units Losartan Potassium (Losartan Potassium 25 Mg Tab) 25 mg PO [facility] Stop: 07/28/24 08:59 Last Admin: 06/28/24 08:30 Dose: 25 mg Metoprolol Succinate (Metoprolol Succ 50mg Ext Rel Tab) 100 mg PO [facility] Stop: 07/28/24 08:59 Miscellaneous (Carbohydrates For Hypoglycemia ) 15 - 30 gm PO UD PRN PRN Reason: Hypoglycemia Protocol Stop: 07/27/24 18:42 Ondansetron HCl (Ondansetron Inj 2 Mg/Ml 2 Ml Vial) 4 mg IV Q6H PRN PRN Reason: Nausea Stop: 07/27/24 18:42 Pantoprazole Sodium (Pantoprazole 40 Mg Tab) 40 mg PO BID [facility] Stop: 07/27/24 20:59 Last Admin: 06/28/24 08:22 Dose: 40 mg Rosuvastatin Calcium (Rosuvastatin Calcium 20 Mg Tab) 40 mg PO [facility] Stop: 07/28/24 08:59 Last Admin: 06/28/24 08:22 Dose: 40 mg PG Care Time/CCT Total # of Minutes Spent Total Time Spent with Patient: Total time spent is greater than 50% in coordination of care (as documented) at patient's floor/unit and/or counseling patient: Coding Level of Care Code 39000 INT INP/OBS CARE MIN Diagnoses NSTEMI (non-ST elevated myocardial infarction) I21.4 CAD (coronary artery disease), [place] coronary artery I25.10 Tachycardia R00.0 Hyperthyroidism E05.90 Ischemic cardiomyopathy I25.5 Hypertension I10 Dyslipidemia E78.5 HFrEF (heart failure with reduced ejection fraction) I50.20
[2024-06-28 09:33] LABS: T4 Free Thyroxine > 5.60 ng/dl (0.61-1.60)
[2024-06-28] MEDS: METOPROLOL SUCC 50MG EXT REL TAB PO SCH (10:47)
--- NOTE | 2024-06-28 14:31 | XCELERA ---
[id number]
[2024-06-28] MEDS: propylthiouraciL 50 MG TAB PO SCH (15:33)
[2024-06-28] MEDS: MELATONIN 3 MG TAB PO PRN (21:43)
--- NOTE | 2024-06-28 21:53 | Ultrasound Report ---
ULTRASOUND OF THE THYROID GLAND CLINICAL HISTORY: Hyperthyroidism. COMPARISON STUDY: No priors. TECHNIQUE: Real-time, grayscale, and color flow sonography of the thyroid gland is performed utilizin g a high-frequency linear transducer. Images are reviewed in the transverse and longitudinal planes. FINDINGS: Right lobe: The right lobe of the thyroid gland is normal in size and heterogeneous in echotexture, m easuring 5.2 x 2.3 x 2.0 cm. No hyperemia is shown on color imaging. There are scattered subcentimete r cysts. A honeycomb nodule in the upper pole measures up to 6 mm. Left lobe: The left lobe of the thyroid gland is normal in size and heterogeneous in echotexture, starr suring 5.5 x 2.2 x 2.4 cm. No hyperemia is shown on color imaging. Scattered subcentimeter cysts stephanie ure up to 5 mm. Isthmus: The thyroid isthmus is normal in appearance and measures 0.3 cm in AP diameter. IMPRESSION: The thyroid gland is normal in size and heterogeneous in echotexture. Correlate with seru m thyroid function studies. ACT 112: Negative or not required by law. Electronically signed by: William Orellana M.D. 06/28/2024 9:52 PM
--- NOTE | 2024-06-29 06:46 | Hospitalist Progress Note ---
Date of Service June 28, 2024 Assessment & Plan (1) NSTEMI (non-ST elevated myocardial infarction): Plan: Assessment: 1. 1 episode of chest pain today with associated shortness of breath chronically over the last couple weeks. Please refer to #2 and #3. Likely due to uncontrolled hyperthyroidism. 2. Probable acute non-ST elevation myocardial infarction. Troponin peaked at 1900. continue heparin. Cardiology's been consulted. Continue aspirin and Plavix/dual antiplatelet therapy chronically. 3. Ischemic cardiomyopathy EF 35%. There is no evidence of acute decompensated systolic congestive heart failure/congestive heart failure with reduced ejection fraction. 4. Uncontrolled GERD symptoms. Protonix twice daily. If no improvement should see GI for EGD in the near future. 5. Diabetes mellitus type 2-insulin requiring. Basal bolus insulin regimen has been ordered. A1c: 5.2. 6. Hypertension continue home medications. 7. Sinus tachycardia. Monitor. Has been tachycardic on almost all his vital signs over the last several weeks. His metoprolol was just doubled recently. Now on 150 mg once daily. 8. There is a documented history of paroxysmal atrial fibrillation however he is not in A-fib currently and he is not anticoagulated for A-fib? Will defer to cardiology. 9. Chronic systolic congestive heart failure/congestive heart failure with reduced ejection fraction. 10. Hyperthyroidism: ordered PTU 100 mg PO TID, U/S of thyroid and thyroid antibodies Admission and Anticipated Discharge Date Admission Date: June 27, 2024 Subjective Patient reports feeling well. He has plenty of questions regarding his thyroid. Review of Systems Review of Systems: All systems reviewed & are unremarkable except as noted in HPI & below Physical Exam Physical Exam: In General: In general this is a 68-year-old male is alert and oriented x 3 at the time my exam. HEENT: Normocephalic atraumatic pupils are equal round and reactive to light bilaterally. NECK: Supple no rigidity no lymphadenopathy no thyromegaly no carotid bruits no JVD no masses. HEART: Regular rate and rhythm I do not appreciate any ectopy or rub. No murmur. Sternotomy scar noted LUNGS: Clear to auscultation bilaterally and anteriorly with no evidence of adventitious sounds/wheezes rales or rhonchi. ABDOMEN: Soft nontender, no rebound, no peritoneal signs, positive bowel sounds, no appreciable organomegaly. EXTREMITIES: Intact, no peripheral cyanosis, clubbing or edema. Strength is 5 out of 5 in extremities x4. NEUROLOGICAL: Cranial nerves II through XII are grossly intact with no focal deficit elicited upon examination. No tremor. Results & Data Results & Data Vital Signs (Past 12 Hours) Vital Signs Temp Pulse Pulse Resp BP Pulse Ox Pulse Ox 06/29/24 03:50 36.7 C 101 H 18 105/65 98 06/28/24 22:43 36.8 C 101 H 18 98/58 L 99 06/28/24 22:10 103 H 06/28/24 20:55 36.7 C 102 H 18 92/57 L 99 06/28/24 20:00 98 06/28/24 19:45 O2 Del Method O2 Del Method 06/29/24 03:50 Room Air 06/28/24 22:43 Room Air 06/28/24 22:10 06/28/24 20:55 Room Air 06/28/24 20:00 Room Air 06/28/24 19:45 Room Air PG Care Time/CCT Total # of Minutes Spent Total Time Spent with Patient: Total time spent is greater than 50% in coordination of care (as documented) at patient's floor/unit and/or counseling patient: Coding Level of Care Code 05433 SUB INP/OBS CARE 3/50MIN Diagnoses NSTEMI (non-ST elevated myocardial infarction) I21.4
[2024-06-29 07:12] LABS: ANTI-Xa, UFH(UnfractionatedHep 0.41 IU/ml (0.3-0.7)
[2024-06-29 07:53] LABS: Hematocrit (blood only) 31.9 % (42.0-52.0); Hemoglobin 11.2 g/dl (14.0-18.0); Mean Corpuscular Hemoglobin 29.2 pg (25.0-34.0); Mean Corpuscular Hgb Conc 35.1 g/dL (32.0-36.0); Mean Corpuscular Volume 83.1 fL (80.0-100.0); Mean Platelet Volume 11.7 fL (9.4-12.4); Platelet Count 129 K/uL (130-400); RDW Coefficient of Variation 13.5 % (11.5-14.5); RDW Standard Deviation 40.3 fL (36.4-46.3); Red Blood Count 3.84 M/uL (4.70-6.10); White Blood Count 2.52 K/ul (4.8-10.8)
[2024-06-29 07:57] LABS: BUN Creatinine Ratio 39.7 (10-20); Calcium 9.3 mg/dl (8.6-10.3); Creatinine Clr Calc Pharmacy 97.2 ml/min; Potassium 3.5 mmol/L (3.5-5.1)
[2024-06-29] MEDS: METOPROLOL SUCC 50MG EXT REL TAB PO SCH (08:05)
--- NOTE | 2024-06-29 09:27 | Cardiology Progress Note ---
Date of Service June 29, 2024 Assessment & Plan (1) NSTEMI (non-ST elevated myocardial infarction): (2) CAD (coronary artery disease), [place] coronary artery: (3) Tachycardia: (4) Hyperthyroidism: (5) Ischemic cardiomyopathy: (6) Hypertension: (7) Dyslipidemia: (8) HFrEF (heart failure with reduced ejection fraction): Plan ASSESSMENT/PLAN: 1. NSTEMI: Had burning chest pain which may have represented angina but now today states that the burning chest pain is triggered by food. Medical management was recommended for cath that was performed on 06/16/2024. Vein grafts occluded at that time. Try to improve upon the sinus tachycardia which is also likely due to hyperthyroidism. Toprol all succinate has been titrated. Continue dual antiplatelet therapy and heparin drip. Heparin drip can be continued for 48 hours from onset. Will consider adding nitrate therapy for recurrent angina, but no further chest discomfort. Recommend cardiac rehab. 2. CAD s/p prior CX PCI and then CABG x 3: JOINER is patent to LAD but SVG grafts were occluded on 06/16/2024 cath. Continue aspirin 81 mg daily. Plavix 75 mg daily for 1 year for medical therapy of NSTEMI. Continue high intensity statin therapy. Continue beta-osmani. 3. Ischemic cardiomyopathy: He appears euvolemic. Medical therapy as above. Does not meet criteria for ICD for primary prevention. 4. Chronic heart failure with reduced EF: He appears euvolemic. Continue metoprolol succinate. Continue Jardiance. Placed losartan with Entresto starting tomorrow. Recommend mineralocorticoid receptor antagonist prior to discharge if able. 5. Hyperthyroidism: Likely playing a role in his tachycardia. Recommend appropriate treatment and evaluation but will defer to primary hospitalist service. 6. Hypertension: History of hypertension but here mostly normotensive and occasionally mildly hypotensive. Plan as above. 7. Dyslipidemia: Continue high intensity statin therapy. LDL is well- controlled. 8. Documented paroxysmal atrial fibrillation: Patient has no recollection of ever being diagnosed with A-fib. He is not on long-term anticoagulation therapy. Details not clear. 9. Disposition: On discharge, close follow-up with Dr. 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 Cardiology will continue to follow. Patient care communicated with Dr. Herrera of the primary hospitalist service. Admission and Anticipated Discharge Date Admission Date: June 27, 2024 Subjective Patient was seen earlier today. His was present at the bedside. He states that he has not had any further chest discomfort. The chest discomfort has been a burning sensation, which seems to be triggered by food. He denies dyspnea on exertion while here. He denies orthopnea, syncope, near syncope, palpitations, or edema. Physical Exam Physical Exam: Gen.: No acute distress. Alert and oriented. HEENT: Anicteric sclera. Neck: No JVD. Cardiac: Regular but tachycardic in the low 100s. Normal S1-S2. No murmurs, rubs, or gallops. Pulmonary: Clear to auscultation bilaterally without wheezes, rales, or rhonchi. Abdomen: Soft, nontender, nondistended, with normoactive bowel sounds. No bruits noted. Extremities: 2+ radial pulses bilaterally. 2+ posterior tibialis pulses bilaterally. No significant pitting edema. No cyanosis. Results & Data Vital Signs (Past 12 Hours) Vital Signs Temp Pulse Pulse Resp BP Pulse Ox O2 Del Method 06/29/24 07:37 36.4 C L 101 H 19 93/73 L 96 Room Air 06/29/24 03:50 36.7 C 101 H 18 105/65 98 Room Air 06/28/24 22:43 36.8 C 101 H 18 98/58 L 99 Room Air 06/28/24 22:10 103 H Intake & Output 06/27/24 06/28/24 06/29/24 06/30/24 06:59 06:59 06:59 06:59 Intake Total 465 / 465 1975.0 / 1975.0 1118.4 / 1118.4 Output Total 300 / 300 550 / 550 Balance 165 / 165 1425.0 / 1425.0 1117.4 / 1117.4 Weight 153 lb 10.595 oz Laboratory Results Laboratory Results - last 24 hr 06/28/24 06/28/24 06/28/24 07:52 11:26 16:07 WBC RBC Hgb Hct MCV MCH MCHC RDW Std Deviation RDW Coeff of Tati Plt Count MPV Heparin Anti-Xa, Unfract Sodium Potassium Chloride Carbon Dioxide Anion Gap BUN Creatinine Est Cr Clr Drug Dosing eGFR BUN/Creatinine Ratio Glucose POC Glucose 140 H 137 H Calcium Free T4 > 5.60 H Thyroid Antimicrosomal Thyroglobulin Antibody 06/28/24 06/29/24 06/29/24 20:52 06:02 06:06 WBC 2.52 L RBC 3.84 L Hgb 11.2 L Hct 31.9 L MCV 83.1 MCH 29.2 MCHC 35.1 RDW Std Deviation 40.3 RDW Coeff of Tati 13.5 Plt Count 129 L MPV 11.7 Heparin Anti-Xa, Unfract 0.41 Sodium 138 Potassium 3.5 Chloride 102 Carbon Dioxide 30 Anion Gap 6 BUN 27 H Creatinine 0.68 Est Cr Clr Drug Dosing 97.2 eGFR 101.25 BUN/Creatinine Ratio 39.7 H Glucose 115 H POC Glucose 154 H Calcium 9.3 Free T4 Thyroid Antimicrosomal Pending Thyroglobulin Antibody Pending 06/29/24 07:36 WBC RBC Hgb Hct MCV MCH MCHC RDW Std Deviation RDW Coeff of Tati Plt Count MPV Heparin Anti-Xa, Unfract Sodium Potassium Chloride Carbon Dioxide Anion Gap BUN Creatinine Est Cr Clr Drug Dosing eGFR BUN/Creatinine Ratio Glucose POC Glucose 121 H Calcium Free T4 Thyroid Antimicrosomal Thyroglobulin Antibody Diagnostic Findings Labs reviewed and notable for stable renal function, normal potassium, mild anemia, leukopenia, mild thrombocytopenia Telemetry personally reviewed: Mild sinus tachycardia. No arrhythmia. Medications Administered Current Inpatient Medications Acetaminophen (Acetaminophen 325 Mg Tab) 650 mg PO Q4H PRN PRN Reason: Pain or Fever Stop: 07/27/24 18:42 Hydrocodone Bitart/Acetaminophen (Hydrocodone/Acetamophen 5/325mg Tab) 1 tab PO TID PRN PRN Reason: Pain Stop: 07/11/24 20:27 Albuterol (Albuterol Hfa 8 Gm Inhaler) 2 puffs INH Q6H PRN PRN Reason: Wheezing Stop: 07/27/24 20:27 Aspirin (Aspirin 81 Mg Ectab) [facility] Stop: 07/28/24 08:59 Last Admin: 06/29/24 08:55 Dose: 81 mg Clopidogrel Bisulfate (Clopidogrel Bisulfate 75 Mg Tab) [facility] Stop: 07/28/24 08:59 Last Admin: 06/29/24 08:55 Dose: 75 mg Dextrose (Dextrose 50% 50 Ml Syringe) 25 - 50 ml IV UD PRN; Protocol PRN Reason: Hypoglycemia Protocol Stop: 07/27/24 18:42 Empagliflozin (Empagliflozin 10 Mg Tab) [facility] Stop: 07/28/24 08:59 Last Admin: 06/29/24 08:56 Dose: 10 mg Furosemide (Furosemide 40 Mg Tab) 40 mg PO QAM [facility] Stop: 07/28/24 08:59 Last Admin: 06/29/24 08:56 Dose: 40 mg Glucagon (Glucagon For Inj 1 Mg Vial) 1 mg SQ UD PRN; Protocol PRN Reason: Hypoglycemia Protocol Stop: 07/27/24 18:42 Glucose (Glucose 40% Gel 15 Gm Tube) 15 - 30 gm PO UD PRN; Protocol PRN Reason: Hypoglycemia Protocol Stop: 07/27/24 18:42 Glucose (Glucose 10 Tab/Tube) 4 - 8 tab PO UD PRN; Protocol PRN Reason: Hypoglycemia Protocol Stop: 07/27/24 18:42 Heparin Sodium/Dextrose (Heparin Sodium/Dextrose) 25,000 units in 500 mls @ 24 mls/hr IV .[id number] [facility]; Protocol Stop: 07/28/24 01:29 Last Titration: 06/29/24 07:13 Dose: 1,200 units/hr, 24 mls/hr Insulin Aspart (Insulin Aspart Per Unit Charge) 0 units SC ACHS [facility] Stop: 07/27/24 20:59 Last Admin: 06/29/24 08:55 Dose: 3 units Insulin Glargine (Lantus Per Unit Charge) 20 units SQ QAM [facility] Stop: 07/28/24 08:59 Last Admin: 06/29/24 08:56 Dose: 20 units Losartan Potassium (Losartan Potassium 25 Mg Tab) [address] [facility] Stop: 07/28/24 08:59 Last Admin: 06/29/24 08:56 Dose: 25 mg Melatonin (Melatonin 3 Mg Tab) 6 mg PO HS PRN PRN Reason: Sleep Stop: 07/28/24 21:34 Last Admin: 06/28/24 21:43 Dose: 6 mg Metoprolol Succinate (Metoprolol Succ 50mg Ext Rel Tab) [address] [facility] Stop: 07/29/24 08:59 Last Admin: 06/29/24 08:05 Dose: Not Given Miscellaneous (Carbohydrates For Hypoglycemia ) 15 - 30 gm PO UD PRN PRN Reason: Hypoglycemia Protocol Stop: 07/27/24 18:42 Ondansetron HCl (Ondansetron Inj 2 Mg/Ml 2 Ml Vial) 4 mg IV Q6H PRN PRN Reason: Nausea Stop: 07/27/24 18:42 Pantoprazole Sodium (Pantoprazole 40 Mg Tab) 40 mg PO BID [facility] Stop: 07/27/24 20:59 Last Admin: 06/29/24 08:56 Dose: 40 mg Propylthiouracil (Propylthiouracil 50 Mg Tab) 100 mg PO Q8H [facility] Stop: 07/28/24 14:59 Last Admin: 06/29/24 06:13 Dose: 100 mg Rosuvastatin Calcium (Rosuvastatin Calcium 20 Mg Tab) 40 mg PO QAM [facility] Stop: 07/28/24 08:59 Last Admin: 06/29/24 08:56 Dose: 40 mg PG Care Time/CCT Total # of Minutes Spent Total Time Spent with Patient: Total time spent is greater than 50% in coordination of care (as documented) at patient's floor/unit and/or counseling patient: Coding Level of Care Code 77077 SUB INP/OBS CARE 3/50MIN Diagnoses NSTEMI (non-ST elevated myocardial infarction) I21.4 CAD (coronary artery disease), [place] coronary artery I25.10 Tachycardia R00.0 Hyperthyroidism E05.90 Ischemic cardiomyopathy I25.5 Hypertension I10 Dyslipidemia E78.5 HFrEF (heart failure with reduced ejection fraction) I50.20
--- NOTE | 2024-06-29 11:42 | Hospitalist Progress Note ---
Date of Service June 29, 2024 Assessment & Plan (1) NSTEMI (non-ST elevated myocardial infarction): Plan: peak HS troponin 1928 this admission had NSTEMI during his prior hospital stay as well (06/15 to 06/17) during that stay underwent heart catheterization by Dr Nick De Guzman - Findings: LM -calcified, normal caliber, no significant disease LAD -heavily calcified, mild-moderate diffuse proximal disease up to 50%, 100% occlusion after D1. Medium bifurcating D1 with 95% ostial stenosis and 90% mid stenosis. No competitive flow in D1. Circumflex - 40% ostial, mid stent widely patent with no significant ISR. Medium OM2 30% proximal. Distal AV groove circumflex with 60% stenosis just after OM2. RCA -dominant, calcified, 100% proximal occlusion. Right to right collaterals to RV, marginal branches. LIMALADwidely patent, 50-60% mid LAD stenosis after anastomosis. Small distal vessel extends to apex. SVGdiagonal occluded SVGRPDA occluded for current NSTEMI cont heparin drip x 48 hours (will finish about midnight tonight) no plans for repeat cath appreciate Dr Sheriff's consultation/recs cont aspirin, plavix, jardiance, lasix, increased dose of meto succinate, statin, entresto patient is ambulating around the unit and he reports no ischemic symptoms at this time tele has been wnl as well (2) Hyperthyroidism: Plan: TSH undetectable FT4 high c/w hyperthyroidism thyroid on exam without tenderness ruling out painful thyroiditis (painless thyroiditis not ruled out, however) thyroid u/s findings noted -- enlarged thyroid tissue, heterogeneous no dominant, large nodule tiny cysts noted as well clinical presentation may be 2nd to Graves' Disease send TSH receptor ab in am thyroid globulin ab, etc already dispatched I informally asked Dr Heart from [facility] to review Mr Filemon's case he advises increasing PTU to 200mg TID while hospitalized, continuing beta osmani therapy, then discharging patient on methimazole 15mg BID with f/u in endo clinic 10-14 days post-discharge I discussed the care plan with patient and his late in the day (3) Ischemic cardiomyopathy: Plan: EF 35-40% cont meto succ cont Entresto cont lasix cont jardiance add aldactone if BP will allow compensated on exam today (4) Dyslipidemia: Plan: LDL 25-29 on lipid profiles this month cont statin (5) HFrEF (heart failure with reduced ejection fraction): Plan: EF 35-40% 2nd ischemic cardiomyopathy compensated see discussion above (6) CAD (coronary artery disease), [place] coronary artery: Plan: with prior h/o CABG, 3V with prior h/o stents now with recurrent NSTEMI see above (7) Diabetes: Plan: current a1c 5.2% cont lantus cont novolog at home was taking combination of Mounjaro + Lantus Plan leukopenia, thrombocytopenia - etiology uncertain check B12/folate in am to be complete DVT proph - heparin drip for now updated care d/w Dr Sheriff care d/w via [place] with Dr Heart, [facility] Admission and Anticipated Discharge Date Admission Date: June 27, 2024 Subjective tele - sinus tach patient resting comfortably during the visit feels better today denies dyspnea, dyspnea on exertion, chest pain or tightness, dizziness overall feels well asks numerous questions about care plan at bedside denies family h/o thyroid disease his sister may have been dx with T1DM in her 20s, however Review of Systems Review of Systems: gen - weight loss, 5-10 pounds, over just a few weeks cv - no orthopnea, no PND, no edema pulm - no cough GI - no nausea/emesis/pain neuro - denies tremor endo - some heat/cold intolerance Physical Exam Physical Exam: gen - NAD, looks well, talkative neck - no JVD; no thyroid tenderness; mild goiter; no nodules heart - tachy, s1 s2, no murmur lungs - CTA b/l abd - soft NT ND BS+ ext - no edema, pulses 2+ b/l skin - mildly sweaty; no rash psych - a/o x 3 neuro - no resting tremor; DTRs slightly brisk b/l Results & Data Results & Data Vital Signs (Past 12 Hours) Vital Signs Temp Pulse Resp BP BP Pulse Ox O2 Del Method 06/29/24 11:26 Room Air 06/29/24 10:16 36.6 C 94 H 19 105/59 L 95 Room Air 06/29/24 07:37 36.4 C L 101 H 19 93/73 L 96 Room Air 06/29/24 03:50 36.7 C 101 H 18 105/65 98 Room Air Laboratory Results Laboratory Results - last 24 hr 06/29/24 06/29/24 06/29/24 06:02 06:06 07:36 WBC 2.52 L RBC 3.84 L Hgb 11.2 L Hct 31.9 L MCV 83.1 MCH 29.2 MCHC 35.1 RDW Std Deviation 40.3 RDW Coeff of Tati 13.5 Plt Count 129 L MPV 11.7 Heparin Anti-Xa, Unfract 0.41 Sodium 138 Potassium 3.5 Chloride 102 Carbon Dioxide 30 Anion Gap 6 BUN 27 H Creatinine 0.68 Est Cr Clr Drug Dosing 97.2 eGFR 101.25 BUN/Creatinine Ratio 39.7 H Glucose 115 H POC Glucose 121 H Calcium 9.3 Thyroid Antimicrosomal Pending Thyroglobulin Antibody Pending 06/29/24 06/29/24 06/29/24 11:36 16:32 20:33 WBC RBC Hgb Hct MCV MCH MCHC RDW Std Deviation RDW Coeff of Tati Plt Count MPV Heparin Anti-Xa, Unfract Sodium Potassium Chloride Carbon Dioxide Anion Gap BUN Creatinine Est Cr Clr Drug Dosing eGFR BUN/Creatinine Ratio Glucose POC Glucose 140 H 167 H 125 H Calcium Thyroid Antimicrosomal Thyroglobulin Antibody PG Care Time/CCT Total # of Minutes Spent Total Time Spent with Patient: Total time spent is greater than 50% in coordination of care (as documented) at patient's floor/unit and/or counseling patient: Coding Level of Care Code 30932 SUB INP/OBS CARE 3/50MIN Diagnoses NSTEMI (non-ST elevated myocardial infarction) I21.4 Hyperthyroidism E05.90 Ischemic cardiomyopathy I25.5 Dyslipidemia E78.5 HFrEF (heart failure with reduced ejection fraction) I50.20 CAD (coronary artery disease), [place] coronary artery I25.10 Diabetes E11.9
[2024-06-29] MEDS: propylthiouraciL 50 MG TAB PO SCH (14:24)
[2024-06-29] MEDS: HEPARIN STOP ORDER ONE (23:42)
[2024-06-30 07:13] LABS: Calcium 8.9 mg/dl (8.6-10.3); Potassium 3.3 mmol/L (3.5-5.1)
[2024-06-30 07:18] LABS: BUN Creatinine Ratio 43.4 (10-20); Creatinine Clr Calc Pharmacy 124.7 ml/min
[2024-06-30 07:26] LABS: Folate (Folic Acid),Ser orPlas 9.84 ng/ml (>5.38)
[2024-06-30 07:43] VITALS: TEMP 97.9
[2024-06-30] MEDS: VALSARTAN/SACUBITRIL 26/24MG TAB PO SCH (08:08)
--- NOTE | 2024-06-30 09:31 | Cardiology Progress Note ---
Date of Service June 30, 2024 Assessment & Plan (1) NSTEMI (non-ST elevated myocardial infarction): (2) CAD (coronary artery disease), [place] coronary artery: (3) Tachycardia: (4) Hyperthyroidism: (5) Ischemic cardiomyopathy: (6) Hypertension: (7) Dyslipidemia: (8) HFrEF (heart failure with reduced ejection fraction): Plan ASSESSMENT/PLAN: 1. NSTEMI: Had burning chest pain which may have represented angina but now today states that the burning chest pain is triggered by food. Medical management was recommended for cath that was performed on 06/16/2024. Vein grafts occluded at that time. Try to improve upon the sinus tachycardia which is also likely due to hyperthyroidism. Metoprolol succinate has been titrated. Continue dual antiplatelet therapy. Will consider adding nitrate therapy for recurrent angina, but no further chest discomfort. Recommend cardiac rehab. 2. CAD s/p prior CX PCI and then CABG x 3: JOINER is patent to LAD but SVG grafts were occluded on 06/16/2024 cath. Continue aspirin 81 mg daily. Plavix 75 mg daily for 1 year for medical therapy of NSTEMI. Continue high intensity statin therapy. Continue beta-osmani. 3. Ischemic cardiomyopathy: He appears euvolemic. Medical therapy as above. Does not meet criteria for ICD for primary prevention. 4. Chronic heart failure with reduced EF: He appears euvolemic. Continue metoprolol succinate. Continue Jardiance. Entresto has been started in place of losartan. Start spironolactone 25 mg daily. Follows in heart failure program. 5. Hyperthyroidism: Likely playing a role in his tachycardia. Treatment as per primary hospitalist service. 6. Hypertension: History of hypertension but here mostly normotensive and occasionally mildly hypotensive. Normotensive today. Plan as above. 7. Dyslipidemia: Continue high intensity statin therapy. LDL is well-controlled. 8. Documented paroxysmal atrial fibrillation: Patient has no recollection of ever being diagnosed with A-fib. He is not on long-term anticoagulation therapy. Details not clear. 9. Disposition: Okay for discharge from a cardiology perspective. Has follow- up with his primary medicaid billing clerk, Dr. Tracy, on 07/16/2024 at 9 AM. Keep follow-up with heart failure program on 07/07/2024 at 3 PM. Patient care communicated with Dr. Herrera of the primary hospitalist service. Admission and Anticipated Discharge Date Admission Date: June 27, 2024 Subjective According to records, metoprolol succinate was held yesterday, but given today. Patient seen this morning. His accompanied via speaker phone. He denies chest discomfort, burning, shortness of breath, syncope, near syncope, palpitations, or bleeding. He ambulated in the hallway and tolerated it well. He feels well and would like to be discharged today. Physical Exam Physical Exam: Gen.: No acute distress. Alert and oriented. HEENT: Anicteric sclera. Neck: No JVD. Cardiac: Regular but tachycardic. Normal S1-S2. No murmurs, rubs, or gallops. Pulmonary: Clear to auscultation bilaterally without wheezes, rales, or rhonchi. Abdomen: Soft, nontender, nondistended, with normoactive bowel sounds. No bruits noted. Extremities: 2+ radial pulses bilaterally. 2+ posterior tibialis pulses bilaterally. No pitting edema. No cyanosis. Results & Data Vital Signs (Past 12 Hours) Vital Signs Temp Pulse Pulse Resp BP BP Pulse Ox 06/30/24 07:42 36.6 C 120 H 19 125/85 98 06/30/24 02:51 36.8 C 111 H 18 108/67 96 06/29/24 23:27 36.8 C 117 H 20 113/74 97 06/29/24 21:47 108 H O2 Del Method 06/30/24 07:42 Room Air 06/30/24 02:51 Room Air 06/29/24 23:27 Room Air 06/29/24 21:47 Intake & Output 06/28/24 06/29/24 06/30/24 07/01/24 06:59 06:59 06:59 06:59 Intake Total 465 / 465 1975.0 / 1975.0 1892.0 / 1892.0 Output Total 300 / 300 550 / 550 Balance 165 / 165 1425.0 / 1425.0 1891.0 / 1891.0 Weight 153 lb 10.595 oz 153 lb 14.122 oz Laboratory Results Laboratory Results - last 24 hr 06/29/24 06/29/24 06/29/24 11:36 16:32 20:33 Sodium Potassium Chloride Carbon Dioxide Anion Gap BUN Creatinine Est Cr Clr Drug Dosing eGFR BUN/Creatinine Ratio Glucose POC Glucose 140 H 167 H 125 H Calcium Vitamin B12 Folate TSH Rec Binding Ab 06/30/24 06/30/24 06:15 07:29 Sodium 137 Potassium 3.3 L Chloride 103 Carbon Dioxide 26 Anion Gap 8 BUN 23 Creatinine 0.53 L Est Cr Clr Drug Dosing 124.7 eGFR 109.16 BUN/Creatinine Ratio 43.4 H Glucose 110 H POC Glucose 107 H Calcium 8.9 Vitamin B12 329 Folate 9.84 TSH Rec Binding Ab Pending Diagnostic Findings Labs reviewed and notable for stable renal function, mild hypokalemia. Telemetry personally reviewed: Sinus tachycardia. No arrhythmia. Medications Administered Current Inpatient Medications Acetaminophen (Acetaminophen 325 Mg Tab) 650 mg PO Q4H PRN PRN Reason: Pain or Fever Stop: 07/27/24 18:42 Hydrocodone Bitart/Acetaminophen (Hydrocodone/Acetamophen 5/325mg Tab) 1 tab PO TID PRN PRN Reason: Pain Stop: 07/11/24 20:27 Albuterol (Albuterol Hfa 8 Gm Inhaler) 2 puffs INH Q6H PRN PRN Reason: Wheezing Stop: 07/27/24 20:27 Aspirin (Aspirin 81 Mg Ectab) [facility] [place] Stop: 07/28/24 08:59 Last Admin: 06/30/24 08:10 Dose: 81 mg Clopidogrel Bisulfate (Clopidogrel Bisulfate 75 Mg Tab) 75 [facility] [place] Stop: 07/28/24 08:59 Last Admin: 06/30/24 08:10 Dose: 75 mg Dextrose (Dextrose 50% 50 Ml Syringe) 25 - 50 ml IV UD PRN; Protocol PRN Reason: Hypoglycemia Protocol Stop: 07/27/24 18:42 Empagliflozin (Empagliflozin 10 Mg Tab) 10 mg PO QAM [facility] Stop: 07/28/24 08:59 Last Admin: 06/30/24 08:12 Dose: 10 mg Furosemide (Furosemide 40 Mg Tab) 40 [facility] [place] Stop: 07/28/24 08:59 Last Admin: 06/30/24 08:11 Dose: 40 mg Glucagon (Glucagon For Inj 1 Mg Vial) 1 mg SQ UD PRN; Protocol PRN Reason: Hypoglycemia Protocol Stop: 07/27/24 18:42 Glucose (Glucose 40% Gel 15 Gm Tube) 15 - 30 gm PO UD PRN; Protocol PRN Reason: Hypoglycemia Protocol Stop: 07/27/24 18:42 Glucose (Glucose 10 Tab/Tube) 4 - 8 tab PO UD PRN; Protocol PRN Reason: Hypoglycemia Protocol Stop: 07/27/24 18:42 Insulin Aspart (Insulin Aspart Per Unit Charge) 0 units SC ACHS [facility] Stop: 07/27/24 20:59 Last Admin: 06/30/24 08:20 Dose: 5 units Insulin Glargine (Lantus Per Unit Charge) 20 units SQ QAM [facility] Stop: 07/28/24 08:59 Last Admin: 06/30/24 08:20 Dose: 20 units Melatonin (Melatonin 3 Mg Tab) 6 mg PO HS PRN PRN Reason: Sleep Stop: 07/28/24 21:34 Last Admin: 06/30/24 00:03 Dose: 6 mg Metoprolol Succinate (Metoprolol Succ 50mg Ext Rel Tab) 150 mg PO QAM [facility] Stop: 07/29/24 08:59 Last Admin: 06/30/24 08:10 Dose: 150 mg Miscellaneous (Carbohydrates For Hypoglycemia ) 15 - 30 gm PO UD PRN PRN Reason: Hypoglycemia Protocol Stop: 07/27/24 18:42 Ondansetron HCl (Ondansetron Inj 2 Mg/Ml 2 Ml Vial) 4 mg IV Q6H PRN PRN Reason: Nausea Stop: 07/27/24 18:42 Pantoprazole Sodium (Pantoprazole 40 Mg Tab) 40 mg PO BID [facility] Stop: 07/27/24 20:59 Last Admin: 06/30/24 08:10 Dose: 40 mg Propylthiouracil (Propylthiouracil 50 Mg Tab) 200 mg PO TID [facility] Stop: 07/29/24 13:59 Last Admin: 06/30/24 08:08 Dose: 200 mg Rosuvastatin Calcium (Rosuvastatin Calcium 20 Mg Tab) 40 mg PO QAM [facility] Stop: 07/28/24 08:59 Last Admin: 06/30/24 08:11 Dose: 40 mg Sacubitril/Valsartan (Valsartan/Sacubitril 26/24mg Tab) 1 tab PO BID [facility] Stop: 07/30/24 08:59 Last Admin: 06/30/24 08:08 Dose: 1 tab PG Care Time/CCT Total # of Minutes Spent Total Time Spent with Patient: Total time spent is greater than 50% in coordination of care (as documented) at patient's floor/unit and/or counseling patient: Coding Level of Care Code 76928 SUB INP/OBS CARE MIN Diagnoses NSTEMI (non-ST elevated myocardial infarction) I21.4 CAD (coronary artery disease), [place] coronary artery I25.10 Tachycardia R00.0 Hyperthyroidism E05.90 Ischemic cardiomyopathy I25.5 Hypertension I10 Dyslipidemia E78.5 HFrEF (heart failure with reduced ejection fraction) I50.20
[2024-06-30] MEDS: POTASSIUM CHLORIDE CRTAB 20 MEQ TABCR PO STA (11:06)
[2024-06-30 11:13] VITALS: RESP 18
--- NOTE | 2024-06-30 13:33 | Discharge Summary ---
Discharge Summary Date of Service date of admission - June 27, 2024 date of discharge - June 30, 2024 Principal Dx & Hospital Course #1 = Principal Diagnosis (1) NSTEMI (non-ST elevated myocardial infarction): Patient presented with shortness of breath and chest discomfort. Initial HS troponin 391. This jessi to a peak of 1927. (the final HS troponin from prior hospitalization was 1990) Thus, the troponins and his symptoms were consistent with yet another NSTEMI. He was started on heparin drip and received such for 48 hours. He was seen in consult by Dr Prince Sheriff - [facility]. Since he had already undergone heart catheterization during the prior hospitalization (see below) he was simply managed medically during this stay. He was continued on aspirin, plavix, jardiance, lasix, and statin. His metoprolol succinate dose was increased from 100mg/day to 150mg/day. New medicines initiated -- low-dose Entresto and spironolactone. He did not have any recurrent ischemic symptoms for the remainder of his stay. Finally, he was found to have hyperthyroidism which was felt to be driving some of his cardiac symptoms. See below in #2 re: hyperthyroidism. Of note - Had NSTEMI during his prior hospital stay (06/15/24 to 06/17/24). During that stay underwent heart catheterization by Dr Nick De Guzman - Findings: LM -calcified, normal caliber, no significant disease LAD -heavily calcified, mild-moderate diffuse proximal disease up to 50%, 100% occlusion after D1. Medium bifurcating D1 with 95% ostial stenosis and 90% mid stenosis. No competitive flow in D1. Circumflex - 40% ostial, mid stent widely patent with no significant ISR. Medium OM2 30% proximal. Distal AV groove circumflex with 60% stenosis just after OM2. RCA -dominant, calcified, 100% proximal occlusion. Right to right collaterals to RV, marginal branches. LIMALADwidely patent, 50-60% mid LAD stenosis after anastomosis. Small distal vessel extends to apex. SVGdiagonal occluded SVGRPDA occluded Medical management advised for his severe CAD during that stay. (2) Hyperthyroidism: TSH undetectable (<0.010) FT4 high (>5.6) c/w hyperthyroidism thyroid on exam - enlarged gland present, but without tenderness ruling out painful thyroiditis (painless thyroiditis not ruled out, however) thyroid u/s findings -- enlarged thyroid tissue, heterogeneous no dominant/large nodule seen tiny cysts noted clinical presentation may be 2nd to Graves' Disease could be 2nd to thyroiditis TSH receptor antibody sent/pending at time of discharge thyroid globulin antibody sent/pending thyroid antimicrosomal antibody send/pending I informally asked [facility] to review Mr Colbert's case they advised use of PTU while hospitalized, continuing beta osmani therapy, then discharging patient on methimazole 15mg BID with f/u in endocrinology clinic 10-14 days post-discharge patient indeed has follow-up with [facility] on 07/08/24 for ongoing management (3) Ischemic cardiomyopathy: EF 35-40% cont meto succinate 150mg/day cont lasix 40mg daily cont Jardiance 10mg daily added aldactone 25mg daily added Entresto BID losartan was discontinued was compensated during his hospitalization he will follow-up with [facility] shortly after discharge (4) Dyslipidemia: LDL 25-29 on lipid profiles this month cont statin (5) HFrEF (heart failure with reduced ejection fraction): EF 35-40% 2nd ischemic cardiomyopathy compensated see discussion above (6) CAD (coronary artery disease), [place] coronary artery: with prior h/o CABG, 3V with prior h/o stents now with recurrent NSTEMI see above (7) Diabetes: current Hba1c 5.2% cont lantus 20 units daily cont Jardiance 10mg daily cont Mounjaro 7.5mg qweekly Plan chronic leukopenia, thrombocytopenia - etiology uncertain checked B12 level - 329 checked folic acid - 9.8 WBC count has been low or low-normal for several years; discharge WBC count was 2.5 Platelet count has been low or low-normal for several years; discharge platelet count was 129 Recommend routine CBC surveillance as outpatient Notes For Next Care Provider 1. [facility] cardiology f/u needed 2. [facility] endocrinology f/u needed Medication Changes From Visit 1. add aldactone 25mg daily 2. add Entresto low-dose BID 3. increase meto succ to 150mg/day 4. methimazole 15mg BID 5. nitro SL prn chest pain (new bottle prescribed) Admission HPI Per Admitting Provider This is a 68-year-old male who is a known cardiac patient was just here about 10 days ago with a non-ST elevation myocardial infarction. At which point cardiology was consulted patient underwent percutaneous heart catheterization. Patient has severe multivessel ivan[place] coronary artery disease she has 2 saphenous vein grafts are occluded. Multiple other lesions. Please refer to the cath report. Here he presented with chest pain he was had a nonacute EKG with exception of sinus tachycardia rate in the 120s. There were no acute ST-T abnormalities. showed hemoglobin of 13.5 laboratory studies showed hemoglobin 13.5 which is actually up from 10.410 days ago appears somewhat hemoconcentrated white count is mildly suppressed which is chronic platelet count is 1 9610 days ago 96 again appears hemoconcentrated. First troponin was 391. The patient received some oral hydration. His vital signs were stable he was not tachypneic. He is 97% on room air. Patient underwent a CTA of the chest which was negative for PE or acute findings. Workup with the patient further evaluation and treatment. Second troponin is bumped to 690. We have given full-strength aspirin. We have consulted cardiology Dr. Sheriff. Will continue dual antiplatelet therapy. Will see the patient on consultation. In addition the patient complains of GERD type symptomatology remain flat at night. He is on Protonix daily will increase to twice daily. If this does not improve his symptoms would consider a GI outpatient follow-up for possible EGD. Discharge Exam gen - NAD, looks well neck - no JVD; no thyroid tenderness; mild goiter; no nodules heart - tachy, s1 s2, no murmur lungs - CTA b/l abd - soft NT ND BS+ ext - no edema, pulses 2+ b/l skin - mildly sweaty; no rash psych - a/o x 3 neuro - no resting tremor; DTRs slightly brisk b/l Discharge Plan Discharge Items Patient Disposition: Home - Self-Care Reason For Visit: Shortness of breath Discharge Diagnosis: 1. Mild heart attack 2. Ischemic cardiomyopathy / systolic congestive heart failure 3. Coronary artery disease with prior history of open heart surgery 4. Hyperthyroidism (overactive thyroid gland) 5. Diabetes 6. Recent weight loss due to #4 Activity: As commented below Activity Comment: light activities only; NOTHING STRENUOUS until cleared by cardiology Lifting: No more than 10 pounds Sexual Activity: Wait until after follow-up appointment Exercise/Sports: Wait until after follow-up appointment Driving/Machine Use: No limitations Non-emergency contact: Primary Care Provider, Specialist and Consulting Psychiatrist Call non-emergency contact if: you have any medication questions, your symptoms worsen, your pain is worsening, your pain is unusual for you, your pain is concerning for you and you have a fever Follow-up/Referrals: Piyush Tracy MD, PhD [Physician] - 07/16/24 9:00 am Joseluis Atwood PA-C [Physician Glass Selector] - 07/08/24 12:45 pm (hyperthyroidism follow-up) Dena Churchill PA-C [Physician Glass Selector] - 07/07/24 3:00 pm Fan Holman PA-C [Primary Care Provider] - (1 week ) Diet: Carb Consistent or DM2 and Heart Healthy Fluids: 1800ml (7 cups) Addtl Attending Provider Instructions: Mr Colbert, You were hospitalized after suffering another heart attack. Fortunately this heart attack was mild but [id number] this is the 2nd event you have had in the last 2-3 weeks. We treated your heart attack with blood thinning medicine (heparin), various oral heart medications, and supportive care. Your difficulty breathing and other symptoms improved. You were seen by Dr Prince Sheriff, [facility]. He provided chou recommendations for your cardiac care. He was pleased with your progress during the stay. In addition to the above we discovered a new diagnosis of "hyperthyroidism." (see handouts) Your thyroid gland sits in the front of your neck near your Malachi's apple. With hyperthyroidism the thyroid gland becomes over-active, producing too much thyroid hormone. This then leads to various symptoms including weight loss, tachycardia (fast heart rate), feeling sweaty, and a host of other symptoms. We reviewed your hyperthyroidism diagnosis with [facility]. Medicine to control the hyperthyroidism was started here in the hospital. A thyroid ultrasound was done which showed an enlarged thyroid gland (known as a goiter). Blood work to determine the cause of your hyperthyroidism was sent off. This blood work takes about 7-10 days to return. Recommendations - 1. For your heart disease / congestive heart failure please take the following - * START Entresto 24-26mg, 1 tablet twice daily; first dose start TONIGHT; prescription sent to pharmacy for you * INCREASE your metoprolol succinate from 100mg/day to 150mg/day; start this TOMORROW morning; I sent in a new prescription for you * START spironolactone 25mg once daily; start this TOMORROW morning; prescription sent to pharmacy for you 2. STOP your losartan. 3. For your hyperthyroidism start - * Methimazole 15mg twice daily every day, first dose TONIGHT; prescription sent to pharmacy for you * see handout on this thyroid medicine 4. Check your weight on the same scale every morning. If you gain more than 2- 3 pounds of weight over a 1-2 day period this may indicate fluid retention from your heart disease. If you are gaining weight rapidly please do not delay - call [facility] right away to let them know. 5. Watch your salt intake. See handout. Take in no more than 2000mg (2 grams) of salt over a 24-hour period. 6. I have prescribed a bottle of nitroglycerin for you. The shelf life is ~1 year. This is for emergency purposes only. Keep it with you at all times. This is for chest pain, difficulty breathing, and other heart attack symptoms. If you have to take nitroglycerin please seek medical attention right away. Follow-up - see separate section Return to [facility] if - * you have chest pains * you use nitroglycerin tablets * you have worsening shortness of breath * you have nausea and/or vomiting, especially if associated with other symptoms like chest pain/difficulty breathing * any other concerns It was our pleasure to care for you! -Dr Herrera Addtl Truck Driving Provider Instructions: Call 911 and go to the Emergency Room if: * You have tightness or pain in your chest that does not go away with rest or Nitroglycerin * You are very short of breath even with rest Call your doctor if any of the following symptoms or problems start or get worse: * Shortness of breath or difficulty breathing * Wake up at night short of breath * Chest pain * Cough * Swelling of your hands, fee, or legs * More fatigued or tired with your normal activity * Palpitations - sudden fast heart beats WEIGHT * Weigh yourself every morning after using the bathroom. * Use the same scale. * Wear the same amount of clothing. * Write your weight down on your chart. * Call your doctor if you gain more than 2-3 pounds in 1-2 days. This is typically the first sign of fluid weight gain from heart problems. Do not delay - call your sign erector right away if you see these weight gains. MEDICATIONS * Use this discharge instruction sheet for instructions. * Take your medications at the time your doctor ordered. * Do not skip a dose of your medicines. * If you miss a dose of medicine, take as soon as possible, but DO NOT DOUBLE A DOSE. * Read your medicine information when you get home. * Know all of the side effects of your medicine. * Call your doctor's office if you have any side effects. * Be sure all of your doctors know what medicine and herbs you take (including cold, flu, and herbal medicine). * Pain Medicine: If you do not get relief from your pain, please call your doctor for help. Take the following with you to your follow-up doctor appointments: * Weight Chart * Medication List * List of questions Do not drink excessive alcohol, beer or wine. Pending Studies at Discharge: Yes Studies:: Thyroid blood work Stand-Alone Forms: [facility], Smoking Cessation Medications and DC Order Prescriptions: New spironolactone 25 mg Tablet 25 mg PO QAM Qty: 30 2RF Rx Instructions: for your heart Entresto 24-26 mg Tablet 1 tab PO BID Qty: 60 2RF Rx Instructions: for your heart methimazole 5 mg tablet 15 mg PO BID Qty: 120 0RF nitroglycerin 0.4 mg tablet, sublingual 0.4 mg sublingual Q5M PRN (Reason: chest pain) Qty: 1 0RF Rx Instructions: max 3 doses over 15 minutes. Continued aspirin [Ecotrin Low Strength] 81 mg Tablet,Delayed Release (Dr/Ec) 81 mg PO QAM albuterol sulfate [ProAir HFA] 90 mcg/actuation Hfa Aerosol Inhaler 2 puff INHALATION Q6H PRN (Reason: Wheezing) insulin glargine [Lantus Solostar U-100 Insulin] 100 unit/mL (3 mL) insulin pen 20 unit SUBCUT QAM furosemide 40 mg tablet 40 mg PO QAM pantoprazole 40 mg tablet,delayed release (DR/EC) 40 mg PO QPM rosuvastatin 40 mg tablet 40 mg PO QAM Mounjaro 7.5 mg/0.5 mL pen injector 7.5 mg SUBCUT WK Rx Instructions: Saturday hydrocodone-acetaminophen 5-325 mg tablet 1 tab PO TID PRN (Reason: Pain) Jardiance 10 mg tablet 10 mg PO QAM clopidogrel 75 mg Tablet 75 mg PO QAM Qty: 30 0RF Changed metoprolol succinate 100 mg tablet extended release 24 hr 150 mg PO QAM Qty: 45 2RF Discontinued losartan 25 mg Tablet 25 mg PO QAM Qty: 30 0RF Discharge Orders: Discharge Order (Routine); Ordered 06/30/24 Ordered By: Fausto Valderrama/Other Patient Handouts: Methimazole Oral Tablet, What Is Heart Failure, When You Have Hyperthyroidism, ED Hyperthyroidism, ED Low-Salt Diet Admission Data Admit Date/Time: 06/27/24 18:45 Attending Provider: Fausto Herrera Admit Provider: Juliano Crespo Primary Care Provider: Fan Holman Other Providers: Reinaldo Sheriff; Иван Malloy; Evie Toscano Other Interventions: Discharge Summary Assessment (RN) Last Done: 06/30/24 16:52 Hospital Stay Data Consultations [facility] Procedures Performed Echocardiogram: Diagnostic Imagining Performed Abdomen/Pelvis CT 06/27/24 15:01 CT abd pelvis IV con only CLINICAL HISTORY: nausea/vomiting, SOB TECHNIQUE: Helical axial images of the abdomen and pelvis were obtained and displayed. Automated dose lowering techniques and/or adjustment according to patient size were utilized for this exam. This exam was performed with intravenous contrast. COMPARISON: Comparison is made to CT abdomen pelvis 03/22/2024 FINDINGS: Lower chest: For findings above the diaphragm, please see CT chest performed same day. A few hepatic calcifications are seen. Liver: Unremarkable. No focal lesions are seen. Gallbladder and biliary tree: Patient is status post cholecystectomy. No intra- or extrahepatic biliary ductal dilation. Pancreas: Unremarkable, no focal lesions. Spleen: Calcifications are noted in the spleen compatible with prior granulomatous disease. Adrenals: Unremarkable. Kidneys and ureters: Right renal cyst is seen. Bladder: Unremarkable. Reproductive organs: Unremarkable. Bowel: A hiatal hernia is seen. Lymph nodes Retroperitoneal: Unremarkable. Pelvic: Unremarkable. Mesenteric: Unremarkable. Peritoneum: Normal. Vessels: Atherosclerotic calcifications are seen. Abdominal wall: Unremarkable. Bones: Degenerative changes in the visualized spine. IMPRESSION: No acute abnormalities are seen in particular no evidence of bowel obstruction. ACT 112: Negative or not required by law. Electronically signed by: Nawaf Kelly M.D. 06/27/2024 4:19 PM Chest CTA 06/27/24 15:01 CT angio chest PE protocol CLINICAL HISTORY: Dyspnea, cardiac hx, tachy, nausea/vomiting TECHNIQUE: Multidetector row helical CT of the chest was performed with angiographic protocol. Coronal and sagittal reformations were obtained. Coronal and sagittal MIPS were obtained from the axial data set and were submitted for review. Automated dose lowering techniques and/or adjustment according to patient size were utilized for this exam. CT DOSE: 1576.06 mGy.cm Comparison: Comparison is made to CT chest 03/22/2024 FINDINGS: Lungs and pleura: Scattered calcified granulomata are seen. Heart and pericardium: Heart size is normal. No pericardial effusion. Vessels: No evidence of pulmonary embolism. Mediastinum and quoc: Scattered partially calcified lymph nodes are seen. Chest wall and lower neck: Unremarkable. Abdomen: For findings below the diaphragm, please refer to CT of the abdomen dated the same. Bones: Degenerative changes in the thoracic spine. IMPRESSION: No acute abnormality and in particular no evidence of pulmonary embolus. ACT 112: Negative or not required by law. Electronically signed by: Nawaf Kelly M.D. 06/27/2024 4:01 PM Thyroid Ultrasound 06/28/24 15:04 ULTRASOUND OF THE THYROID GLAND CLINICAL HISTORY: Hyperthyroidism. COMPARISON STUDY: No priors. TECHNIQUE: Real-time, grayscale, and color flow sonography of the thyroid gland is performed utilizing a high-frequency linear transducer. Images are reviewed in the transverse and longitudinal planes. FINDINGS: Right lobe: The right lobe of the thyroid gland is normal in size and heterogeneous in echotexture, measuring 5.2 x 2.3 x 2.0 cm. No hyperemia is shown on color imaging. There are scattered subcentimeter cysts. A honeycomb nodule in the upper pole measures up to 6 mm. Left lobe: The left lobe of the thyroid gland is normal in size and heterogeneous in echotexture, measuring 5.5 x 2.2 x 2.4 cm. No hyperemia is shown on color imaging. Scattered subcentimeter cysts measure up to 5 mm. Isthmus: The thyroid isthmus is normal in appearance and measures 0.3 cm in AP diameter. IMPRESSION: The thyroid gland is normal in size and heterogeneous in echotexture. Correlate with serum thyroid function studies. ACT 112: Negative or not required by law. Electronically signed by: William Orellana M.D. 06/28/2024 9:52 PM Pending Results Patient Have Any Pending Studies at Discharge: Yes Discharge Instructions Given to Patient (Per Discharging Provider) Mr Colbert, You were hospitalized after suffering another heart attack. Fortunately this heart attack was mild but [id number] this is the 2nd event you have had in the last 2-3 weeks. We treated your heart attack with blood thinning medicine (heparin), various oral heart medications, and supportive care. Your difficulty breathing and other symptoms improved. You were [facility] by Dr Prince Sheriff, [facility]. He provided chou recommendations for your cardiac care. He was pleased with your progress during the stay. In addition to the above we discovered a new diagnosis of "hyperthyroidism." (see handouts) Your thyroid gland sits in the front of your neck near your Malachi's apple. With hyperthyroidism the thyroid gland becomes over-active, producing too much thyroid hormone. This then leads to various symptoms including weight loss, tachycardia (fast heart rate), feeling sweaty, and a host of other symptoms. We reviewed your hyperthyroidism diagnosis with [facility]. Medicine to control the hyperthyroidism was started here in the hospital. A thyroid ultrasound was done which showed an enlarged thyroid gland (known as a goiter). Blood work to determine the cause of your hyperthyroidism was sent off. This blood work takes about 7-10 days to return. Recommendations - 1. For your heart disease / congestive heart failure please take the following - * START Entresto 24-26mg, 1 tablet twice daily; first dose start TONIGHT; prescription sent to pharmacy for you * INCREASE your metoprolol succinate from 100mg/day to 150mg/day; start this TOMORROW morning; I sent in a new prescription for you * START spironolactone 25mg once daily; start this TOMORROW morning; prescription sent to pharmacy for you 2. STOP your losartan. 3. For your hyperthyroidism start - * Methimazole 15mg twice daily every day, first dose TONIGHT; prescription sent to pharmacy for you * see handout on this thyroid medicine 4. Check your weight on the same scale every morning. If you gain more than 2- 3 pounds of weight over a 1-2 day period this may indicate fluid retention from your heart disease. If you are gaining weight rapidly please do not delay - call [facility] right away to let them know. 5. Watch your salt intake. See handout. Take in no more than 2000mg (2 grams) of salt over a 24-hour period. 6. I have prescribed a bottle of nitroglycerin for you. The shelf life is ~1 year. This is for emergency purposes only. Keep it with you at all times. This is for chest pain, difficulty breathing, and other heart attack symptoms. If you have to take nitroglycerin please seek medical attention right away. Follow-up - see separate section Return to [facility] if - * you have chest pains * you use nitroglycerin tablets * you have worsening shortness of breath * you have nausea and/or vomiting, especially if associated with other symptoms like chest pain/difficulty breathing * any other concerns It was our pleasure to care for you! -Dr Herrera Total Time Total Time Spent Total Time Spent (In Minutes): 50 Coding Level of Care Code 47291 INP/OBS DISCH >30 MIN Diagnoses NSTEMI (non-ST elevated myocardial infarction) I21.4 Hyperthyroidism E05.90 Ischemic cardiomyopathy I25.5 Dyslipidemia E78.5 HFrEF (heart failure with reduced ejection fraction) I50.20 CAD (coronary artery disease), [place] coronary artery I25.10 Diabetes E11.9
[2024-06-30] MEDS: POTASSIUM CHLORIDE 10 MEQ TABCR PO STA (13:56)
[2024-06-30 14:53] VITALS: PULSE 90; O2SAT 100
[2024-06-30 16:08] LABS: Microsomal Ab <1 IU/mL (<9); Thyroglobulin Antibodies <1 IU/mL (< or = 1)
[2024-06-30 16:54] VITALS: BP 108/67
--- NOTE | 2024-07-01 06:07 | Electrocardiogram Report ---
Test Reason : Blood Pressure : */* mmHG Vent. Rate : 135 BPM Atrial Rate : 135 BPM P-R Int : 112 ms QRS Dur : 150 ms QT Int : 352 ms P-R-T Axes : * 96 12 degrees QTcB Int : 528 ms Sinus tachycardia Right bundle branch block Possible Inferior infarct (cited on or before 25-Feb-2022) Cannot rule out Anteroseptal infarct (cited on or before 14-May-2023) Prolonged QT Abnormal ECG When compared with ECG of 15-Jun-2024 08:54, QRS duration has increased Questionable change in initial forces of Septal leads Confirmed by Reinaldo Sheriff ([id number]) on 07/01/2024 6:06:54 AM Referred By: REFERRED SELF Confirmed By: Reinaldo Sheriff
[2024-07-01] MEDS ORDERED: SPIRONOLACTONE 25 MG TAB PO SCH (09:00)
--- NOTE | 2024-07-01 22:31 | Electrocardiogram Report ---
Test Reason : Blood Pressure : */* mmHG Vent. Rate : 115 BPM Atrial Rate : 115 BPM P-R Int : 160 ms QRS Dur : 168 ms QT Int : 408 ms P-R-T Axes : 41 91 -1 degrees QTcB Int : 564 ms Sinus tachycardia with frequent Premature ventricular complexes Right bundle branch block Abnormal ECG When compared with ECG of 27-Jun-2024 14:55, Premature ventricular complexes are now Present Confirmed by Reinaldo Sheriff ([id number]) on 07/01/2024 10:31:07 PM Referred By: REFERRED SELF Confirmed By: Reinaldo Sheriff
--- NOTE | 2024-07-01 22:43 | Electrocardiogram Report ---
Test Reason : Blood Pressure : */* mmHG Vent. Rate : 105 BPM Atrial Rate : 105 BPM P-R Int : 160 ms QRS Dur : 172 ms QT Int : 408 ms P-R-T Axes : 51 91 -2 degrees QTcB Int : 539 ms Sinus tachycardia with occasional Premature ventricular complexes Right bundle branch block Possible Inferior infarct (cited on or before 25-Feb-2022) Possible Anteroseptal infarct (cited on or before 14-May-2023) Abnormal ECG When compared with ECG of 28-Jun-2024 00:10, Questionable change in initial forces of Anteroseptal leads Confirmed by Reinaldo Sheriff ([id number]) on 07/01/2024 10:42:44 PM Referred By: REFERRED SELF Confirmed By: Reinaldo Sheriff
== END 2024-06-30 17:48 | disposition home or self-care (01) | DRG 281 ==
LOC: ED 14:50 → 2E 18:45 → SUATTDRO 18:45 → INTOOBSV 18:45 → 2E 20:27